=== PATIENT | male | born 1945 | race Caucasian/White ===

== ENCOUNTER 2020-12-03 09:38 | Outpatient (REF) | payer MEDICARE, MEDICAID, SELFPAY ==
--- NOTE | ~2020-12-03 | XR_ITS ---
EXAMINATION: RIGHT ANKLE AND RIGHT FOOT. CLINICAL INFORMATION: Pain right ankle and right foot. COMPARISON: None TECHNIQUE: Right foot 3 views. Right ankle 2 views. FINDINGS: Right ankle: There is no visible fracture, dislocation or subluxation. The ankle mortise and subtalar joints are normal. There is a small calcaneal heel and moderate retrocalcaneal enthesophyte. The soft tissues are normal. Right foot: There is no visible acute fracture, dislocation or subluxation. There is mild periarticular spurring involving the cuboid and proximal fourth metatarsal The soft tissues are normal. XR/XR foot RT min 3V IMPRESSION: No visible acute fracture, dislocation or subluxation right foot or right ankle. Mild degenerative arthritic changes fourth tarsometatarsal joint. Moderate retrocalcaneal small calcaneal heel enthesophyte.
--- NOTE | ~2020-12-03 | XR_ITS ---
EXAMINATION: RIGHT ANKLE AND RIGHT FOOT. CLINICAL INFORMATION: Pain right ankle and right foot. COMPARISON: None TECHNIQUE: Right foot 3 views. Right ankle 2 views. FINDINGS: Right ankle: There is no visible fracture, dislocation or subluxation. The ankle mortise and subtalar joints are normal. There is a small calcaneal heel and moderate retrocalcaneal enthesophyte. The soft tissues are normal. Right foot: There is no visible acute fracture, dislocation or subluxation. There is mild periarticular spurring involving the cuboid and proximal fourth metatarsal The soft tissues are normal. XR/XR ankle RT min 3V IMPRESSION: No visible acute fracture, dislocation or subluxation right foot or right ankle. Mild degenerative arthritic changes fourth tarsometatarsal joint. Moderate retrocalcaneal small calcaneal heel enthesophyte.
--- NOTE | ~2020-12-03 | XR_ITS ---
EXAMINATION: XR CHEST CLINICAL INFORMATION: Abnormal weight loss COMPARISON: Previous chest x-ray most recent March [address] June 2019 TECHNIQUE: 2 views of the chest were obtained. FINDINGS: The cardiac and mediastinal contours are stable. There is mild left apical pleural thickening. The lungs are clear. There is no pleural effusion or pneumothorax. Bony structures are unremarkable. XR/XR chest 2V IMPRESSION: No evidence for acute disease in the chest.
== END 2020-12-03 09:39 | disposition home or self-care (01) ==
LOC: HO.LAB 09:38
PROVIDERS: Visit Provider Emergency Medicine
DX: M25.571 Pain in right ankle and joints of right foot (principal); M79.671 Pain in right foot; R63.4 Abnormal weight loss
CPT/HCPCS: 71046; 73610; 73630

== ENCOUNTER → 2020-12-23 08:48 | Outpatient (BNVA) | payer MEDICARE, MEDICAID, SELFPAY | PROVIDERS: PCP Family Medicine; Visit Provider Physician Assistant | DX: M72.2 Plantar fascial fibromatosis (principal) | CPT/HCPCS: 99202 ==

== ENCOUNTER → 2021-01-15 10:00 | Outpatient (BNVA) | payer MEDICAID, MEDICARE, SELFPAY | PROVIDERS: PCP Internal Medicine; Visit Provider Internal Medicine Gastroenterology ==

== ENCOUNTER 2021-01-17 10:36 | Emergency (ER) | payer MEDICARE, MEDICAID, SELFPAY ==
[2021-01-17 10:43] VITALS: BP 158/73; PULSE 84; RESP 18; TEMP 36.9; O2SAT 99; BMI 19.9
[2021-01-17] MEDS: Lidocaine HCl 1 % MPF 5 ML VIAL SUBCUT (12:29)
--- NOTE | 2021-01-17 13:38 | ED_ITS ---
HPI - Wound/Laceration General Chief Complaint: Wound/Laceration Stated Complaint: back pain Time Seen by Provider: 01/17/21 12:04 Source: patient Mode of arrival: ambulatory History of Present Illness HPI narrative: 75-year-old male with a past medical history of hypertension, hyperlipidemia, diabetes, CVA, diverticulosis, chronic back pain, degenerative disc disease, latent TB and Parkinson's disease, presenting to the ED, complaining of abscess noted to left upper buttock area x 12 days. Denies drainage from area, fever, chills Onset (ago): day(s) Related Data Home Medications Medication Instructions Recorded Confirmed aspirin 81 mg tablet,delayed 81 mg PO DAILY 12/23/20 01/15/21 release carbidopa 25 mg-levodopa 100 mg 1 tab PO BID 12/23/20 01/15/21 tablet ezetimibe 10 mg tablet 10 mg PO DAILY 12/23/20 01/15/21 fluticasone propionate 50 1 spray INTRANASAL DAILY 12/23/20 01/15/21 mcg/actuation nasal spray,suspension hydrochlorothiazide 25 mg tablet 25 mg PO DAILY 12/23/20 lisinopril 2.5 mg tablet 2.5 mg PO DAILY 12/23/20 meclizine 12.5 mg tablet 12.5 mg PO BID 12/23/20 melatonin 3 mg capsule 3 mg PO BEDTIME PRN 12/23/20 nut.tx.glucose intolerance,soy ea PO 12/23/20 rosuvastatin 5 mg tablet 5 mg PO DAILY 12/23/20 silver sulfadiazine 1 % topical 1 appl TOPICAL DAILY 12/23/20 cream temazepam 7.5 mg capsule 7.5 mg PO BEDTIME 12/23/20 timolol 0.25 % eye drops 1 drp OPHTHALMIC (EYE) DAILY 12/23/20 travoprost 0.004 % eye drops 1 drp OPHTHALMIC (EYE) QPM 12/23/20 triamcinolone acetonide 55 mcg 1 spray INTRANASAL DAILY 12/23/20 nasal spray aerosol acetaminophen 325 mg tablet 650 mg PO Q6H PRN 01/15/21 01/15/21 amlodipine 10 mg tablet 10 mg PO DAILY 01/15/21 01/15/21 blood pressure test kit-large #1 ea 01/15/21 01/15/21 cholecalciferol (vitamin D3) 50 50 mcg PO DAILY 01/15/21 01/15/21 mcg (2,000 unit) tablet doxepin 10 mg capsule 10 mg PO BEDTIME 01/15/21 01/15/21 latanoprost 0.005 % eye drops 1 drp OPHTHALMIC-RIGHT BEDTIME 01/15/21 01/15/21 meloxicam 15 mg tablet 15 mg PO DAILY 01/15/21 01/15/21 pramipexole 0.5 mg tablet 0.5 mg PO BEDTIME 01/15/21 01/15/21 Previous Rx's Medication Instructions Recorded cephalexin 500 mg PO QID 7 Days #28 cap 01/17/21 doxycycline hyclate 100 mg PO BID 7 Days #14 tab 01/17/21 Allergies Allergy/AdvReac Type Severity Reaction Status Date / Time No Known Allergies Allergy Unknown NKA Verified 01/17/21 10:53 Review of Systems Review of Systems: Constitutional: No Fever, No Chills Musculoskeletal: No joint pain, No Myalgias, No Joint Swelling Skin: +abscess, No rash Neuro: No Weakness, No Numbness, No Paresthesias Yes all other systems are reviewed and are negative [facility] Past Medical History Attestation statement: The following information was validated with the patient. Surgical History (Updated 01/15/21 @ 10:04 by Shirley Ramírez) Hx of colonoscopy (Unknown) Social History Social History (Updated 01/15/21 @ 10:05 by Shirley Ramírez) Alcohol intake: former Smoking Status: Former smoker Advance Directives: No Advance Directives Information Provided: Yes Current occupational status: unemployed Current occupation: retired Physical Exam Vital Signs: Vital Signs: Last Vital Signs Temp 98.5 F 01/17/21 10:43 Pulse 84 01/17/21 10:43 Resp 18 01/17/21 10:43 BP 158/73 H 01/17/21 10:43 Pulse Ox 99 01/17/21 10:43 Body Mass Index 19.9 Const: General: cooperative and healthy appearing Buster entation/consciousness: patient oriented x3 Limitations: no limitations HENMT: Head: Yes normal to inspection Ears: hearing grossly normal bilaterally General nose exam: Normal external nose present Face and sinus: Yes normal facial exam Eyes: General: appearance normal, both eyes and all related structures EOM: EOMs intact bilaterally Neck: Neck: Yes normal visual inspection Resp: Effort & Inspection: normal respiratory effort Cardio: Rate: regular rate Skin: Other: + fluctuant cellulitic abscess noted to left upper buttock with mild peripheral induration. No streaking Rashes: no rashes Wounds: no wounds Neuro: General: patient oriented x3 Extrem: General: Yes normal to inspection Procedures Abscess I/D Site: lower extremity (Left buttock) Side (if applicable): left Local Anesthetic: lidocaine 1% Amount of anesthesia used (mL): 5 Technique: incised with blade Sent for culture/gram staining?: No Packing used?: iodoform MDM - Wound/Laceration MDM Narrative Medical decision making narrative: On exam VSS, NAD/well-appearing, physical exam as above, the I&D abscess Differential Diagnosis Differential diagnosis: Likely abscess Discharge Plan Discharge Clinical Impression: Abscess Patient Disposition: Home, Self-Care Instructions: Abscess (ED), Abscess Follow-up (ED) Additional Instructions: You have an abscess was drained today in the emergency department, packing was placed. You need to return to the emergency department in 2 days to have the packing removed. Doxycycline and Keflex for antibiotics, take as prescribed. Keep an eye on the area, if it is worsening, continues to have drainage, redness spreading, you fever return to the ED sooner. Tiene un absceso que fue drenado hoy en el departamento de emergencias, se coloc? un empaque. Debe regresar al departamento de emergencias en 2 d?as para que le quiten el empaque. Doxiciclina y Keflex para antibi?ticos, t?melos seg?n lo prescrito. Vigile el ?pieter, si est? empeorando, sigue teniendo supuraci?n, el enrojecimiento se extiende, la fiebre regresa antes al servicio de urgencias. Prescriptions: New cephalexin 500 mg capsule 500 mg PO QID 7 Days Qty: 28 RF: 0 doxycycline hyclate 100 mg tablet 100 mg PO BID 7 Days Qty: 14 RF: 0 No Action carbidopa-levodopa [Sinemet] 25-100 mg tablet 1 tab PO BID RF: 0 fluticasone propionate [Children's Flonase Allergy Rlf] 50 mcg/actuation spray,suspension 1 spray intranasal DAILY RF: 0 ezetimibe [Zetia] 10 mg tablet 10 mg PO DAILY RF: 0 aspirin [Adult Low Dose Aspirin] 81 mg tablet,delayed release (DR/EC) 81 mg PO DAILY RF: 0 pramipexole 0.5 mg tablet 0.5 mg PO BEDTIME RF: 0 acetaminophen 325 mg tablet 650 mg PO Q6H PRN (Reason: pain) RF: 0 doxepin 10 mg capsule 10 mg PO BEDTIME RF: 0 meloxicam 15 mg tablet 15 mg PO DAILY RF: 0 (DME) blood pressure test kit-large Kit See Rx Instructions ea .ROUTE DIRECTED Qty: 1 RF: 0 latanoprost 0.005 % drops 1 drp ophthalmic-Right BEDTIME RF: 0 cholecalciferol (vitamin D3) 50 mcg (2,000 unit) tablet 50 mcg PO DAILY RF: 0 amlodipine 10 mg tablet 10 mg PO DAILY RF: 0 Referrals: Roosevelt Root MD [Emergency Provider] - 2 days (For packing removal) Interventions: ED Discharge Assessment Last Done: 01/17/21 13:50 Discharge Date/Time: 01/17/21 13:30 Print Language: Slovenian
== END 2021-01-17 13:30 | disposition home or self-care (01) ==
PROVIDERS: Emergency Provider Emergency Medicine; PCP Internal Medicine
DX: L02.31 Cutaneous abscess of buttock (principal); Z87.891 Personal history of nicotine dependence; Z79.899 Other long term (current) drug therapy; Z79.82 Long term (current) use of aspirin
CPT/HCPCS: 10060; 99283

== ENCOUNTER 2021-01-19 08:29 | Emergency (ER) | payer MEDICARE, MEDICAID, SELFPAY ==
--- NOTE | 2021-01-19 08:39 | ED.SKABFB ---
HPI - Skin/Abscess/Foreign Bdy General Chief complaint: Skin/Abscess/Foreign Body Stated complaint: wound check Time Seen by Provider: 01/19/21 08:39 Source: patient Mode of arrival: ambulatory Limitations: language barrier History of Present Illness HPI narrative: Patient was seen 2 days prior with a left hip abscess, here for packing removal and wound check. Blood sugars at home have been running 116 complaint: abscess/boil Onset (ago): day(s) Location: LLE Severity: mild Pain Consistency: intermittent Exacerbating factors: none Associated symptoms: denies other symptoms Related Data Home Medications Medication Instructions Recorded Confirmed aspirin 81 mg tablet,delayed 81 mg PO DAILY 12/23/20 01/15/21 release carbidopa 25 mg-levodopa 100 mg 1 tab PO BID 12/23/20 01/15/21 tablet ezetimibe 10 mg tablet 10 mg PO DAILY 12/23/20 01/15/21 fluticasone propionate 50 1 spray INTRANASAL DAILY 12/23/20 01/15/21 mcg/actuation nasal spray,suspension hydrochlorothiazide 25 mg tablet 25 mg PO DAILY 12/23/20 lisinopril 2.5 mg tablet 2.5 mg PO DAILY 12/23/20 meclizine 12.5 mg tablet 12.5 mg PO BID 12/23/20 melatonin 3 mg capsule 3 mg PO BEDTIME PRN 12/23/20 cindy.antoni.glucose intolerance,soy ea PO 12/23/20 rosuvastatin 5 mg tablet 5 mg PO DAILY 12/23/20 silver sulfadiazine 1 % topical 1 appl TOPICAL DAILY 12/23/20 cream temazepam 7.5 mg capsule 7.5 mg PO BEDTIME 12/23/20 timolol 0.25 % eye drops 1 drp OPHTHALMIC (EYE) DAILY 12/23/20 travoprost 0.004 % eye drops 1 drp OPHTHALMIC (EYE) QPM 12/23/20 triamcinolone acetonide 55 mcg 1 spray INTRANASAL DAILY 12/23/20 nasal spray aerosol acetaminophen 325 mg tablet 650 mg PO Q6H PRN 01/15/21 01/15/21 amlodipine 10 mg tablet 10 mg PO DAILY 01/15/21 01/15/21 blood pressure test kit-large #1 ea 01/15/21 01/15/21 cholecalciferol (vitamin D3) 50 50 mcg PO DAILY 01/15/21 01/15/21 mcg (2,000 unit) tablet doxepin 10 mg capsule 10 mg PO BEDTIME 01/15/21 01/15/21 latanoprost 0.005 % eye drops 1 drp OPHTHALMIC-RIGHT BEDTIME 01/15/21 01/15/21 meloxicam 15 mg tablet 15 mg PO DAILY 01/15/21 01/15/21 pramipexole 0.5 mg tablet 0.5 mg PO BEDTIME 01/15/21 01/15/21 Previous Rx's Medication Instructions Recorded cephalexin 500 mg PO QID 7 Days #28 cap 01/17/21 doxycycline hyclate 100 mg PO BID 7 Days #14 tab 01/17/21 Allergies Allergy/AdvReac Type Severity Reaction Status Date / Time No Known Allergies Allergy Unknown NKA Verified 01/17/21 10:53 Review of Systems Constitutional: Constitutional: Reports no additional constitutional complaints Eyes: Eyes: Reports no additional eye complaints ENT: Denies dizziness Cardiovascular: Cardiovascular: Reports no additional cardiovascular complaints Respiratory: Respiratory: Reports as per HPI Gastrointestinal: Gastrointestinal: Reports no additional gastrointestinal complaints Musculoskeletal: Musculoskeletal: Reports no additional musculoskeletal complaints Integumentary/Breasts: Skin/Breast: Denies rash Neurologic: Reports system reviewed and no additional complaints, except as documented, Denies dizziness and Denies Sensory deficit (Neuro) Psychiatric: Psychiatric: Denies anxiety [facility] Past Medical History Surgical History (Updated 01/15/21 @ 10:04 by Shirley Ramírez) Hx of colonoscopy (Unknown) Social History Social History Alcohol intake: former Smoking Status: Former smoker Advance Directives: No Advance Directives Information Provided: Yes Current occupational status: unemployed Current occupation: retired Physical Exam Const: Other: Frail male with shuffling gate and obvious parkinsonism Nutritional Appearance: cachectic and thin Orientation/consciousness: oriented to person and patient oriented x3 Limitations: no limitations HENMT: Head: Yes normal to inspection Ears: external ears normal General nose exam: Normal external nose present Mouth: Normal oral and palatal mucosa present and oropharynx normal Throat: Yes posterior oropharynx normal Eyes: General: appearance normal, both eyes and all related structures Neck: Other: supple Neck: Yes normal visual inspection Chest: Chest palpation & inspection: normal inspection of the chest Resp: Auscultation: clear to auscultation bilaterally Cardio: Jugular venous distension: no JVD Rate: regular rate Rhythm: regular rhythm Heart sounds: S1 normal heart sound present and S2 normal heart sound present GI: Inspection: Yes normal to inspection Palpation (GI): Soft to palpation, nontender and No hepatosplenomegaly present Auscultation: normal bowel sounds : General: Yes no CVA tenderness Back/Spine/Pelvis: Back: no CVA tenderness Skin: Other: left hip with abscess, packing removed, no drainage or erythema Neuro: General: oriented to person and patient oriented x3 Cranial nerves: Yes CN's II-XII intact bilaterally Motor exam (neuro): 5/5 motor strength present throughout Sensory Exam: No Sensory deficit (Neuro) Extrem: General: Yes normal to inspection Psych: Appearance: grossly normal MDM - Skin/Abscess/Foreign Bdy MDM Narrative Medical decision making narrative: packing removal, wound looks good will dc home Discharge Plan Discharge Clinical Impression: Abscess of skin or subcutaneous tissue Qualifiers: Site of cutaneous abscess: buttock Qualified Code(s): L02.31 - Cutaneous abscess of buttock Patient Disposition: Home, Self-Care Instructions: Abscess (ED) Prescriptions: No Action cephalexin 500 mg capsule 500 mg PO QID 7 Days Qty: 28 RF: 0 doxycycline hyclate 100 mg tablet 100 mg PO BID 7 Days Qty: 14 RF: 0 carbidopa-levodopa [Sinemet] 25-100 mg tablet 1 tab PO BID RF: 0 fluticasone propionate [Children's Flonase Allergy Rlf] 50 mcg/actuation spray,suspension 1 spray intranasal DAILY RF: 0 ezetimibe [Zetia] 10 mg tablet 10 mg PO DAILY RF: 0 aspirin [Adult Low Dose Aspirin] 81 mg tablet,delayed release (DR/EC) 81 mg PO DAILY RF: 0 pramipexole 0.5 mg tablet 0.5 mg PO BEDTIME RF: 0 acetaminophen 325 mg tablet 650 mg PO Q6H PRN (Reason: pain) RF: 0 doxepin 10 mg capsule 10 mg PO BEDTIME RF: 0 meloxicam 15 mg tablet 15 mg PO DAILY RF: 0 (DME) blood pressure test kit-large Kit See Rx Instructions ea .ROUTE DIRECTED Qty: 1 RF: 0 latanoprost 0.005 % drops 1 drp ophthalmic-Right BEDTIME RF: 0 cholecalciferol (vitamin D3) 50 mcg (2,000 unit) tablet 50 mcg PO DAILY RF: 0 amlodipine 10 mg tablet 10 mg PO DAILY RF: 0 Referrals: Chelo Smith MD [Primary Care Provider] - 2 days
[2021-01-19 08:48] VITALS: BP 162/69; PULSE 86; RESP 18; TEMP 36.8; O2SAT 100; BMI 20.5
== END 2021-01-19 09:28 | disposition home or self-care (01) ==
PROVIDERS: Emergency Provider Emergency Medicine; PCP Internal Medicine
DX: Z48.01 Encounter for change or removal of surgical wound dressing (principal); L02.416 Cutaneous abscess of left lower limb
CPT/HCPCS: 99283

== ENCOUNTER 2021-03-30 09:55 | Outpatient (REF) | payer MEDICARE, MEDICAID, SELFPAY ==
[2021-03-30 10:27] LABS: MANUAL DIFF FLAG NO
[2021-03-30 10:38] LABS: Basophils Percent Auto 0.3 % (0-2); Eosinophils Absolute Auto 0.6 X10*3/uL (0.0-0.4); Eosinophils Percent Auto 6.7 % (0-4); Hematocrit 36.4 % (42-52); Hemoglobin 11.8 g/dl (14.0-18.0); Imm Gran Abs Auto 0.03 X10*3/uL (0.00-0.03); Imm Gran Pct Auto 0.3 % (0.0-0.4); Lymphocytes Absolute Auto 2.6 X10*3/uL (1.2-4.9); Lymphocytes Percent Auto 29.3 % (20-40); Mean Corpuscular HGB Conc 32.4 g/dl (31.0-36.0); Mean Corpuscular Hemoglobin 28.3 pg (27.0-33.0); Mean Corpuscular Volume 87.3 fL (80-98); Mean Platelet Volume 9.7 fL (9.4-12.4); Monocytes Absolute Auto 0.7 X10*3/uL (0.1-1.2); Monocytes Percent Auto 7.8 % (2-11); Neutrophils Absolute Auto 4.9 X10*3/uL (2.0-8.3); Neutrophils Percent Auto 55.6 % (45-73); Platelet Count 225 X10*3/uL (160-400); Red Blood Count 4.17 X10*6/uL (4.60-5.80); Red Cell Distribution Width 14.2 % (11.0-16.0); White Blood Count 8.9 X10*3/uL (4.8-10.8)
[2021-03-30 10:56] LABS: Alanine Aminotransferase 12 U/L (0-40); Albumin Level 4.1 g/dL (3.5-5.0); Alkaline Phosphatase 138 U/L (39-117); Anion Gap 10 (12-20); Aspartate Amino Transferase 19 U/L (5-37); Bilirubin Total 0.5 mg/dL (0.0-1.0); Blood Urea Nitrogen 20 mg/dL (9-16); Calcium 9.3 mg/dL (8.4-10.2); Carbon Dioxide 28 mmol/L (22-29); Chloride 105 mmol/L (96-108); Estimated Glomerular Filt Rate > 60; Glucose Random 105 mg/dL (60-115); Lactate Dehydrogenase 238 U/L (118-273); Potassium 4.4 mmol/L (3.3-5.1); Sodium 139 mmol/L (135-145); Total Protein 6.9 g/dL (6.5-8.0)
== END 2021-03-30 09:56 | disposition home or self-care (01) ==
LOC: HO.LAB 09:55
PROVIDERS: PCP Internal Medicine; Visit Provider Family Medicine
DX: R59.0 Localized enlarged lymph nodes (principal)
CPT/HCPCS: 36415; 80053; 83615; 85025

== ENCOUNTER → 2021-04-02 11:02 | Outpatient (BNVA) | payer OTHER, MEDICAID, SELFPAY | PROVIDERS: Referring Provider Internal Medicine; Visit Provider Internal Medicine Gastroenterology ==

== ENCOUNTER 2021-04-28 12:46 | Day surgery (SDC) | payer OTHER, MEDICAID, SELFPAY ==
--- NOTE | 2021-04-24 09:54 | HO.ANESPROP2 ---
Documented by User: Jenna Roperney 04/24/21 09:59 HPI - Anesthesia Eval Consult details Narrative: 75yo M for Upper Endoscopy PMFSH Active Problems Active Problems: All Active Problems (Updated 04/02/21 @ 19:00 by Albaro Russo MD) Colon cancer screening (Acute) Weight loss (Acute) Dysphagia, pharyngoesophageal phase (Acute) Plantar fasciitis of right foot (Acute) Past Medical History Medical History Allergic rhinitis Back pain Cerebral microvascular disease Degenerative disc disease Diabetes Diverticulosis HLD (hyperlipidemia) HTN (hypertension) Latent tuberculosis Parkinson disease Surgical History Surgical History Hx of colonoscopy (~06/2018) Social History Social History Alcohol intake: former Advance Directives: No Advance Directives Information Provided: Yes Current occupational status: unemployed Current occupation: retired Health: [employer] Allergies Allergy/AdvReac Type Severity Reaction Status Date / Time No Known Allergies Allergy Unknown NKA Verified 04/02/21 11:07 Home Medications Medication Instructions Recorded Confirmed Last Taken Type aspirin 81 mg tablet,delayed 81 mg PO DAILY 12/23/20 04/02/21 Unknown History release carbidopa 25 mg-levodopa 100 mg 1 tab PO BID 12/23/20 04/02/21 Unknown History tablet ezetimibe 10 mg tablet 10 mg PO DAILY 12/23/20 04/02/21 Unknown History fluticasone propionate 50 1 spray INTRANASAL DAILY 12/23/20 04/02/21 Unknown History mcg/actuation nasal spray,suspension hydrochlorothiazide 25 mg tablet 25 mg PO DAILY 12/23/20 04/02/21 Unknown History lisinopril 2.5 mg tablet 2.5 mg PO DAILY 12/23/20 04/02/21 Unknown History meclizine 12.5 mg tablet 12.5 mg PO BID 12/23/20 04/02/21 Unknown History melatonin 3 mg capsule 3 mg PO BEDTIME PRN 12/23/20 04/02/21 Unknown History nut.tx.glucose intolerance,soy ea PO 12/23/20 04/02/21 Unknown History rosuvastatin 5 mg tablet 5 mg PO DAILY 12/23/20 04/02/21 Unknown History silver sulfadiazine 1 % topical 1 appl TOPICAL DAILY 12/23/20 04/02/21 Unknown History cream temazepam 7.5 mg capsule 7.5 mg PO BEDTIME 12/23/20 04/02/21 Unknown History timolol 0.25 % eye drops 1 drp OPHTHALMIC (EYE) DAILY 12/23/20 04/02/21 Unknown History travoprost 0.004 % eye drops 1 drp OPHTHALMIC (EYE) QPM 12/23/20 04/02/21 Unknown History triamcinolone acetonide 55 mcg 1 spray INTRANASAL DAILY 12/23/20 04/02/21 Unknown History nasal spray aerosol acetaminophen 325 mg tablet 650 mg PO Q6H PRN 01/15/21 04/02/21 Unknown History amlodipine 10 mg tablet 10 mg PO DAILY 01/15/21 04/02/21 Unknown History blood pressure test kit-large #1 ea 01/15/21 04/02/21 Unknown History cholecalciferol (vitamin D3) 50 50 mcg PO DAILY 01/15/21 04/02/21 Unknown History mcg (2,000 unit) tablet doxepin 10 mg capsule 10 mg PO BEDTIME 01/15/21 04/02/21 Unknown History latanoprost 0.005 % eye drops 1 drp OPHTHALMIC-RIGHT BEDTIME 01/15/21 04/02/21 Unknown History meloxicam 15 mg tablet 15 mg PO DAILY 01/15/21 04/02/21 Unknown History pramipexole 0.5 mg tablet 0.5 mg PO BEDTIME 01/15/21 04/02/21 Unknown History Exam Exam Date and Time: April 24, 2021 0954 Narrative Narrative: XR chest 2V 11/2020 IMPRESSION: No evidence for acute disease in the chest. Assessment and Plan Assessment Anesthesia Assessment: Chart Reviewed Documented by User: Logan Henderson MD 04/28/21 13:22 HPI - Anesthesia Eval Consult details Narrative: Did not take Dopa this AM; counseled to take Parkinson meds in the future on DOS PMFSH Past Medical History Medical History Allergic rhinitis Back pain Cerebral microvascular disease Degenerative disc disease Diabetes Diverticulosis HLD (hyperlipidemia) HTN (hypertension) Latent tuberculosis Parkinson disease Surgical History Surgical History Hx of colonoscopy (~06/2018) Social History Social History Alcohol intake: former Advance Directives: No Advance Directives Information Provided: Yes Current occupational status: unemployed Current occupation: retired Meds Allergies Allergy/AdvReac Type Severity Reaction Status Date / Time No Known Allergies Allergy Unknown NKA Verified 04/02/21 11:07 Home Medications Medication Instructions Recorded Confirmed Last Taken Type aspirin 81 mg tablet,delayed 81 mg PO DAILY 12/23/20 04/02/21 Unknown History release carbidopa 25 mg-levodopa 100 mg 1 tab PO BID 12/23/20 04/02/21 Unknown History tablet ezetimibe 10 mg tablet 10 mg PO DAILY 12/23/20 04/02/21 Unknown History fluticasone propionate 50 1 spray INTRANASAL DAILY 12/23/20 04/02/21 Unknown History mcg/actuation nasal spray,suspension hydrochlorothiazide 25 mg tablet 25 mg PO DAILY 12/23/20 04/02/21 Unknown History lisinopril 2.5 mg tablet 2.5 mg PO DAILY 12/23/20 04/02/21 Unknown History meclizine 12.5 mg tablet 12.5 mg PO BID 12/23/20 04/02/21 Unknown History melatonin 3 mg capsule 3 mg PO BEDTIME PRN 12/23/20 04/02/21 Unknown History nut.tx.glucose intolerance,soy ea PO 12/23/20 04/02/21 Unknown History rosuvastatin 5 mg tablet 5 mg PO DAILY 12/23/20 04/02/21 Unknown History silver sulfadiazine 1 % topical 1 appl TOPICAL DAILY 12/23/20 04/02/21 Unknown History cream temazepam 7.5 mg capsule 7.5 mg PO BEDTIME 12/23/20 04/02/21 Unknown History timolol 0.25 % eye drops 1 drp OPHTHALMIC (EYE) DAILY 12/23/20 04/02/21 Unknown History travoprost 0.004 % eye drops 1 drp OPHTHALMIC (EYE) QPM 12/23/20 04/02/21 Unknown History triamcinolone acetonide 55 mcg 1 spray INTRANASAL DAILY 12/23/20 04/02/21 Unknown History nasal spray aerosol acetaminophen 325 mg tablet 650 mg PO Q6H PRN 01/15/21 04/02/21 Unknown History amlodipine 10 mg tablet 10 mg PO DAILY 01/15/21 04/02/21 Unknown History blood pressure test kit-large #1 ea 01/15/21 04/02/21 Unknown History cholecalciferol (vitamin D3) 50 50 mcg PO DAILY 01/15/21 04/02/21 Unknown History mcg (2,000 unit) tablet doxepin 10 mg capsule 10 mg PO BEDTIME 01/15/21 04/02/21 Unknown History latanoprost 0.005 % eye drops 1 drp OPHTHALMIC-RIGHT BEDTIME 01/15/21 04/02/21 Unknown History meloxicam 15 mg tablet 15 mg PO DAILY 01/15/21 04/02/21 Unknown History pramipexole 0.5 mg tablet 0.5 mg PO BEDTIME 01/15/21 04/02/21 Unknown History Exam Airway Mallampati Class: III TM Dist: <=3cm Neck ROM: Full Denture: Upper and Lower Heart: RRR Assessment and Plan Assessment Anesthesia Assessment: Anesthesia Plan Discussed and Chart Reviewed Final Anesthetic Review NPO: Yes ASA Class: III Final Preanesthetic Review: No Changes in Pt Med Stat, Meds/Allgs Chart Reviewed, Consent Obtained/Reviewed and Anes Risks/Benef Reviewed Patient Risk: Intermediate Procedure Risk: Low Anesthetic Plan Anesthetic Plan: MAC: Disposition: Standard PACU
[2021-04-28 13:13] VITALS: BP 163/77; PULSE 87; RESP 18; TEMP 37.1; O2SAT 98
[2021-04-28] MEDS: Lactated Ringers 1,000 ML 50 ML IVCONT (13:44)
[2021-04-28 13:50] VITALS: BMI 23.1
--- NOTE | 2021-04-28 13:55 | PM.OP ---
Brief Operative Note Date of Service: 04/28/21 Pre-op diagnosis: Dysphagia Post-op diagnosis: other (Dysphagia, gastritis) Procedure: FLEXIBLE TRANSORAL UPPER GASTROINTESTINAL ENDOSCOPY WITH BIOPSIES AND ESOPHAGEAL BALLOON DILATION Consent: Indications for the procedure and potential complications of bleeding, perforation, reaction to medications and missed diagnosis were discussed with the patient and informed consent was obtained. Instrument: Olympus GIF H 190 mid size upper endoscope Monitoring: Vital signs and clinical assessment, continuous EKG monitoring, Pulse oximetry, Carbon Dioxide monitoring and blood pressure monitoring were done throughout the procedure. Procedure: The patient was placed in the left lateral decubitis position and pre-procedure medications were administered and a bite block was placed. The endoscope was inserted into the mouth and advanced under direct vision to the third part of duodenum. A careful inspection was made as the upper endoscope was withdrawn including a retroflexed examination of the proximal stomach; Findings and interventions are described below. Findings: Larynx: Normal Esophagus: GE junction at 40 cms. No esophagitis, Espinosa's or stricture Esophageal balloon dilation was performed with 19 and 20 mm CRE balloon x 60 seconds at each level Stomach: Mild diffuse gastric erythema. Biopsies were obtained. Grade 2 flap valve on retroflexed examination of the cardia. Duodenum: Normal bulb and descending duodenum Intervention: Biopsies and balloon dilation as noted above Impression and Post Procedure Diagnosis: Endoscopy Findings: ESOPHAGUS: GE junction at 40 cms. No esophagitis or Espinosa. Esophageal balloon dilation was performed with 19 and 20 mm CRE balloon x 60 seconds at each level STOMACH: Gastritis Plan: Await pathology results Patient has an appointment on 05/28/21 in the GI Clinic with Albaro Russo M.D.-. Above findings were reviewed with the patient. Surgeon: Albaro Russo MD Anesthesia: MAC (Kay Reeder CRNA) Was an Ball Point Splitter used for this Procedure?: Yes Ball Point Splitter: Vannesa Ahmadi Estimated blood loss (mL): 0 Pathology: other (A- GASTRIC ANTRUM- R/O H.PYLORI) Condition: stable Disposition: PACU
--- NOTE | 2021-04-28 13:56 | MHC.SHP ---
Pre-Procedural Eval Section A Date of Service: 04/28/21 The patient is an INPATIENT: No Changes since office visit: Yes Patient answered all questions; No Cold of Flu in the past 2 weeks, No New Medical Problems and No Changes in Medication The History & Physical has been completed within 30 days and I have reviewed it.: Yes Section B Chief Complaint: Abnormal Weight Loss, Dysphagia Allergies: Allergies Allergy/AdvReac Type Severity Reaction Status Date / Time No Known Allergies Allergy Unknown NKA Verified 04/02/21 11:07 Exam Surgical H&P Exam: Normal: Heart, Normal: Lungs, Normal: Extremities and Normal: Abdomen Plan I have reviewed the history and physical and performed a pertinent physical examination on my patient. No changes have occurred unless specified.
[2021-04-28 14:40] VITALS: BP 123/65; PULSE 75; RESP 16; TEMP 36.8; O2SAT 100
[2021-04-28 14:54] VITALS: BP 151/70; PULSE 75; RESP 16; TEMP 36.8; O2SAT 99
--- NOTE | 2021-05-01 18:21 | W.PM.OPN ---
Operative Note Operative Note Date of Service: 04/28/21 Narrative: Pre-op diagnosis: Dysphagia Post-op diagnosis: other (Dysphagia, gastritis) Procedure: FLEXIBLE TRANSORAL UPPER GASTROINTESTINAL ENDOSCOPY WITH BIOPSIES AND ESOPHAGEAL BALLOON DILATION Consent: Indications for the procedure and potential complications of bleeding, perforation, reaction to medications and missed diagnosis were discussed with the patient and informed consent was obtained. Instrument: Olympus GIF H 190 mid size upper endoscope Monitoring: Vital signs and clinical assessment, continuous EKG monitoring, Pulse oximetry, Carbon Dioxide monitoring and blood pressure monitoring were done throughout the procedure. Procedure: The patient was placed in the left lateral decubitis position and pre-procedure medications were administered and a bite block was placed. The endoscope was inserted into the mouth and advanced under direct vision to the third part of duodenum. A careful inspection was made as the upper endoscope was withdrawn including a retroflexed examination of the proximal stomach; Findings and interventions are described below. Findings: Larynx: Normal Esophagus: GE junction at 40 cms. No esophagitis, Espinosa's or stricture Esophageal balloon dilation was performed with 19 and 20 mm CRE balloon x 60 seconds at each level Stomach: Mild diffuse gastric erythema. Biopsies were obtained. Grade 2 flap valve on retroflexed examination of the cardia. Duodenum: Normal bulb and descending duodenum Intervention: Biopsies and balloon dilation as noted above Impression and Post Procedure Diagnosis: Endoscopy Findings: ESOPHAGUS: GE junction at 40 cms. No esophagitis or Espinosa. Esophageal balloon dilation was performed with 19 and 20 mm CRE balloon x 60 seconds at each level STOMACH: Gastritis Plan: Await pathology results Patient has an appointment on 05/28/21 in the GI Clinic with Albaro Russo M.D.-. Above findings were reviewed with the patient. Surgeon: Albaro Russo MD Anesthesia: MAC (Kay Reeder CRNA) Was an Cytotechnologist Supervisor used for this Procedure?: Yes Cytotechnologist Supervisor: Vannesa Ahmadi Estimated blood loss (mL): 0 Pathology: other (A- GASTRIC ANTRUM- R/O H.PYLORI) Condition: stable Disposition: PACU
== END 2021-04-28 15:33 | disposition home or self-care (01) ==
PROVIDERS: PCP Internal Medicine; Visit Provider Internal Medicine Gastroenterology
PROC: 0DJ08ZZ Inspection of Upper Intestinal Tract, Via Natural or Artificial Opening Endoscopic (ICD-10-PCS; CPT 43235; principal; 2021-04-28 14:40)
DX: R13.14 Dysphagia, pharyngoesophageal phase (principal); K29.50 Unspecified chronic gastritis without bleeding; B96.81 Helicobacter pylori [H. pylori] as the cause of diseases classified elsewhere; R63.4 Abnormal weight loss; Z68.22 Body mass index [BMI] 22.0-22.9, adult; I67.9 Cerebrovascular disease, unspecified; I10 Essential (primary) hypertension; E78.5 Hyperlipidemia, unspecified; E11.9 Type 2 diabetes mellitus without complications; G20 Parkinson's disease; K57.30 Diverticulosis of large intestine without perforation or abscess without bleeding; J30.9 Allergic rhinitis, unspecified; Z79.899 Other long term (current) drug therapy; Z79.82 Long term (current) use of aspirin; Z22.7 Latent tuberculosis; Z87.891 Personal history of nicotine dependence
CPT/HCPCS: 43249; 43239; 88305; 88342; C1726

== ENCOUNTER 2021-06-08 07:47 | Outpatient (REF) | payer MEDICARE, MEDICAID, SELFPAY ==
--- NOTE | ~2021-06-08 | CT_ITS ---
EXAMINATION: CT SOFT TISSUE NECK WITH CONTRAST CLINICAL INFORMATION: Swelling mass or lump, neck. Enlarged lymph nodes. COMPARISON: None TECHNIQUE: Following the intravenous administration of 60 mL of Omnipaque 350 intravenous contrast, helical imaging was performed in the axial plane with generation of coronal and sagittal reformatted images. This CT examination was performed using dose optimization techniques as appropriate, variously including the following: Automated exposure control Adjustment of mA and/or kV according to patient size (this includes techniques or standardized protocols for targeted exams where dose is matched to indication/reason for exam; i.e. extremities or head) Use of iterative reconstruction technique DLP: 281 mGy-cm FINDINGS: No cervical adenopathy is identified. The parotid glands are homogeneous in attenuation. The submandibular glands are normal. No contour abnormality or pathologic enhancement is seen within the oral cavity or pharyngeal mucosal space. The laryngeal structures are normal. There is a calcification of the stylohyoid ligament with significant thickening and hypertrophy of the right ligament. This may be simulating a hard mass on clinical palpation. No mass is visualized in the pharyngeal region. The parapharyngeal fat is preserved. The carotid sheath vasculature opacify normally. There is medial deviation of the mid carotid arteries medially in the retropharyngeal space. No extra mucosal soft tissue mass or fluid collection is seen. No retropharyngeal fluid collection is seen. The thyroid gland is normal. The superior mediastinum is unremarkable. The lung apices are clear. The mastoid air cells and visualized portions of the paranasal sinuses are well-aerated. The temporomandibular joints are normal. No periapical disease is identified. Moderate degenerative arthritic changes bilaterally, of the first costal sternal joint. No other bony abnormalities are seen. The imaged portions of the brain parenchyma are unremarkable. There is bilateral apical pleural thickening and parenchymal scarring. CT/CT soft tissue neck w con IMPRESSION: No abnormal size mass, abnormal neck lymphadenopathy or soft tissue swelling. Heavily calcified bilateral stylohyoid ligaments are noted with moderate hypertrophic changes of the right ligament. There are degenerative disc changes C5-C6, C6-C7 and C7-T1 disc levels with mild ventral and posterior spondylosis. There is no lytic process.
[2021-06-08 09:11] LABS: Blood Urea Nitrogen 16 mg/dL (9-16); Estimated Glomerular Filt Rate > 60
[2021-06-08] MEDS: iohexoL 350 MG/ML 100 ML INFUS..BTL 60 ML IV (09:57)
== END 2021-06-08 07:48 | disposition home or self-care (01) ==
LOC: HO.CT 07:47
PROVIDERS: Absent Provider Internal Medicine; PCP Internal Medicine; Visit Provider Family Medicine
DX: R93.5 Abnormal findings on diagnostic imaging of other abdominal regions, including retroperitoneum (principal); R22.1 Localized swelling, mass and lump, neck; R59.0 Localized enlarged lymph nodes
CPT/HCPCS: 36415; 70491; 82565; 84520; Q9967

== ENCOUNTER → 2021-08-20 10:49 | Outpatient (BNVA) | payer MEDICARE, MEDICAID, SELFPAY | PROVIDERS: Referring Provider Internal Medicine; Visit Provider Internal Medicine Gastroenterology | DX: R13.14 Dysphagia, pharyngoesophageal phase (principal); R63.4 Abnormal weight loss | CPT/HCPCS: 99212 ==

== ENCOUNTER → 2021-10-22 12:08 | Outpatient (BNVA) | payer MEDICARE, MEDICAID, SELFPAY | PROVIDERS: PCP Internal Medicine; Referring Provider Internal Medicine; Visit Provider Internal Medicine Gastroenterology | DX: Z12.11 Encounter for screening for malignant neoplasm of colon (principal); K29.70 Gastritis, unspecified, without bleeding; R63.4 Abnormal weight loss; R13.14 Dysphagia, pharyngoesophageal phase; B96.81 Helicobacter pylori [H. pylori] as the cause of diseases classified elsewhere | CPT/HCPCS: 99212 ==

== ENCOUNTER 2022-01-21 07:23 | Outpatient (REF) | payer MEDICARE, MEDICAID, SELFPAY ==
[2022-01-23 15:25] LABS: H Pylori Breath Test Positive (Negative)
== END 2022-01-21 07:24 | disposition home or self-care (01) ==
LOC: HO.LNP 07:23
PROVIDERS: PCP Internal Medicine; Referring Provider Internal Medicine; Visit Provider Internal Medicine Gastroenterology
DX: K29.70 Gastritis, unspecified, without bleeding (principal); B96.81 Helicobacter pylori [H. pylori] as the cause of diseases classified elsewhere; R13.14 Dysphagia, pharyngoesophageal phase
CPT/HCPCS: 83013; 99212

== ENCOUNTER 2022-05-12 07:01 | Outpatient (REF) | payer MEDICARE, MEDICAID, SELFPAY ==
[2022-05-12 08:00] LABS: Anion Gap 11 (12-20); Blood Urea Nitrogen 18 mg/dL (9-16); Carbon Dioxide 29 mmol/L (22-29); Chloride 107 mmol/L (96-108); Cholesterol 110 mg/dL; Estimated Glomerular Filt Rate > 60; Glucose Random 100 mg/dL (60-115); HDL Cholesterol 48 mg/dL; LDL Cholesterol Calculated 47 mg/dl; Potassium 4.1 mmol/L (3.3-5.1); Sodium 143 mmol/L (135-145); Triglycerides 75 mg/dL
[2022-05-12 08:31] LABS: Estimated Average Glucose 111 mg/dL; Hemoglobin A1c % 5.5 %
[2022-05-12 09:46] LABS: Creatinine Urine 205.54 mg/dL; Microalbum/Creatinine Ratio Ur 91.9 ug/mg cr
== END 2022-05-12 07:02 | disposition home or self-care (01) ==
LOC: HO.LAB 07:01
PROVIDERS: PCP Internal Medicine; Visit Provider Internal Medicine
DX: G20 Parkinson's disease (principal); G47.00 Insomnia, unspecified; I10 Essential (primary) hypertension; R73.01 Impaired fasting glucose
CPT/HCPCS: 36415; 80048; 80061; 82043; 83036

== ENCOUNTER → 2022-05-27 11:40 | Outpatient (BNVA) | payer MEDICARE, MEDICAID, SELFPAY | PROVIDERS: PCP Internal Medicine; Referring Provider Internal Medicine; Visit Provider Internal Medicine Gastroenterology | DX: K29.70 Gastritis, unspecified, without bleeding (principal); B96.81 Helicobacter pylori [H. pylori] as the cause of diseases classified elsewhere; R63.4 Abnormal weight loss; R13.14 Dysphagia, pharyngoesophageal phase | CPT/HCPCS: 99212 ==

== ENCOUNTER → 2022-10-28 09:06 | Outpatient (BNVA) | payer MEDICARE, MEDICAID, SELFPAY | PROVIDERS: PCP Internal Medicine; Visit Provider Internal Medicine Gastroenterology | DX: K29.70 Gastritis, unspecified, without bleeding (principal); B96.81 Helicobacter pylori [H. pylori] as the cause of diseases classified elsewhere; R63.4 Abnormal weight loss; R13.14 Dysphagia, pharyngoesophageal phase | CPT/HCPCS: 99212 ==

== ENCOUNTER 2022-12-13 06:40 | Emergency (ER) | payer MEDICARE, MEDICAID, SELFPAY ==
[2022-12-13 06:42] VITALS: BP 138/70; PULSE 100; RESP 18; TEMP 37.2; O2SAT 100; BMI 24.3
--- NOTE | 2022-12-13 07:40 | ECG_ITS ---
Test Reason : WEAKNESS Blood Pressure : / mmHG Vent. Rate : 090 BPM Atrial Rate : 090 BPM P-R Int : 148 ms QRS Dur : 094 ms QT Int : 350 ms P-R-T Axes : 045 -07 032 degrees QTc Int : 428 ms Normal sinus rhythm Normal ECG When compared with ECG of 11-APR-2020 09:40, No significant change was found Referred By: Generic ED Physician Electronically Signed By:SOTERO BOSCH
[2022-12-13 08:14] LABS: MANUAL DIFF FLAG NO
[2022-12-13 08:15] LABS: Basophils Absolute Auto 0.1 X10*3/uL (0.0-0.2); Basophils Percent Auto 0.6 % (0-2); Eosinophils Absolute Auto 0.4 X10*3/uL (0.0-0.4); Eosinophils Percent Auto 4.3 % (0-4); Hematocrit 41.6 % (42.0-52.0); Hemoglobin 13.8 g/dl (14.0-18.0); Imm Gran Abs Auto 0.02 X10*3/uL (0.00-0.03); Imm Gran Pct Auto 0.2 % (0.0-0.4); Lymphocytes Percent Auto 22.6 % (20-40); Mean Corpuscular HGB Conc 33.2 g/dl (31.0-36.0); Mean Corpuscular Hemoglobin 28.8 pg (27.0-33.0); Mean Corpuscular Volume 86.8 fL (80.0-98.0); Mean Platelet Volume 9.8 fL (9.4-12.4); Monocytes Absolute Auto 0.7 X10*3/uL (0.1-1.2); Neutrophils Absolute Auto 5.6 x10*3/uL (2.0-8.3); Neutrophils Percent Auto 64.3 % (45-73); Platelet Count 198 X10*3/uL (160-400); Red Blood Count 4.79 X10*6/uL (4.60-5.80); Red Cell Distribution Width 13.9 % (11.0-16.0); White Blood Count 8.6 X10*3/uL (4.8-10.8)
--- NOTE | 2022-12-13 08:19 | ED.WEAKNESS ---
HPI - Weakness General Chief complaint: Weakness Stated complaint: Weakness/Not eating Time Seen by Provider: 12/13/22 08:15 Source: family Mode of arrival: ambulatory Limitations: language barrier History of Present Illness HPI Narrative: History obtained through japanese interpreter. Increased weakness over the last 3 days. He is not eating, legs are too weak to walk. Patient has a neurologist and is taking his parkinsons medication, followed by Dr. Pineda. Patient is shaking throughout the night. MD Complaint: generalized weakness Onset (ago): week(s) Duration: constant Severity: severe Related Data Home Medications Medication Instructions Recorded Confirmed aspirin 81 mg tablet,delayed 81 mg PO DAILY 12/23/20 10/28/22 release (Adult Low Dose Aspirin) carbidopa 25 mg-levodopa 100 mg 1 tab PO BID 12/23/20 10/28/22 tablet (Sinemet) ezetimibe 10 mg tablet (Zetia) 10 mg PO DAILY 12/23/20 10/28/22 fluticasone propionate 50 1 spray intranasal DAILY 12/23/20 10/28/22 mcg/actuation nasal spray,suspension (Children's Flonase Allergy Relief) hydrochlorothiazide 25 mg tablet 25 mg PO DAILY 12/23/20 10/28/22 meclizine 12.5 mg tablet 12.5 mg PO BID 12/23/20 10/28/22 melatonin 3 mg capsule 3 mg PO BEDTIME PRN 12/23/20 10/28/22 nut.tx.glucose intolerance,soy ea PO 12/23/20 10/28/22 (Glucerna oral bar) rosuvastatin 5 mg tablet (Crestor) 5 mg PO DAILY 12/23/20 10/28/22 silver sulfadiazine 1 % topical 1 appl topical DAILY 12/23/20 10/28/22 cream (Silvadene) temazepam 7.5 mg capsule 7.5 mg PO BEDTIME 12/23/20 10/28/22 timolol 0.25 % eye drops 1 drp ophthalmic (eye) DAILY 12/23/20 10/28/22 travoprost 0.004 % eye drops 1 drp ophthalmic (eye) QPM 12/23/20 10/28/22 (Travatan Z) triamcinolone acetonide 55 mcg 1 spray intranasal DAILY 12/23/20 10/28/22 nasal spray aerosol (Nasacort) acetaminophen 325 mg tablet 650 mg PO Q6H PRN pain 01/15/21 10/28/22 amlodipine 10 mg tablet 10 mg PO DAILY 01/15/21 10/28/22 blood pressure test kit-large #1 ea 01/15/21 10/28/22 cholecalciferol (vitamin D3) 50 50 mcg PO DAILY 01/15/21 10/28/22 mcg (2,000 unit) tablet doxepin 10 mg capsule 10 mg PO BEDTIME 01/15/21 10/28/22 latanoprost 0.005 % eye drops 1 drp ophthalmic-Right BEDTIME 01/15/21 10/28/22 meloxicam 15 mg tablet 15 mg PO DAILY 01/15/21 10/28/22 pramipexole 0.5 mg tablet 0.5 mg PO BEDTIME 01/15/21 10/28/22 cyanocobalamin (vitamin B-12) 1,000 mcg PO DAILY 05/27/22 10/28/22 1,000 mcg tablet lidocaine 4 % topical patch 1 patch topical DAILY 05/27/22 10/28/22 (Lidocaine Pain Relief) lisinopril 40 mg tablet 40 mg PO DAILY 05/27/22 10/28/22 mirtazapine 15 mg tablet 15 mg PO BEDTIME 05/27/22 10/28/22 ropinirole 0.25 mg tablet 0.25 mg PO BEDTIME 05/27/22 10/28/22 rosuvastatin 40 mg tablet 40 mg PO DAILY 05/27/22 10/28/22 Previous Rx's Medication Instructions Recorded cephalexin 500 mg capsule 500 mg PO QID 7 days #28 caps 01/17/21 doxycycline hyclate 100 mg tablet 100 mg PO BID 7 days #14 tabs 01/17/21 omeprazole 20 mg capsule,delayed 20 mg PO DAILY 60 days #60 caps 05/07/22 release Allergies Allergy/AdvReac Type Severity Reaction Status Date / Time No Known Allergies Allergy Unknown NKA Verified 10/28/22 09:16 Review of Systems Review of Systems: Yes all other systems are reviewed and are negative Gastrointestinal: Gastrointestinal: Reports other (not eating) Neurologic: Comments: weakness and shaking PMFSH Past Medical History Medical History Allergic rhinitis Back pain Cerebral microvascular disease Degenerative disc disease Diabetes Diverticulosis HLD (hyperlipidemia) HTN (hypertension) Latent tuberculosis Parkinson disease Surgical History Hx of colonoscopy (~06/2018) Social History Social History Alcohol intake: former Patient Tobacco Use Status: Former Tobacco user Smoked in Last 30 Days: No Use of substances other than those prescribed or required for medical reasons: No Advance Directives: Yes Advance Directives Information Provided: Yes Advance Directives on File: No Current occupational status: unemployed Current occupation: retired Physical Exam Vital Signs: Vital Signs: Last Vital Signs Temp 98.9 F 12/13/22 12:44 Pulse 98 12/13/22 12:44 Resp 13 12/13/22 12:44 BP 140/93 H 12/13/22 12:44 Pulse Ox 98 12/13/22 12:44 O2 Del Method 12/13/22 12:44 BMI result Body Mass Index 24.3 Const: Other: male looking chronically ill very thin Orientation/consciousness: oriented to person and patient oriented x3 Limitations: no limitations HEENT: Head: Yes normal to inspection Ears: external ears normal General nose exam: Normal external nose present Mouth: Normal oral and palatal mucosa present and oropharynx normal Throat: Yes posterior oropharynx normal Eyes: General: appearance normal, both eyes and all related structures Neck: Other: supple Neck: Yes normal visual inspection Chest: Chest palpation & inspection: normal inspection of the chest Resp: Auscultation: clear to auscultation bilaterally Cardio: Jugular venous distension: no JVD Rate: regular rate Rhythm: regular rhythm Heart sounds: S1 normal heart sound present and S2 normal heart sound present GI: Inspection: Yes normal to inspection Palpation (GI): Soft to palpation, nontender and No hepatosplenomegaly present Auscultation: normal bowel sounds : General: Yes no CVA tenderness Back/Spine/Pelvis: Back: no CVA tenderness Skin: General skin exam: no rashes or lesions noted Neuro: Other: patient able to move all extremities but is very weak when he goes to walk General: oriented to person and patient oriented x3 Cranial nerves: Yes CN's II-XII intact bilaterally Motor exam (neuro): 5/5 motor strength present throughout Extrem: General: Yes normal to inspection Psych: Appearance: grossly normal Course Reevaluation(s) Reevaluation #1: no UTI, fever, electrolyte abnormality, impression is worsening parkinsonism will discuss with Dr. Pineda Time: 11:25 Reevaluation #2: Discussed with Dr. Pineda, if patient improves with the Carbidopa than we know that this is parkinsons related Time: 12:42 Reevaluation #3: after taking medications patient got up and walked, Discussed with Dr. Pineda Time: 14:00 Medications Administered Discontinued Medications Generic Name Dose Route Start Last Admin Trade Name Freq PRN Reason Stop Dose Admin Carbidopa/Levodopa 2 tab 12/13/22 12:40 12/13/22 12:46 Carbidopa/Levodopa 25/100 Tablet PO 12/13/22 12:41 2 tab ONCE ONE Administration Medical Decision Making Differential Diagnosis Differential Diagnoses: The differential diagnosis associated with the presentation includes (parkinsonism, UTI, electrolyte abnormality) Admission/Observation Consideration of admission/observation: Escalation of care including admission/observation considered (In this 77yo patient with severe parkinsonism, admission was considered) Consult Healthcare Provider Management of the patient was discussed with: [place] (Dr. Pineda, Neurology) Lab Data MDM Lab Attestation statement: I reviewed the patient's lab results. 12/13/22 08:10 12/13/22 08:10 Labs: Lab Results 12/13/22 12/13/22 12/13/22 Range/Units 08:10 08:10 08:10 WBC 8.6 (4.8-10.8) X10*3/uL RBC 4.79 (4.60-5.80) X10*6/uL Hgb 13.8 L (14.0-18.0) g/dl Hct 41.6 L (42.0-52.0) % MCV 86.8 (80.0-98.0) fL MCH 28.8 (27.0-33.0) pg MCHC 33.2 (31.0-36.0) g/dl RDW 13.9 (11.0-16.0) % Plt Count 198 (160-400) X10*3/uL MPV 9.8 (9.4-12.4) fL Immature Gran % (Auto) 0.2 (0.0-0.4) % Neut % (Auto) 64.3 (45-73) % Lymph % (Auto) 22.6 (20-40) % [place] % (Auto) 8.0 (2-11) % Eos % (Auto) 4.3 H (0-4) % Baso % (Auto) 0.6 (0-2) % Lymph # (Auto) 2.0 (1.2-4.9) X10*3/uL [place] # (Auto) 0.7 (0.1-1.2) X10*3/uL Eos # (Auto) 0.4 (0.0-0.4) X10*3/uL Baso # (Auto) 0.1 (0.0-0.2) X10*3/uL Abs Immat Gran (auto) 0.02 (0.00-0.03) X10*3/uL Absolute Neuts (auto) 5.6 (2.0-8.3) x10*3/uL Absolute Nucleated RBC 0.000 (0.0-0.012) X10*3/uL Nucleated RBC % (auto) 0.0 (0.0-0.2) /100WBC PT 10.8 (10.0-13.1) SEC INR 0.9 (0.9-1.1) APTT 28.6 (26.0-36.4) SEC Sodium 140 (135-145) mmol/L Potassium 4.2 (3.3-5.1) mmol/L Chloride 104 (96-108) mmol/L Carbon Dioxide 26 (22-29) mmol/L Anion Gap 14 (12-20) BUN 22 H (9-16) mg/dL Creatinine 1.04 (0.5-1.4) mg/dL Estim Creat Clear Calc 61.4 Estimated GFR > 60 Random Glucose 86 (60-115) mg/dL Calcium 9.5 (8.4-10.2) mg/dL Total Creatine Kinase 99 (38-174) U/L Troponin I High Sens (<3.5-35.0) ng/L Urine Color Urine Appearance Urine pH (5.0-9.0) Ur Specific [place] (1.005-1.025) Urine Protein (Neg-Trace) mg/dL Urine Glucose (UA) (Negative) mg/dL Urine Ketones (Negative) mg/dL Urine Blood (Negative) Urine Nitrite (Negative) Ur Leukocyte Esterase (Negative) 12/13/22 12/13/22 Range/Units 08:10 09:14 WBC (4.8-10.8) X10*3/uL RBC (4.60-5.80) X10*6/uL Hgb (14.0-18.0) g/dl Hct (42.0-52.0) % MCV (80.0-98.0) fL MCH (27.0-33.0) pg MCHC (31.0-36.0) g/dl RDW (11.0-16.0) % Plt Count (160-400) X10*3/uL MPV (9.4-12.4) fL Immature Gran % (Auto) (0.0-0.4) % Neut % (Auto) (45-73) % Lymph % (Auto) (20-40) % [place] % (Auto) (2-11) % Eos % (Auto) (0-4) % Baso % (Auto) (0-2) % Lymph # (Auto) (1.2-4.9) X10*3/uL [place] # (Auto) (0.1-1.2) X10*3/uL Eos # (Auto) (0.0-0.4) X10*3/uL Baso # (Auto) (0.0-0.2) X10*3/uL Abs Immat Gran (auto) (0.00-0.03) X10*3/uL Absolute Neuts (auto) (2.0-8.3) x10*3/uL Absolute Nucleated RBC (0.0-0.012) X10*3/uL Nucleated RBC % (auto) (0.0-0.2) /100WBC PT (10.0-13.1) SEC INR (0.9-1.1) APTT (26.0-36.4) SEC Sodium (135-145) mmol/L Potassium (3.3-5.1) mmol/L Chloride (96-108) mmol/L Carbon Dioxide (22-29) mmol/L Anion Gap (12-20) BUN (9-16) mg/dL Creatinine (0.5-1.4) mg/dL Estim Creat Clear Calc Estimated GFR Random Glucose (60-115) mg/dL Calcium (8.4-10.2) mg/dL Total Creatine Kinase (38-174) U/L Troponin I High Sens 10.3 (<3.5-35.0) ng/L Urine Color Yellow Urine Appearance Clear Urine pH 6.5 (5.0-9.0) Ur Specific [place] 1.010 (1.005-1.025) Urine Protein Negative (Neg-Trace) mg/dL Urine Glucose (UA) Negative (Negative) mg/dL Urine Ketones Negative (Negative) mg/dL Urine Blood Negative (Negative) Urine Nitrite Negative (Negative) Ur Leukocyte Esterase Negative (Negative) Independent Interpretation I performed an independent interpretation of an: EKG (sinus 90, no st or twave changes) Independent Historian Clinical information obtained from an independent historian. History obtained from or confirmed by: Other (family) Tests considered The following testing was considered but not selected: CT/MRI of brain continued Chronic Conditions Patient?s care impacted by: Other (parkinsonism) Discharge Plan Discharge Clinical Impression: Parkinsonism Patient Disposition: Home, Self-Care Instructions: Parkinson Disease (ED) Additional Instructions: Must take his medications on time, may take 1 or 2 pills extra of the carbidopa 100/25 if necessary Prescriptions: No Action omeprazole 20 mg capsule,delayed release(DR/EC) 20 mg PO DAILY 60 Days Qty: 60 2RF cephalexin 500 mg capsule 500 mg PO QID 7 Days Qty: 28 0RF doxycycline hyclate 100 mg tablet 100 mg PO BID 7 Days Qty: 14 0RF carbidopa-levodopa [Sinemet] 25-100 mg tablet 1 tab PO BID Glucerna Bar PO travoprost [Travatan Z] 0.004 % drops 1 drp ophthalmic (eye) QPM melatonin 3 mg capsule 3 mg PO BEDTIME PRN timolol 0.25 % drops 1 drp ophthalmic (eye) DAILY fluticasone propionate [Children's Flonase Allergy Rlf] 50 mcg/actuation spray,suspension 1 spray intranasal DAILY Rx Instructions: administer into each nostril ezetimibe [Zetia] 10 mg tablet 10 mg PO DAILY meclizine 12.5 mg tablet 12.5 mg PO BID aspirin [Adult Low Dose Aspirin] 81 mg tablet,delayed release (DR/EC) 81 mg PO DAILY triamcinolone acetonide [Nasacort] 55 mcg aerosol,spray 1 spray intranasal DAILY Rx Instructions: administer into each nostril rosuvastatin [Crestor] 5 mg tablet 5 mg PO DAILY temazepam 7.5 mg capsule 7.5 mg PO BEDTIME hydrochlorothiazide 25 mg tablet 25 mg PO DAILY silver sulfadiazine [Silvadene] 1 % cream 1 appl topical DAILY Rx Instructions: apply a 1.5 mm thickness pramipexole 0.5 mg tablet 0.5 mg PO BEDTIME acetaminophen 325 mg tablet 650 mg PO Q6H PRN (Reason: pain) doxepin 10 mg capsule 10 mg PO BEDTIME meloxicam 15 mg tablet 15 mg PO DAILY (DME) blood pressure test kit-large Kit See Rx Instructions .ROUTE DIRECTED Qty: 1 Rx Instructions: As directed latanoprost 0.005 % drops 1 drp ophthalmic-Right BEDTIME cholecalciferol (vitamin D3) 50 mcg (2,000 unit) tablet 50 mcg PO DAILY amlodipine 10 mg tablet 10 mg PO DAILY mirtazapine 15 mg tablet 15 mg PO BEDTIME lisinopril 40 mg tablet 40 mg PO DAILY cyanocobalamin (vitamin B-12) 1,000 mcg tablet 1,000 mcg PO DAILY ropinirole 0.25 mg tablet 0.25 mg PO BEDTIME rosuvastatin 40 mg tablet 40 mg PO DAILY lidocaine [Lidocaine Pain Relief] 4 % adhesive patch,medicated 1 patch topical DAILY Referrals: Chelo Smith MD [Primary Care Provider] - 1 week Erma Pineda MD [Physician] - 1 week
[2022-12-13 08:21] LABS: INTERNATIONAL NORM RATIO 0.9 (0.9-1.1); Prothrombin Time 10.8 SEC (10.0-13.1)
[2022-12-13 08:24] LABS: Partial Thromboplastin Time 28.6 SEC (26.0-36.4)
[2022-12-13 08:29] LABS: Anion Gap 14 (12-20); Blood Urea Nitrogen 22 mg/dL (9-16); Calcium 9.5 mg/dL (8.4-10.2); Carbon Dioxide 26 mmol/L (22-29); Chloride 104 mmol/L (96-108); Creatinine Clr Calc Pharmacy 61.4; Estimated Glomerular Filt Rate > 60; Glucose Random 86 mg/dL (60-115); Potassium 4.2 mmol/L (3.3-5.1); Sodium 140 mmol/L (135-145)
[2022-12-13 08:36] LABS: Troponin-I High Sensitivity 10.3 ng/L (<3.5-35.0)
[2022-12-13 09:21] LABS: Appearance Urine Clear; Color Urine Yellow; Glucose Urine UA Negative (Negative); Leukocyte Esterase Urine Negative (Negative); Nitrite Urine Negative (Negative); PH 6.5 (5.0-9.0); Urine Blood Negative (Negative); Urine Ketones Negative (Negative); Urine Protein Negative (Neg-Trace)
[2022-12-13 09:33] VITALS: BP 150/79; PULSE 93; RESP 16; O2SAT 97
--- NOTE | 2022-12-13 09:34 | PC.NURSE ---
Family reporting pt has been weak and not eating much x 3 days. H/O Parkinsons with jolting episodes. Neuros are intact, VSS. Skin pwd. NSR on tele. awaits dispo
--- NOTE | 2022-12-13 12:03 | PC.NURSE ---
Awaiting Neuro to call back for dispo No changes with pt at this time
[2022-12-13 12:05] VITALS: BP 148/81; PULSE 101; RESP 18; O2SAT 98
[2022-12-13 12:44] VITALS: BP 140/93; PULSE 98; RESP 13; TEMP 37.2; O2SAT 98
[2022-12-13] MEDS: Carbidopa/Levodopa 25/100 TABLET 2 TAB PO (12:46)
--- NOTE | 2022-12-13 14:01 | PC.NURSE ---
After medical information specialist pt reports feeling better. Ambulatory trial with this RN, pt steady and at baseline per family. Dr Eason aware.
== END 2022-12-13 14:18 | disposition home or self-care (01) ==
PROVIDERS: Emergency Provider Emergency Medicine; PCP Internal Medicine
DX: G20 Parkinson's disease (principal); R53.1 Weakness; R06.02 Shortness of breath; Z79.899 Other long term (current) drug therapy; Z87.891 Personal history of nicotine dependence
CPT/HCPCS: 36415; 80048; 81003; 82550; 84484; 85025; 85610; 85730; 93005; 99283; 99284

== ENCOUNTER 2022-12-27 16:14 | Emergency (ER) | payer OTHER, SELFPAY ==
--- NOTE | 2022-12-27 16:25 | ED.GENADULT ---
HPI - General Adult General Chief complaint: Weakness Stated complaint: DIFF AMB X'S 3 DAYS PER EMS Time Seen by Provider: 12/27/22 16:21 Source: patient, family and EMS Mode of arrival: EMS Limitations: language barrier History of Present Illness HPI narrative: 77-year-old male with history of hypertension, restless leg syndrome, Parkinson's presents with difficulty ambulating. The symptoms started approximately 4 days ago. Associated with moderate pain to the lower extremities. Patient typically is noncompliant to his medications and takes them on an as-needed basis. Symptoms have been improving progressively worse. Associated with tremor. The tremor has been getting worse as well. There are no clear relieving features. EMS was contacted due to the severe difficulty ambulating. He was a 2 person significant assist. He is nonambulatory at this time. There have been no reports of fall, injury or trauma. Related Data Home Medications Medication Instructions Recorded Confirmed aspirin 81 mg tablet,delayed 81 mg PO DAILY 12/23/20 12/27/22 release (Adult Low Dose Aspirin) melatonin 3 mg capsule 3 mg PO BEDTIME PRN Sleep 12/23/20 12/27/22 blood pressure test kit-large #1 ea 01/15/21 10/28/22 cholecalciferol (vitamin D3) 50 50 mcg PO DAILY 01/15/21 12/27/22 mcg (2,000 unit) tablet latanoprost 0.005 % eye drops 1 drp ophthalmic-Right BEDTIME 01/15/21 12/27/22 cyanocobalamin (vitamin B-12) 1,000 mcg PO DAILY 05/27/22 12/27/22 1,000 mcg tablet lisinopril 40 mg tablet 40 mg PO DAILY 05/27/22 12/27/22 mirtazapine 15 mg tablet 15 mg PO BEDTIME 05/27/22 12/27/22 ropinirole 0.25 mg tablet 0.5 mg PO BEDTIME PRN Restless 05/27/22 12/27/22 Leg(S) rosuvastatin 40 mg tablet 40 mg PO DAILY 05/27/22 12/27/22 acetaminophen 650 mg 1 - 2 tab PO Q8H PRN Pain, Mild 12/27/22 12/27/22 tablet,extended release carbidopa 25 mg-levodopa 100 mg 1 tab PO BEDTIME PRN Restless 12/27/22 12/27/22 tablet Leg(S) carbidopa 25 mg-levodopa 100 mg 2 tab PO QID 12/27/22 12/27/22 tablet carbidopa ER 50 mg-levodopa 200 mg 1 tab PO BEDTIME 12/27/22 12/27/22 tablet,extended release Previous Rx's Medication Instructions Recorded omeprazole 20 mg capsule,delayed 20 mg PO DAILY 60 days #60 caps 05/07/22 release Allergies Allergy/AdvReac Type Severity Reaction Status Date / Time No Known Allergies Allergy Unknown NKA Verified 10/28/22 09:16 Review of Systems Review of Systems: CONSTITUTIONAL: Denies weight loss, fever and chills. HEENT: Denies changes in vision and hearing. RESPIRATORY: Denies SOB and cough. CV: Denies palpitations no CP. GI: Denies abdominal pain, nausea, vomiting and diarrhea. : Denies dysuria and urinary frequency. MSK: Positive myalgia and joint pain. SKIN: Denies rash and pruritus. NEUROLOGICAL: Denies headache and syncope. Positive tremor PSYCHIATRIC: Denies recent changes in mood. Denies anxiety and depression. All other ROS are negative unless in HPI PMFSH Past Medical History Medical History Allergic rhinitis Back pain Cerebral microvascular disease Degenerative disc disease Diabetes Diverticulosis HLD (hyperlipidemia) HTN (hypertension) Latent tuberculosis Parkinson disease Surgical History Hx of colonoscopy (~06/2018) Social History Social History Alcohol intake: former Patient Tobacco Use Status: Former Tobacco user Advance Directives: No Advance Directives Information Provided: Yes Current occupational status: unemployed Current occupation: retired Physical Exam ED Vital Signs: Vital Signs - 24 hr 12/27/22 16:59 12/27/22 20:03 Temperature 99.1 F 99.2 F Pulse Rate 102 H 95 Respiratory Rate 15 15 Blood Pressure 147/77 H 138/82 Pulse Oximetry 97 98 Oxygen Delivery Method Room Air Room Air GEN: Well developed, no acute distress, alert, oriented HEENT: Normocephalic, atraumatic, normal external ears, nose appears normal, no oropharyngeal edema or exudates Eyes: Normal to appearance Neck: Supple, no lymphadenopathy Respiratory: Talks in complete sentences, no respiratory distress, clear to auscultation bilaterally Cardiovascular: Regular rate and rhythm, no murmurs rubs or gallops Abdomen: Soft, nontender, nondistended, no guarding, no rebound Back: No CVA tenderness Extremities: No clubbing cyanosis or edema Neurologic: No focal neurologic deficits, cranial nerves 2-12 intact, strength is 5/5 bilaterally, resting tremor, cogwheel rigidity Skin: No rash Course Course Course Narrative: 77-year-old male presents with severe difficulty with ambulation, Parkinson's disease, pain secondary to myalgias and lower extremity discomfort. Examination revealed resting tremor consistent with Parkinson's, cogwheel rigidity. I suspect a component of a symptoms are due to noncompliance to medication treatment. Patient has significant lift assist will likely need case management evaluation for possible placement. Will order routine labs, COVID test, Tylenol, case management. Reevaluation(s) Reevaluation #1: Patient awaiting PT eval and case management recommendations. Dr. Gomez to assume care at this time. Time: 22:33 Medications Administered Generic Name Dose Route Start Last Admin Trade Name Freq PRN Reason Stop Dose Admin Carbidopa/Levodopa 2 tab 12/27/22 21:00 12/27/22 21:23 Carbidopa/Levodopa 25/100 Tablet PO 2 tab QID RUBÉN Administration Carbidopa/Levodopa 1 tab 12/27/22 21:00 12/27/22 21:27 Carbidopa/Levodopa Cr 50/200 Tablet.Er PO 1 tab BEDTIME RUBÉN Administration Latanoprost 1 drop 12/27/22 21:00 12/27/22 21:29 Latanoprost 0.005 % Ophth Brandi 2.5 Ml Drops EYE-RIGHT Not Given BEDTIME RUBÉN Mirtazapine 15 mg 12/27/22 21:00 12/27/22 21:23 Mirtazapine 15 Mg Tablet PO 15 mg BEDTIME RUBÉN Administration Discontinued Medications Generic Name Dose Route Start Last Admin Trade Name Freq PRN Reason Stop Dose Admin Acetaminophen 975 mg 12/27/22 16:23 12/27/22 17:05 Acetaminophen 325 Mg Tablet PO 12/27/22 16:24 975 mg ONCE ONE Administration Medical Decision Making Medical Decision Making [facility] Narrative: 77-year-old male presents with severe difficulty with ambulation, Parkinson's disease, pain secondary to myalgias and lower extremity discomfort. Examination revealed resting tremor consistent with Parkinson's, cogwheel rigidity. I suspect a component of a symptoms are due to noncompliance to medication treatment. Patient has significant lift assist will likely need case management evaluation for possible placement. Will order routine labs, COVID test, Tylenol, case management. Differential Diagnosis Differential Diagnoses: The differential diagnosis associated with the presentation includes (Parkinson's, myalgia, myositis, electrolyte deficiency, anemia) Difficulty ambulating, Parkinson's Admission/Observation Consideration of admission/observation: Escalation of care including admission/observation considered Consult Healthcare Provider Management of the patient was discussed with: Electronic Field Service Engineer (Case management) Lab Data MDM Lab Attestation statement: I reviewed the patient's lab results. 12/27/22 17:08 12/27/22 17:08 Labs: Lab Results 12/27/22 12/27/22 12/27/22 Range/Units 17:08 17:08 17:08 WBC 8.3 (4.8-10.8) X10*3/uL RBC 4.57 L (4.60-5.80) X10*6/uL Hgb 13.4 L (14.0-18.0) g/dl Hct 39.6 L (42.0-52.0) % MCV 86.7 (80.0-98.0) fL MCH 29.3 (27.0-33.0) pg MCHC 33.8 (31.0-36.0) g/dl RDW 14.0 (11.0-16.0) % Plt Count 228 (160-400) X10*3/uL MPV 9.8 (9.4-12.4) fL Immature Gran % (Auto) 0.2 (0.0-0.4) % Neut % (Auto) 69.6 (45-73) % Lymph % (Auto) 18.3 L (20-40) % [place] % (Auto) 9.8 (2-11) % Eos % (Auto) 1.7 (0-4) % Baso % (Auto) 0.4 (0-2) % Lymph # (Auto) 1.5 (1.2-4.9) X10*3/uL [place] # (Auto) 0.8 (0.1-1.2) X10*3/uL Eos # (Auto) 0.1 (0.0-0.4) X10*3/uL Baso # (Auto) 0.0 (0.0-0.2) X10*3/uL Abs Immat Gran (auto) 0.02 (0.00-0.03) X10*3/uL Absolute Neuts (auto) 5.7 (2.0-8.3) x10*3/uL Absolute Nucleated RBC 0.000 (0.0-0.012) X10*3/uL Nucleated RBC % (auto) 0.0 (0.0-0.2) /100WBC Sodium 142 (135-145) mmol/L Potassium 4.4 (3.3-5.1) mmol/L Chloride 105 (96-108) mmol/L Carbon Dioxide 26 (22-29) mmol/L Anion Gap 15 (12-20) BUN 22 H (9-16) mg/dL Creatinine 0.97 (0.5-1.4) mg/dL Estim Creat Clear Calc TNP Estimated GFR > 60 Random Glucose 101 (60-115) mg/dL Calcium 9.4 (8.4-10.2) mg/dL Total Creatine Kinase 130 (38-174) U/L COVID-19 (KONST[place]IN) Negative (Negative) COVID-19 Clin Com See Note Independent Historian Clinical information obtained from an independent historian. History obtained from or confirmed by: Friend and EMS Chronic Conditions Patient?s care impacted by: Other (Parkinson's) Discharge Plan Discharge Clinical Impression: Difficulty in walking, Parkinson's disease Patient Disposition: Still a Patient Instructions: Fall Prevention (ED), Parkinson Disease (ED) Prescriptions: No Action omeprazole 20 mg capsule,delayed release(DR/EC) 20 mg PO DAILY 60 Days Qty: 60 2RF carbidopa-levodopa 50-200 mg tablet extended release 1 tab PO BEDTIME acetaminophen 650 mg tablet extended release 1 - 2 tab PO Q8H PRN (Reason: Pain, Mild) carbidopa-levodopa 25-100 mg tablet 2 tab PO QID carbidopa-levodopa 25-100 mg tablet 1 tab PO BEDTIME PRN (Reason: Restless Leg(S)) melatonin 3 mg capsule 3 mg PO BEDTIME PRN (Reason: Sleep) aspirin [Adult Low Dose Aspirin] 81 mg tablet,delayed release (DR/EC) 81 mg PO DAILY (DME) blood pressure test kit-large Kit See Rx Instructions .ROUTE DIRECTED Qty: 1 Rx Instructions: As directed latanoprost 0.005 % drops 1 drp ophthalmic-Right BEDTIME cholecalciferol (vitamin D3) 50 mcg (2,000 unit) tablet 50 mcg PO DAILY mirtazapine 15 mg tablet 15 mg PO BEDTIME lisinopril 40 mg tablet 40 mg PO DAILY cyanocobalamin (vitamin B-12) 1,000 mcg tablet 1,000 mcg PO DAILY ropinirole 0.25 mg tablet 0.5 mg PO BEDTIME PRN (Reason: Restless Leg(S)) rosuvastatin 40 mg tablet 40 mg PO DAILY Referrals: Isabella Bose RN [Emergency Nurse] - 3 days Print Language: Bruneian
[2022-12-27 16:59] VITALS: BP 147/77; PULSE 102; RESP 15; TEMP 37.3; O2SAT 97
[2022-12-27] MEDS: Acetaminophen 325 MG TABLET 975 MG PO (17:05)
[2022-12-27 17:18] LABS: MANUAL DIFF FLAG NO
[2022-12-27 17:22] LABS: Basophils Percent Auto 0.4 % (0-2); Eosinophils Absolute Auto 0.1 X10*3/uL (0.0-0.4); Eosinophils Percent Auto 1.7 % (0-4); Hematocrit 39.6 % (42.0-52.0); Hemoglobin 13.4 g/dl (14.0-18.0); Imm Gran Abs Auto 0.02 X10*3/uL (0.00-0.03); Imm Gran Pct Auto 0.2 % (0.0-0.4); Lymphocytes Absolute Auto 1.5 X10*3/uL (1.2-4.9); Lymphocytes Percent Auto 18.3 % (20-40); Mean Corpuscular HGB Conc 33.8 g/dl (31.0-36.0); Mean Corpuscular Hemoglobin 29.3 pg (27.0-33.0); Mean Corpuscular Volume 86.7 fL (80.0-98.0); Mean Platelet Volume 9.8 fL (9.4-12.4); Monocytes Absolute Auto 0.8 X10*3/uL (0.1-1.2); Monocytes Percent Auto 9.8 % (2-11); Neutrophils Absolute Auto 5.7 x10*3/uL (2.0-8.3); Neutrophils Percent Auto 69.6 % (45-73); Platelet Count 228 X10*3/uL (160-400); Red Blood Count 4.57 X10*6/uL (4.60-5.80); White Blood Count 8.3 X10*3/uL (4.8-10.8)
[2022-12-27 17:37] LABS: IDNOW Serial# BCCEAD1C
[2022-12-27 17:38] LABS: COVID-19 Test Negative (Negative)
[2022-12-27 17:39] LABS: Anion Gap 15 (12-20); Blood Urea Nitrogen 22 mg/dL (9-16); Calcium 9.4 mg/dL (8.4-10.2); Carbon Dioxide 26 mmol/L (22-29); Chloride 105 mmol/L (96-108); Estimated Glomerular Filt Rate > 60; Glucose Random 101 mg/dL (60-115); Potassium 4.4 mmol/L (3.3-5.1); Sodium 142 mmol/L (135-145)
[2022-12-27 20:03] VITALS: BP 138/82; PULSE 95; RESP 15; TEMP 37.3; O2SAT 98
--- NOTE | 2022-12-27 20:22 | PHA.MEDREC ---
Pharmacy Consult ? Medication Reconciliation Pharmacy has completed the medication reconciliation. SPOKE WITH PT AND 3 DIFFERENT FAMILY MEMBERS THROUGH AN LIFT SLAB OPERATOR TO CLARIFY HOW PT TAKES HIS SINEMET. AFTER LENGTHY CONVERSATION, HE TAKES #2 TABLETS OF THE 25/100 QID AND 1 TAB OF THE 50/200 ER AT BEDTIME. HE IS ALLOWED TO TAKE AND EXTRA 25/100 AT BEDTIME IF NEEDED. PT SAYS THE 50/200 ER MAKES HIS LEGS VERY HEAVY AND AFFECTS HIS EATING.
--- NOTE | 2022-12-27 21:08 | MHC.CM.ED ---
Addendum entered by Lexy Cano 12/27/22 21:27: Family has arrived, son and . They have clarified some information. They do not have a HCP at home, but patient agreeable to complete one. Requests that his /HCP #1 Analisa Headley ([phone]) and HCP#2/son Rigoberto Best ([phone]). HCP completed and signed. Copies given. Uploaded into [facility] and [facility] MXP[facility]. Pt, son and are in agreement to have home PT only. They do not want patient to go to [facility]. Rigoberto tells CM that patient has both good and bad days, but he can care for him. Both son and agree with patient that he should have PT at home, not in a facility. No referrals placed. Rigoberto tells CM that he has 12 hours [employer]NA[employer] paid, but helps more. Rigoberto tells CM that the nurse that comes is from the insurance and comes monthly. Pt will need VNA referral. Both Rigoberto and Analisa tell CM that patient does take his medications regularly and have a neuro appointment at the end of this month. CM will follow for discharge planning. Original Note: CM met with patient at request of Dr. Delarosa. per diem interpreter used as pt. is Thai speaking. A&Ox3. Lives with /HCP Analisa Headley. No HCP on file. Copy requested. Pt thinks has it at home. Uses a cane. Has daily [employer] SERVICES MANAGER services, unsure of hours. [employer] SERVICES MANAGER takes him to appointments. PCP Dr. Chelo Eli. Pfizer/Moderna x4. States has VNA, but connot remember name of agency. States he has a card at home. Pt is agreeable to PT evaluation, but only wants home PT. Understands that he will receive more PT at a facility, but states he will not go to a facility. Aware that he was unable to ambulate today and needed 2 person assist, but continues to state he wants home PT. No referrals placed at this time.
[2022-12-27] MEDS: Mirtazapine 15 MG TABLET PO (21:23)
[2022-12-27] MEDS: Carbidopa/Levodopa 25/100 TABLET 2 TAB PO (21:23)
[2022-12-27] MEDS: Carbidopa/Levodopa CR 50/200 TABLET.ER 1 TAB PO (21:27)
[2022-12-27 23:28] VITALS: BP 134/71; PULSE 78; RESP 16; TEMP 36.6; O2SAT 97
--- NOTE | 2022-12-27 23:30 | PC.NURSE ---
This screen writer assumed care of this Pt at 2300. Pt A&Ox4, denies any pain. Pt assisted to stand at bedside, one assist with use of urinal.
[2022-12-28 02:35] VITALS: BP 121/62; PULSE 74; RESP 16; TEMP 36.6; O2SAT 98
[2022-12-28 03:38] VITALS: BMI 24.5
[2022-12-28 04:24] VITALS: BP 130/73; PULSE 74; RESP 16; TEMP 36.4; O2SAT 98
[2022-12-28] MEDS: Omeprazole 20 MG CAPSULE.DR PO (06:11)
[2022-12-28 06:13] VITALS: BP 147/74; PULSE 82; RESP 16; TEMP 36.4; O2SAT 98
--- NOTE | 2022-12-28 06:14 | PC.NURSE ---
Pt awake, reports leg shaking. Tolerated PO fluids. Med given as documented.
[2022-12-28 07:12] VITALS: BP 156/80; PULSE 91; RESP 16; TEMP 36.2; O2SAT 99
--- NOTE | 2022-12-28 07:45 | PC.NURSE ---
Continues to complain of bilateral leg shaking, denies other complaints. Call rob within reach.
[2022-12-28] MEDS: Carbidopa/Levodopa 25/100 TABLET 2 TAB PO ×2 (08:05→12:43)
[2022-12-28] MEDS: lisinopriL 40 MG TABLET PO (08:06)
[2022-12-28] MEDS: Cholecalciferol (Vitamin D3) 25 MCG TABLET 50 MCG PO (08:06)
[2022-12-28] MEDS: Atorvastatin Calcium 80 MG TABLET PO (08:06)
[2022-12-28] MEDS: Cyanocobalamin (Vitamin B-12) 1,000 MCG TABLET 1000 MCG PO (08:06)
[2022-12-28] MEDS: Aspirin Enteric Coated 81 MG TABLET.DR PO (08:06)
--- NOTE | 2022-12-28 08:38 | PC.NURSE ---
Ambulated to bathroom with slow steady gait with one assist.
--- NOTE | 2022-12-28 10:41 | PC.NURSE ---
Pt resting in bed, family at the bedside.
--- NOTE | 2022-12-28 12:26 | MHC.CM.ED ---
Patient remains in ER. Physical therapy eval completed. Home therapy is recommended. Patient has [employer]. Referral broadcasted in [facility] to see who can accept patient. Met with patient and , Analisa, with the help of the terrazzo laborer. Both aware patient will be discharged home and CM will call them when VNA agency has been found. Both verbalize understanding. Patient's son, Garfield, will transport patient home around 1pm. Rajani RODRIGUES and Rosetta CHANDLER aware. Continue to monitor for d/c needs.
[2022-12-28 12:41] VITALS: BP 135/75; PULSE 74; RESP 16; TEMP 36.9; O2SAT 98
--- NOTE | 2022-12-31 16:18 | MHC.CM.ED ---
Addendum entered by Sonya Mayorga 01/03/23 11:23: Received return telephone call from [facility]. They will not be able to arrange physical therapy until patient is seen. Patient's appointment is scheduled for the end of December. Original Note: VNA agency has not been able to be obtained. Dr Smith's office made aware and asked to find a VNA for patient that can offer physical therapy.
== END 2022-12-28 13:54 | disposition home or self-care (01) ==
PROVIDERS: Emergency Provider Emergency Medicine; PCP Internal Medicine
DX: R26.2 Difficulty in walking, not elsewhere classified (principal); G20 Parkinson's disease; Z20.822 Contact with and (suspected) exposure to COVID-19; I10 Essential (primary) hypertension; E11.9 Type 2 diabetes mellitus without complications; E78.5 Hyperlipidemia, unspecified; Z79.82 Long term (current) use of aspirin; Z79.02 Long term (current) use of antithrombotics/antiplatelets; Z79.899 Other long term (current) drug therapy
CPT/HCPCS: 36415; 80048; 82550; 85025; 87635; 97162; 99284; 99285

== ENCOUNTER → 2023-04-14 08:44 | Outpatient (BNVA) | payer MEDICARE, MEDICAID, SELFPAY | PROVIDERS: PCP Internal Medicine; Visit Provider Internal Medicine Gastroenterology | DX: K29.70 Gastritis, unspecified, without bleeding (principal); B96.81 Helicobacter pylori [H. pylori] as the cause of diseases classified elsewhere; R63.4 Abnormal weight loss; R13.14 Dysphagia, pharyngoesophageal phase | CPT/HCPCS: 99212 ==

== ENCOUNTER 2023-04-14 09:56 | Emergency (ER) | payer MEDICARE, MEDICAID, SELFPAY ==
--- NOTE | ~2023-04-14 | XR_ITS ---
EXAMINATION: XR PELVIS CLINICAL INFORMATION: Pain at left iliac crest COMPARISON: None available. TECHNIQUE: AP view of the pelvis. FINDINGS: Some minimal degenerative changes are present in the hips with some acetabular sclerosis and some minimal osteophytes. The SI joints are unremarkable. The pelvis is unremarkable. No bony destructive lesions are seen. Degenerative changes are present in the visualized lower lumbosacral spine. XR/XR pelvis 1-2V IMPRESSION: Minimal degenerative changes in the hips. No acute finding.
[2023-04-14 10:00] VITALS: BP 143/76; PULSE 90; RESP 18; TEMP 36.8; O2SAT 96; BMI 23.6
[2023-04-14 10:20] LABS: MANUAL DIFF FLAG NO
[2023-04-14 10:22] LABS: Basophils Percent Auto 0.4 % (0-2); Eosinophils Absolute Auto 0.3 X10*3/uL (0.0-0.4); Eosinophils Percent Auto 3.6 % (0-4); Hematocrit 40.6 % (42.0-52.0); Hemoglobin 13.4 g/dl (14.0-18.0); Imm Gran Abs Auto 0.01 X10*3/uL (0.00-0.03); Imm Gran Pct Auto 0.1 % (0.0-0.4); Lymphocytes Absolute Auto 1.8 X10*3/uL (1.2-4.9); Lymphocytes Percent Auto 20.2 % (20-40); Mean Corpuscular Hemoglobin 29.6 pg (27.0-33.0); Mean Corpuscular Volume 89.6 fL (80.0-98.0); Mean Platelet Volume 9.7 fL (9.4-12.4); Monocytes Absolute Auto 1.1 X10*3/uL (0.1-1.2); Monocytes Percent Auto 12.2 % (2-11); Neutrophils Absolute Auto 5.7 x10*3/uL (2.0-8.3); Neutrophils Percent Auto 63.5 % (45-73); Platelet Count 163 X10*3/uL (160-400); Red Blood Count 4.53 X10*6/uL (4.60-5.80); White Blood Count 8.9 X10*3/uL (4.8-10.8)
[2023-04-14 10:48] LABS: Alanine Aminotransferase < 5 U/L (0-40); Albumin Level 4.1 g/dL (3.5-5.0); Alkaline Phosphatase 79 U/L (39-117); Anion Gap 15 (12-20); Aspartate Amino Transferase 30 U/L (5-37); Bilirubin Total 0.6 mg/dL (0.0-1.0); Blood Urea Nitrogen 24 mg/dL (9-16); Calcium 10.3 mg/dL (8.4-10.2); Carbon Dioxide 26 mmol/L (22-29); Chloride 103 mmol/L (96-108); Creatinine Clr Calc Pharmacy 55.4; Estimated Glomerular Filt Rate > 60; Glucose Random 81 mg/dL (60-115); Potassium 4.1 mmol/L (3.3-5.1); Sodium 140 mmol/L (135-145); Total Protein 7.2 g/dL (6.5-8.0)
[2023-04-14 11:35] VITALS: BP 144/68; PULSE 85; RESP 16; TEMP 37.1; O2SAT 99
--- NOTE | 2023-04-14 12:33 | ED_ITS ---
HPI - General Adult General Chief complaint: Abdominal Pain Stated complaint: left lower abd pain Time Seen by Provider: 04/14/23 10:14 Source: patient, family and chemical engineering professor Mode of arrival: ambulatory History of Present Illness HPI narrative: 77-year-old male who presents with 3 days of left hip pain, he describes it over the iliac crest, denies any falls or recent injuries, denies any fevers, chills, nausea, vomiting, diarrhea, urinary symptoms and states his last bowel movement was yesterday and he has continued to pass gas. Related Data Home Medications Medication Instructions Recorded Confirmed aspirin 81 mg tablet,delayed 81 mg PO DAILY 12/23/20 12/27/22 release (Adult Low Dose Aspirin) melatonin 3 mg capsule 3 mg PO BEDTIME PRN Sleep 12/23/20 12/27/22 blood pressure test kit-large #1 ea 01/15/21 10/28/22 cholecalciferol (vitamin D3) 50 50 mcg PO DAILY 01/15/21 12/27/22 mcg (2,000 unit) tablet latanoprost 0.005 % eye drops 1 drp ophthalmic-Right BEDTIME 01/15/21 12/27/22 cyanocobalamin (vitamin B-12) 1,000 mcg PO DAILY 05/27/22 12/27/22 1,000 mcg tablet lisinopril 40 mg tablet 40 mg PO DAILY 05/27/22 12/27/22 mirtazapine 15 mg tablet 15 mg PO BEDTIME 05/27/22 12/27/22 ropinirole 0.25 mg tablet 0.5 mg PO BEDTIME PRN Restless 05/27/22 12/27/22 Leg(S) rosuvastatin 40 mg tablet 40 mg PO DAILY 05/27/22 12/27/22 acetaminophen 650 mg 1 - 2 tab PO Q8H PRN Pain, Mild 12/27/22 12/27/22 tablet,extended release carbidopa 25 mg-levodopa 100 mg 1 tab PO BEDTIME PRN Restless 12/27/22 12/27/22 tablet Leg(S) carbidopa 25 mg-levodopa 100 mg 2 tab PO QID 12/27/22 12/27/22 tablet carbidopa ER 50 mg-levodopa 200 mg 1 tab PO BEDTIME 12/27/22 12/27/22 tablet,extended release Previous Rx's Medication Instructions Recorded omeprazole 20 mg capsule,delayed 20 mg PO DAILY 60 days #60 caps 05/07/22 release Allergies Allergy/AdvReac Type Severity Reaction Status Date / Time No Known Allergies Allergy Unknown NKA Verified 04/14/23 09:13 Review of Systems Review of Systems: Pertinent positives and negatives as stated in [facility] Past Medical History Source: nursing notes reviewed Medical History Allergic rhinitis Back pain Cerebral microvascular disease Degenerative disc disease Diabetes Diverticulosis HLD (hyperlipidemia) HTN (hypertension) Latent tuberculosis Parkinson disease Surgical History Hx of colonoscopy (~06/2018) Social History Social History Alcohol intake: never Patient Tobacco Use Status: Former Tobacco user Advance Directives: No Advance Directives Information Provided: Yes Current occupational status: unemployed Current occupation: retired Physical Exam ED Vital Signs: Vital Signs - 24 hr 04/14/23 10:00 04/14/23 11:35 Temperature 98.3 F 98.7 F Pulse Rate 90 85 Respiratory Rate 18 16 Blood Pressure 143/76 H 144/68 H Pulse Oximetry 96 99 Oxygen Delivery Method Room Air Room Air BMI result Body Mass Index 23.6 VITAL SIGNS: Reviewed. GENERAL: Well developed, well nourished, in no acute distress. HEAD: Normocephalic/atraumatic EYES: PERRLA, EOMI EARS: Ext canals without abnormality NOSE: Nares patent bilateral OROPHARYNX: no oral lesions noted, posterior pharynx clear NECK: Supple, no adenopathy LUNGS: Normal breath sounds. No adventitious sounds or accessory muscle use. SpO2<99> CARDIOVASCULAR: Regular rate and rhythm without noted murmurs ABDOMEN: Soft, non-tender, non-distended with bowel sounds. PELVIS: Stable, nontender, mild tenderness to palpation over the left iliac crest. MUSCULOSKELETAL: No tenderness, deformities, or effusions noted on gross inspection. EXTREMITIES: No cyanosis, clubbing or edema. SKIN: Inspection of the skin reveals no rashes NEUROLOGIC: Alert and oriented x 4. Strength and sensation to light touch were grossly intact x 4. Medical Decision Making Medical Decision Making MDM Narrative: 77-year-old male with left iliac crest discomfort that is been managed very well with his home medications, there are no symptoms to suggest intra-abdominal infection or urinary infection. I reviewed the pelvis x-ray and agree with radiology's impression. There is no evidence of acute pathology. Patient is otherwise feeling well and will be discharged home to continue his home medications. Differential Diagnosis Please see the discussion above Lab Data Please see the discussion above 04/14/23 10:17 04/14/23 10:17 Labs: Lab Results 04/14/23 04/14/23 Range/Units 10:17 10:17 WBC 8.9 (4.8-10.8) X10*3/uL RBC 4.53 L (4.60-5.80) X10*6/uL Hgb 13.4 L (14.0-18.0) g/dl Hct 40.6 L (42.0-52.0) % MCV 89.6 (80.0-98.0) fL MCH 29.6 (27.0-33.0) pg MCHC 33.0 (31.0-36.0) g/dl RDW 14.0 (11.0-16.0) % Plt Count 163 D (160-400) X10*3/uL MPV 9.7 (9.4-12.4) fL Immature Gran % (Auto) 0.1 (0.0-0.4) % Neut % (Auto) 63.5 (45-73) % Lymph % (Auto) 20.2 (20-40) % [place] % (Auto) 12.2 H (2-11) % Eos % (Auto) 3.6 (0-4) % Baso % (Auto) 0.4 (0-2) % Lymph # (Auto) 1.8 (1.2-4.9) X10*3/uL [place] # (Auto) 1.1 (0.1-1.2) X10*3/uL Eos # (Auto) 0.3 (0.0-0.4) X10*3/uL Baso # (Auto) 0.0 (0.0-0.2) X10*3/uL Abs Immat Gran (auto) 0.01 (0.00-0.03) X10*3/uL Absolute Neuts (auto) 5.7 (2.0-8.3) x10*3/uL Absolute Nucleated RBC 0.000 (0.0-0.012) X10*3/uL Nucleated RBC % (auto) 0.0 (0.0-0.2) /100WBC Sodium 140 (135-145) mmol/L Potassium 4.1 (3.3-5.1) mmol/L Chloride 103 (96-108) mmol/L Carbon Dioxide 26 (22-29) mmol/L Anion Gap 15 (12-20) BUN 24 H (9-16) mg/dL Creatinine 1.08 (0.5-1.4) mg/dL Estim Creat Clear Calc 55.4 Estimated GFR > 60 Random Glucose 81 (60-115) mg/dL Calcium 10.3 H D (8.4-10.2) mg/dL Total Bilirubin 0.6 (0.0-1.0) mg/dL AST 30 (5-37) U/L ALT < 5 (0-40) U/L Alkaline Phosphatase 79 (39-117) U/L Total Protein 7.2 (6.5-8.0) g/dL Albumin 4.1 (3.5-5.0) g/dL Radiology Impression Radiologist Impression: My interpretation is in agreement with radiology's impression. Discharge Plan Discharge Clinical Impression: Acute hip pain Patient Disposition: Home, Self-Care Instructions: Hip Pain (ED) Additional Instructions: 1. Reanudar todos los medicamentos caseros seg?n lo prescrito. 2. Contin?e con los medicamentos que james estado usando para controlar el dolor, ya que parecen estar funcionando. 3. Rhonda un seguimiento con sterling proveedor de atenci?n primaria en los pr?ximos 1 a 2 d?as para analy reevaluaci?n. Regrese a la kristen de emergencias si los s?ntomas empeoran. 1. Resume all home medications as prescribed. 2. Continue with the medications that you have been using to manage your pain as these seem to be working. 3. Please follow-up with your primary care provider in the next 1-2 days for re- evaluation. Return to the ER for any worsening symptoms. Prescriptions: No Action omeprazole 20 mg capsule,delayed release(DR/EC) 20 mg PO DAILY 60 Days Qty: 60 2RF carbidopa-levodopa 50-200 mg tablet extended release 1 tab PO BEDTIME acetaminophen 650 mg tablet extended release 1 - 2 tab PO Q8H PRN (Reason: Pain, Mild) carbidopa-levodopa 25-100 mg tablet 2 tab PO QID carbidopa-levodopa 25-100 mg tablet 1 tab PO BEDTIME PRN (Reason: Restless Leg(S)) melatonin 3 mg capsule 3 mg PO BEDTIME PRN (Reason: Sleep) aspirin [Adult Low Dose Aspirin] 81 mg tablet,delayed release (DR/EC) 81 mg PO DAILY (DME) blood pressure test kit-large Kit See Rx Instructions .ROUTE DIRECTED Qty: 1 Rx Instructions: As directed latanoprost 0.005 % drops 1 drp ophthalmic-Right BEDTIME cholecalciferol (vitamin D3) 50 mcg (2,000 unit) tablet 50 mcg PO DAILY mirtazapine 15 mg tablet 15 mg PO BEDTIME lisinopril 40 mg tablet 40 mg PO DAILY cyanocobalamin (vitamin B-12) 1,000 mcg tablet 1,000 mcg PO DAILY ropinirole 0.25 mg tablet 0.5 mg PO BEDTIME PRN (Reason: Restless Leg(S)) rosuvastatin 40 mg tablet 40 mg PO DAILY Referrals: Chelo Smith MD [Primary Care Provider] - Print Language: [place] Citizen
[2023-04-14 12:47] VITALS: BP 163/84; PULSE 88; RESP 16; O2SAT 98
--- NOTE | 2023-04-14 12:47 | PC.NURSE ---
documentation on wrong patient for categories: Suicide, Primary RN, Abd. pain & fall risk assessments.
== END 2023-04-14 12:48 | disposition home or self-care (01) ==
PROVIDERS: Emergency Provider Student in an Organized Health Care Education/Training Program; PCP Internal Medicine
DX: M25.552 Pain in left hip (principal); I10 Essential (primary) hypertension; E78.5 Hyperlipidemia, unspecified; G20 Parkinson's disease; Z87.891 Personal history of nicotine dependence; Z79.82 Long term (current) use of aspirin; Z79.899 Other long term (current) drug therapy
CPT/HCPCS: 36415; 72170; 80053; 85025; 99283; 99284

== ENCOUNTER 2023-06-07 07:05 | Emergency (ER) | payer MEDICARE, MEDICAID, SELFPAY ==
--- NOTE | ~2023-06-07 | CT_ITS ---
EXAMINATION: CT CHEST WITHOUT CONTRAST CLINICAL INFORMATION: Abnormal chest x-ray COMPARISON: Same day chest radiograph, 07/12/[address] TECHNIQUE: Multidetector volumetric CT imaging of the chest was done. Axial MIP volume rendering provided. Sagittal and coronal reformatted images were obtained. This CT examination was performed using dose optimization techniques as appropriate, variously including the following: *Automated exposure control *Adjustment of mA and/or kV according to patient size (this includes techniques or standardized protocols for targeted exams where dose is matched to indication/reason for exam; i.e. extremities or head) *Use of iterative reconstruction technique DLP: 398 mGy-cm FINDINGS: CONTRACTING SPECIALIST: Aortic calcifications. Mildly elevated right hemidiaphragm. LUNGS: Trachea and bronchi are patent. Bilateral lower lobe atelectasis. Mild centrilobular emphysema. No significant change 7 mm ill-defined nodular RUL density, 4:25, 9:77. Interval appearance 3 mm subpleural RUL nodule, 4:25. New 6 mm right lower lobe nodule, 4:50, 9:96. As questioned on recent chest radiograph, no evidence of abnormal left mid lung opacity. MEDIASTINUM: Left thyroid lobe is smaller than the right. No pathologic mediastinal lymphadenopathy. HEART AND GREAT VESSELS: Heart size within normal limits. No pericardial effusion. Atherosclerotic calcifications nonaneurysmal aorta. Nonenlarged pulmonary arteries. CORONARY ARTERY CALCIFICATION: Moderate PLEURA: There is no pleural effusion. No pleural mass or thickening. AXILLA: No lymphadenopathy. UPPER ABDOMEN: Unremarkable. OSSEOUS STRUCTURES: Unremarkable. CT/CT chest wo IV con IMPRESSION: No CT evidence of left midlung opacity as questioned on recent chest radiograph, findings likely related to superimposition of structures. Pulmonary nodules, largest measuring 6 mm. Per Fleischner recommendations, if low risk, CT 18-24 months is optional. For unknown and high risk patients, CT at 6-12 months, then CT at 18-24 months.
--- NOTE | ~2023-06-07 | XR_ITS ---
EXAMINATION: XR CHEST CLINICAL INFORMATION: Generalized weakness COMPARISON: 12/03/2020 TECHNIQUE: Frontal view of the chest was obtained. FINDINGS: Heart and mediastinum within normal limits. Aortic calcifications seen. No vascular congestion. Possible small left midlung opacity. No consolidations or effusions. XR/XR chest 1V IMPRESSION: Possible left midlung opacity. PA and lateral left recommended visible.
[2023-06-07 07:15] VITALS: BP 149/73; PULSE 99; RESP 18; TEMP 37.1; O2SAT 97; BMI 24.6
[2023-06-07 07:29] VITALS: BP 148/70; PULSE 99; RESP 18; TEMP 37.1; O2SAT 97; BMI 21.3
[2023-06-07 07:38] LABS: MANUAL DIFF FLAG NO
[2023-06-07 07:43] LABS: Basophils Percent Auto 0.4 % (0-2); Eosinophils Absolute Auto 0.2 X10*3/uL (0.0-0.4); Eosinophils Percent Auto 2.9 % (0-4); Hematocrit 40.2 % (42.0-52.0); Hemoglobin 13.4 g/dl (14.0-18.0); Imm Gran Abs Auto 0.01 X10*3/uL (0.00-0.03); Imm Gran Pct Auto 0.1 % (0.0-0.4); Lymphocytes Absolute Auto 1.7 X10*3/uL (1.2-4.9); Lymphocytes Percent Auto 22.1 % (20-40); Mean Corpuscular HGB Conc 33.3 g/dl (31.0-36.0); Mean Corpuscular Hemoglobin 29.1 pg (27.0-33.0); Mean Corpuscular Volume 87.2 fL (80.0-98.0); Mean Platelet Volume 9.6 fL (9.4-12.4); Monocytes Absolute Auto 0.6 X10*3/uL (0.1-1.2); Monocytes Percent Auto 7.6 % (2-11); Neutrophils Absolute Auto 5.1 x10*3/uL (2.0-8.3); Neutrophils Percent Auto 66.9 % (45-73); Platelet Count 198 X10*3/uL (160-400); Red Blood Count 4.61 X10*6/uL (4.60-5.80); Red Cell Distribution Width 13.8 % (11.0-16.0); White Blood Count 7.6 X10*3/uL (4.8-10.8)
[2023-06-07 08:20] LABS: Anion Gap 12 (12-20); Blood Urea Nitrogen 17 mg/dL (9-16); Calcium 9.9 mg/dL (8.4-10.2); Carbon Dioxide 28 mmol/L (22-29); Chloride 105 mmol/L (96-108); Estimated Glomerular Filt Rate 54; Glucose Random 126 mg/dL (60-115); Potassium 4.1 mmol/L (3.3-5.1); Sodium 141 mmol/L (135-145)
--- NOTE | 2023-06-07 08:52 | ED_ITS ---
HPI - General Adult General Chief complaint: General Medical Stated complaint: Difficulty walking/AMS Time Seen by Provider: 06/07/23 08:29 Source: patient, family (Son/ANTITANK ASSAULT GUNNER) and professional organizer Mode of arrival: ambulatory Limitations: no limitations History of Present Illness HPI narrative: A 77-year-old male history of Parkinson's disease came in with his son for evaluation of generalized weakness and decrease sleeping and decreased PO intake. Patient otherwise decline headache, photophobia, blurry vision, neck stiffness, CP, SOB, abdominal pain, nausea, vomiting, fever, chills, or diarrhea. As per her son who also a ANTITANK ASSAULT GUNNER no medication was changed recently and he has been on the same medication for the last year nevertheless, son believes that his Parkinson's disease is causing the patient's symptoms. Related Data Home Medications Medication Instructions Recorded Confirmed aspirin 81 mg tablet,delayed 81 mg PO DAILY 12/23/20 12/27/22 release (Adult Low Dose Aspirin) melatonin 3 mg capsule 3 mg PO BEDTIME PRN Sleep 12/23/20 12/27/22 blood pressure test kit-large #1 ea 01/15/21 10/28/22 cholecalciferol (vitamin D3) 50 50 mcg PO DAILY 01/15/21 12/27/22 mcg (2,000 unit) tablet latanoprost 0.005 % eye drops 1 drp ophthalmic-Right BEDTIME 01/15/21 12/27/22 cyanocobalamin (vitamin B-12) 1,000 mcg PO DAILY 05/27/22 12/27/22 1,000 mcg tablet lisinopril 40 mg tablet 40 mg PO DAILY 05/27/22 12/27/22 mirtazapine 15 mg tablet 15 mg PO BEDTIME 05/27/22 12/27/22 ropinirole 0.25 mg tablet 0.5 mg PO BEDTIME PRN Restless 05/27/22 12/27/22 Leg(S) rosuvastatin 40 mg tablet 40 mg PO DAILY 05/27/22 12/27/22 acetaminophen 650 mg 1 - 2 tab PO Q8H PRN Pain, Mild 12/27/22 12/27/22 tablet,extended release carbidopa 25 mg-levodopa 100 mg 1 tab PO BEDTIME PRN Restless 12/27/22 12/27/22 tablet Leg(S) carbidopa 25 mg-levodopa 100 mg 2 tab PO QID 12/27/22 12/27/22 tablet carbidopa ER 50 mg-levodopa 200 mg 1 tab PO BEDTIME 12/27/22 12/27/22 tablet,extended release Previous Rx's Medication Instructions Recorded omeprazole 20 mg capsule,delayed 20 mg PO DAILY 60 days #60 caps 05/07/22 release Allergies Allergy/AdvReac Type Severity Reaction Status Date / Time No Known Allergies Allergy Unknown NKA Verified 04/14/23 09:13 Review of Systems Review of Systems: All other systems are reviewed and are negative Constitutional: Reports as per HPI and Reports no additional constitutional complaints Eyes: Reports as per HPI and Reports no additional eye complaints Reports system reviewed and no additional complaints, except as documented Cardiovascular: Reports as per HPI and Reports no additional cardiovascular complaints Respiratory: Reports as per HPI and Reports no additional respiratory complaints Gastrointestinal: Reports as per HPI and Reports no additional gastrointestinal complaints Genitourinary: Reports no additional female genitourinary complaints Musculoskeletal: Reports no additional musculoskeletal complaints Skin/Breast: Reports system reviewed and no additional complaints, except as docu Psychiatric: Reports no additional psychiatric complaints Endocrine: Reports no additional endocrine complaints Hematologic/Lymphatic: Reports no additional hematologic/lymphatic complaints Allergic/Immunologic: Reports no additional allergic/immunologic complaints Reports system reviewed and no additional complaints, except as documented and Reports Abnormal speech present [facility] Past Medical History Medical History Allergic rhinitis Back pain Cerebral microvascular disease Degenerative disc disease Diabetes Diverticulosis HLD (hyperlipidemia) HTN (hypertension) Latent tuberculosis Parkinson disease Surgical History Hx of colonoscopy (~06/2018) Social History Social History Alcohol intake: never Patient Tobacco Use Status: Former Tobacco user Smoked in Last 30 Days: No Use of substances other than those prescribed or required for medical reasons: No Advance Directives: Yes Advance Directives on File: Yes Advance Directives Date on File: 12/27/22 Current occupational status: unemployed Current occupation: retired Physical Exam ED Vital Signs: Vital Signs - 24 hr 06/07/23 07:15 06/07/23 07:29 06/07/23 10:34 Temperature 98.7 F 98.7 F 98.7 F Pulse Rate 99 99 97 Respiratory Rate 18 18 16 Blood Pressure 149/73 H 148/70 H 138/77 Pulse Oximetry 97 97 97 Oxygen Delivery Method Room Air Room Air Room Air BMI result Body Mass Index 21.3 Vital signs have been reviewed as appeared to be correct. Blood pressure normal. Heart rate normal. Respiration rate normal. Temperature normal. Oxygen saturation normal. Appearance: Alert. Oriented X3. No acute distress. Head: Normal external exam. Normocephalic. Atraumatic. No Schaefer signs noted. No raccoon eyes noted Eyes: PERRLA. EOMI. Conjunctiva and sclera normal. Eyelids normal. ENT: TM's Normal. Pharynx normal. Uvula midline. Moist mucous membranes. No trismus noted. No drooling noted. No muffled voice noted. Neck: Normal inspection. Neck supple. FROM. No adenopathy. Thyroid Normal. No meningeal signs. No neck mass noted. CVS: Normal heart rate and rhythm. Heart sound normal. No murmurs noted. Pulses normal throughout. Respiratory: No respiratory distress. Painless inspiration. Breath sounds normal. No wheezes/rales/rhonchi noted. Chest nontender. No accessory muscle usage noted or decreased air movement noted. Abdomen: Soft and nontender. Bowel sounds normal in all 4 quadrants. No distention noted. No organomegaly noted. No visible injury noted. Back: No CVA tenderness. Full range of motion noted. Skin: Skin warm and dry. Normal skin color. Normal skin turgor. No rashes/lesions/lacerations noted. Extremities: No lower extremity edema. Extremities exhibit normal range of motion. Extremities nontender. Neuro: Oriented X 3. Cranial nerve exam: II-XII are grossly intact No motor deficit. No sensory deficit. Reflexes normal. Course Course Course Narrative: 77-year-old male history of Parkinson disease brought in by family for evalu ation of generalized weakness, decreased p.o. intake, insomnia. Medical Decision Making Differential Diagnosis Differential Diagnoses: The differential diagnosis associated with the presentation includes (Parkinson's disease, electrolyte abnormality, UTI, severe anemia, intracranial pathology.) Admission/Observation Consideration of admission/observation: Escalation of care including admission/observation considered Lab Data MDM Lab Attestation statement: I reviewed the patient's lab results. 06/07/23 07:33 06/07/23 07:33 Labs: Lab Results 06/07/23 06/07/23 06/07/23 Range/Units 07:33 07:33 11:37 WBC 7.6 (4.8-10.8) X10*3/uL RBC 4.61 (4.60-5.80) X10*6/uL Hgb 13.4 L (14.0-18.0) g/dl Hct 40.2 L (42.0-52.0) % MCV 87.2 (80.0-98.0) fL MCH 29.1 (27.0-33.0) pg MCHC 33.3 (31.0-36.0) g/dl RDW 13.8 (11.0-16.0) % Plt Count 198 (160-400) X10*3/uL MPV 9.6 (9.4-12.4) fL Immature Gran % (Auto) 0.1 (0.0-0.4) % Neut % (Auto) 66.9 (45-73) % Lymph % (Auto) 22.1 (20-40) % [place] % (Auto) 7.6 (2-11) % Eos % (Auto) 2.9 (0-4) % Baso % (Auto) 0.4 (0-2) % Lymph # (Auto) 1.7 (1.2-4.9) X10*3/uL [place] # (Auto) 0.6 (0.1-1.2) X10*3/uL Eos # (Auto) 0.2 (0.0-0.4) X10*3/uL Baso # (Auto) 0.0 (0.0-0.2) X10*3/uL Abs Immat Gran (auto) 0.01 (0.00-0.03) X10*3/uL Absolute Neuts (auto) 5.1 (2.0-8.3) x10*3/uL Absolute Nucleated RBC 0.000 (0.0-0.012) X10*3/uL Nucleated RBC % (auto) 0.0 (0.0-0.2) /100WBC Sodium 141 (135-145) mmol/L Potassium 4.1 (3.3-5.1) mmol/L Chloride 105 (96-108) mmol/L Carbon Dioxide 28 (22-29) mmol/L Anion Gap 12 (12-20) BUN 17 H (9-16) mg/dL Creatinine 1.29 (0.5-1.4) mg/dL Estim Creat Clear Calc 43.0 Estimated GFR 54 Random Glucose 126 H (60-115) mg/dL Calcium 9.9 (8.4-10.2) mg/dL Urine Color Yellow Urine Appearance Clear Urine pH 6.5 (5.0-9.0) Ur Specific [place] 1.010 (1.005-1.025) Urine Protein Negative (Neg-Trace) mg/dL Urine Glucose (UA) Negative (Negative) mg/dL Urine Ketones Negative (Negative) mg/dL Urine Blood Negative (Negative) Urine Nitrite Negative (Negative) Ur Leukocyte Esterase Negative (Negative) Independent Interpretation I performed an independent interpretation of an: Plain X-Ray (No acute pathology.) and CT Scan (Chest:No CT evidence of left midlung opacity as questioned on recent chest radiograph, findings likely related to superimposition of structures. Pulmonary nodules, largest measuring 6 mm. Per Fleischner recommendations, if low risk, CT 18-24 months is optional. For unknown and high risk patients, CT) Radiology Impression Discussion of test interpretation with radiology: I have reviewed the radiologist's reading. Discharge Plan Discharge Clinical Impression: Parkinson's disease Patient Disposition: Home, Self-Care Instructions: Parkinson Disease (ED) Prescriptions: No Action omeprazole 20 mg capsule,delayed release(DR/EC) 20 mg PO DAILY 60 Days Qty: 60 2RF carbidopa-levodopa 50-200 mg tablet extended release 1 tab PO BEDTIME acetaminophen 650 mg tablet extended release 1 - 2 tab PO Q8H PRN (Reason: Pain, Mild) carbidopa-levodopa 25-100 mg tablet 2 tab PO QID carbidopa-levodopa 25-100 mg tablet 1 tab PO BEDTIME PRN (Reason: Restless Leg(S)) melatonin 3 mg capsule 3 mg PO BEDTIME PRN (Reason: Sleep) aspirin [Adult Low Dose Aspirin] 81 mg tablet,delayed release (DR/EC) 81 mg PO DAILY (DME) blood pressure test kit-large Kit See Rx Instructions .ROUTE DIRECTED Qty: 1 Rx Instructions: As directed latanoprost 0.005 % drops 1 drp ophthalmic-Right BEDTIME cholecalciferol (vitamin D3) 50 mcg (2,000 unit) tablet 50 mcg PO DAILY mirtazapine 15 mg tablet 15 mg PO BEDTIME lisinopril 40 mg tablet 40 mg PO DAILY cyanocobalamin (vitamin B-12) 1,000 mcg tablet 1,000 mcg PO DAILY ropinirole 0.25 mg tablet 0.5 mg PO BEDTIME PRN (Reason: Restless Leg(S)) rosuvastatin 40 mg tablet 40 mg PO DAILY
[2023-06-07 10:34] VITALS: BP 138/77; PULSE 97; RESP 16; TEMP 37.1; O2SAT 97
[2023-06-07 11:45] LABS: Appearance Urine Clear; Color Urine Yellow; Glucose Urine UA Negative (Negative); Leukocyte Esterase Urine Negative (Negative); Nitrite Urine Negative (Negative); PH 6.5 (5.0-9.0); Urine Blood Negative (Negative); Urine Ketones Negative (Negative); Urine Protein Negative (Neg-Trace)
== END 2023-06-07 13:41 | disposition home or self-care (01) ==
PROVIDERS: Emergency Provider Emergency Medicine; PCP Internal Medicine
DX: G20 Parkinson's disease (principal); R53.1 Weakness; I10 Essential (primary) hypertension; E78.5 Hyperlipidemia, unspecified; Z79.82 Long term (current) use of aspirin; Z79.899 Other long term (current) drug therapy; Z87.891 Personal history of nicotine dependence
CPT/HCPCS: 36415; 51701; 71045; 71250; 80048; 81003; 85025; 99284

== ENCOUNTER 2023-09-29 08:30 | Outpatient (AMB) | payer MEDICARE, SELFPAY ==
--- NOTE | 2023-09-29 08:43 | A.OFFVIS_ITS ---
Intake Vital Signs 09/29/23 08:46 Height 5 ft 8 in Weight 163 lb BMI 24.8 BP 154/74 H Blood Pressure Location Lt brachial Position Sitting Pulse 94 Intake Visit Reasons: 6 mnth follow up Intake Note: Patient follow up for dysphagia. Patient said his dysphagia is much better, he is eating with out any shocking, denies any other GI issues. Rectifying Operator Required: Yes Rectifying Operator Name: [facility] Interpeter Accompanied by: Son Allergies No Known Allergies Allergy (Unknown, Verified 09/29/23 08:50) NKA Medication List - Last Reconciled 09/29/23 by Albaro Russo MD acetaminophen ER 1 - 2 tabs PO Q8H PRN aspirin (Adult Low Dose Aspirin) 81 mg PO DAILY blood pressure test kit-large As directed carbidopa-levodopa 25-100 mg 2 tabs PO QID carbidopa-levodopa 25-100 mg 1 tab PO BEDTIME PRN carbidopa-levodopa 50-200 mg ER 1 tab PO BEDTIME cholecalciferol (vitamin D3) 50 mcg PO DAILY cyanocobalamin (vitamin B-12) 1,000 mcg PO DAILY latanoprost 0.005% 1 drp ophthalmic-Right BEDTIME lisinopril 40 mg PO DAILY melatonin 3 mg PO BEDTIME PRN mirtazapine 15 mg PO BEDTIME omeprazole 20 mg PO DAILY 90 days ropinirole 0.5 mg PO BEDTIME PRN rosuvastatin 40 mg PO DAILY HPI 6 mnth follow up HPI Details FU GI CLINIC VISIT for this 78-year-old Dominican-speaking male for FU evaluation of Dysphagia and Odynophagia with weight loss. ???CHRONIC ILLNESSES:?Hypertension, Hyperlipidemia, DMII, cerebral microvascular disease, allergic rhinitis, diverticulosis of large intestine without hemorrhage, chronic back pain, BMI 31.0-31.9 adult, degenerative disc disease, lumbar, latent TB ? LABS IN [facility]: 09/04/19 Normal CBC, chem panel and LFTs. ? IMAGING STUDIES: 11/14/19 MODIFIED BARIUM SWALLOW SHOWED: ? Retention in the vallecula with all media. ? Penetration in the larynx with liquids. No aspiration seen. ?2018 Gastric Emptying Study showed: ? No abnormal retention of solid food is present. Gastric emptying is ? more rapid than normal, but this is of uncertain clinical significance. ?09/[address] scan showed: ? GASTROINTESTINAL TRACT: There are scattered diverticuli are seen in ? descending, ascending and sigmoid colon without diverticulitis. There ? is no colonic distention. The small bowel loops are normal caliber. ? The appendix is not visualized well. There is haziness and the small ? lymph nodes in the right lower quadrant mesentery suggest a mesenteritis. ENDOSCOPIC STUDIES:? 04/28/21 EGD SHOWED: ESOPHAGUS: GE junction at 40 cms. No esophagitis or Espinosa.? ? Esophageal balloon dilation was performed with 19 and 20 mm CRE balloon x 60 seconds at each level STOMACH: Gastritis Biopsies showed: Gastric, antrum, biopsies: ? Antral and corpus mucosa with moderate chronic active gastritis and numerous Helicobacter pylori; negative for intestinal metaplasia, dysplasia, and carcinoma ?TODAY'S VISIT ? [facility] Quality Control Analyst, Sophy ? Patient is accompanied by his son Notes improvement in dysphagia and has gained weight LLQ pain has resolved. Denies diarrhea or constipation Complains of LLQ pain for the past 3 days - woke up with abdominal pain Pain is 8/10 in intensity and like a cramp. No change in abdominal pain with eating and denies diarrhea, constipation, fever, chills or sweating. Has been taking Ibuprofen daily for the pain Had a normal BM yesterday afternoon without any blood. Eats small portions 3 times a day and eating in between meals. Has been doing good and complains of problems with his teeth and has trouble chewing the food. Has gained wt and swallowing has improved. Not taking Glucerna since he has not bought it. PAST VISIT: Unable to sleep last night since his leg was very itchy Not taking Omeprazole since he ran out of his prescription His SO gives it to him intermittently (from her own prescription) if he complains of indigestion after eating. She is requesting a new prescription for omeprazole - sent to patient's preferred pharmacy Feels a littel dizzy. ? Doing good, and is swallowing OK. Eating 3 meals a day and has gained 10 lbs. ?? ? I havent thrown up ? ? ? Weight gain of 7 lbs over the past year and states he weighs 146 lbs now. ? ? ? I am taking 2-3 cans of Ensure a day ? ? ? Recieved both doses of COVID vaccine - last dose on 01/01/21 (WEIGHED 156 LBS IN NOV, 2019 and 146 lb s?today PFS Medical History Allergic rhinitis Back pain Cerebral microvascular disease Degenerative disc disease Diabetes Diverticulosis HLD (hyperlipidemia) HTN (hypertension) Latent tuberculosis Parkinson disease Surgical History Hx of colonoscopy (~06/2018) Social History Alcohol intake: never Patient Tobacco Use Status: Former Tobacco user Advance Directives Date on File: 12/27/22 Current occupational status: unemployed Current occupation: retired Review of Systems Const All systems reviewed & are unremarkable except as noted in HPI and below Physical Exam Vital Signs: Last Vital Signs Pulse 94 09/29/23 08:46 BP 154/74 H 09/29/23 08:46 BMI result Body Mass Index 24.8 Const General: no acute distress Nutritional Appearance: average body habitus Orientation/consciousness: patient oriented x3 Limitations: language barrier HEENT Head: Yes normal to inspection Ears: hearing grossly normal bilaterally Eyes Sclerae: sclerae normal Pupils: Equal, round and reactive pupils present Neck Neck: Yes normal visual inspection Chest Chest palpation & inspection: normal inspection of the chest Resp Effort & Inspection: normal respiratory effort Auscultation: clear to auscultation bilaterally Cardio Palpation: normal PMI Rate: regular rate Rhythm: regular rhythm Heart sounds: S1 normal heart sound present, S2 normal heart sound present and no murmurs GI Palpation (GI): Soft to palpation, nontender and No hepatosplenomegaly present Auscultation: normal bowel sounds Rectal Exam - Male: Yes deferred Skin General skin exam: no rashes or lesions noted Neuro General: patient oriented x3, gait normal and moves all extremities Cranial nerves: Yes Equal, round and reactive pupils present Psych Appearance: grossly normal Mental Status: mental status grossly normal Assessment & Plan Assessment & Plan (1) Helicobacter pylori gastritis: Code(s): K29.70 - Gastritis, unspecified, without bleeding; B96.81 - Helicobacter pylori [H. pylori] as the cause of diseases classified elsewhere (2) Colon cancer screening: Comment: 06/2018 Colonoscopy was performed by Dr Gayle and showed severe diverticulosis in the sigmoid colon, internal and external hemorrhoids and no polyps. Repeat Colon in 10 yrs (due 06/2028) if patient remains in stable health Code(s): Z12.11 - Encounter for screening for malignant neoplasm of colon (3) Weight loss: Code(s): R63.4 - Abnormal weight loss (4) Dysphagia, pharyngoesophageal phase: Code(s): R13.14 - Dysphagia, pharyngoesophageal phase (5) GERD (gastroesophageal reflux disease): Code(s): K21.9 - Gastro-esophageal reflux disease without esophagitis Plan 78 YM with Hypertension, Hyperlipidemia, DMII, cerebral microvascular disease, allergic rhinitis, diverticulosis of large intestine without hemorrhage, chronic back pain, BMI 31.0-31.9 adult, degenerative disc disease, lumbar, latent TB and Parkinson's disease. Patient was seen for evaluation of oropharyngeal dysphagia associated with intake of solids and liquids. He was diagnosed with Parkinson's disease 3 yrs ago. Dysphagia is likely due to neuromuscular involvement with Parkinson's disease. Modified barium swallow with speech pathologist was performed and findings as noted above. Patient states he has following recommendations of speech pathology and taking Glucerna 1-2 times daily. Pt was prescribed antibiotics for H Pylori infection (amoxicillin and Levofloxacin x 14 days? - due to drug interaction with clarithromycin). Pt notes improvement in dysphagia and has gained weight. Patient was advised that if he develops recurrent wt loss, he may need PEG placement in the future for nutritional support. Pt was retreated for H Pylori with Pylera in 05/2022 since breath test for H pylori was positive. Prescription given for Glucerna 1 can daily 04/14/23 PT complains of LLQ pain x 3 days. Physical exam revealed LLQ tenderness. Pt advised to go to [facility] ED for evaluation with labs, UA and a CT scan (Pt dscussed with Dr Gomez) ADDENDUM: Pt seen in the ER: 77-year-old male with left iliac crest discomfort that is been managed very well with his home medications, there are no symptoms to suggest intra-abdominal infection or urinary infection.? I reviewed the pelvis x-ray and agree with radiology's impression.? There is no evidence of acute pathology.? Patient is otherwise feeling well and will be discharged home to continue his home medications . FU in 6 months. Medications: Changed From omeprazole 20 mg PO DAILY 60 days 60 caps 2RF K21.9 - Gastro-esophageal reflux disease without esophagitis To omeprazole 20 mg PO DAILY 90 days 90 caps 1RF K21.9 - Gastro-esophageal reflux disease without esophagitis Coding Level of Care Code Est Pt Level 3 (62336) Diagnoses Helicobacter pylori gastritis K29.70; B96.81 Colon cancer screening Z12.11 Weight loss R63.4 Dysphagia, pharyngoesophageal phase R13.14 GERD (gastroesophageal reflux disease) K21.9 Time Spent (min) 20
[2023-09-29 08:46] VITALS: BP 154/74; PULSE 94; BMI 24.8
== END 2023-09-29 09:16 | disposition home or self-care (01) ==
PROVIDERS: PCP Internal Medicine; Visit Provider Internal Medicine Gastroenterology
DX: K29.70 Gastritis, unspecified, without bleeding (principal); B96.81 Helicobacter pylori [H. pylori] as the cause of diseases classified elsewhere; Z12.11 Encounter for screening for malignant neoplasm of colon; R63.4 Abnormal weight loss; R13.14 Dysphagia, pharyngoesophageal phase; K21.9 Gastro-esophageal reflux disease without esophagitis
CPT/HCPCS: 99213

== ENCOUNTER → 2023-09-29 08:30 | Outpatient (BNVA) | payer MEDICARE, MEDICAID, SELFPAY | PROVIDERS: PCP Internal Medicine; Visit Provider Internal Medicine Gastroenterology | DX: Z12.11 Encounter for screening for malignant neoplasm of colon (principal); R13.14 Dysphagia, pharyngoesophageal phase; R63.4 Abnormal weight loss; K21.9 Gastro-esophageal reflux disease without esophagitis; K29.70 Gastritis, unspecified, without bleeding; B96.81 Helicobacter pylori [H. pylori] as the cause of diseases classified elsewhere | CPT/HCPCS: 99212 ==

== ENCOUNTER 2024-07-11 07:56 | Outpatient (REF) | payer MEDICARE, SELFPAY ==
--- NOTE | ~2024-07-11 | XR_ITS ---
EXAMINATION: XR CHEST CLINICAL INFORMATION: Cough x 1y/lung nodule COMPARISON: 06/07/2023. 12/03/2020. CT chest 06/07/2023. TECHNIQUE: 2 views of the chest were obtained. FINDINGS: The cardiac, hilar, and mediastinal contours are normal. The aorta is calcified. The lungs are clear bilaterally. No consolidation or effusion. No pneumothorax. No nodules appreciated radiographically. Osseous structures demonstrate spinal and bilateral shoulder joint degenerative changes. No suspicious abnormalities There is no soft tissue abnormality. XR/XR chest 2V IMPRESSION: No active pulmonary disease. Electronically signed by: Chito Woo MD 09/19/2024 02:08 PM [facility]
[2024-07-11 10:25] LABS: Alanine Aminotransferase 17 U/L (0-40); Albumin Level 4.8 g/dL (3.5-5.0); Alkaline Phosphatase 87 U/L (39-117); Anion Gap 13 (12-20); Aspartate Amino Transferase 21 U/L (5-37); Bilirubin Total 0.7 mg/dL (0.0-1.0); Blood Urea Nitrogen 28 mg/dL (9-16); Calcium 10.1 mg/dL (8.4-10.2); Carbon Dioxide 26 mmol/L (22-29); Chloride 104 mmol/L (96-108); Cholesterol 143 mg/dL (<200); Estimated Glomerular Filt Rate 45; Glucose Random 104 mg/dL (60-115); HDL Cholesterol 78 mg/dL (>40); LDL Cholesterol Calculated 47 mg/dL (<100); Potassium 4.2 mmol/L (3.3-5.1); Sodium 139 mmol/L (135-145); Total Protein 8.6 g/dL (6.5-8.0); Triglycerides 94 mg/dL (<150)
[2024-07-11 10:37] LABS: HBS Num1 0.54 mIU/mL (0-7.99); HBc Num1 0.18 S/CO (0.00-0.79); HBsAGNum1 0.28 S/CO (0.00-0.99); Hepatitis A Antibody IgM 0.22 Index (0-0.79); Hepatitis B Core Antibody Nonreactive (Nonreactive); Hepatitis B Surface Antigen Negative (Negative); ~HepC Num1 0.14 S/CO (0.00-0.79); ~Hepatitis A Antibody IgM Nonreactive (Nonreactive); ~Hepatitis B Surface Antibody NONREACTIVE (Nonreactive); ~Hepatitis C Antibody Nonreactive (Nonreactive)
[2024-07-11 10:41] LABS: Ferritin 332 ng/mL (20-250); Vitamin D 25-OH Total 92.4 ng/mL (>30)
[2024-07-11 10:47] LABS: TSH reflex Free T4 1.35 uIU/mL (0.32-4.0)
[2024-07-11 10:57] LABS: Folate 17.6 ng/mL (> or = 4.0); Vitamin B12 > 2000 pg/mL (200-900)
[2024-07-11 12:52] LABS: Reflex LDLD? No
[2024-07-14 16:18] LABS: TS Negative Control Passed; TS Panel A 4; TS Panel B 1; TS Positive Control Passed; TSpotTB Negative (Negative)
== END 2024-07-11 07:57 | disposition home or self-care (01) ==
LOC: HO.XRAY 07:56
PROVIDERS: PCP Internal Medicine; Visit Provider Internal Medicine
DX: I10 Essential (primary) hypertension (principal); R06.09 Other forms of dyspnea; G25.81 Restless legs syndrome; R91.8 Other nonspecific abnormal finding of lung field; G20.B2 Parkinson's disease with dyskinesia, with fluctuations
CPT/HCPCS: 36415; 71046; 80053; 80061; 82306; 82607; 82728; 82746; 84443; 86481; 86704; 86706; 86709; 86803; 87340

== ENCOUNTER → 2024-07-11 08:26 | Outpatient (BNV) | payer MEDICARE, SELFPAY | PROVIDERS: PCP Internal Medicine; Visit Provider Radiology Diagnostic Radiology | DX: R06.09 Other forms of dyspnea (principal) | CPT/HCPCS: 71046 ==

== ENCOUNTER 2024-07-16 06:53 | Outpatient (REF) | payer OTHER, SELFPAY ==
[2024-07-16 07:11] LABS: MANUAL DIFF FLAG NO
[2024-07-16 07:50] LABS: Basophils Absolute Auto 0.1 X10*3/uL (0.0-0.2); Basophils Percent Auto 0.9 % (0-2); Eosinophils Absolute Auto 0.5 X10*3/uL (0.0-0.4); Eosinophils Percent Auto 6.1 % (0-4); Hemoglobin 13.9 g/dl (14.0-18.0); Imm Gran Abs Auto 0.07 X10*3/uL (0.00-0.03); Imm Gran Pct Auto 0.9 % (0.0-0.4); Lymphocytes Percent Auto 36.3 % (20-40); Mean Corpuscular HGB Conc 32.3 g/dl (31.0-36.0); Mean Corpuscular Volume 89.6 fL (80.0-98.0); Mean Platelet Volume 9.7 fL (9.4-12.4); Monocytes Absolute Auto 0.5 X10*3/uL (0.1-1.2); Neutrophils Absolute Auto 4.1 x10*3/uL (2.0-8.3); Neutrophils Percent Auto 49.8 % (45-73); Platelet Count 220 X10*3/uL (160-400); Red Cell Distribution Width 14.5 % (11.0-16.0); White Blood Count 8.2 X10*3/uL (4.8-10.8)
[2024-07-16 08:20] LABS: Blood Urea Nitrogen 28 mg/dL (9-16); Estimated Glomerular Filt Rate 37; Iron 97 mcg/dL (45-160); Percent Iron Saturation 34 % (15-50); Total Iron Binding Capacity 286 mcg/dL (228-428); Unsaturated Iron Binding 189 ug/dL
[2024-07-17 10:44] LABS: Transferrin 255 mg/dL (188-341)
[2024-07-17 13:48] LABS: Prot Elec - Albumin 4.8 g/dL (3.8-4.8); Prot Elec - Alpha1 0.4 g/dL (0.2-0.3); Prot Elec - Alpha2 1.1 g/dL (0.5-0.9); Prot Elec - Beta 1 0.5 g/dL (0.4-0.6); Prot Elec - Beta 2 0.5 g/dL (0.2-0.5); Prot Elec - Gamma 1.2 g/dL (0.8-1.7); Prot Elec - Total Protein 8.4 g/dL (6.1-8.1)
== END 2024-07-16 06:54 | disposition home or self-care (01) ==
LOC: HO.LAB 06:53
PROVIDERS: PCP Internal Medicine; Visit Provider Internal Medicine
DX: R79.89 Other specified abnormal findings of blood chemistry (principal); E88.09 Other disorders of plasma-protein metabolism, not elsewhere classified
CPT/HCPCS: 36415; 82565; 83540; 84165; 84466; 84520; 85025

== ENCOUNTER 2024-07-22 18:14 | Emergency (ER) | payer OTHER, SELFPAY ==
--- NOTE | ~2024-07-22 | CT_ITS ---
EXAMINATION CT HEAD WITHOUT CONTRAST CLINICAL INFORMATION: Fall, altered mental status COMPARISON: CT brain January 02, 2018 TECHNIQUE: CT of the head was performed without intravenous contrast. Reformatted axial, coronal, and sagittal images were reviewed. This CT examination was performed using dose optimization techniques as appropriate, variously including the following: *Automated exposure control *Adjustment of mA and/or kV according to patient size (this includes techniques or standardized protocols for targeted exams where dose is matched to indication/reason for exam; i.e. extremities or head) *Use of iterative reconstruction technique DLP: 716 mGy-cm FINDINGS: No intracranial hemorrhage, extra-axial fluid collection, or midline shift is identified. Patchy subcortical white matter hypoattenuation within the coronal radiata and centrum semiovale consistent with encephalomalacia. Soliz-white matter differentiation is preserved without evidence of an acute transcortical infarct. Periventricular white matter hypoattenuation consistent with chronic small vessel ischemic disease. Prominence of the cerebral sulci commensurate ventriculomegaly is consistent with age-related cerebral volume loss. Soliz-white matter differentiation is preserved. Basal cisterns are within normal limits. Paranasal sinuses are clear. Mastoid air cells and middle ear cavities are clear. No acute calvarial fractures. CT/CT head/brain wo IV con IMPRESSION: 1. No acute intracranial abnormality. 2. Chronic small vessel ischemic disease, cerebral volume loss, areas of subcortical encephalomalacia. Electronically signed by: Nirmal Ferrer DO 07/22/2024 09:45 PM EDT
--- NOTE | 2024-07-22 18:24 | ED_ITS ---
HPI - Weakness General Chief complaint: Weakness Stated complaint: FEELING UNWELL, LEG WEAKNESS,AMS Time Seen by Provider: 07/22/24 18:23 Source: patient and family Limitations: language barrier History of Present Illness ED Provider: Meghann Wang PA-C HPI Narrative: 78-year-old male with a history of gait instability, H pylori, GERD, dysphagia with weight loss presents with altered mental status. Per the patient's , the patient has become weak and lethargic at home over the past few days. She denies that he has been recently ill, no cough or cold symptoms, nausea vomiting diarrhea or fevers. Overnight, he was exhibiting visual hallucinations, saying that he was seeing people that were not present. Patient's denies that he has a drug or alcohol abuse issue. The patient has not had prior episodes of delerium. In regard to his weakness, he has been off balance from his baseline, and fell in the home yesterday. She denies that he struck his head. He is not on blood thinners. He uses a walker to ambulate. Related Data Home Medications ?Medication ?Instructions ?Recorded ?Confirmed aspirin 81 mg tablet,delayed 81 mg PO DAILY 12/23/20 09/29/23 release (Adult Low Dose Aspirin) melatonin 3 mg capsule 3 mg PO BEDTIME PRN Sleep 12/23/20 09/29/23 blood pressure test kit-large #1 ea 01/15/21 09/29/23 cholecalciferol (vitamin D3) 50 50 mcg PO DAILY 01/15/21 09/29/23 mcg (2,000 unit) tablet latanoprost 0.005 % eye drops 1 drp ophthalmic-Right BEDTIME 01/15/21 09/29/23 cyanocobalamin (vitamin B-12) 1,000 mcg PO DAILY 05/27/22 09/29/23 1,000 mcg tablet lisinopril 40 mg tablet 40 mg PO DAILY 05/27/22 09/29/23 mirtazapine 15 mg tablet 15 mg PO BEDTIME 05/27/22 09/29/23 ropinirole 0.25 mg tablet 0.5 mg PO BEDTIME PRN Restless 05/27/22 09/29/23 Leg(S) rosuvastatin 40 mg tablet 40 mg PO DAILY 05/27/22 09/29/23 acetaminophen 650 mg 1 - 2 tab PO Q8H PRN Pain, Mild 12/27/22 09/29/23 tablet,extended release carbidopa 25 mg-levodopa 100 mg 1 tab PO BEDTIME PRN Restless 12/27/22 09/29/23 tablet Leg(S) carbidopa 25 mg-levodopa 100 mg 2 tab PO QID 12/27/22 09/29/23 tablet carbidopa ER 50 mg-levodopa 200 mg 1 tab PO BEDTIME 12/27/22 09/29/23 tablet,extended release Previous Rx's ?Medication ?Instructions ?Recorded omeprazole 20 mg capsule,delayed 20 mg PO DAILY 90 days #90 caps 05/29/24 release Allergies Allergy/AdvReac Type Severity Reaction Status Date / Time No Known Allergies Allergy Unknown NKA Verified 07/22/24 18:40 Review of Systems 2 Review of Systems: Yes all other systems are reviewed and are negative Constitutional: Constitutional: Reports fatigue, Denies fever(s) and Reports weakness Cardiovascular: Cardiovascular: Denies chest pain and Denies dyspnea Respiratory: Respiratory: Denies dyspnea Gastrointestinal: Gastrointestinal: Denies abdominal pain, Denies diarrhea, Denies nausea and Denies vomiting Musculoskeletal: Musculoskeletal: Reports muscle weakness Neurologic: Reports behavioral changes and Reports weakness Psychiatric: Psychiatric: Reports behavioral changes and Reports visual hallucinations Endocrine: Endocrine: Reports fatigue PMFSH Past Medical History Attestation statement: The following information was validated with the patient. Medical History Allergic rhinitis Back pain Cerebral microvascular disease Degenerative disc disease Diabetes Diverticulosis HLD (hyperlipidemia) HTN (hypertension) Latent tuberculosis Parkinson disease Surgical History Hx of colonoscopy (~06/2018) Social History Social History Alcohol intake: former Patient Tobacco Use Status: Former Tobacco user Smoked in Last 30 Days: No Use of substances other than those prescribed or required for medical reasons: No Advance Directives: Yes Advance Directives on File: Yes Advance Directives Date on File: 12/27/22 Do you have a plan to hurt others: No Plan Current occupational status: unemployed Current occupation: retired Physical Exam 2 Vital Signs: Vital Signs: Last Vital Signs Temp 99.3 F 07/22/24 23:58 Pulse 88 07/22/24 23:58 Resp 20 07/22/24 23:58 BP 138/66 07/22/24 23:58 Pulse Ox 98 07/22/24 23:58 O2 Del Method Room Air 07/22/24 23:58 BMI result Body Mass Index 25.9 Const: Other: Alert, overall well in appearance Orientation/consciousness: patient oriented x3 Resp: Effort & Inspection: normal respiratory effort Cardio: Other: Normal peripheral perfusion Skin: Other: Warm dry no rash Neuro: Other: Patient is able to assist pulling himself out of bed, moving his legs to the floor and stand. However he is very unsteady on his feet and is globally weak General: patient oriented x3, no focal motor deficits and CN's II-XI intact bilaterally Psych: Other: Cooperative in the ED Course Reevaluation(s) Reevaluation #1: The patient's and a close family friend are at bedside. I discussed that his medical assessment is essentially negative, there was no underlying medical cause for his new onset weakness or delirium. I am suggesting that he stay for case management, physical therapy and a [facility] psychiatric evaluation. They are both in agreement with the plan. Medical Decision Making Medical Decision Making MDM Narrative: 78-year-old male with a history of gait instability, H pylori, GERD, dysphagia with weight loss presents with altered mental status. Per the patient's , the patient has become weak and lethargic at home over the past few days. She denies that he has been recently ill, no cough or cold symptoms, nausea vomiting diarrhea or fevers. Overnight, he was exhibiting visual hallucinations, saying that he was seeing people that were not present. Patient's denies that he has a drug or alcohol abuse issue. The patient has not had prior episodes of delerium. In regard to his weakness, he has been off balance from his baseline, and fell in the home yesterday. She denies that he struck his head. He is not on blood thinners. He uses a walker to ambulate. Problem: Age, gait instability History: Per patient's I have considered the following differential diagnoses: Viral syndrome, UTI, brain tumor, new onset dementia, metabolic encephalopathy, failure to thrive, drug/alcohol abuse, CVA Plan: We will be screening basic labs, a viral panel, serum ethanol and drug screen. We will be obtaining a CT scan of the brain. Given new weakness, I did consider CVA, however he is globally weak, there was no focal areas of motor weakness in he is neurologically intact. I have independently reviewed the following tests: Labs: No leukocytosis, not anemic, no electrolyte abnormality urine not infected, viral panel negative, he will screen for RSV, influenza and COVID CT brain:[address] [address] [address] Scan Report Signed Patient: Yonatan Jacobo MR#: [id number] : 1945 Acct:[id number] Age/Sex: 78 / M ADM Date: 07/22/24 Loc: HO.ED Attending Dr: Ordering Physician: Meghann Wang Date of Service: 07/22/24 Procedure(s): CT head/brain wo IV con Accession Number(s): [id number] cc: Meghann Wang; Physician,Unknown ~ EXAMINATION CT HEAD WITHOUT CONTRAST CLINICAL INFORMATION: Fall, altered mental status COMPARISON: CT brain January 02, 2018 TECHNIQUE: CT of the head was performed without intravenous contrast. Reformatted axial, coronal, and sagittal images were reviewed. This CT examination was performed using dose optimization techniques as appropriate, variously including the following: *Automated exposure control *Adjustment of mA and/or kV according to patient size (this includes techniques or standardized protocols for targeted exams where dose is matched to indication/reason for exam; i.e. extremities or head) *Use of iterative reconstruction technique DLP: 716 mGy-cm FINDINGS: No intracranial hemorrhage, extra-axial fluid collection, or midline shift is identified. Patchy subcortical white matter hypoattenuation within the coronal radiata and centrum semiovale consistent with encephalomalacia. Soliz-white matter differentiation is preserved without evidence of an acute transcortical infarct. Periventricular white matter hypoattenuation consistent with chronic small vessel ischemic disease. Prominence of the cerebral sulci commensurate ventriculomegaly is consistent with age-related cerebral volume loss. Soliz-white matter differentiation is preserved. Basal cisterns are within normal limits. Paranasal sinuses are clear. Mastoid air cells and middle ear cavities are clear. No acute calvarial fractures. CT/CT head/brain wo IV con IMPRESSION: 1. No acute intracranial abnormality. 2. Chronic small vessel ischemic disease, cerebral volume loss, areas of subcortical encephalomalacia. Electronically signed by: Nirmal Ferrer DO 07/22/2024 09:45 PM EDT Dictated By: Nirmal Ferrer Lab Data 07/22/24 18:56 07/22/24 18:56 Labs: Lab Results 07/22/24 07/22/24 07/22/24 Range/Units 18:31 18:56 19:51 WBC 7.8 (4.8-10.8) X10*3/uL RBC 4.17 L (4.60-5.80) X10*6/uL Hgb 12.0 L (14.0-18.0) g/dl Hct 36.4 L (42.0-52.0) % MCV 87.3 (80.0-98.0) fL MCH 28.8 (27.0-33.0) pg MCHC 33.0 (31.0-36.0) g/dl RDW 14.4 (11.0-16.0) % Plt Count 172 (160-400) X10*3/uL MPV 9.7 (9.4-12.4) fL Immature Gran % (Auto) 0.3 (0.0-0.4) % Neut % (Auto) 68.3 (45-73) % Lymph % (Auto) 20.4 (20-40) % [place] % (Auto) 8.6 (2-11) % Eos % (Auto) 1.9 (0-4) % Baso % (Auto) 0.5 (0-2) % Lymph # (Auto) 1.6 (1.2-4.9) X10*3/uL [place] # (Auto) 0.7 (0.1-1.2) X10*3/uL Eos # (Auto) 0.2 (0.0-0.4) X10*3/uL Baso # (Auto) 0.0 (0.0-0.2) X10*3/uL Abs Immat Gran (auto) 0.02 (0.00-0.03) X10*3/uL Absolute Neuts (auto) 5.3 (2.0-8.3) x10*3/uL Absolute Nucleated RBC 0.000 (0.0-0.012) X10*3/uL Nucleated RBC % (auto) 0.0 (0.0-0.2) /100WBC Sodium 144 (135-145) mmol/L Potassium 4.1 (3.3-5.1) mmol/L Chloride 110 H (96-108) mmol/L Carbon Dioxide 24 (22-29) mmol/L Anion Gap 14 (12-20) BUN 26 H (9-16) mg/dL Creatinine 1.37 (0.5-1.4) mg/dL Estim Creat Clear Calc 38.6 Estimated GFR 50 POC Glucose 83 (60-115) mg/dL Random Glucose 92 (60-115) mg/dL Calcium 10.0 (8.4-10.2) mg/dL Magnesium 2.1 (1.6-2.6) mg/dL Total Bilirubin 0.6 (0.0-1.0) mg/dL AST 22 (5-37) U/L ALT 19 (0-40) U/L Alkaline Phosphatase 79 (39-117) U/L Total Protein 7.4 (6.5-8.0) g/dL Albumin 4.4 (3.5-5.0) g/dL Urine Color Yellow Urine Appearance Clear Urine pH 6.5 (5.0-9.0) Ur Specific [place] 1.020 (1.005-1.025) Urine Protein 30 (1+) H (Neg-Trace) mg/dL Urine Glucose (UA) Negative (Negative) mg/dL Urine Ketones Negative (Negative) mg/dL Urine Blood Trace H (Negative) Urine Nitrite Negative (Negative) Ur Leukocyte Esterase Negative (Negative) Urine RBC 3-5 H (0-2) /HPF Urine WBC 0-5 (0-5) /HPF Ur Squamous Epith Cells 0-2 (0-2) /HPF Urine Bacteria None Seen (None Seen) Hyaline Casts 0-2 (0-2) /LPF Urine Opiates Screen (Not Detect) Ur Buprenorphine Scrn (Not Detect) ng/mL Ur Oxycodone Screen (Not Detect) ng/mL Urine Methadone Screen (Not Detect) ng/mL Urine Fentanyl Screen (Not Detect) Ur Barbiturates Screen (Not Detect) Ur Phencyclidine Scrn (Not Detect) Ur Amphetamines Screen (Not Detect) U Benzodiazepines Scrn (Not Detect) Urine Cocaine Screen (Not Detect) U Marijuana (THC) Screen (Not Detect) Ethyl Alcohol < 10 mg/dL Influenza Type A (PCR) NEGATIVE (Negative) Influenza Type B (PCR) NEGATIVE (Negative) RSV RNA Qual (PCR) NEGATIVE (Negative) SARS-CoV-2 RNA (RT-PCR) NEGATIVE (Negative) 07/22/24 Range/Units 19:52 WBC (4.8-10.8) X10*3/uL RBC (4.60-5.80) X10*6/uL Hgb (14.0-18.0) g/dl Hct (42.0-52.0) % MCV (80.0-98.0) fL MCH (27.0-33.0) pg MCHC (31.0-36.0) g/dl RDW (11.0-16.0) % Plt Count (160-400) X10*3/uL MPV (9.4-12.4) fL Immature Gran % (Auto) (0.0-0.4) % Neut % (Auto) (45-73) % Lymph % (Auto) (20-40) % [place] % (Auto) (2-11) % Eos % (Auto) (0-4) % Baso % (Auto) (0-2) % Lymph # (Auto) (1.2-4.9) X10*3/uL [place] # (Auto) (0.1-1.2) X10*3/uL Eos # (Auto) (0.0-0.4) X10*3/uL Baso # (Auto) (0.0-0.2) X10*3/uL Abs Immat Gran (auto) (0.00-0.03) X10*3/uL Absolute Neuts (auto) (2.0-8.3) x10*3/uL Absolute Nucleated RBC (0.0-0.012) X10*3/uL Nucleated RBC % (auto) (0.0-0.2) /100WBC Sodium (135-145) mmol/L Potassium (3.3-5.1) mmol/L Chloride (96-108) mmol/L Carbon Dioxide (22-29) mmol/L Anion Gap (12-20) BUN (9-16) mg/dL Creatinine (0.5-1.4) mg/dL Estim Creat Clear Calc Estimated GFR POC Glucose (60-115) mg/dL Random Glucose (60-115) mg/dL Calcium (8.4-10.2) mg/dL Magnesium (1.6-2.6) mg/dL Total Bilirubin (0.0-1.0) mg/dL AST (5-37) U/L ALT (0-40) U/L Alkaline Phosphatase (39-117) U/L Total Protein (6.5-8.0) g/dL Albumin (3.5-5.0) g/dL Urine Color Urine Appearance Urine pH (5.0-9.0) Ur Specific [place] (1.005-1.025) Urine Protein (Neg-Trace) mg/dL Urine Glucose (UA) (Negative) mg/dL Urine Ketones (Negative) mg/dL Urine Blood (Negative) Urine Nitrite (Negative) Ur Leukocyte Esterase (Negative) Urine RBC (0-2) /HPF Urine WBC (0-5) /HPF Ur Squamous Epith Cells (0-2) /HPF Urine Bacteria (None Seen) Hyaline Casts (0-2) /LPF Urine Opiates Screen Not Detected (Not Detect) Ur Buprenorphine Scrn Not Detected (Not Detect) ng/mL Ur Oxycodone Screen Not Detected (Not Detect) ng/mL Urine Methadone Screen Not Detected (Not Detect) ng/mL Urine Fentanyl Screen Not Detected (Not Detect) Ur Barbiturates Screen Not Detected (Not Detect) Ur Phencyclidine Scrn Not Detected (Not Detect) Ur Amphetamines Screen Not Detected (Not Detect) U Benzodiazepines Scrn Not Detected (Not Detect) Urine Cocaine Screen Not Detected (Not Detect) U Marijuana (THC) Screen Not Detected (Not Detect) Ethyl Alcohol mg/dL Influenza Type A (PCR) (Negative) Influenza Type B (PCR) (Negative) RSV RNA Qual (PCR) (Negative) SARS-CoV-2 RNA (RT-PCR) (Negative) Discharge Plan Discharge Clinical Impression: Weakness, Delirium, Hallucinations, visual Patient Disposition: Still a Patient Prescriptions: No Action omeprazole 20 mg capsule,delayed release(DR/EC) 20 mg PO DAILY 90 Days Qty: 90 1RF carbidopa-levodopa 50-200 mg tablet extended release 1 tab PO BEDTIME acetaminophen 650 mg tablet extended release 1 - 2 tab PO Q8H PRN (Reason: Pain, Mild) carbidopa-levodopa 25-100 mg tablet 2 tab PO QID carbidopa-levodopa 25-100 mg tablet 1 tab PO BEDTIME PRN (Reason: Restless Leg(S)) melatonin 3 mg capsule 3 mg PO BEDTIME PRN (Reason: Sleep) aspirin [Adult Low Dose Aspirin] 81 mg tablet,delayed release (DR/EC) 81 mg PO DAILY (DME) blood pressure test kit-large Kit See Rx Instructions .ROUTE DIRECTED Qty: 1 Rx Instructions: As directed latanoprost 0.005 % drops 1 drp ophthalmic-Right BEDTIME cholecalciferol (vitamin D3) 50 mcg (2,000 unit) tablet 50 mcg PO DAILY mirtazapine 15 mg tablet 15 mg PO BEDTIME lisinopril 40 mg tablet 40 mg PO DAILY cyanocobalamin (vitamin B-12) 1,000 mcg tablet 1,000 mcg PO DAILY ropinirole 0.25 mg tablet 0.5 mg PO BEDTIME PRN (Reason: Restless Leg(S)) rosuvastatin 40 mg tablet 40 mg PO DAILY Print Language: [place]
[2024-07-22 18:29] VITALS: BP 171/79; BP 182/94; PULSE 86; PULSE 87; RESP 18; TEMP 37.4; O2SAT 100; O2SAT 98; BMI 25.9
[2024-07-22 18:37] LABS: Glucose, Whole Blood 83 mg/dL (60-115)
[2024-07-22 19:03] LABS: MANUAL DIFF FLAG NO
[2024-07-22 19:05] LABS: Basophils Percent Auto 0.5 % (0-2); Eosinophils Absolute Auto 0.2 X10*3/uL (0.0-0.4); Eosinophils Percent Auto 1.9 % (0-4); Hematocrit 36.4 % (42.0-52.0); Imm Gran Abs Auto 0.02 X10*3/uL (0.00-0.03); Imm Gran Pct Auto 0.3 % (0.0-0.4); Lymphocytes Absolute Auto 1.6 X10*3/uL (1.2-4.9); Lymphocytes Percent Auto 20.4 % (20-40); Mean Corpuscular Hemoglobin 28.8 pg (27.0-33.0); Mean Corpuscular Volume 87.3 fL (80.0-98.0); Mean Platelet Volume 9.7 fL (9.4-12.4); Monocytes Absolute Auto 0.7 X10*3/uL (0.1-1.2); Monocytes Percent Auto 8.6 % (2-11); Neutrophils Absolute Auto 5.3 x10*3/uL (2.0-8.3); Neutrophils Percent Auto 68.3 % (45-73); Platelet Count 172 X10*3/uL (160-400); Red Blood Count 4.17 X10*6/uL (4.60-5.80); Red Cell Distribution Width 14.4 % (11.0-16.0); White Blood Count 7.8 X10*3/uL (4.8-10.8)
[2024-07-22 19:16] LABS: Ethanol < 10 mg/dL
[2024-07-22 19:18] LABS: Alanine Aminotransferase 19 U/L (0-40); Albumin Level 4.4 g/dL (3.5-5.0); Alkaline Phosphatase 79 U/L (39-117); Anion Gap 14 (12-20); Aspartate Amino Transferase 22 U/L (5-37); Bilirubin Total 0.6 mg/dL (0.0-1.0); Blood Urea Nitrogen 26 mg/dL (9-16); Carbon Dioxide 24 mmol/L (22-29); Chloride 110 mmol/L (96-108); Creatinine Clr Calc Pharmacy 38.6; Estimated Glomerular Filt Rate 50; Glucose Random 92 mg/dL (60-115); Magnesium 2.1 mg/dL (1.6-2.6); Potassium 4.1 mmol/L (3.3-5.1); Sodium 144 mmol/L (135-145); Total Protein 7.4 g/dL (6.5-8.0)
[2024-07-22 19:40] LABS: Influenza A PCR NEGATIVE (Negative); Influenza B PCR NEGATIVE (Negative); Resp Syncy Virus RNA Qual PCR NEGATIVE (Negative); SARS COV2 PCR INHOUSE NEGATIVE (Negative)
[2024-07-22 20:00] VITALS: BP 158/73; PULSE 85; RESP 19; TEMP 37.3; O2SAT 99
[2024-07-22 20:04] LABS: Appearance Urine Clear; Color Urine Yellow; Glucose Urine UA Negative (Negative); Leukocyte Esterase Urine Negative (Negative); Nitrite Urine Negative (Negative); PH 6.5 (5.0-9.0); UMIC TRIGGER UACC YES; Urine Blood Trace (Negative); Urine Ketones Negative (Negative); Urine Protein 30 (1+) mg/dL (Neg-Trace)
[2024-07-22 20:06] LABS: Bacteria Urine None Seen (None Seen); Hyaline Casts Urine 0-2 /LPF (0-2); Squamous Epithelial Cell Urine 0-2 /HPF (0-2); WBC Urine 0-5 /HPF (0-5)
[2024-07-22 20:17] LABS: Amphetamine Screen Urine Not Detected (Not Detect); Barbiturates, Urine Not Detected (Not Detect); Benzodiazepines Screen Urine Not Detected (Not Detect); Buprenorphine Scr Not Detected (Not Detect); Cannabinoid Screen Urine Not Detected (Not Detect); Cocaine Screen Urine Not Detected (Not Detect); Fentanyl, urine Not Detected (Not Detect); Methadone Screen, Urine Not Detected (Not Detect); Opiate Screen Urine Not Detected (Not Detect); Oxycodone Screen Urine Not Detected (Not Detect); Phencyclidine Screen Urine Not Detected (Not Detect)
--- NOTE | 2024-07-22 20:37 | MHC.EDTECH ---
This tech took over care of patient at 1900,hourly rounds and vitals taken,patient is resting,family at bedside,call rob in reach
[2024-07-22 21:38] VITALS: BP 142/69; PULSE 84; RESP 18; TEMP 36.9; O2SAT 99
--- NOTE | 2024-07-22 23:09 | MHC.EDTECH ---
Patient was a 2 assist to commode,patient is very shaky,and unsteady. Patient urinated a large amount and had a large formed brown BM,patient was cleaned and repositioned in bed,patient is eating a jello at this time,call rob in reach
[2024-07-22 23:58] VITALS: BP 138/66; PULSE 88; RESP 20; TEMP 37.4; O2SAT 98
--- NOTE | 2024-07-22 23:59 | MHC.EDTECH ---
Patient placed in hospital bed at this time for comfort,rounds,vitals,and belongings list completed,bed alarm on for safety,call rob in reach
[2024-07-23 01:41] VITALS: BP 132/75; PULSE 86; RESP 18; TEMP 37.1; O2SAT 98
--- NOTE | 2024-07-23 02:02 | MHC.EDTECH ---
Hourly rounds and vitals completed,patient is resting quietly,call rob in reach bed alarm on for safety
[2024-07-23 06:00] VITALS: BP 151/73; PULSE 80; RESP 18; TEMP 37; O2SAT 97
--- NOTE | 2024-07-23 11:30 | P.CNPS_ITS ---
History of Present Illness Date of Service: 07/23/2024 Chief Complaint: FEELING UNWELL, LEG WEAKNESS,AMS Requesting physician: Charles Hill Discussed with referring provider: Yes Sources of Information: patient interviewed, chart reviewed and crisis/core team assessment reviewed HPI Narrative: Mr. Jacobo is a 78 year-old male who was brought by due to new onset of visual hallucinations. Apparently, pt reported seeing people that were not there. He had some insight that they were not there. He has a hx of Parkinson's for several years. UA did not show UTI. No electrolytes abnormalities. BUN slightly elevated 26, Cr 1.37, creatinine clearance of 38. Head CT without acute pathology but shows atrophy, microvascular changes. Pt seen in ED with his . He presents as calm and cooperative. He tells this racebook writer that he is here because he was seeing people he realized were not there. He does have some awareness that they were not there. He states it started at night but then next day he would see them on and off during the day. This was distressful for him. He denies hearing things that others can't hear. No associated delusional process noted. No SI/HI. No aggression. He is oriented to place, month, date, year and situation. Attention is intact. His thought process is organized and able to answer questions appropriately. Past Psychiatric History: Inpt: none OP: none ON LICENSE OF [facility] Medical History Allergic rhinitis Back pain Cerebral microvascular disease Degenerative disc disease Diabetes Diverticulosis HLD (hyperlipidemia) HTN (hypertension) Latent tuberculosis Parkinson disease Surgical History Hx of colonoscopy (~06/2018) Diagnostics Vital Signs (24Hr): Vital Signs - 24 hr 07/22/24 18:29 07/22/24 20:00 07/22/24 21:38 Temperature 99.4 F 99.2 F 98.5 F Pulse Rate 87 85 84 Respiratory Rate 18 19 18 Blood Pressure 171/79 H 158/73 H 142/69 H Pulse Oximetry 100 99 99 Oxygen Delivery Method Room Air Room Air Room Air 07/22/24 23:58 07/23/24 01:41 07/23/24 06:00 Temperature 99.3 F 98.7 F 98.6 F Pulse Rate 88 86 80 Respiratory Rate 20 18 18 Blood Pressure 138/66 132/75 151/73 H Pulse Oximetry 98 98 97 Oxygen Delivery Method Room Air Room Air Room Air BMI result Body Mass Index 25.9 Labs 07/22/24 18:56 07/22/24 18:56 Labs: Laboratory Results - last 48 hr 07/22/24 07/22/24 07/22/24 18:31 18:56 19:51 WBC 7.8 RBC 4.17 L Hgb 12.0 L Hct 36.4 L MCV 87.3 MCH 28.8 MCHC 33.0 RDW 14.4 Plt Count 172 MPV 9.7 Immature Gran % (Auto) 0.3 Neut % (Auto) 68.3 Lymph % (Auto) 20.4 [place] % (Auto) 8.6 Eos % (Auto) 1.9 Baso % (Auto) 0.5 Lymph # (Auto) 1.6 [place] # (Auto) 0.7 Eos # (Auto) 0.2 Baso # (Auto) 0.0 Abs Immat Gran (auto) 0.02 Absolute Neuts (auto) 5.3 Absolute Nucleated RBC 0.000 Nucleated RBC % (auto) 0.0 Sodium 144 Potassium 4.1 Chloride 110 H Carbon Dioxide 24 Anion Gap 14 BUN 26 H Creatinine 1.37 Estim Creat Clear Calc 38.6 Estimated GFR 50 POC Glucose 83 Random Glucose 92 Calcium 10.0 Magnesium 2.1 Total Bilirubin 0.6 AST 22 ALT 19 Alkaline Phosphatase 79 Total Protein 7.4 Albumin 4.4 Urine Color Yellow Urine Appearance Clear Urine pH 6.5 Ur Specific [place] 1.020 Urine Protein 30 (1+) H Urine Glucose (UA) Negative Urine Ketones Negative Urine Blood Trace H Urine Nitrite Negative Ur Leukocyte Esterase Negative Urine RBC 3-5 H Urine WBC 0-5 Ur Squamous Epith Cells 0-2 Urine Bacteria None Seen Hyaline Casts 0-2 Urine Opiates Screen Ur Buprenorphine Scrn Ur Oxycodone Screen Urine Methadone Screen Urine Fentanyl Screen Ur Barbiturates Screen Ur Phencyclidine Scrn Ur Amphetamines Screen U Benzodiazepines Scrn Urine Cocaine Screen U Marijuana (THC) Screen Ethyl Alcohol < 10 Influenza Type A (PCR) NEGATIVE Influenza Type B (PCR) NEGATIVE RSV RNA Qual (PCR) NEGATIVE SARS-CoV-2 RNA (RT-PCR) NEGATIVE 07/22/24 19:52 WBC RBC Hgb Hct MCV MCH MCHC RDW Plt Count MPV Immature Gran % (Auto) Neut % (Auto) Lymph % (Auto) [place] % (Auto) Eos % (Auto) Baso % (Auto) Lymph # (Auto) [place] # (Auto) Eos # (Auto) Baso # (Auto) Abs Immat Gran (auto) Absolute Neuts (auto) Absolute Nucleated RBC Nucleated RBC % (auto) Sodium Potassium Chloride Carbon Dioxide Anion Gap BUN Creatinine Estim Creat Clear Calc Estimated GFR POC Glucose Random Glucose Calcium Magnesium Total Bilirubin AST ALT Alkaline Phosphatase Total Protein Albumin Urine Color Urine Appearance Urine pH Ur Specific [place] Urine Protein Urine Glucose (UA) Urine Ketones Urine Blood Urine Nitrite Ur Leukocyte Esterase Urine RBC Urine WBC Ur Squamous Epith Cells Urine Bacteria Hyaline Casts Urine Opiates Screen Not Detected Ur Buprenorphine Scrn Not Detected Ur Oxycodone Screen Not Detected Urine Methadone Screen Not Detected Urine Fentanyl Screen Not Detected Ur Barbiturates Screen Not Detected Ur Phencyclidine Scrn Not Detected Ur Amphetamines Screen Not Detected U Benzodiazepines Scrn Not Detected Urine Cocaine Screen Not Detected U Marijuana (THC) Screen Not Detected Ethyl Alcohol Influenza Type A (PCR) Influenza Type B (PCR) RSV RNA Qual (PCR) SARS-CoV-2 RNA (RT-PCR) Imaging Radiology Impressions: ITS Impressions Head CT 07/22/24 20:16 IMPRESSION: 1. No acute intracranial abnormality. 2. Chronic small vessel ischemic disease, cerebral volume loss, areas of subcortical encephalomalacia. Electronically signed by: Nirmal Ferrer DO 07/22/2024 09:45 PM EDT RP Mental Status Exam Mental Status Exam Narrative: Appearance: wearing hospital gown, fair hygiene, in NAD Behavior: cooperative, friendly Psychomotor: resting tremor noted, more pronounced on right hand. Speech: clear, normal rate, rhythm, spontaneous TP: mostly linear TC: feeling weak, worried about things he was seeing which he does know were not there Mood: better now Affect: mask-like expression- s/s to Parkinson SI: none HI: none VH/AH: on and off intermittent visual hallucinations. Delusions: none Insight/judgment: fair x 2. Memory/cog: alert, oriented x 4. 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 Jacobo is a 78 year-old male with hx of Parkinson's who was brought to ED by due to new onset of visual hallucinations. Initially it started at night, then during the day on and off, pt reported seeing people who were not there. He does have some insight that they were not there, as at second look, he did not see them anymore. No associated auditory hallucinations, nor delusional content noted or reported. I suspect visual hallucinations may be related to progression of Parkinson's as well as its treatment. Also note, decrease vision as pt has cataracts and surgery is coming up soon. This is not a sign of psychiatric illness. He is also NOT delirious to suspect different medical etiology. Although pt having visual hallucinations, he is not having any combative nor agitated behaviors. Pt sees neurology here, Dr. Pineda. Per , no recent changes to medication that she can point to. PLAN 1. No need for inpt psych admission 2. can start low dose of seroquel 25mg po BID 3. Follow up with neurology outpatient. 4. Total time managing care of this patient today ____ minutes.
--- NOTE | 2024-07-23 11:50 | MHC.CM.ED ---
Received case management consult over night. Patient came to the ER due to weakness and AMS. Patient has a history of Parkinson's. Physical therapy eval completed. Short term rehab is recommended. No family at bedside. Referral broadcasted within 15 miles of patient's home to all facilities that are contracted with patient's insurance. Due to hallucinations, multiple facilities are requesting a psych consult. Psych consult ordered and pending with Imelda crematory operator. Continue to monitor for d/c needs.
--- NOTE | 2024-07-23 12:28 | MHC.CM.ED ---
Met with patient and Analisa in regards to d/c planning. Patient and Analisa are declining STR at this time. Requesting referral to [facility] for penitentiary and physical therapy. Referral made via [facility]. Luke Segura NP is consulting neuro. Cristian, Analisa, Mehnaz RN and Kim CHANDLER aware. Continue to monitor for d/c needs.
--- NOTE | 2024-07-23 13:17 | PHA.MEDREC ---
Pharmacy Consult ? Medication Reconciliation Pharmacy has completed the medication reconciliation. Spoke with patient and at bedside. provided a list of medications. Utilized list, pharmacy claims and patient to confirm medications. Pt takes ropinirole prn, and does not remember the last time he took it.
[2024-07-23] MEDS: QUEtiapine Fumarate 25 MG TABLET PO (13:20)
[2024-07-23 13:54] VITALS: BP 160/76; PULSE 81; RESP 19; TEMP 37.1; O2SAT 98
--- NOTE | 2024-07-23 13:57 | PC.NURSE ---
Assumed care of this patient from main ED at this time. Patient resting quietly on hospital bed, per previous RN med rec completed provider to order daily meds. Per CM, plan for patient to be dc'd later today, provider to speak to neuro RE: parkinson's med dosage.
--- NOTE | 2024-07-23 15:24 | PC.NURSE ---
Pt to be discharged home, requesting pm dose of Sinemet since he did not take am dose, pharmacy to deliver dose, to call for ride home, will DC once med available.
[2024-07-23] MEDS: Carbidopa/Levodopa CR 50/200 TABLET.ER 1 TAB PO (15:30)
[2024-07-23] MEDS: Carbidopa/Levodopa 25/100 TABLET 2 TAB PO (15:30)
[2024-07-23 15:34] VITALS: BP 160/76; PULSE 81; RESP 19; TEMP 37.1; O2SAT 98
== END 2024-07-23 15:35 | disposition home or self-care (01) ==
PROVIDERS: Physician Assistant Medical; Emergency Provider Emergency Medicine; PCP Internal Medicine
DX: G20.A1 Parkinson's disease without dyskinesia, without mention of fluctuations (principal); F02.A2 Dementia in other diseases classified elsewhere, mild, with psychotic disturbance; R53.1 Weakness; R11.2 Nausea with vomiting, unspecified; R44.1 Visual hallucinations; R26.81 Unsteadiness on feet; Z79.899 Other long term (current) drug therapy; Z87.891 Personal history of nicotine dependence; Z51.81 Encounter for therapeutic drug level monitoring; Z03.818 Encounter for observation for suspected exposure to other biological agents ruled out
CPT/HCPCS: 0241U; 36415; 70450; 80053; 80307; 81001; 81003; 82947; 83735; 85025; 97162; 99284

== ENCOUNTER → 2024-07-22 19:14 | Outpatient (BNV) | payer OTHER, SELFPAY | PROVIDERS: Emergency Provider Emergency Medicine; Visit Provider Social Worker | DX: G20.A1 Parkinson's disease without dyskinesia, without mention of fluctuations (principal); F02.A2 Dementia in other diseases classified elsewhere, mild, with psychotic disturbance | CPT/HCPCS: 99284 ==

== ENCOUNTER 2024-08-27 06:09 | Day surgery (SDC) | payer OTHER, SELFPAY ==
[2024-08-21 11:33] VITALS: BMI 24.0
[2024-08-27 06:50] VITALS: BP 179/83; PULSE 80; RESP 19; TEMP 36.9; O2SAT 98; BMI 24.0
[2024-08-27] MEDS: Tetracaine HCl/PF 0.5% Oph Sol 4 ML DROPS 1 DROP EYE-RIGHT (06:55)
[2024-08-27] MEDS: Tropicamide 1 % Ophth Sol 3 ML BTL 1 DROP EYE-RIGHT ×3 (06:55→06:56)
[2024-08-27] MEDS: Cyclopentolate 1 % Ophth Sol 2 ML DRPBTL 1 DROP EYE-RIGHT ×3 (06:55→06:57)
[2024-08-27] MEDS: Ketorolac Tromethamine 0.5% Op 10 ML DROPS 1 DROP EYE-RIGHT ×3 (06:55→06:57)
[2024-08-27] MEDS: Phenylephrine HCL 2.5% Oph SoL 2 ML BOTTLE 1 DROP EYE-RIGHT ×3 (06:56→06:57)
--- NOTE | 2024-08-27 07:16 | P.PCNO_ITS ---
Ophthalmology Procedure Procedure Date of Service: 08/27/24 Ophthalmology Viscoelastic: Healon Duet Dual Pack Pro Ophthalmology Lenses: IOL Acrysof MP - [id number] (21.5) Procedure Notes: PREOPERATIVE DIAGNOSIS: Decreased visual acuity right eye secondary to cataract POSTOPERATIVE DIAGNOSIS: Same PROCEDURE: Right cataract extraction with intraocular lens insertion SURGEON: Marlon Sykes M.D. ANESTHESIA: Topical/MAC ESTIMATED BLOOD LOSS: None COMPLICATIONS: None After obtaining informed consent, the patient was brought to the operating room suite and placed in the supine position. After adequate sedation per anesthesia, topical drops of Tetracaine were given to the right eye. The eye was then prepped and draped in the usual sterile fashion. The operating room microscope was then positioned over the operative eye and a lid speculum placed. A paracentesis was created. Poor dilation required intracameral Lidocaine MPF 0.5 mlViscoelastic was then instilled into the anterior chamber. followed by placement of Malyugin ring A three plane incision was then created temporally, utilizing a 2.85 mm keratome. Capsulotomy forceps were then utilized to create a circular tear capsulotomy. Hydrodissection and hydrodelineation were carried out until adequate mobilization of the nucleus occurred. Phacoemulsification was then utilized to remove the dense central nucleus followed by removal of the cortical material utilizing the automated aspiration irrigation unit. Viscoelastic was instilled into the posterior capsular bag followed by placement of a posterior chamber intraocular lens without difficulty. The Malyugin ring wqas removed. residual Viscoelastic was then removed utilizing the automated IA machine. The wound was checked and found to be watertight. The patient tolerated the procedure well and the lid speculum was removed. Intracameral injection of V igamox 0.1 mL followed by a subtenon injection of Kenalog-40 0.2 mL were administered. The patient will be seen in the a.m.
--- NOTE | 2024-08-27 07:16 | MHC.SHP ---
Pre-Procedural Eval Section A - 24 Hr Update-Section A only Date of Service: 08/27/24 The patient is an INPATIENT: No Changes since office visit: No Cold of Flu in the past 2 weeks, No New Medical Problems, No Changes in Medication and No Patient answered all questions The patient has been examined within 24 hours of the surgical procedure. The History & Physical has been completed within 30 days and I have reviewed it.: Yes Section B - Complete if H&P > 30 days Chief Complaint: Age-related nuclear cataract, right eye Allergies: Allergies Allergy/AdvReac Type Severity Reaction Status Date / Time No Known Allergies Allergy Unknown NKA Verified 07/22/24 18:40 Plan Diagnosis/Plan: Unchanged I have reviewed the history and physical and performed a pertinent physical examination on my patient. No changes have occurred unless specified. Time Spent With Patient Time: Total time managing care of this patient today ____ minutes.
--- NOTE | 2024-08-27 07:25 | HO.ANESPROP2 ---
HPI - Anesthesia Eval Consult details Narrative: 78 yo M presenting for right cataract extraction IOL insertion. 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, with psychotic disturbance (Acute) GERD (gastroesophageal reflux disease) (Acute) Helicobacter pylori gastritis (Acute) Colon cancer screening (Acute) Weight loss (Acute) Dysphagia, pharyngoesophageal phase (Acute) Plantar fasciitis of right foot (Acute) Past Medical History Medical History (Updated 08/21/24 @ 11:20 by Jayda Lao RN) Hyperproteinemia EJROME (dyspnea on exertion) Dysphagia Multiple lung nodules Venous stasis dermatitis of both lower extremities Glaucoma Diverticular disease of colon Leg edema, right Insomnia Sprain of left rotator cuff capsule Restless leg syndrome Plantar fasciitis Eosinophil count raised Cerebrovascular disease Bilateral tinnitus Parkinson disease Latent tuberculosis Degenerative disc disease Back pain Diverticulosis Allergic rhinitis Cerebral microvascular disease Diabetes HLD (hyperlipidemia) HTN (hypertension) Family History Family history of problems with anesthesia: No Surgical History Surgical History Hx of colonoscopy (~06/2018) History of Problems with Anesthesia: No Social History Social History Alcohol intake: former Patient Tobacco Use Status: Former Tobacco user Advance Directives: Yes Advance Directives Information Provided: No Advance Directives on File: Yes Advance Directives Date on File: 12/27/22 Current occupational status: unemployed Current occupation: retired Meds Allergies Allergy/AdvReac Type Severity Reaction Status Date / Time No Known Allergies Allergy Unknown NKA Verified 07/22/24 18:40 Active Medications: Current Medications Povidone Iodine (Povidone Iodine 5 % Ophth Soln 30 Ml Bottle) 1 appl EYE-RIGHT PREOP PRN PRN Reason: Pre-Op Surgical Implant Prophy Home Medications ?Medication ?Instructions ?Recorded ?Confirmed ?Last Taken ?Type aspirin 81 mg tablet,delayed 81 mg PO DAILY 12/23/20 08/21/24 07/21/24 History release (Adult Low Dose Aspirin) blood pressure test kit-large #1 ea 01/15/21 08/21/24 07/21/24 History cholecalciferol (vitamin D3) 50 50 mcg PO DAILY 01/15/21 08/21/24 07/21/24 History mcg (2,000 unit) tablet latanoprost 0.005 % eye drops 1 drp ophthalmic-Right BEDTIME 01/15/21 08/21/24 07/21/24 History cyanocobalamin (vitamin B-12) 1,000 mcg PO DAILY 05/27/22 08/21/24 07/21/24 History 1,000 mcg tablet lisinopril 40 mg tablet 40 mg PO DAILY 05/27/22 08/21/24 07/21/24 History mirtazapine 15 mg tablet 15 mg PO BEDTIME 05/27/22 08/21/24 07/21/24 History ropinirole 0.25 mg tablet 0.75 mg PO BEDTIME PRN Restless 05/27/22 08/21/24 Unknown History Leg(S) rosuvastatin 40 mg tablet 40 mg PO BEDTIME 05/27/22 08/21/24 07/21/24 History acetaminophen 650 mg 1 - 2 tab PO Q8H PRN Pain, Mild 12/27/22 08/21/24 07/21/24 History tablet,extended release carbidopa 25 mg-levodopa 100 mg 2 tab PO QID 12/27/22 08/21/24 07/21/24 History tablet amantadine HCl 100 mg capsule 100 mg PO BID 07/23/24 08/21/24 07/21/24 History carbidopa ER 50 mg-levodopa 200 mg 1 tab PO QID 07/23/24 08/21/24 07/21/24 History tablet,extended release omeprazole 20 mg capsule,delayed 20 mg PO DAILY@0630 07/23/24 08/21/24 07/21/24 History release gabapentin 300 mg capsule 300 mg PO BEDTIME 08/21/24 08/21/24 Unknown History Exam Exam Date and Time: 08/27/24 0725 Height,Weight and Vital Signs: Height 5 ft 8 in Weight 71.65 kg Last Vital Signs Temp 98.5 F 08/27/24 06:50 Pulse 80 08/27/24 06:50 Resp 19 08/27/24 06:50 BP 179/83 H 08/27/24 06:50 Pulse Ox 98 08/27/24 06:50 O2 Del Method Room Air 08/27/24 06:50 Airway Mallampati Class: IV (poor mouth opening) TM Dist: >3cm Neck ROM: Limited Denture: Upper Partial: Lower Heart: S1S2 Lungs: CTAB Assessment and Plan Assessment Anesthesia Assessment: Anesthesia Plan Discussed and Chart Reviewed Final Anesthetic Review Family History of Problems with Anesthesia: No History of Problems with Anesthesia: No NPO: Yes ASA Class: III Final Preanesthetic Review: No Changes in Pt Med Stat, Meds/Allgs Chart Reviewed, Consent Obtained/Reviewed (photogrammetrist at bedside for translation) and Anes Risks/Benef Reviewed Patient Risk: Intermediate Procedure Risk: Low Anesthetic Plan Anesthetic Plan: MAC: and Agree w/ Assess. and Plan Disposition: Standard PACU
--- NOTE | 2024-08-27 07:41 | PC.NURSE ---
verbalized understanding of d/c
[2024-08-27 08:05] VITALS: BP 144/73; PULSE 74; RESP 16; TEMP 36.1; O2SAT 99
== END 2024-08-27 08:09 | disposition home or self-care (01) ==
PROVIDERS: PCP Internal Medicine; Visit Provider Ophthalmology
PROC: (CPT 66985; principal; 2024-08-27 07:30)
DX: H25.11 Age-related nuclear cataract, right eye (principal); H52.4 Presbyopia; H40.1111 Primary open-angle glaucoma, right eye, mild stage; H40.012 Open angle with borderline findings, low risk, left eye; H18.413 Arcus senilis, bilateral; I10 Essential (primary) hypertension; E78.00 Pure hypercholesterolemia, unspecified; G20.A1 Parkinson's disease without dyskinesia, without mention of fluctuations; G51.0 Bell's palsy; Z87.891 Personal history of nicotine dependence; Z79.1 Long term (current) use of non-steroidal anti-inflammatories (NSAID); Z79.82 Long term (current) use of aspirin; Z79.899 Other long term (current) drug therapy
CPT/HCPCS: 66984; J2003; J2250; J3301; V2630

== ENCOUNTER 2024-09-10 06:06 | Day surgery (SDC) | payer OTHER, SELFPAY ==
[2024-08-21 11:41] VITALS: BMI 24.0
--- NOTE | 2024-09-06 12:58 | HO.ANESPROP2 ---
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, with psychotic disturbance (Acute) GERD (gastroesophageal reflux disease) (Acute) Helicobacter pylori gastritis (Acute) Colon cancer screening (Acute) Weight loss (Acute) Dysphagia, pharyngoesophageal phase (Acute) Plantar fasciitis of right foot (Acute) Past Medical History Medical History Hx of cataract Hyperproteinemia JEROME (dyspnea on exertion) Dysphagia Multiple lung nodules Venous stasis dermatitis of both lower extremities Glaucoma Diverticular disease of colon Leg edema, right Insomnia Sprain of left rotator cuff capsule Restless leg syndrome Plantar fasciitis Eosinophil count raised Cerebrovascular disease Bilateral tinnitus Parkinson disease Latent tuberculosis Degenerative disc disease Back pain Diverticulosis Allergic rhinitis Cerebral microvascular disease Diabetes HLD (hyperlipidemia) HTN (hypertension) Family History Family history of problems with anesthesia: No Surgical History Surgical History Hx of colonoscopy (~06/2018) History of Problems with Anesthesia: No Social History Social History Alcohol intake: former Patient Tobacco Use Status: Former Tobacco user Advance Directives: Yes Advance Directives Information Provided: No Advance Directives on File: Yes Advance Directives Date on File: 12/27/22 Current occupational status: unemployed Current occupation: retired Meds Allergies Allergy/AdvReac Type Severity Reaction Status Date / Time No Known Allergies Allergy Unknown NKA Verified 07/22/24 18:40 Home Medications ?Medication ?Instructions ?Recorded ?Confirmed ?Last Taken ?Type aspirin 81 mg tablet,delayed 81 mg PO DAILY 12/23/20 08/21/24 07/21/24 History release (Adult Low Dose Aspirin) blood pressure test kit-[facility] #1 ea 01/15/21 08/21/24 07/21/24 History cholecalciferol (vitamin D3) 50 50 mcg PO DAILY 01/15/21 08/21/24 07/21/24 History mcg (2,000 unit) tablet latanoprost 0.005 % eye drops 1 drp ophthalmic-Right BEDTIME 01/15/21 08/21/24 07/21/24 History cyanocobalamin (vitamin B-12) 1,000 mcg PO DAILY 05/27/22 08/21/24 07/21/24 History 1,000 mcg tablet lisinopril 40 mg tablet 40 mg PO DAILY 05/27/22 08/21/24 07/21/24 History mirtazapine 15 mg tablet 15 mg PO BEDTIME 05/27/22 08/21/24 07/21/24 History ropinirole 0.25 mg tablet 0.75 mg PO BEDTIME PRN Restless 05/27/22 08/21/24 Unknown History Leg(S) rosuvastatin 40 mg tablet 40 mg PO BEDTIME 05/27/22 08/21/24 07/21/24 History acetaminophen 650 mg 1 - 2 tab PO Q8H PRN Pain, Mild 12/27/22 08/21/24 07/21/24 History tablet,extended release carbidopa 25 mg-levodopa 100 mg 2 tab PO QID 12/27/22 08/21/24 07/21/24 History tablet amantadine HCl 100 mg capsule 100 mg PO BID 07/23/24 08/21/24 07/21/24 History carbidopa ER 50 mg-levodopa 200 mg 1 tab PO QID 07/23/24 08/21/24 07/21/24 History tablet,extended release omeprazole 20 mg capsule,delayed 20 mg PO DAILY@0630 07/23/24 08/21/24 07/21/24 History release gabapentin 300 mg capsule 300 mg PO BEDTIME 08/21/24 08/21/24 Unknown History Exam Height,Weight and Vital Signs: Height 5 ft 8 in Weight 71.668 kg Assessment and Plan Assessment Anesthesia Assessment: Chart Reviewed Final Anesthetic Review Family History of Problems with Anesthesia: No History of Problems with Anesthesia: No Documented by User: Rolanda Lew MD 09/10/24 07:37 PMFSH Past Medical History Medical History Hx of cataract Hyperproteinemia JEROME (dyspnea on exertion) Dysphagia Multiple lung nodules Venous stasis dermatitis of both lower extremities Glaucoma Diverticular disease of colon Leg edema, right Insomnia Sprain of left rotator cuff capsule Restless leg syndrome Plantar fasciitis Eosinophil count raised Cerebrovascular disease Bilateral tinnitus Parkinson disease Latent tuberculosis Degenerative disc disease Back pain Diverticulosis Allergic rhinitis Cerebral microvascular disease Diabetes HLD (hyperlipidemia) HTN (hypertension) Surgical History Surgical History Hx of colonoscopy (~06/2018) Social History Social History Alcohol intake: former Patient Tobacco Use Status: Former Tobacco user Advance Directives: Yes Advance Directives Information Provided: No Advance Directives on File: Yes Advance Directives Date on File: 12/27/22 Current occupational status: unemployed Current occupation: retired Meds Allergies Allergy/AdvReac Type Severity Reaction Status Date / Time No Known Allergies Allergy Unknown NKA Verified 07/22/24 18:40 Home Medications ?Medication ?Instructions ?Recorded ?Confirmed ?Last Taken ?Type aspirin 81 mg tablet,delayed 81 mg PO DAILY 12/23/20 08/21/24 07/21/24 History release (Adult Low Dose Aspirin) blood pressure test kit-large #1 ea 01/15/21 08/21/24 07/21/24 History cholecalciferol (vitamin D3) 50 50 mcg PO DAILY 01/15/21 08/21/24 07/21/24 History mcg (2,000 unit) tablet latanoprost 0.005 % eye drops 1 drp ophthalmic-Right BEDTIME 01/15/21 08/21/24 07/21/24 History cyanocobalamin (vitamin B-12) 1,000 mcg PO DAILY 05/27/22 08/21/24 07/21/24 History 1,000 mcg tablet lisinopril 40 mg tablet 40 mg PO DAILY 05/27/22 08/21/24 07/21/24 History mirtazapine 15 mg tablet 15 mg PO BEDTIME 05/27/22 08/21/24 07/21/24 History ropinirole 0.25 mg tablet 0.75 mg PO BEDTIME PRN Restless 05/27/22 08/21/24 Unknown History Leg(S) rosuvastatin 40 mg tablet 40 mg PO BEDTIME 05/27/22 08/21/24 07/21/24 History acetaminophen 650 mg 1 - 2 tab PO Q8H PRN Pain, Mild 12/27/22 08/21/24 07/21/24 History tablet,extended release carbidopa 25 mg-levodopa 100 mg 2 tab PO QID 12/27/22 08/21/24 07/21/24 History tablet amantadine HCl 100 mg capsule 100 mg PO BID 07/23/24 08/21/24 07/21/24 History carbidopa ER 50 mg-levodopa 200 mg 1 tab PO QID 07/23/24 08/21/24 07/21/24 History tablet,extended release omeprazole 20 mg capsule,delayed 20 mg PO DAILY@0630 07/23/24 08/21/24 07/21/24 History release gabapentin 300 mg capsule 300 mg PO BEDTIME 08/21/24 08/21/24 Unknown History Exam Airway Mallampati Class: II (edentulous) TM Dist: >3cm Neck ROM: Full Denture: Upper and Lower Loose/Missing/Broken Teeth: Yes, Upper and Lower Heart: RRR Lungs: CTA Assessment and Plan Assessment Anesthesia Assessment: Anesthesia Plan Discussed Final Anesthetic Review NPO: Yes ASA Class: III Final Preanesthetic Review: Meds/Allgs Chart Reviewed, Consent Obtained/Reviewed and Anes Risks/Benef Reviewed Patient Risk: Intermediate Procedure Risk: Low Anesthetic Plan Anesthetic Plan: MAC: Disposition: Standard PACU
[2024-09-10] MEDS: Tetracaine HCl/PF 0.5% Oph Sol 4 ML DROPS 1 DROP EYE-LEFT (06:37)
[2024-09-10] MEDS: Phenylephrine HCL 2.5% Oph SoL 2 ML BOTTLE 1 DROP EYE-LEFT ×3 (06:37→06:44)
[2024-09-10] MEDS: Lactated Ringers 500 ML 50 ML IV (06:37)
[2024-09-10] MEDS: Tropicamide 1 % Ophth Sol 3 ML BTL 1 DROP EYE-LEFT ×3 (06:38→06:45)
[2024-09-10] MEDS: Ketorolac Tromethamine 0.5% Op 10 ML DROPS 1 DROP EYE-LEFT ×3 (06:38→06:45)
[2024-09-10] MEDS: Cyclopentolate 1 % Ophth Sol 2 ML DRPBTL 1 DROP EYE-LEFT ×3 (06:38→06:45)
[2024-09-10 07:04] VITALS: BP 162/71; PULSE 77; RESP 18; TEMP 36.7; O2SAT 99
--- NOTE | 2024-09-10 07:40 | MHC.SHP ---
Pre-Procedural Eval Section A - 24 Hr Update-Section A only Date of Service: 09/10/24 The patient is an INPATIENT: No Changes since office visit: No Cold of Flu in the past 2 weeks, No New Medical Problems, No Changes in Medication and No Patient answered all questions The patient has been examined within 24 hours of the surgical procedure. The History & Physical has been completed within 30 days and I have reviewed it.: Yes Section B - Complete if H&P > 30 days Chief Complaint: Age-related nuclear cataract, left eye Allergies: Allergies Allergy/AdvReac Type Severity Reaction Status Date / Time No Known Allergies Allergy Unknown NKA Verified 07/22/24 18:40 Plan Diagnosis/Plan: Unchanged I have reviewed the history and physical and performed a pertinent physical examination on my patient. No changes have occurred unless specified. Time Spent With Patient Time: Total time managing care of this patient today ____ minutes.
--- NOTE | 2024-09-10 07:41 | HO.PNOPHT ---
Ophthalmology Procedure Procedure Date of Service: 09/10/24 Ophthalmology Viscoelastic: Healon Duet Dual Pack Pro Ophthalmology Lenses: IOL Acrysof MP - [id number] (22) Procedure Notes: PREOPERATIVE DIAGNOSIS: Decreased visual acuity left eye secondary to cataract POSTOPERATIVE DIAGNOSIS: Same PROCEDURE: Left cataract extraction with intraocular lens insertion SURGEON: Marlon Sykes M.D. ANESTHESIA: Topical/MAC ESTIMATED BLOOD LOSS: None COMPLICATIONS: Poor dilation Require Malyugin Ring After obtaining informed consent, the patient was brought to the operation room suite and placed in the supine position. After adequate sedation per anesthesia, topical drops of Tetracaine were given to the left eye. The eye was then prepped and draped in the usual sterile fashion. The operating room microscope was then positioned over the operative eye and a lid speculum placed. A paracentesis was created. Viscoelastic was then instilled into the anterior chamber. A three plane incision was then created temporally, utilizing a 2.85 mm keratome. Poor Dilatio required placement of a Malyugin Ring. Capsulotomy forceps were then utilized to create a circular tear capsulotomy. Hydrodissection and hydrodelineation were carried out until adequate mobilization of the nucleus occurred. Phacoemulsification was then utilized to remove the dense central nucleus followed by removal of the cortical material utilizing the automated aspiration irrigation unit. Viscoat elastic was instilled into the posterior capsular bag followed by placement of a posterior chamber intraocular lens without difficulty. The residual Viscoat elastic was then removed utilizing the automated IA machine. The Malyugin Ring was removed.The wound was check and found to be watertight. The patient tolerated the procedure well and the lid speculum was removed. Intracameral injection of Vigamox 0.1 mL followed by a subtenon injection of Kenalog-40 0.2 mL were administered. The patient will be seen in the a.m.
[2024-09-10 08:14] VITALS: BP 133/60; PULSE 72; RESP 17; TEMP 36.8; O2SAT 99
== END 2024-09-10 08:16 | disposition home or self-care (01) ==
PROVIDERS: PCP Internal Medicine; Visit Provider Ophthalmology
PROC: (CPT 66985; principal; 2024-09-10 07:30)
DX: H59.88 Other intraoperative complications of eye and adnexa, not elsewhere classified (principal); H25.12 Age-related nuclear cataract, left eye; H57.09 Other anomalies of pupillary function; H54.7 Unspecified visual loss; I10 Essential (primary) hypertension; E11.9 Type 2 diabetes mellitus without complications; Y84.8 Other medical procedures as the cause of abnormal reaction of the patient, or of later complication, without mention of misadventure at the time of the procedure; Y92.239 Unspecified place in hospital as the place of occurrence of the external cause
CPT/HCPCS: 66982; J2003; J2250; J3010; J3301; V2630

== ENCOUNTER 2024-10-18 07:39 | Outpatient (AMB) | payer MEDICARE, MEDICAID, SELFPAY ==
--- NOTE | 2024-10-18 07:49 | A.OFFVIS_ITS ---
Vital Signs 10/18/24 07:50 Height 5 ft 8 in Weight 161 lb BMI 24.5 BP 163/70 H Blood Pressure Location Lt brachial Position Sitting Pulse 90 Intake Visit Reasons: 6 month follow up Intake Note: Patient follow up for GERD. Patient cc: difficulty swallowing on and off with solid and liquid. Art Librarian Required: Yes Art Librarian Name: [facility]eter Accompanied by: Family/Other Allergies No Known Allergies Allergy (Unknown, Verified 08/22/25 09:58) NKA Medication List - Last Reconciled 10/18/24 by Albaro Russo MD acetaminophen ER 1 - 2 tabs PO Q8H PRN amantadine HCl 100 mg PO BID aspirin (Adult Low Dose Aspirin) 81 mg PO DAILY blood pressure test kit-large As directed carbidopa-levodopa 25-100 mg 2 tabs PO QID carbidopa-levodopa 50-200 mg ER 1 tab PO QID cholecalciferol (vitamin D3) 50 mcg PO DAILY cyanocobalamin (vitamin B-12) 1,000 mcg PO DAILY gabapentin 300 mg PO BEDTIME latanoprost 0.005% 1 drp ophthalmic-Right BEDTIME lisinopril 40 mg PO DAILY mirtazapine 15 mg PO BEDTIME omeprazole 20 mg PO DAILY@0630 ropinirole 0.75 mg PO BEDTIME PRN rosuvastatin 40 mg PO BEDTIME HPI HPI 6 month follow up: Details: FU GI CLINIC VISIT for this 79-year-old Mongolian-speaking male for FU evaluation of Dysphagia and Odynophagia with weight loss. ???CHRONIC ILLNESSES:?Hypertension, Hyperlipidemia, DMII, cerebral microvascular disease, allergic rhinitis, diverticulosis of large intestine without hemorrhage, chronic back pain, BMI 31.0-31.9 adult, degenerative disc disease, lumbar, latent TB ?TODAY'S VISIT [facility] Table Cover Folder, Mandy Patient reports difficulty swallowing on and off with solid and liquid. Pt reports he is able to swallow food and denies coughing spells with food intake When he lays down at night, he has difficulty swallowing his saliva - sleeps on three pillows Drinks water and saliva passes down. Patient is accompanied by his son Notes improvement in dysphagia and has gained weight LLQ pain has resolved. Denies diarrhea or constipation Complains of LLQ pain for the past 3 days - woke up with abdominal pain Pain is 8/10 in intensity and like a cramp. No change in abdominal pain with eating and denies diarrhea, constipation, fe isreal, chills or sweating. Has been taking Ibuprofen daily for the pain Had a normal BM yesterday afternoon without any blood. Eats small portions 3 times a day and eating in between meals. Has been doing good and complains of problems with his teeth and has trouble chewing the food. Has gained wt and swallowing has improved. Not taking Glucerna since he has not bought it. PAST VISIT: Unable to sleep last night since his leg was very itchy Not taking Omeprazole since he ran out of his prescription His SO gives it to him intermittently (from her own prescription) if he complains of indigestion after eating. She is requesting a new prescription for omeprazole - sent to patient's preferred pharmacy Feels a littel dizzy. ? Doing good, and is swallowing OK. Eating 3 meals a day and has gained 10 lbs. ?? ? I havent thrown up ? ? ? Weight gain of 7 lbs over the past year and states he weighs 146 lbs now. ? ? ? I am taking 2-3 cans of Ensure a day ? ? ? Recieved both doses of COVID vaccine - last dose on 01/01/21 (WEIGHED 156 LBS IN NOV, 2019 and 146 lbs?today LABS IN [facility]: 09/04/19 Normal CBC, chem panel and LFTs. ? IMAGING STUDIES: 11/14/19 MODIFIED BARIUM SWALLOW SHOWED: ? Retention in the vallecula with all media. ? Penetration in the larynx with liquids. No aspiration seen. ?2017 Gastric Emptying Study showed: ? No abnormal retention of solid food is present. Gastric emptying is ? more rapid than normal, but this is of uncertain clinical significance. ?09/[address] scan showed: ? GASTROINTESTINAL TRACT: There are scattered diverticuli are seen in ? descending, ascending and sigmoid colon without diverticulitis. There ? is no colonic distention. The small bowel loops are normal caliber. ? The appendix is not visualized well. There is haziness and the small ? lymph nodes in the right lower quadrant mesentery suggest a mesenteritis. ENDOSCOPIC STUDIES:? 04/28/21 EGD SHOWED: ESOPHAGUS: GE junction at 40 cms. No esophagitis or Espinosa.? ? Esophageal balloon dilation was performed with 19 and 20 mm CRE balloon x 60 seconds at each level STOMACH: Gastritis Biopsies showed: Gastric, antrum, biopsies: ? Antral and corpus mucosa with moderate chronic a ctive gastritis and numerous Helicobacter pylori; negative for intestinal metaplasia, dysplasia, and carcinoma PFSH Medical History Dysphagia, pharyngoesophageal phase GERD (gastroesophageal reflux disease) Hx of cataract Hyperproteinemia JEROME (dyspnea on exertion) Dysphagia Multiple lung nodules Venous stasis dermatitis of both lower extremities Glaucoma Diverticular disease of colon Leg edema, right Insomnia Sprain of left rotator cuff capsule Restless leg syndrome Plantar fasciitis Eosinophil count raised Cerebrovascular disease Bilateral tinnitus Parkinson disease Latent tuberculosis Degenerative disc disease Back pain Diverticulosis Allergic rhinitis Cerebral microvascular disease Diabetes HLD (hyperlipidemia) HTN (hypertension) Surgical History Hx of colonoscopy (~06/2018) Social History Household Members: Spouse Housing: Apartment Do you presently have visiting nurse or other home services: No Alcohol intake: former Patient Tobacco Use Status: Former Tobacco user e-Cigarette/Vaping Use: Never Used Second Hand Smoke Exposure: No Advance Directives Date on File: 12/27/22 service: No Current occupational status: unemployed Current occupation: retired Review of Systems Const Denies fever(s), Denies headache(s) and Denies weight loss Eyes Denies eye discharge and Denies irritation ENT Reports Normal hearing present, Denies dysphagia, Denies dizziness and Denies headache(s) Card Denies chest pain, Denies leg edema and Denies dyspnea on exertion Resp Denies cough, Denies dyspnea on exertion and Denies wheezing GI Denies abdominal pain, Denies change in bowel habits, Denies dysphagia and Denies heartburn Denies dysuria Musc Denies back pain, Denies arthralgias and Reports other (arthrtis) Skin/Breast Denies pruritus, Denies rash and Denies jaundice Neuro Reports Normal hearing present, Denies Abnormal speech present, Denies dizziness, Denies headache(s) and Denies seizure-like activity Psych Denies anxiety, Denies depression and Denies panic attacks Endo Denies cold intolerance, Denies flushing and Denies heat intolerance [place]/Lymph Denies easy bleeding and Denies easy bruising Aller/Immun Denies wheezing Physical Exam Vital Signs: Last Vital Signs Pulse 90 10/18/24 07:50 BP 163/70 H 10/18/24 07:50 BMI result Body Mass Index 24.5 Const General: no acute distress and other (slow and shuffling gait) Nutritional Appearance: average body habitus Orientation/consciousness: patient oriented x3 Limitations: ambulation with walker HEENT Head: Yes normal to inspection Ears: hearing grossly normal bilaterally Mouth: Normal oral and palatal mucosa present Eyes Sclerae: sclerae normal Pupils: Equal, round and reactive pupils present Neck Neck: Yes normal visual inspection Chest Chest palpation & inspection: normal inspection of the chest Resp Effort & Inspection: normal respiratory effort Auscultation: clear to auscultation bilaterally Cardio Palpation: normal PMI Rate: regular rate Rhythm: regular rhythm Heart sounds: S1 normal heart sound present, S2 normal heart sound present and no murmurs GI Palpation (GI): Soft to palpation, nontender and No hepatosplenomegaly present Auscultation: normal bowel sounds Rectal Exam - Male: Yes deferred Skin General skin exam: no rashes or lesions noted Neuro General: patient oriented x3, gait normal and moves all extremities Cranial nerves: Yes Equal, round and reactive pupils present and Yes Normal hearing present Speech: No Abnormal speech present Psych Appearance: grossly normal Mental Status: mental status grossly normal Assessment & Plan Assessment & Plan (1) Dysphagia, pharyngoesophageal phase: Code(s): R13.14 - Dysphagia, pharyngoesophageal phase Category: Medical (2) Weight loss: Code(s): R63.4 - Abnormal weight loss Category: Medical (3) Colon cancer screening: Comment: 06/2018 Colonoscopy was performed by Dr Gayle and showed severe diverticulosis in the sigmoid colon, internal and external hemorrhoids and no polyps. Repeat Colon in 10 yrs (due 06/2028) if patient remains in stable health Code(s): Z12.11 - Encounter for screening for malignant neoplasm of colon Category: Medical (4) Helicobacter pylori gastritis: Code(s): K29.70 - Gastritis, unspecified, without bleeding; B96.81 - Helicobacter pylori [H. pylori] as the cause of diseases classified elsewhere Category: Medical (5) GERD (gastroesophageal reflux disease): Code(s): K21.9 - Gastro-esophageal reflux disease without esophagitis Category: Medical Plan 79 YM with Hypertension, Hyperlipidemia, DMII, cerebral microvascular disease, allergic rhinitis, diverticulosis of large intestine without hemorrhage, chronic back pain, BMI 31.0-31.9 adult, degenerative disc disease, lumbar, latent TB and Parkinson's disease. Patient was seen for evaluation of oropharyngeal dysphagia associated with intake of solids and liquids. He was diagnosed with Parkinson's disease 3 yrs ago. Dysphagia is likely due to neuromuscular involvement with Parkinson's disease. Modified barium swallow with speech pathologist was performed and findings as noted above. Patient states he has following recommendations of speech pathology and taking Glucerna 1-2 times daily. Pt was prescribed antibiotics for H Pylori infection (amoxicillin and Levofloxacin x 14 days? - due to drug interaction with clarithromycin). Pt notes improvement in dysphagia and has gained weight. Patient was advised that if he develops recurrent wt loss, he may need PEG placement in the future for nutritional support. Pt was retreated for H Pylori with Pylera in 05/2022 since breath test for H pylori was positive. Prescription given for Glucerna 1 can daily 04/14/23 PT complains of LLQ pain x 3 days. Physical exam revealed LLQ tenderness. Pt advised to go to [facility] for evaluation with labs, UA and a CT scan (Pt dscussed with Dr Gomez) ADDENDUM: Pt seen in the ER: 77-year-old male with left iliac crest discomfort that is been managed very well with his home medications, there are no symptoms to suggest intra-abdominal infection or urinary infection.? I reviewed the pelvis x-ray and agree with radiology's impression.? There is no evidence of acute pathology.? Patient is otherwise feeling well and will be discharged home to continue his home medications . 10/18/24 Pt reports he is able to swallow food and denies coughing spells with food intake When he lays down at night, he has difficulty swallowing his saliva - sleeps on three pillows Drinks water and saliva passes down. Pt was advised to schedule a barium swallow FU in 3 months Orders: Orders [place] barium swallow 10/18/24 R13.14 - Dysphagia, pharyngoesophageal phase Coding Level of Care Code Est Pt Level 4 (91823) Diagnoses Dysphagia, pharyngoesophageal phase R13.14 Weight loss R63.4 Colon cancer screening Z12.11 Helicobacter pylori gastritis K29.70; B96.81 GERD (gastroesophageal reflux disease) K21.9 Time Spent (min) 18
[2024-10-18 07:50] VITALS: BP 163/70; PULSE 90; BMI 24.5
== END 2024-10-18 10:11 | disposition home or self-care (01) ==
PROVIDERS: PCP Internal Medicine; Visit Provider Internal Medicine Gastroenterology
DX: R13.14 Dysphagia, pharyngoesophageal phase (principal); R63.4 Abnormal weight loss; Z12.11 Encounter for screening for malignant neoplasm of colon; K29.70 Gastritis, unspecified, without bleeding; B96.81 Helicobacter pylori [H. pylori] as the cause of diseases classified elsewhere; K21.9 Gastro-esophageal reflux disease without esophagitis
CPT/HCPCS: 99499

== ENCOUNTER 2024-12-05 11:56 | Outpatient (REF) | payer OTHER, SELFPAY ==
--- OUTSIDE RECORDS SUMMARY | 2024-12-05 13:44 | XMS_ITS | Encounter Summary ---
Author Organization [employer] Address [address] [place] [address] Care Team Providers Care Logistics Engineering Manager Name Role Phone Chelo Smith MD Primary Care Provider + Bishop Jacobo PharmD Unavailable [phone] Reason for Visit * Reason Comments Med Refill Encounter Details Date Type Department Care Team (Late st Contact Info) Description 11/13/2024 Refill [facility] [address] [place], [place] [phone] Chelo Smith MD [address] [place], [place] [phone] Social History Tobacco Use Types Packs/Day Years Used Date Smoking Tobacco: Former Cigarettes Smokeless Tobacco: Never Alcohol Use Standard Drinks/Week Comments Not Currently 0 (1 standard drink = 0.6 oz pur e alcohol) Alcohol Answer Date Recorded Frequency of Alcohol Consumption Not on file 08/23/2024 Average Number of Drinks Not on file 024 Frequency of Binge Drinking Not on file 07/26 Score 0 08/23/2024 Depression Answer Date Recorded Patient Health Questionnaire-9 Score 0 08/23/2024 Patient Health Questionnaire-9 Score 0 08/23/2024 Last PHQ-9: Questionnaire Data Not on file 1 Housing Stability Answer Date Recorded What is your housing situation today? I have radha randhawa 06/20/[address] you li ve. Do you have problems with any of the following? None of the above 06/20/2024 Food Insecurity Answer Date Recorded Within the past 12 months, y ou worried that your food would run out before you got money to buy more: Never True 06/20/2024 Within the past 12 months,th e food you bought just didn't last and you didn't have enough money to get more: Never True Transportation Answer Date Recorded In the past 12 months, has l ack of transportation kept you from medical appts, meetings, work or from getting things needed for daily living? No 06/20/2024 Utilities Answer Date Recorded In the past 12 months, has t he electric, gas, oil or water company threatened to shut off services in your home? No 06/20/2024 Depression Answer Date Recorded Patient Health Questionnaire-2 Score 0 08/23/2024 Internet Access Answer Date Recorded Internet Access Q1 No 06/22/2024 Internet Access Q2 I do not want or need it 05/26 Sex and Gender Information Value Date Recorded Sex Assigned at Male 08/23/2022 10:15 AM EDT Legal Sex Male 10:15 AM EDT Gender Identity Male 08/23/2022 10:15 AM EDT Sexual Orientation Choose not to disclose 2021 10:15 AM EDT documented as of this encounter Plan of Treatment Upcoming Encounters Date Type Department Care Team (Late st Contact Info) Description 12/27/2024 10:00 AM EST Telemedicine [facility] [address] [place] [address] documented as of this encounter Goals Goal Patient Goal Type Associated Problems Recent Progress Patient-Stated? Author Blood Pressure < 150/90 Blood Pressure 120/80(2024 11:32 AM EST) No Bishop Jacobo, PharmD Note: Per JNC-8 (Age>60 w/o hx of DM or CKD) documented as of this encounter Visit Diagnoses Not on filedocumented in this encounter Additional Health Concerns Assessment Noted Time PHQ-9 Depression Total Score: 0 08/23/20 24 9:23 AM EDT documented as of this encounter Care Teams Logistics Engineering Manager Relationship Specialty Start Date End Date Cehlo Smith MD [address] [place] [address] PCP - General Family Medicine 12/30/20 Bishop Jacobo, PharmD [address] [place] [phone] Pharmacist Internal Medicine 05/09/23 documented as of this encounter
--- OUTSIDE RECORDS SUMMARY | 2024-12-05 13:44 | XMS_ITS | Encounter Summary ---
Author Organization [email or web address] Address [address] [place] [address] Care Team Providers Care Patternmaker Metal Bench Name Role Phone Chelo Smith MD Primary Care Provider + Bishop Jacobo PharmD Unavailable [phone] Reason for Visit * Reason Comments Pre-visit Planning SDOH screening negat aries and tobacco screening negative Encounter Details Date Type Department Care Team ([facility] st Contact Info) Description 11/22/2024 Patient Outreach [facility] [address] [place], [place] [phone] Chelo Smith MD [address] [place], [place] [phone] Pre-visit Planning (SDOH screening negative and tobacco screening negative) Social History Tobacco Use Types Packs/Day Years [...] AM EDT documented as of this encounter Progress Notes * Hilary Velasquez - 11/22/2024 11:48 AM EST SANGITA Richard placed successful outbound call to patient for pre-visit planning. Patient name and confirmed. Patient confirms appt date and time, and has transportation. Biggest concern for appointment at this time is none Patient advised to bring to appointment a photo id and insurance card. Appropriate screenings completed in anticipation of appointment. documented in this encounter Plan of Treatment Upcoming Encounters Date Type Department Care Team (Late st Contact Info) Description 12/27/2024 10:00 AM EST Telemedicine [facility] [address] [place] [phone] documented as of this encounter Goals Goal Patient Goal Type Associated Problems Recent Progress Patient-Stated? Author Blood Pressure < 150/90 Blood Pressure 120/80(2024 11:32 AM EST) Bishop Byrd, PharmD Note: Per JNC-8 (Age>60 w/o hx of DM or CKD) documented as of this encounter Visit Diagnoses Not on filedocumented in this encounter Additional Health Concerns Assessment Noted Time PHQ-9 Depression Total Score: 0 08/23/20 24 9:23 AM EDT documented as of this encounter Care Teams Patternmaker Metal Bench Relationship Specialty Start Date End Date Chelo Smith MD [address] [place] [phone] PCP - General Family Medicine 12/30/20 Bishop Jacobo, Eladio [address] [place] [phone] Pharmacist Internal Medicine 05/09/23 documented as of this encounter
--- OUTSIDE RECORDS SUMMARY | 2024-12-05 13:44 | XMS_ITS | Encounter Summary ---
Author Organization [employer] [facility] Address [address] [place] [address] Care Team Providers Care Tiler'S Assistant Name Role Phone Chelo Smith MD Primary Care Provider + Bishop Jacobo PharmD Unavailable Reason for Visit * Reason Comments Med Refill Encounter Details Date Type Department Care Team (Late Contact Info) Description 05/20/2023 Refill [facility] [address] [place], [place] [phone] Benrice Chu FNP [address] [place] [address] Social History Tobacco Use Types Packs/Day Years Used Date Smoking Tobacco: Former Cigarettes Smokeless Tobacco: Never Alcohol Use Standard Drinks/Week Comments Not Currently 0 (1 standard drink = 0.6 oz pur e alcohol) PHQ-2 Answer Date Recorded Patient Health Questionnaire-2 Score 0 01/13/2023 Depression Answer Date Recorded Patient Health Questionnaire-2 Score 0 01/13/2023 Sex and Gender Information Value Date Recorded Sex Assigned at Male 08/23/2022 10:15 AM EDT Legal Sex Male 10:15 AM EDT Gender Identity Male 08/23/2022 10:15 AM EDT Sexual Orientation Choose not to disclose 2021 10:15 AM EDT documented as of this encounter Plan of Treatment Upcoming Encounters Date Type Department Care Team (Late Contact Info) Description 12/27/2024 10:00 AM EST Telemedicine [facility] MED[facility]INE [address] [place], [place] [phone] documented as of this encounter Goals Goal Patient Goal Type Associated Problems Recent Progress Patient-Stated? Author Blood Pressure < 150/90 Blood Pressure 120/80(2024 11:32 AM EST) No Bishop Jacobo, Eladio Note: Per JNC-8 (Age>60 w/o hx of DM or CKD) documented as of this encounter Visit Diagnoses Not on filedocumented in this encounter Care Teams Tiler'S Assistant Relationship Specialty Start Date End Date Chelo Smith MD [address] [place] [address] PCP - General Family Medicine 12/30/20 Bishop Jacobo, Eladio [address] [place] [phone] Pharmacist Internal Medicine 05/09/23 documented as of this encounter
--- OUTSIDE RECORDS SUMMARY | 2024-12-05 13:44 | XMS_ITS | Encounter Summary ---
Author Organization [employer] Address [address] [place] [address] Care Team Providers Care General Matcher Name Role Phone Chelo Smith MD Primary Care Provider + Bishop Jacobo PharmD Unavailable [phone] Reason for Visit * Reason Comments Med Refill Encounter Details Date Type Department Care Team (Late st Contact Info) Description 11/04/2024 Refill [facility]INE [address] [place], [place] [phone] Chelo Smith MD [address] [place], [place] [phone] Primary insomnia Social History Tobacco Use Types Packs/Day Years [...] Info) Description 12/27/2024 10:00 AM EST Telemedicine [facility] MED[facility]INE [address] [place] [address] documented as of this encounter Goals Goal Patient Goal Type Associated Problems Recent Progress Patient-Stated? Author Blood Pressure < 150/90 Blood Pressure 120/80(2024 11:32 AM EST) Bishop Byrd, PharmD Note: Per JNC-8 (Age>60 w/o hx of DM or CKD) documented as of this encounter Visit Diagnoses Diagnosis Primary insomnia Persistent disorder of initiating or maintaining sleep documented in this encounter Additional Health Concerns Assessment Noted Time PHQ-9 Depression Total Score: 0 08/23/20 24 9:23 AM EDT documented as of this encounter Care Teams General Matcher Relationship Specialty Start Date End Date Chelo Smith MD [address] [place] [address] PCP - General Family Medicine 12/30/20 Bishop Jacobo, PharmD [address] [place] [phone] Pharmacist Internal Medicine 05/09/23 documented as of this encounter
--- OUTSIDE RECORDS SUMMARY | 2024-12-05 13:44 | XMS_ITS | Clinical Summary ---
Author Organization [employer] Address [address] [facility] [facility] [address] [place] [address] Care Team Providers Care Fermenting Cellars Supervisor Name Role Phone Chelo Smith MD Primary Care Provider + Bishop Jacobo PharmD Unavailable [phone] Allergies No known active allergies Medications acetaminophen (Tylenol 8 Hour) 650 MG ER tablet take 1-2 tablet by oral route every 8 hours as needed swallowing whole with water. Do not break, crush, dissolve and/or chew. 07/09/20 22 Active carbidopa-levodop a CR (Sinemet CR) 50-200 MG ER tablet take 1 tablet by oral route 4 times every day Active carbidopa-levodop a (Sinemet) 25-100 MG tablet take 2 tablet by oral route 4 times every day Active latanoprost (Xalatan) 0.005 % ophthalmic solution instill 1 drop by ophthalmic route every day into right eye in the evening Active Misc. Devices (Rollator Ultra-Light) misc With seat and brakes Active gabapentin (Neurontin) 300 MG capsule TAKE 1 CAPSULE BY MOUTH AT BEDTIME 03/31/20 23 Active omeprazole (PriLOSEC) [address] capsuleIndication s:Gastroesophagea l reflux disease, unspecified whether esophagitis present TAKE 1 CAPSULE BY MOUTH EVERY DAY 30-60 MINUTES BEFORE A MEAL 90 capsule 1 05/20/20 23 Active amantadine (Symmetrel) 100 MG capsule Take 100 mg by mouth Once per day. 06/16/20 23 Active Blood Pressure kitIndications:HT N (hypertension), benign Use to measure blood pressure daily as directed. 1 kit 06/18/20 24 Active rosuvastatin (Crestor) 40 MG tabletIndications :Cerebrovascular disease,Mixed hyperlipidemia TAKE 1 TABLET BY MOUTH EVERY DAY AT BEDTIME 90 tablet 1 07/23/20 24 Active aspirin (Aspirin Low Dose) 81 MG EC tablet Take 1 tablet (81 mg) by mouth Once per day. 90 tablet 3 08/27/20 24 Active omega-3 (Fish Oil) 1000 MG capsule Take 1 capsule (1,000 mg) by mouth Once per day. OTC 30 capsule 3 08/27/20 24 Active QUEtiapine (SEROquel) 25 MG tablet Take 1 tablet (25 mg) by mouth 2 times daily. 60 tablet 3 08/27/20 24 Active mirtazapine (Remeron) 15 MG tabletIndications :Primary insomnia TAKE 1 TABLET BY MOUTH AT BEDTIME 30 tablet 3 11/05/19 25 Active rOPINIRole (Requip) 0.25 MG tablet TAKE 3 TABLETS BY MOUTH AT BEDTIME 90 tablet 11/13/19 25 Active lisinopril 40 MG tablet TAKE 1 TABLET BY MOUTH EVERY MORNING 90 tablet 1 12/03/19 25 Active fluticasone (Flonase) 50 MCG/ACT nasal spray Administer 1 spray into each nostril Once per day. 16 g 12/05/19 25 2024 Active lisinopril 40 MG tablet TAKE 1 TABLET BY MOUTH ONCE DAILY 90 tablet 1 05/30/20 24 2024 Discontinued rOPINIRole (Requip) 0.25 MG tablet TAKE 3 TABLETS BY MOUTH AT BEDTIME 90 tablet 10/12/20 24 2024 Discontinued Active Problems Problem Noted Date Diagnosed Date Non-recurrent acute serous otitis media of right ear 12/05/2024 Assessment & Plan (12/05/2024 1:07 PM EST): Most likely residual from URI. Advised to use Flonase intranasal on affected side. Reconsult PRN, fever or worsened symptoms. Encounter for preventive health examination 07/26 Assessment & Plan (08/23/2024 9:47 AM EDT): Discussed with patient re increase fresh fruit and vegetable intake. Counseled re moderate exercise as tolerated, up to 20min/d Patient feels safe at home. Eye exam: UTD next visit on 08/2024 CRC screen: UTD Lipids/FBS: UTD, next one due 06/2025 Vaccinations: Advised to get Covid booster after Cataracts surgery otherwise UTD on all immunizations. Dental visit: UTD, Next one due 08/2024. High plasma protein level 08/23/2024 Assessment & Plan (08/23/2024 9:48 AM EDT): Seems to be Pt had URI at time of exam, given the high protein levels, I will repeat exam in 2 months to make sure they came down. Preoperative examination 08/13/2024 Assessment & Plan (08/13/2024 2:29 PM EDT): 78 yo patient with multiple medical conditions here for preop evaluation. Most of his medical conditions are stable enough so that he can safely undergo planned procedure. He is a medium risk patient due to Hx CVA > 10y ago. He's undergoing a LOW risk procedure. The risk of CV complication according to RCRI is 6% due to CV risk (hx CVA). At this time HE IS ON OPTIMAL CONDITION for planned procedure. -Hold ASA since 08/20 until 1w after 2nd procedure -Take lisinopril + Carbidopa only , on the day of the surgery. -Meds adjusted for the day of surgery as above. -Call back TRICIA should he develops fever, cough, SOB, CP, UTI sxs or any other acute issue Hyperproteinemia 07/11/2024 JEROME (dyspnea on exertion) 07/10/2024 Assessment & Plan (07/10/2024 9:41 AM EDT): - unclear if related to PD/chest ridigity vs COPD (quit smoking 20+ years ago) - order PFTs, chest x-ray - f/u in 1-2 months Chronic cough 07/10/2024 Assessment & Plan (07/10/2024 10:05 AM EDT): - rapid viral tests are negative - r/o COPD vs restrictive lung disease - influenza IZ today, I advised regarding Covid booster at the closest pharmacy Dysphagia, pharyngoesophageal phase 11/14/2023 11/14/[address] nodules on CT 06/22/2023 Overview (06/22/2023): CT scan lungs 07/12/19: ...A previously visualized pulmonary nodules/nodular densities are stable. Assessment & Plan (07/10/2024 10:04 AM EDT): - needs to schedule CT scan of the lungs Assessment & Plan (06/22/2023 12:59 PM EDT): 6mm nodules, unclear if they're the same as on 2019 CT scan lungs. He's an ex smoker Will fu CT scan lungs in 1y Colon cancer screening 11/16/2022 Assessment & Plan (11/16/2022 3:44 PM EST): Patient is encouraged to exercise moderately 4-5x/week. Counseled to increase consumption of fresh fruit, veggies and water. To have frequent and small meals. I have discussed having protected sex at all times for STI purposes. Pat does not smoke, uses alcohol or any illicit drugs, seems to feel safe at home Her adult IZs are up-to-date. Pt will have influenza immunization today. Colonoscopy done on xxxx Opthalmology test will be scheduled. Lipids were completed yesterday. Bilateral tinnitus 09/27/2022 Eosinophil count raised 09/27/2022 Plantar fasciitis of right foot 09/27/2022 Sprain of left rotator cuff capsule 09/27/2022 Restless leg syndrome 09/27/2022 Assessment & Plan (08/13/2024 2:17 PM EDT): Restart Ropinirole 0.25mg and titrate up to 0.75mg prn leg cramps/movs. Fu with Neurology. Assessment & Plan (01/13/2023 12:29 PM EDT): Doing well on Requip 0.75 qhs Feratin levels wnl Assessment & Plan (11/16/2022 3:40 PM EST): Ropinirole recently increased to 7.5, worsening of symptoms that wakes him up at night. Check ferratin levels and FU with me in 1-2 months. Assessment & Plan (09/27/2022 4:42 PM EST): Improved with Ropinirole 0.5mg at bedtime No change in meds. Continue PD rx by neurology Will check Iron levels at next visit/w next set of labs Parkinson's disease 09/27/2022 Assessment & Plan (12/05/2024 1:04 PM EST): FU in 6 months. Assessment & Plan (08/23/2024 9:50 AM EDT): Doing fairly well on Sinemet and Amantadine, mobility is fairly preserved and uses cane/walker for ambulation. Lift chair delivery is pending, it will decrease risk of falls and improve pt mobility at home. Follow up with Neurology. Assessment & Plan (08/13/2024 2:32 PM EDT): - Seems to be doing well, has some progressive rigidity which is expected due to nature of disease. He is enrolled in a home care program to help him with his ADLs, needs assistance in all ADLs to decrease morbidity and mortality related to falls and accidents. -Advised to use DMEs to decrease risk of falls, I rx a recliner or a lift chair that will facilitate that he changes position more independently, therefore decrease morbidity and mortality and risk of falls. - continue Sinemet and Amantadine same doses and f/u with neurology Assessment & Plan (07/10/2024 12:44 PM EDT): - seems to be stable, unclear if JEROME is related to chest wall rigidity because of PD - continue Sinemet 2 tabs QID and f/u with neurology - continue Amantadine 100 mg BID - will obtain neurology notes - pt needs 24/7 assistance at home to prevent falls and accidents, he eats wells and is independent - he does not have urinary incontinence so far - will check PFT's to check chest wall rigidity Assessment & Plan (06/22/2023 1:01 PM EDT): Amantadine added, apparently with improvement of sxs. Continue senemet same dose and fu with Neurology in 2w. Continue home care program as he needs significant assistance with ADLs, mobility, risk of falls. No incontinence so far, eats well with assistance. Assessment & Plan (01/13/2023 12:33 PM EDT): Pt sees neurologist, seems to be slowly progressing. Needs assistance with transfers adn some ADLS to prevent accidents at home. His son is his primary medicare interviewer. Continue Sinamet 25/100 x 2 tablets 4 times per day + Sinamet CR 50/200 4 times per day. Assessment & Plan (11/16/2022 3:39 PM EST): Pt seems to be stable, is ambulatory. Needs some assistance for tranfers. Continue Sinemet ER 50/200 qid and FU with neurologist. Counseled to avoid constipation, increase water intake, use colace PRN. Leg edema, right 09/27/2022 Venous stasis dermatitis of both lower extremiti es 09/27/2022 Assessment & Plan (09/27/2022 4:45 PM EST): No ulceration, no other sxs Use moisturizing cream daily + betamethasone cream bid x 1-2w prn pruritus, erythema. Reconsult prn if sxs do not resolve Weight loss 07/10/2018 Assessment & Plan (01/13/2023 12:27 PM EDT): Most likely due to decreased PO intake. I recommended to pt to get his dentures fixed by dentist. Continue glucerna TID an optimize solid food diet FU with me in 3 months. Primary insomnia 07/10/2018 Assessment & Plan (01/13/2023 12:29 PM EDT): Continue Remeron and Gabapentin 300 mg qhs Assessment & Plan (09/27/2022 4:43 PM EST): Doing well with Mirtazapine and rx RLS + PD. Continue above meds Encouraged tight BP control FU prn Inactive tuberculosis 04/03/2018 Allergic rhinitis 07/30/2015 Cerebrovascular disease 07/30/2015 Chronic back pain 07/30/2015 Degeneration of lumbar intervertebral disc 07/30 Diverticular disease of colon 07/30/2015 HTN (hypertension), benign 07/30/2015 Assessment & Plan (12/05/2024 1:05 PM EST): Controlled. Compliant w/meds Continue lisinopril same dose Counseled re low salt diet/increase moderate physical activity. Check home BP BIW and prn CP/CALHOUN/JEROME Non smoking patient. Assessment & Plan (07/10/2024 9:42 AM EDT): Controlled. Compliant w/meds Continue lisinopril same dose Counseled re low salt diet/increase moderate physical activity. Check home BP BIW and prn CP/CALHOUN/JEROME Non smoking patient. Assessment & Plan (01/13/2023 12:30 PM EDT): Controlled. Continue lisinopril Counseled re low salt diet/increase moderate physical activity. Check home BP BIW and prn CP/CALHOUN/JEROME Non smoking patient. Assessment & Plan (11/16/2022 3:43 PM EST): BP is at goal. Continue LIsinopril 40 mg. Encouraged to increase physical activity and limit sodium intake. Assessment & Plan (09/27/2022 4:44 PM EST): Mostly controlled. Compliant w/meds Continue lisinopril same dose Counseled re low salt diet/increase moderate physical activity. Check home BP BIW and prn CP/CALHOUN/JEROME Non smoking patient. Fu in 4m Glaucoma 07/30/2015 Hyperlipidemia 07/30/2015 Assessment & Plan (07/10/2024 12:42 PM EDT): - on Rosuvastatin, check lipid profile - f/u in 2 months Encounters Date Type Department Care Team Description 12/05/2024 11:15 AM EST Office Visit [facility] [address] [place] [phone] hCelo Smith MD HTN (hypertension), benign (Primary Dx); Parkinson's disease with dyskinesia and fluctuating manifestations (CMS/HCC); Non-recurrent acute serous otitis media of right ear 12/05/2024 Travel 12/02/2024 Refill [facility] [address] [facility] [place] [address] Chelo Smith MD 11/22/2024 Patient Outreach [facility] [address] [facility] [place] [address] Chelo Smith MD Pre-visit Planning (SDOH screening negative and tobacco screening negative) 11/13/2024 Refill [facility] [address] [facility] [place] [address] Chelo Smith MD 11/04/2024 Refill [facility] [address] [facility] [place] [address] Chelo Smith MD Primary insomnia 10/30/2024 Telephone [facility] [address] [facility] [place] [address] Chelo Smith MD No Show 10/26/2024 Telephone [facility] [address] [place] [address] Maura Wilson MA Chart prep 10/23/2024 Patient Outreach [facility] [address] [facility] [place] [address] Chelo Smith MD Pre-visit Planning (SDOH screening completed on 06/20/2024) 10/12/2024 Refill [facility] [address] [facility] [place] [address] Chelo Smith MD 09/27/2024 10:00 AM EST Telemedicine [facility] [address] [place] [address] Angelina Otero PharmD Parkinson's disease with dyskinesia and fluctuating manifestations (CMS/HCC) (Primary Dx); Restless leg syndrome; Essential hypertension 09/11/2024 Telephone [facility] [address] [facility] [place] [address] Chelo Smith MD Durable Medical Equipment 09/05/2024 Refill [facility] [address] [place] [address] Chelo Smith MD from Last 3 Months Immunizations Name Administration Dates Next Due DTaP 09/21/1999 Hep B, adult 04/29/2015,11/27/2014,10/23/2014 Influenza High-dose Quadriva lent Preservative Free 07/27/2023,07/09/2022 Influenza Quadrivalent Adjuvanted 07/13/2021 Influenza injectable quadriv alent IIV4 with preservative 07/30/2015 Influenza injectable quadriv alent preservative free 08/09/2017,09/08/2016 Influenza, High Dose Seasona l, Preservative Free 07/10/2024,08/30/2019,08/03/2018,09/08 Influenza, IIV3, injectable 07/22/2014,0 07/18/2009,08/09/2008,07/20 Influenza, Split (incl. jumana fied surface antigen) 07/18/2013,10/25/2012 Moderna Covid-19 Vaccine 12+ 01/01/2021,12/05/19 21 Pfizer Covid-19 Vaccine 12+ 10/27/2023,,09/03/2021 Pfizer Covid-19 Vaccine 12+ Bivalent 10/28/2022 Pfizer Covid-19 Vaccine 12+ yifan-sucrose (Soliz Cap) 02/16/2022 Pneumococcal Conjugate PCV 13 07/30/2015 Pneumococcal Conjugate PCV 20 10/27/2023 Pneumococcal Polysaccharide PPSV23 07/22/2014, RSV Bivalent 11/14/2023 Tdap 11/14/2023,03/29/2013 Zoster, Recombinant 08/09/2022,06/08/2022 Zoster, live 07/23/2014 Social History Tobacco Use Types Packs/Day Years Used Date Smoking Tobacco: Former Cigarettes Smokeless Tobacco: Never Tobacco Cessation:Counseling Given: Not Answered Alcohol Use Standard Drinks/Week Comments Not Currently [...] not to disclose 2021 10:15 AM EDT Last Filed Vital Signs Vital Sign Reading Time Taken Comments Blood Pressure 120/80 12/05/2024 11:32 AM EST Pulse 92 12/05/2024 11:00 AM EST Temperature 36 ??C (96.8 ??F) 12/05/2024 11:00 AM EST Respiratory Rate 20 08/23/2024 9:22 AM EDT Oxygen Saturation 100% 12/05/2024 11:00 AM EST Inhaled Oxygen Concentration - - Weight 70.9 kg (156 lb 4 oz) 12/05/2024 11:00 AM EST Height 172.7 cm (5' 8 ) 12/05/2024 11:00 AM EST Body Mass Index 23.76 12/05/2024 11:00 AM EST Plan of Treatment Upcoming Encounters Date Type Department Care Team (Late st Contact Info) Description 12/27/2024 10:00 AM EST Telemedicine [facility] [address] [place] [address] Health Maintenance Due Date Last Done Comments Dental Prophylaxis 1945 Dental X-Ray: Bitewings 1945 Dental Oral Exam 12/18/2022 06/16/2022, 05/04/2018 COVID-19 Vaccine ( season) 2024 10/27/2023, 10/28/2022, 02/16/2022, Additional history exists Dental X-Ray: Full Mouth 07/21/2025 07/20/2022, 04/23 Alcohol/Substance Use Screening 08/23/2025 08/23/2024 Depression Screening 08/23/2025 08/23/2024, 08/23/20 24 SDOH Screening 11/22/2025 11/22/2024 Tobacco Screening 12/05/2025 12/05/2024 Lipid Panel 07/11/2029 07/11/2024, 12/05/2020 DTaP/Tdap/Td Vaccines (4 - Td or Tdap) 11/14/2033 11/14/2023, 03/29/2013, 09/21/1999 Hepatitis B Vaccines Completed 04/29/2015, 11/27/2014, 10/23/2014 Zoster Vaccines Completed 08/09/2022, 05/24, 07/23/2014 Pneumococcal Vaccine: 50+ Years Completed 10/27/2023, 07/30/2015, 07/22/2014, Additional history exists RSV Patients and Patients Aged 60 years or older Completed 11/14/2023 Influenza Vaccine Completed 07/10/2024, , 07/09/2022, Additional history exists Hepatitis C Screening Completed 07/11/2024 HIB Vaccines Aged Out No longer eligi ble based on patient's age to complete this topic HPV Vaccines Aged Out No longer eligi ble based on patient's age to complete this topic Hepatitis A Vaccines Aged Out No long er eligible based on patient's age to complete this topic IPV Vaccines Aged Out No longer eligi ble based on patient's age to complete this topic Meningococcal Vaccine Aged Out No claudia nahum eligible based on patient's age to complete this topic RSV under 20 months Aged Out No longe r eligible based on patient's age to complete this topic Rotavirus Vaccines Aged Out No longer eligible based on patient's age to complete this topic Goals Goal Patient Goal Type Associated Problems Recent Progress Patient-Stated? Author Blood Pressure < 150/90 Blood Pressure 120/80(2024 11:32 AM EST) No Bishop Jacobo, PharmD Note: Per JNC-8 (Age>60 w/o hx of DM or CKD) Procedures Procedure Name Priority Date/Time Associated Diagnosis Comments HEPATITIS PANEL, GENERAL Routine 07/11/2024 8:24 AM EDT HTN (hypertension), benign JEROME (dyspnea on exertion) LIPID PANEL, STANDARD Routine 07/11/2024 8:24 AM EDT HTN (hypertension), benign PANORAMIC RADIOGRAPHIC IMAGE Routine 07/20/2022 12:00 AM EDT PERIODIC ORAL EVALUATION - ESTABLISHED PATIENT Routine 06/16/2022 12:00 AM EDT from Last 3 Months or Most Recently Relevant to Health Maintenance Results * Hepatitis Panel, General (07/11/2024 8:24 AM EDT) Hepatitis A IgM Nonreactive Nonreactive [facility] Comment:IgM antibodies to CALHOUN V not detected; does not exclude earlyacute or recovered HAV infection. ~Hepatitis B Surface Antibody NONREACTIVE Nonreactive [facility] Comment:Nonreactive: < 8.00 mIU/mL Hepatitis B Core Antibody Nonreactive Nonreactive [facility] Hepatitis C Antibody Nonreactive Nonreactive [facility] Comment:Antibodies to HCV no t detected; does not exclude early acuteHCV infection. Hepatitis B Surface Ag Negative Negative [facility] Blood 07/11/2024 8:24 AM EDT 07/11/2024 8:24 AM EDT us Chelo Smith MD LAB BLOOD ORDERABLES Fin al Result Performing Organization Address City/[facility]/ZIP Co de Phone Number [facility] [address] [place] [phone] [phone] * Lipid Panel, Standard (07/11/2024 8:24 AM EDT) Triglycerides 94 <150 mg/dL [facility] Comment:Desirable Triglyceri de: less than 150 mg/dLBorderline High Triglyceride 150-199 mg/dLHigh Triglyceride: 200-499 mg/dLVery High Triglyceride: greater than or equal to 5OO mg/dL Cholesterol 143 <200 mg/dL [facility] Comment:Desirable Cholestero l: less than 200 mg/dLBorderline High Cholesterol: 200-239 mg/dLHigh Cholesterol: greater than 239 mg/dL LDL Cholesterol Calculated 47 <100 mg/dL [facility] Comment:Desirable LDL: less than 100 mg/dLNear Optimal/Above Optimal LDL: 110- 129 mg/dLBorderline High LDL: 130-159 mg/dLHigh LDL: 160-189 mg/dLVery High LDL: greater than or equal to 190 mg/dL HDL Cholesterol 78 >40 mg/dL [facility] Comment:Desirable HDL: great er than 40 mg/dL Note: This HDL assay may give artificially low results in patients with liver disease. 07/11/2024 8:24 AM EDT 07/11/2024 8:24 AM EDT us Chelo Smith MD LAB BLOOD ORDERABLES Fin al Result Performing Organization Address City/[facility]/ZIP Co de Phone Number [facility] [address] [place] [phone] from Last 3 Months or Most Recently Relevant to Health Maintenance Insurance [facility] [employer] Care Teams [employer] Supervisor Relationship Specialty Start Date End Date Chelo Smith MD [address] [place] [address] PCP - General Family Medicine 12/30/20 Bishop Jacobo, PharmD [address] [place] [address] Pharmacist Internal Medicine 05/09/23
--- OUTSIDE RECORDS SUMMARY | 2024-12-05 13:44 | XMS_ITS | Encounter Summary ---
Author Organization [employer] [facility] Address [address] [place] [address] Care Team Providers Care Automatic Clipper [employer] Stripper Name Role Phone Chelo Smith MD Primary Care Provider + Bishop Jacobo PharmD Unavailable [phone] Encounter Details Date Type Department Care Team (Late st Contact Info) Description 10/26/2022 Telephone [facility] [address] [place] [address] [phone] Chelo Smith MD [address] [place], [place] [phone] Social History Tobacco Use Types Packs/Day Years Used Date Smoking Tobacco: Former Cigarettes Smokeless Tobacco: Never Alcohol Use Standard Drinks/Week Comments Not Currently 0 (1 standard drink = 0.6 oz pur e alcohol) Sex and Gender Information Value Date Recorded Sex Assigned at Male 08/23/2022 10:15 AM EDT Legal Sex Male 10:15 AM EDT Gender Identity Male 08/23/2022 10:15 AM EDT Sexual Orientation Choose not to disclose 2021 10:15 AM EDT COVID-19 Exposure Response Date Recorded In the last 10 days, have yo u been in contact with someone who was confirmed or suspected to have Coronavirus/COVID-19? No / Unsure 10/28/2022 11:27 AM EST documented as of this encounter Plan of Treatment Upcoming Encounters Date Type Department Care Team (Late st Contact Info) Description 12/27/2024 10:00 AM EST Telemedicine [facility] [address] [place] [address] [phone] documented as of this encounter Visit Diagnoses Not on filedocumented in this encounter Care Teams Automatic Clipper And Stripper Relationship Specialty Start Date End Date Chelo Smith MD [address] [place], [place] [phone] PCP - General Family Medicine 12/30/20 Bishop Jacobo PharmD [address] [place] [address] Pharmacist Internal Medicine 05/09/23 documented as of this encounter
--- OUTSIDE RECORDS SUMMARY | 2024-12-05 13:44 | XMS_ITS | Encounter Summary ---
Author Organization [employer] Address [address] [place] [address] Care Team Providers Care Survival Specialist Name Role Phone Chelo Smith MD Primary Care Provider + Bishop Jacobo PharmD Unavailable [phone] Encounter Details Date Type Department Care Team (Latest Contact Info) Description 12/05/2024 Travel Social History Tobacco Use Types Packs/Day Years [...] Info) Description 12/27/2024 10:00 AM EST Telemedicine [facility] [address] [place] [address] documented as of this encounter Goals Goal [...] documented as of this encounter Care Teams Survival Specialist Relationship Specialty Start Date End Date Chelo Smith MD [address] [place] [phone] PCP - General Family Medicine 12/30/20 Bishop Jacobo, EulogioD [address] [place] [phone] Pharmacist Internal Medicine 05/09/23 documented as of this encounter
--- OUTSIDE RECORDS SUMMARY | 2024-12-05 13:44 | XMS_ITS | Encounter Summary ---
Author Organization [employer] Address [address] [facility] [address] [address] [place] [address] Care Team Providers Care Automotive Vehicle Inspector Name Role Phone Chelo Smith MD Primary Care Provider + Bishop Jacobo PharmD Unavailable Reason for Visit * Reason Comments Med Refill Encounter Details Date Type Department Care Team (Late st Contact Info) Description 03/26/2024 Refill [facility] [address] [place], [place] [phone] Chelo Smith MD [address] [place], [place] [phone] Social History Tobacco Use Types Packs/Day Years Used Date Smoking Tobacco: Former Cigarettes Smokeless Tobacco: Never Alcohol Use Standard Drinks/Week Comments Not Currently 0 (1 standard drink = 0.6 oz pur e alcohol) PHQ-2 Answer Date Recorded Patient Health Questionnaire-2 Score 0 01/13/2023 Housing Stability Answer Date Recorded What is your housing situation today? I have radha randhawa 08/18/[address] you li ve. Do you have problems with any of the following? None of the above 08/18/2023 Food Insecurity Answer Date Recorded Within the past 12 months, y ou worried that your food would run out before you got money to buy more: Never True 08/18/2023 Within the past 12 months,th e food you bought just didn't last and you didn't have enough money to get more: Never True Transportation Answer Date Recorded In the past 12 months, has l ack of transportation kept you from medical appts, meetings, work or from getting things needed for daily living? Yes, it has kept me from medical appointments or getting medications. 08/01/2023 Utilities Answer Date Recorded In the past 12 months, has t he electric, gas, oil or water company threatened to shut off services in your home? No 08/18/2023 Depression Answer Date Recorded Patient Health Questionnaire-2 [...] Info) Description 12/27/2024 10:00 AM EST Telemedicine [facility] [address] [place] [address] documented as of this encounter Goals Goal Patient Goal Type Associated Problems Recent Progress Patient-Stated? Author Blood Pressure < 150/90 Blood Pressure 120/80(2024 11:32 AM EST) No Bishop Jacobo, Eladio Note: Per JNC-8 (Age>60 w/o hx of DM or CKD) documented as of this encounter Visit Diagnoses Not on filedocumented in this encounter Care Teams Automotive Vehicle Inspector Relationship Specialty Start Date End Date Chelo Smith MD [address] [place] [id number] PCP - General Family Medicine 12/30/20 Bishop Jacobo, PharmD [address] [place] [phone] Pharmacist Internal Medicine 05/09/23 documented as of this encounter
--- OUTSIDE RECORDS SUMMARY | 2024-12-05 13:44 | XMS_ITS | Encounter Summary ---
Author Organization [employer] Address [address] [place] [address] Care Team Providers Care Fur Dry Cleaner Hand Name Role Phone Chelo Smith MD Primary Care Provider + Bishop Jacobo PharmD Unavailable [phone] Reason for Visit * Reason Comments Follow-up Encounter Details Date Type Department Care Team (Latest Contact Info) Description 12/05/2024 11:15 AM EST Office Visit [facility] [address] [place], [place] [phone] Chelo Smith MD [address] [place], [place] [phone] HTN (hypertension), benign (Primary Dx); Parkinson's disease with dyskinesia and fluctuating manifestations (CMS/HCC); Non-recurrent acute serous otitis media of right ear Social History Tobacco Use Types Packs/Day Years [...] AM EDT documented as of this encounter Last Filed Vital Signs Vital Sign Reading Time Taken Comments Blood Pressure 120/80 12/05/2024 11:32 AM EST Pulse 92 12/05/2024 11:00 AM EST Temperature 36 ??C (96.8 ??F) 12/05/2024 11:00 AM EST Respiratory Rate - - Oxygen Saturation 100% 12/05/2024 11:00 AM EST Inhaled Oxygen Concentration - - Weight 70.9 kg (156 lb 4 oz) 12/05/2024 11:00 AM EST Height 172.7 cm (5' 8 ) 12/05/2024 11:00 AM EST Body Mass Index 23.76 12/05/2024 11:00 AM EST documented in this encounter Miscellaneous Notes * Assessment & Plan Note - Asya Page MA - 12/05/2024 1:07 PM EST Associated Problem(s): Non-recurrent acute serous otitis media of right ear Most likely residual from URI. Advised to use Flonase intranasal on affected side. Reconsult PRN, fever or worsened symptoms. * Assessment & Plan Note - Asya Page [place] - 12/05/2024 1:05 PM EST Associated Problem(s): HTN (hypertension), benign Controlled. Compliant w/meds Continue lisinopril same dose Counseled re low salt diet/increase moderate physical activity. Check home BP BIW and prn CP/CALHOUN/JEROME Non smoking patient. * Assessment & Plan Note - Asya Page MA - 12/05/2024 1:04 PM EST Associated Problem(s): Parkinson's disease (CMS/HCC) FU in 6 months. documented in this encounter Plan of Treatment Upcoming Encounters Date Type Department Care Team (Late st Contact Info) Description 12/27/2024 10:00 AM EST Telemedicine [facility] [address] [place] [phone] documented as of this encounter Goals Goal Patient Goal Type Associated Problems Recent Progress Patient-Stated? Author Blood Pressure < 150/90 Blood Pressure 120/80(2024 11:32 AM EST) Bishop Byrd, PharmD Note: Per JNC-8 (Age>60 w/o hx of DM or CKD) documented as of this encounter Visit Diagnoses Diagnosis HTN (hypertension), benign- Primary Essential hypertension, benign Parkinson's disease with dyskinesia and fluctuating manifestations (CMS/HCC) Non-recurrent acute serous otitis media of right ear documented in this encounter Additional Health Concerns Assessment Noted Time PHQ-9 Depression Total Score: 0 08/23/20 24 9:23 AM EDT documented as of this encounter Care Teams Fur Dry Cleaner Hand Relationship Specialty Start Date End Date Chelo Smith MD [address] [place] [address] PCP - General Family Medicine 12/30/20 Bishop Jacobo, EulogioD [address] [place] [phone] Pharmacist Internal Medicine 05/09/23 documented as of this encounter
--- OUTSIDE RECORDS SUMMARY | 2024-12-05 13:44 | XMS_ITS | Encounter Summary ---
Author Organization [employer] Address [address] [place] [address] Care Team Providers Care Network Operations Specialist Name Role Phone Chelo Smith MD Primary Care Provider + Bishop Jacobo PharmD Unavailable [phone] Reason for Visit * Reason Comments Med Refill Encounter Details Date Type Department Care Team (Late st Contact Info) Description 12/02/2024 Refill [facility] MED[facility]INE [address] [place], [place] [phone] Chelo Smith MD [address] [place], [place] [phone] Social History Tobacco Use Types Packs/Day Years [...] 12/27/2024 10:00 AM EST Telemedicine [facility] MED[facility]INE [address] [place] [address] documented as of this encounter Goals Goal [...] documented as of this encounter Care Teams Network Operations Specialist Relationship Specialty Start Date End Date Chelo Smith MD [address] [place] [address] PCP - General Family Medicine 12/30/20 Bishop Jacobo, PharmD [address] [place] [phone] Pharmacist Internal Medicine 05/09/23 documented as of this encounter
--- OUTSIDE RECORDS SUMMARY | 2024-12-05 13:45 | XMS_ITS | Encounter Summary ---
Author Organization [employer] Address [address] 7[address] [place] [address] Care Team Providers Care Provider Relations Consultant Name Role Phone Chelo Smith MD Primary Care Provider + Bishop Jacobo PharmD Unavailable [phone] Reason for Visit * Reason Comments Med Refill Encounter Details Date Type Department Care Team (Late st Contact Info) Description 09/02/2024 Refill [facility] MED[facility]INE [address] [place], [place] [phone] Chelo Smith MD [address] [place], [place] [phone] Restless legs Social History Tobacco Use Types Packs/Day Years [...] Info) Description 12/27/2024 10:00 AM EST Telemedicine [facility] MED[facility]INE [address] [place] [address] documented as of this encounter Goals Goal Patient Goal Type Associated Problems Recent Progress Patient-Stated? Author Blood Pressure < 150/90 Blood Pressure 120/80(2024 11:32 AM EST) Bishop Byrd, PharmD Note: Per JNC-8 (Age>60 w/o hx of DM or CKD) documented as of this encounter Visit Diagnoses Diagnosis Restless legs Restless legs syndrome (RLS) documented in this encounter Additional Health Concerns Assessment Noted Time PHQ-9 Depression Total Score: 0 08/23/20 24 9:23 AM EDT documented as of this encounter Care Teams Provider Relations Consultant Relationship Specialty Start Date End Date Chelo Smith MD [address] [place] [address] PCP - General Family Medicine 12/30/20 Bishop Jacobo, PharmD [address] [place] [address] Pharmacist Internal Medicine 05/09/23 documented as of this encounter
--- OUTSIDE RECORDS SUMMARY | 2024-12-05 13:45 | XMS_ITS | Encounter Summary ---
Author Organization [facility] Address [address] [facility] [address] [place] [address] Care Team Providers Care Data Entry Manager Name Role Phone Chelo Smith MD Primary Care Provider + Bishop Jacobo PharmD Unavailable [phone] Reason for Visit * Reason Onset Date Comments call back 11/19/2022 Encounter Details Date Type Department Care Team ([facility] st Contact Info) Description 11/19/2022 Telephone [facility]INE [address] [place], [place] [phone] Chelo Smith MD [address] [place], [place] [phone] call back Social History Tobacco Use Types Packs/Day Years [...] suspected to have Coronavirus/COVID-19? No / Unsure 11/16/2022 1:09 PM EST documented as of this encounter Miscellaneous Notes * Telephone Encounter - Omaira Colon - 11/22/2022 10:12 AM EST Return call to Anant Mallory (pt insurance), he stated recliner is a covered item but it will require a medical necessity letter and faxed over to [employer]. Are you ok with this? * Telephone Encounter - eCcy Ariza RN - 11/22/2022 9:51 AM EST TC returned to [facility], they report they received a call regarding recliner. * Telephone Encounter - Natanael Jo - 11/19/2022 4:22 PM EST Tc from [place] with [facility] returning call. [facility] is requesting a call back Please contact anant at [phone] documented in this encounter Plan of Treatment Upcoming Encounters Date Type Department Care Team (Late st Contact Info) Description 12/27/2024 10:00 AM EST Telemedicine [facility] MED[facility]INE [address] [place] [address] documented as of this encounter Visit Diagnoses Not on filedocumented in this encounter Care Teams Data Entry Manager Relationship Specialty Start Date End Date Chelo Smith MD [address] [place] [address] PCP - General Family Medicine 12/30/20 Bishop Jacobo, EulogioD [address] [place] [phone] Pharmacist Internal Medicine 05/09/23 documented as of this encounter
[2024-12-05 13:51] LABS: MANUAL DIFF FLAG NO
[2024-12-05 14:02] LABS: Basophils Absolute Auto 0.1 X10*3/uL (0.0-0.2); Basophils Percent Auto 0.5 % (0-2); Eosinophils Absolute Auto 0.6 X10*3/uL (0.0-0.4); Hematocrit 38.1 % (42.0-52.0); Hemoglobin 12.5 g/dl (14.0-18.0); Imm Gran Abs Auto 0.02 X10*3/uL (0.00-0.03); Imm Gran Pct Auto 0.2 % (0.0-0.4); Lymphocytes Percent Auto 21.6 % (20-40); Mean Corpuscular HGB Conc 32.8 g/dl (31.0-36.0); Mean Corpuscular Hemoglobin 29.5 pg (27.0-33.0); Mean Corpuscular Volume 89.9 fL (80.0-98.0); Mean Platelet Volume 10.1 fL (9.4-12.4); Monocytes Absolute Auto 0.6 X10*3/uL (0.1-1.2); Monocytes Percent Auto 6.7 % (2-11); Platelet Count 202 X10*3/uL (160-400); Red Blood Count 4.24 X10*6/uL (4.60-5.80); Red Cell Distribution Width 14.4 % (11.0-16.0); White Blood Count 9.2 X10*3/uL (4.8-10.8)
[2024-12-05 14:42] LABS: Alanine Aminotransferase 6 U/L (0-40); Albumin Level 4.3 g/dL (3.5-5.0); Alkaline Phosphatase 104 U/L (39-117); Aspartate Amino Transferase 23 U/L (5-37); Bilirubin Direct 0.1 mg/dL (0.0-0.5); Bilirubin Total 0.4 mg/dL (0.0-1.0); Total Protein 7.6 g/dL (6.5-8.0)
[2024-12-05 14:47] LABS: Ferritin 144 ng/mL (20-250)
[2024-12-05 14:48] LABS: Erythrocyte Sedimentation Rate 4 MM/HR (0-15)
== END 2024-12-05 11:57 | disposition home or self-care (01) ==
LOC: HO.HHCL 11:56
PROVIDERS: Visit Provider Internal Medicine
DX: R77.9 Abnormality of plasma protein, unspecified (principal); G20.B2 Parkinson's disease with dyskinesia, with fluctuations
CPT/HCPCS: 36415; 80076; 82728; 85025; 85652

== ENCOUNTER 2025-04-29 07:41 | Outpatient (REF) | payer OTHER, SELFPAY ==
--- NOTE | ~2025-04-29 | FL_ITS ---
EXAMINATION: XR BARIUM SWALLOW CLINICAL INFORMATION: Dysphagia, pharyngoesophageal phase. COMPARISON: None available. TECHNIQUE: Routine upright barium swallow was performed with thick barium. FINDINGS: On oral administration of thick barium and AP view there is cosme laryngeal penetration and aspiration better visualized on oblique view. Otherwise there is normal antegrade propagation bolus through the pharynx, esophagus into stomach with no obstructive or constrictive narrowing. No extrinsic compression seen. FLUOROSCOPY TIME: 1:06 minutes DOSE AREA PRODUCT: 410 uGy-m2 (microgray-meter squared) FL/FL barium swallow IMPRESSION: Cosme laryngeal aspiration on the very first oral swallow of thick barium. Results were immediately conveyed to referring physician Dr. Russo by tiger text. Electronically signed by: Ezra Aaron MD 04/29/2025 09:14 AM EDT
--- OUTSIDE RECORDS SUMMARY | 2025-04-29 07:43 | XMS_ITS | Patient Health Record ---
Author Organization [facility] Address [address] [place] [address] Care Team Providers Care Sign Language Teacher Name Role Phone Valeria Mcarthur M.D. Primary Care Provider Baldo Dial Unavailable [phone] Reason For Referral No Information Medications Medication SIG (Take, Route, Frequency, Duration) Notes Start Date End Date Status hydroCHLOROthiazide 25 MG 1 tablet in th e morning Orally Once a day Active Lisinopril 40 MG 1 tablet Orally Once a day Active Cyanocobalamin 1000 MCG 1 tablet Orally Once a day Active Timolol Hemihydrate 0.25 % 1 drop into a ffected eye Ophthalmic Once a day Active Flonase 50 MCG/ACT 1 spray in each nostril Nasally Once a day Active ZyrTEC Allergy 10 MG 1 tablet Orally Onc e a day Active Aspir-81 81 MG 1 tablet Orally Once a day Active HYDROcodone-Acetaminophen 5- 325 MG 1 tablet as needed Orally every 6 hrs Active Zetia 10 MG 1 tablet Orally Once a day Active Tessalon Perles 100 MG 1 capsule as need ed Orally Three times a day Active Norvasc 5 MG 1 tablet Orally Once a day Active Vitamin D3 2000 UNIT 1 capsule Orally On ce a day Active Metoprolol Succinate ER 50 MG 1 tablet O rally Once a day Active Crestor 40 MG 1 tablet Orally Once a day Active Baclofen 10 MG 1 tablet with food o r milk Orally Three times a day Active Melatonin 5 MG 1 tablet at bedtime as needed with food Orally Once a day Active Social History Tobacco Use: Social History Observation Description Date Details (start date - stop date) Former Smoker NA - NA Tobacco Use/Smoking Question Answer Notes Patient is a former smoker How long has it been since you last smoked? > 10 years Alcohol Screen Question Answer Notes Did you have a drink contain ing alcohol in the past year? Yes How often did you have a dri nk containing alcohol in the past year? Monthly or less (1 point) How many drinks did you have on a typical day when you were drinking in the past year? 1 or 2 drinks (0 point) How often did you have 6 or more drinks on one occasion in the past year? Never (0 point) Points 1 Interpretation Negative Section Notes: Nonsmoker; no sig alcohol Problems Problem Type SNOMED Code ICD Code Onset Dates Problem Status W/U Status Risk Notes Problem 640820704 Early satiety (R68.81) Active confirmed Problem 899532881 Abnormal CT scan, colon (R93.3) Active confirmed Problem 289271602 Abnormal CT scan, stomach (R93.3) Active confirmed Plan Of Treatment No Information Insurance Providers Payer Name Payer Address Payer Phone Subscriber Number Group Number Insured Name Patient Relationship to Insured Coverage Start Date Coverage End Date [facility] [address] [address] [place] [phone] [id number] PETAR JUNIOR Self - patient is the insured Medical (General) History Medical History History ICD Code Hyperlipidemia Cerebrovascular disease--right-sided fac ial weakness--resolved Allergic rhinitis Glaucoma OD Hypertension Back pain Negative colonoscopy with Dr. Soliz in 2008 Denies VA,DM,Lung disease,renal disease
== END 2025-04-29 07:42 | disposition home or self-care (01) ==
LOC: HO.XRAY 07:41
PROVIDERS: PCP Internal Medicine; Visit Provider Internal Medicine Gastroenterology
DX: R13.14 Dysphagia, pharyngoesophageal phase (principal)
CPT/HCPCS: 74220

== ENCOUNTER → 2025-04-29 07:43 | Outpatient (BNV) | payer OTHER, SELFPAY | PROVIDERS: PCP Internal Medicine; Visit Provider Radiology Diagnostic Radiology | DX: R13.14 Dysphagia, pharyngoesophageal phase (principal) | CPT/HCPCS: 74220 ==

== ENCOUNTER 2025-05-04 12:08 | Inpatient (IN) | payer OTHER, SELFPAY ==
[2025-05-04] VITALS (7 sets, daily range): BP systolic 116–149; BP diastolic 52–72; PULSE 73–83; RESP 14–22; TEMP 36.1–37.1; O2SAT 89–99; BMI 25.1; BMI 26.3
--- NOTE | 2025-05-04 | ECG_ITS ---
Test Reason : CHEST PAIN Blood Pressure : */* mmHG Vent. Rate : 82 BPM Atrial Rate : 82 BPM P-R Int : 170 ms QRS Dur : 104 ms QT Int : 354 ms P-R-T Axes : 30 -12 38 degrees QTcB Int : 413 ms Normal sinus rhythm Normal ECG When compared with ECG of 13-Dec-2022 07:45, No significant change was found Referred By: Generic ED Physician Electronically Signed By: Stevan Montalvo
--- NOTE | ~2025-05-04 | CT_ITS ---
CLINICAL HISTORY: epigastric abdominal pain and vomiting with VOLODYMYR CT abdomen and pelvis without contrast Comparison: None provided Findings: Trace bilateral pleural effusions bilateral basilar atelectasis. The liver, spleen, adrenal glands, pancreas are unremarkable. Kidneys are normal without hydronephrosis. There is dense contrast material within the colon. Multiple colonic diverticula are present. No evidence of diverticulitis. There are multiple air and fluid distended loops of small bowel within the abdomen. Distal small bowel is decompressed. No discrete transition point seen. Caliber change appears somewhat gradual in the right lower quadrant. No free air. No ascites. Normal appendix. No acute fracture. Degenerative changes of the lumbar spine are present. IMPRESSION: Distended proximal and mid small bowel with decompressed distal small bowel. Differential includes diffuse ileus, versus early or partial small bowel obstruction. This document has been electronically signed by: Brent Armstrong MD on 05/04/2025 16:26:47
--- NOTE | 2025-05-04 12:39 | PC.NURSE ---
Pt ALFREDO from home. Hungarian speaking, staffing coordinator at bedside. Pt alert and oriented, stating he has been experiencing chest pain, diarrhea, weakness and feeling like food is getting stuck while eating since Tuesday. Pt given 324 ASA by EMS. Breathing normally, unlabored, skin p/w/d, +CSM x4. 5/10 chest pain, NSR on tele, EKG obtained.
[2025-05-04 12:50] LABS: MANUAL DIFF FLAG NO
[2025-05-04 12:52] LABS: Hematocrit 30.1 % (42.0-52.0); Hemoglobin 9.8 g/dl (14.0-18.0); Imm Gran Abs Auto 0.02 X10*3/uL (0.00-0.03); Imm Gran Pct Auto 0.4 % (0.0-0.4); Lymphocytes Absolute Auto 1.3 X10*3/uL (1.2-4.9); Mean Corpuscular HGB Conc 32.6 g/dl (31.0-36.0); Mean Corpuscular Hemoglobin 29.0 pg (27.0-33.0); Mean Corpuscular Volume 89.1 fL (80.0-98.0); NRBC Abs Auto 0.000 X10*3/uL (0.0-0.012); NRBC Pct Auto 0.0 /100WBC (0.0-0.2); Platelet Count 155 X10*3/uL (160-400); Red Blood Count 3.38 X10*6/uL (4.60-5.80); White Blood Count 5.5 X10*3/uL (4.8-10.8)
[2025-05-04 13:07] LABS: Anion Gap 11 (12-20); Blood Urea Nitrogen 82 mg/dL (9-16); Calcium 8.5 mg/dL (8.4-10.2); Carbon Dioxide 24 mmol/L (22-29); Chloride 110 mmol/L (96-108); Creatinine Clr Calc Pharmacy 18.7; Estimated Glomerular Filt Rate 20; Potassium 4.2 mmol/L (3.3-5.1); Sodium 141 mmol/L (135-145)
[2025-05-04 13:15] LABS: Troponin-I High Sensitivity 12.1 ng/L (<3.5-35.0)
[2025-05-04 13:39] LABS: Appearance Urine Clear; Glucose Urine UA Negative (Negative); PH 5.5 (5.0-9.0); Specific Gravity - Urine 1.015 (1.005-1.025); UMIC TRIGGER UACC YES
--- OUTSIDE RECORDS SUMMARY | 2025-05-04 13:39 | XMS_ITS | Encounter Summary ---
Author Organization [employer] Address [address] [facility] [address] [place] [address] Care Team Providers Care Tool Technician Name Role Phone Chelo Smith MD Primary Care Provider + Bishop Jacobo PharmD Unavailable [phone] Reason for Visit * Reason Comments Med Refill Encounter Details Date Type Department Care Team (Late st Contact Info) Description 03/26/2024 Refill [facility] MEDICINE [address] [place], [place] [phone] Chelo Smith MD [address] [place], [place] [phone] Social History Tobacco Use Types Packs/Day Years [...] Care Team (Late st Contact Info) Description 06/10/2025 2:00 PM EDT Office Visit [facility]INE [address] [place] [address] Chelo Smith MD [address] [place] [address] documented as of this encounter Goals Goal Patient Goal Type Associated Problems Recent Progress Patient-Stated? Author Blood Pressure < 150/90 Blood Pressure 120/80(2024 11:32 AM EST) No Bishop Jacobo, Eladio Note: Per JNC-8 (Age>60 w/o hx of DM or CKD) documented as of this encounter Visit Diagnoses Not on filedocumented in this encounter Care Teams Tool Technician Relationship Specialty Start Date End Date Chelo Smith MD [address] [place] [address] [phone] PCP - General Family Medicine 12/30/20 Bishop Jacobo PharmD [address] [place] [address] [phone] Pharmacist Internal Medicine 05/09/23 documented as of this encounter
--- NOTE | 2025-05-04 15:06 | ED.CHESTPAIN ---
HPI - Chest Pain General Chief Complaint: Chest Pain Stated Complaint: CP,ABD PAIN X4D PER EMS Time Seen by Provider: 05/04/25 13:06 Source: patient, RN notes reviewed, old records reviewed and medical services manager Mode of arrival: ambulatory Limitations: language barrier History of Present Illness ED Provider: Pritesh HPI narrative: 79-year-old male past medical history significant for dementia, GERD presents for evaluation of vomiting. He has had persistent nausea and vomiting with upper abdominal pain since Tuesday, 4 days ago. He has had some mild diarrhea. Denies any fevers or chills. He was able to tolerate a small amount of crackers yesterday but otherwise has not been any or drinking anything since Tuesday. Currently his pain is mild, 2/10 He has no other complaints or concerns at time pain He denies any chest pain Related Data Home Medications ?Medication ?Instructions ?Recorded ?Confirmed aspirin 81 mg tablet,delayed 81 mg PO DAILY 12/23/20 10/18/24 release (Adult Low Dose Aspirin) blood pressure test kit-large #1 ea 01/15/21 10/18/24 cholecalciferol (vitamin D3) 50 50 mcg PO DAILY 01/15/21 10/18/24 mcg (2,000 unit) tablet latanoprost 0.005 % eye drops 1 drp ophthalmic-Right BEDTIME 01/15/21 10/18/24 cyanocobalamin (vitamin B-12) 1,000 mcg PO DAILY 05/27/22 10/18/24 1,000 mcg tablet lisinopril 40 mg tablet 40 mg PO DAILY 05/27/22 10/18/24 mirtazapine 15 mg tablet 15 mg PO BEDTIME 05/27/22 10/18/24 ropinirole 0.25 mg tablet 0.75 mg PO BEDTIME PRN Restless 05/27/22 10/18/24 Leg(S) rosuvastatin 40 mg tablet 40 mg PO BEDTIME 05/27/22 10/18/24 acetaminophen 650 mg 1 - 2 tab PO Q8H PRN Pain, Mild 12/27/22 10/18/24 tablet,extended release carbidopa 25 mg-levodopa 100 mg 2 tab PO QID 12/27/22 10/18/24 tablet amantadine HCl 100 mg capsule 100 mg PO BID 07/23/24 10/18/24 carbidopa ER 50 mg-levodopa 200 mg 1 tab PO QID 07/23/24 10/18/24 tablet,extended release gabapentin 300 mg capsule 300 mg PO BEDTIME 08/21/24 10/18/24 Previous Rx's ?Medication ?Instructions ?Recorded omeprazole 20 mg capsule,delayed 20 mg PO DAILY@0630 #30 caps 01/24/25 release Allergies Allergy/AdvReac Type Severity Reaction Status Date / Time No Known Allergies Allergy Unknown NKA Verified 05/04/25 12:22 Review of Systems Constitutional: Constitutional: Denies body ache(s), Denies chills, Denies fever(s) and Denies headache(s) Eyes: Eyes: Denies blurry vision ENT: Denies dizziness, Denies dry mouth and Denies headache(s) Cardiovascular: Cardiovascular: Denies chest pain and Denies dyspnea on exertion Respiratory: Respiratory: Denies cough and Denies dyspnea on exertion Gastrointestinal: Gastrointestinal: Reports abdominal pain, Denies melena, Denies hematochezia, Reports loose stools, Reports nausea and Reports vomiting Musculoskeletal: Musculoskeletal: Denies back pain Integumentary/Breasts: Skin/Breast: Denies rash Neurologic: Denies dizziness and Denies headache(s) Psychiatric: Psychiatric: Denies anxiety PMFSH Past Medical History Medical History Hx of cataract Hyperproteinemia JEROME (dyspnea on exertion) Dysphagia Multiple lung nodules Venous stasis dermatitis of both lower extremities Glaucoma Diverticular disease of colon Leg edema, right Insomnia Sprain of left rotator cuff capsule Restless leg syndrome Plantar fasciitis Eosinophil count raised Cerebrovascular disease Bilateral tinnitus Parkinson disease Latent tuberculosis Degenerative disc disease Back pain Diverticulosis Allergic rhinitis Cerebral microvascular disease Diabetes HLD (hyperlipidemia) HTN (hypertension) Surgical History Hx of colonoscopy (~06/2018) Social History Social History Alcohol intake: former Patient Tobacco Use Status: Former Tobacco user Smoked in Last 30 Days: No Use of substances other than those prescribed or required for medical reasons: No Advance Directives: Yes Advance Directives on File: Yes Advance Directives Date on File: 12/27/22 Current occupational status: unemployed Current occupation: retired Physical Exam Vital Signs: Vital Signs: Last Vital Signs Temp 97.8 F 05/04/25 16:00 Pulse 73 05/04/25 16:00 Resp 22 H 05/04/25 16:00 BP 127/58 L 05/04/25 16:00 Pulse Ox 99 05/04/25 16:00 O2 Del Method Room Air 05/04/25 16:00 BMI result Body Mass Index 25.1 Const: General: healthy appearing, comfortable, no acute distress, alert and awake Nutritional Appearance: well nourished Orientation/consciousness: patient oriented x3 HEENT: Head: Yes normocephalic and Yes atraumatic Eyes: Eyelids: Yes eyelids normal Conjunctivae: conjunctivae normal Sclerae: sclerae normal Corneas: corneas normal Pupils: Equal, round and reactive pupils present EOM: EOMs intact bilaterally Neck: Neck: Yes full ROM Resp: Effort & Inspection: normal respiratory effort, able to speak in complete sentences and not labored GI: Inspection: No distended Palpation (GI): Soft to palpation, not firm, Tenderness to palpation present (GI) (Tenderness to the entire abdomen without guarding or distention.), no guarding and not rigid Skin: General skin exam: elasticity normal Neuro: General: patient oriented x3 Cranial nerves: Yes Equal, round and reactive pupils present and Yes Bilaterally intact EOM present Cognition (Neuro): normal cognition Medications Administered Discontinued Medications Generic Name Dose Route Start Last Admin Trade Name Freq PRN Reason Stop Dose Admin Sodium Chloride 1,000 mls @ 999 mls/hr 05/04/25 14:30 05/04/25 15:06 Ns IV 05/04/25 15:30 999 mls/hr .Q1H1M RUBÉN Administration Medical Decision Making Medical Decision Making [facility] Narrative: 79-year-old male past medical history as above presents for evaluation of abdominal pain, nausea and vomiting. He has no significant leukocytosis, he does have a mild normocytic anemia of unclear etiology, he denies black or bloody stool but does have a history of GERD, it is possible he has some degree of peptic ulcer disease or bleeding ulcer. His chemistries are significant for a chloride is elevated to 110 and likely due to dehydration. His anion gap is just below normal at 11. BUN is elevated to 82 with a creatinine of 3.09, consistent with VOLODYMYR which is likely prerenal due to the patient has decreased oral intake as well as vomiting and diarrhea. No significant LFT abnormalities. I ordered a saline bolus, a CT scan of the abdomen pelvis without contrast which shows a partial small-bowel obstruction versus ileus. No transition point. The patient was seen by General surgery, Dr. Gayle who happened to be in the department and evaluated the patient who agrees this is not a true complete bowel obstruction. We will discuss with the hospitalist for admission for further evaluation and management of VOLODYMYR in the setting of vomiting and diarrhea. Differential Diagnosis Differential Diagnoses: The differential diagnosis associated with the presentation includes VOLODYMYR Dehydration Bowel obstruction Gastroenteritis Ileus Admission/Observation Consideration of admission/observation: Escalation of care including admission/observation considered Consult Healthcare Provider Management of the patient was discussed with: Hospitalist (Patient will be admitted to the medical service) and Application Packaging Specialist (General surgery) Lab Data MDM Lab Attestation statement: I reviewed the patient's lab results. (As above) 05/04/25 12:46 05/04/25 12:46 Labs: Lab Results 05/04/25 05/04/25 Range/Units 12:46 13:32 WBC 5.5 (4.8-10.8) X10*3/uL RBC 3.38 L D (4.60-5.80) X10*6/uL Hgb 9.8 L D (14.0-18.0) g/dl Hct 30.1 L D (42.0-52.0) % MCV 89.1 (80.0-98.0) fL MCH 29.0 (27.0-33.0) pg MCHC 32.6 (31.0-36.0) g/dl RDW 14.1 (11.0-16.0) % Plt Count 155 L (160-400) X10*3/uL MPV 9.9 (9.4-12.4) fL Immature Gran % (Auto) 0.4 (0.0-0.4) % Neut % (Auto) 58.7 (45-73) % Lymph % (Auto) 23.2 (20-40) % [place] % (Auto) 13.9 H (2-11) % Eos % (Auto) 3.3 (0-4) % Baso % (Auto) 0.5 (0-2) % Lymph # (Auto) 1.3 (1.2-4.9) X10*3/uL [place] # (Auto) 0.8 (0.1-1.2) X10*3/uL Eos # (Auto) 0.2 (0.0-0.4) X10*3/uL Baso # (Auto) 0.0 (0.0-0.2) X10*3/uL Abs Immat Gran (auto) 0.02 (0.00-0.03) X10*3/uL Absolute Neuts (auto) 3.2 (2.0-8.3) x10*3/uL Absolute Nucleated RBC 0.000 (0.0-0.012) X10*3/uL Nucleated RBC % (auto) 0.0 (0.0-0.2) /100WBC Sodium 141 (135-145) mmol/L Potassium 4.2 (3.3-5.1) mmol/L Chloride 110 H (96-108) mmol/L Carbon Dioxide 24 (22-29) mmol/L Anion Gap 11 L (12-20) BUN 82 H (9-16) mg/dL Creatinine 3.09 H (0.5-1.4) mg/dL Estim Creat Clear Calc 18.7 Estimated GFR 20 Random Glucose 106 (60-115) mg/dL Calcium 8.5 D (8.4-10.2) mg/dL Total Bilirubin 0.3 (0.0-1.0) mg/dL Direct Bilirubin 0.2 (0.0-0.5) mg/dL AST 26 (5-37) U/L ALT < 6 (0-40) U/L Alkaline Phosphatase 61 (39-117) U/L Troponin I High Sens 12.1 (<3.5-35.0) ng/L Total Protein 6.1 L (6.5-8.0) g/dL Albumin 3.6 (3.5-5.0) g/dL Lipase 29 (8-78) U/L Urine Color Yellow Urine Appearance Clear Urine pH 5.5 (5.0-9.0) Ur Specific [place] 1.015 (1.005-1.025) Urine Protein 30 (1+) H (Neg-Trace) mg/dL Urine Glucose (UA) Negative (Negative) mg/dL Urine Ketones Negative (Negative) mg/dL Urine Blood Negative (Negative) Urine Nitrite Negative (Negative) Ur Leukocyte Esterase Negative (Negative) Urine RBC 0-2 (0-2) /HPF Urine WBC 0-5 (0-5) /HPF Ur Squamous Epith Cells 0-2 (0-2) /HPF Urine Bacteria None Seen (None Seen) Hyaline Casts 0-2 (0-2) /LPF Independent Interpretation I performed an independent interpretation of an: CT Scan Interpretation: Agree with Radiology interpretation Radiology Impression Discussion of test interpretation with radiology: I have reviewed the radiologist's reading. Radiologist Impression: Findings: Trace bilateral pleural effusions bilateral basilar atelectasis. The liver, spleen, adrenal glands, pancreas are unremarkable. Kidneys are normal without hydronephrosis. There is dense contrast material within the colon. Multiple colonic diverticula are present. No evidence of diverticulitis. There are multiple air and fluid distended loops of small bowel within the abdomen. Distal small bowel is decompressed. No discrete transition point seen. Caliber change appears somewhat gradual in the right lower quadrant. No free air. No ascites. Normal appendix. No acute fracture. Degenerative changes of the lumbar spine are present. IMPRESSION: Distended proximal and mid small bowel with decompressed distal small bowel. Differential includes diffuse ileus, versus early or partial small bowel obstruction. This document has been electronically signed by: Brent Armstrong MD on 05/04/2025 16:26:47 Discharge Plan Discharge Clinical Impression: VOLODYMYR (acute kidney injury) Patient Disposition: Admitted As Inpatient Print Language: Turkish
[2025-05-04 15:27] LABS: Alanine Aminotransferase < 6 U/L (0-40); Albumin Level 3.6 g/dL (3.5-5.0); Alkaline Phosphatase 61 U/L (39-117); Aspartate Amino Transferase 26 U/L (5-37); Lipase 29 U/L (8-78); Total Protein 6.1 g/dL (6.5-8.0)
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
[2025-05-04] MEDS: Lactated Ringers 1,000 ML 150 ML IVCONT (16:49)
--- NOTE | 2025-05-04 18:36 | PHA.MEDREC ---
Addendum entered by Yoanna Koenig RPh 05/04/25 18:44: reviewed by [facility] Original Note: Pharmacy Consult ? Medication Reconciliation Pharmacy has completed the medication reconciliation. Spoke with patient and his at bedside to confirm medications. They confirmed carbidopa levodopa 3 tabs total four times daily, 2 tabs of immediate release 25-100 mg and 1 tab of extended release 50-200 mg. He is no longer taking latanoprost eye drops. He takes amantadine once in the morning and once at noon times. reports he sometimes takes nyquil as needed. He took his medications last night and this morning.
--- NOTE | 2025-05-04 19:37 | P.HPHOSP_ITS ---
History of Present Illness Date of Service: 05/04/25 Attending physician on admission: Milagro Villeda Chief Complaint: Nausea, vomiting and diarrhea Yonatan Jacobo is a 79 years old man with past medical history significant for Parkinson's disease, CVA, type 2 diabetes mellitus, GERD, hyperlipidemia, dysphagia and hypertension on lisinopril was brought to the emergency department after he developed multiple events of watery nonbloody diarrhea and nonbloody vomiting over the 4 days. He also reported weakness to the lower extremities and swallowing difficulty. He also has been experiencing cough for the last 3 months. Recent fever or chills reported. Patient denied chest pain, abdominal pain, palpitations, dizziness, shortness and breath or any acute urinary issue. Patient's was at bedside and contributed H&P. She mentioned that the patient has been taking Imodium for diarrhea. In the ED, he was found to have stable vital signs. Hemoglobin is 9.8 (it was 12.5 in November of this year). Hematocrit 30.1. Platelets 155. Sodium 141, potassium 4.1, chloride 110, CO2 24 and an in the 11. BUN and creatinine, 82 and 3.9, respectively (26 and 1.37, respectively, about year ago). LFTs lipase are normal. Urinalysis only remarkable for proteinuria 1+. Abdominal pelvis without contrast showed distended proximal mild small bowel with decompressed distal small bowel (diffuse into the versus early or partial small bowel obstruction). ECG showed normal sinus rhythm, heart rate 82 beats per minute and no ischemic changes. ED tx: NS 1 L bolus. Review of Systems 2 Review of Systems: All 12 systems were reviewed and normal except as noted in HPI. [facility] Medical History Hx of cataract Hyperproteinemia JEROME (dyspnea on exertion) Dysphagia Multiple lung nodules Venous stasis dermatitis of both lower extremities Glaucoma Diverticular disease of colon Leg edema, right Insomnia Sprain of left rotator cuff capsule Restless leg syndrome Plantar fasciitis Eosinophil count raised Cerebrovascular disease Bilateral tinnitus Parkinson disease Latent tuberculosis Degenerative disc disease Back pain Diverticulosis Allergic rhinitis Cerebral microvascular disease Diabetes HLD (hyperlipidemia) HTN (hypertension) Surgical History Hx of colonoscopy (~06/2018) Social History Alcohol intake: former Patient Tobacco Use Status: Former Tobacco user Smoked in Last 30 Days: No Use of substances other than those prescribed or required for medical reasons: No Advance Directives: Yes Advance Directives on File: Yes Advance Directives Date on File: 12/27/22 Current occupational status: unemployed Current occupation: retired Meds Allergies Allergy/AdvReac Type Severity Reaction Status Date / Time No Known Allergies Allergy Unknown NKA Verified 05/04/25 12:22 Active Medications: Current Medications Acetaminophen (Acetaminophen 325 Mg Tablet) 975 mg PO Q6H PRN PRN Reason: Pain, Mild 1-3,fever,headache Amantadine HCl (Amantadine Hcl 100 Mg Capsule) 100 mg PO BID@0700,1200 [facility] Aspirin (Aspirin Enteric Coated 81 Mg Tablet.) 81 mg PO DAILY [facility] Atorvastatin Calcium (Atorvastatin Calcium 80 Mg Tablet) 80 mg PO BEDTIME [facility] Carbidopa/Levodopa (Carbidopa/Levodopa 25/100 Tablet) 2 tab PO QID [facility] Carbidopa/Levodopa (Carbidopa/Levodopa Cr 50/200 Tablet.Er) 1 tab PO QID [facility] Cyanocobalamin (Cyanocobalamin (Vitamin B-12) 1,000 Mcg Tablet) 1,000 mcg PO DAILY [facility] Enoxaparin Sodium (Enoxaparin Sodium 30 Mg/0.3 Ml Syringe) 30 mg SUBCUT Q24H [facility] Gabapentin (Gabapentin 300 Mg Capsule) 300 mg PO BEDTIME [facility] Lactated Ringer's (Lr) 1,000 mls @ 150 mls/hr IVCONT .Q6H40M [facility] Last Admin: 05/04/25 16:49 Dose: 150 mls/hr Mirtazapine (Mirtazapine 15 Mg Tablet) 15 mg PO BEDTIME [facility] Omeprazole (Omeprazole 20 Mg Capsule.) 20 mg PO DAILY@0630 [facility] Pramipexole Dihydrochloride (Pramipexole Di-Hcl 1 Mg Tablet) 1 mg PO BID [facility] Quetiapine Fumarate (Quetiapine Fumarate 25 Mg Tablet) 25 mg PO BID [facility] Sodium Chloride (0.9 % Sodium Chloride Flush 3 Ml Syringe) 3 ml IVFLUSH QSHIFT [facility] Vitamin D (Cholecalciferol (Vitamin D3) 25 Mcg Tablet) 50 mcg PO DAILY [facility] Home Medications ?Medication ?Instructions ?Recorded ?Confirmed ?Last Taken ?Type aspirin 81 mg tablet,delayed 81 mg PO DAILY 12/23/20 0 05/04/25 07/21/24 History release (Adult Low Dose Aspirin) blood pressure test kit-large #1 ea 01/15/21 10/18/24 07/21/24 History cholecalciferol (vitamin D3) 50 50 mcg PO DAILY 05/04/25 07/21/24 History mcg (2,000 unit) tablet cyanocobalamin (vitamin B-12) 1,000 mcg PO DAILY 05/2705/04/25 07/21/24 History 1,000 mcg tablet lisinopril 40 mg tablet 40 mg PO DAILY 05/27/2204/2307/21/24 History mirtazapine 15 mg tablet 15 mg PO BEDTIME 05/27/2207/21/24 History rosuvastatin 40 mg tablet 40 mg PO BEDTIME 05/27/2207/21/24 History acetaminophen 650 mg 1 - 2 tab PO Q8H PRN Pain, M ild 12/27/22 05/04/25 07/21/24 History tablet,extended release carbidopa 25 mg-levodopa 100 mg 2 tab PO QID 12/27/22 05/04/25 07/21/24 History tablet amantadine HCl 100 mg capsule 100 mg PO BID@0700,1200 07/23/24 05/04/25 07/21/24 History carbidopa ER 50 mg-levodopa 200 mg 1 tab PO QID 05/04/25 07/21/24 History tablet,extended release gabapentin 300 mg capsule 300 mg PO BEDTIME 08/21/24 0 05/04/25 Unknown History omega-3 300 mg-dha 120 mg-epa 180 1 cap PO QAM 5 05/04/25 Unknown History mg-fish oil 1,000 mg capsule pramipexole 1 mg tablet 1 mg PO BID 05/04/25 5 Unknown History quetiapine 25 mg tablet 25 mg PO BID 05/04/25 Unknown History Physical Exam 2 Vital Signs and Narrative: Vital Signs: Last Vital Signs Temp 98.3 F 05/04/25 18:00 Pulse 76 05/04/25 18:00 Resp 14 05/04/25 18:00 BP 141/60 H 05/04/25 18:00 Pulse Ox 96 05/04/25 18:00 O2 Del Method Room Air 05/04/25 18:00 BMI result Body Mass Index 25.1 Constitutional - Awake and Alert, No apparent distress. Cooperative. HEENT - PER, EOMI. Normal sclerae. Dry oral mucosa. Heart - RRR, No murmurs Lungs - Normal lung expansion, Normal respiratory effort, No respiratory distress, CTA bilaterally Abdomen - NT / ND; +BS; No rebound or guarding Extremities - no calf tenderness bilaterally, no swelling Musculoskeletal - Normal inspection, normal ROM Skin - Warm/Dry Neurological - Alert & oriented x3. Moving all extremities spontaneously. Normal speech. Psychological - Appropriate affect Results Labs 05/04/25 12:46 05/04/25 12:46 Labs: Laboratory Results - last 24 hr 05/04/25 05/04/25 12:46 13:32 MCV 89.1 MCH 29.0 MCHC 32.6 RDW 14.1 Plt Count 155 L MPV 9.9 Immature Gran % (Auto) 0.4 Neut % (Auto) 58.7 Lymph % (Auto) 23.2 [place] % (Auto) 13.9 H Eos % (Auto) 3.3 Baso % (Auto) 0.5 Lymph # (Auto) 1.3 [place] # (Auto) 0.8 Eos # (Auto) 0.2 Baso # (Auto) 0.0 Abs Immat Gran (auto) 0.02 Absolute Neuts (auto) 3.2 Absolute Nucleated RBC 0.000 Nucleated RBC % (auto) 0.0 Anion Gap 11 L Estim Creat Clear Calc 18.7 Estimated GFR 20 Random Glucose 106 Calcium 8.5 D Total Bilirubin 0.3 Direct Bilirubin 0.2 AST 26 ALT < 6 Alkaline Phosphatase 61 Total Protein 6.1 L Albumin 3.6 Lipase 29 Urine Color Yellow Urine Appearance Clear Urine pH 5.5 Ur Specific [place] 1.015 Urine Protein 30 (1+) H Urine Glucose (UA) Negative Urine Ketones Negative Urine Blood Negative Urine Nitrite Negative Ur Leukocyte Esterase Negative Urine RBC 0-2 Urine WBC 0-5 Ur Squamous Epith Cells 0-2 Urine Bacteria None Seen Hyaline Casts 0-2 Assessment and Plan (1) VOLODYMYR (acute kidney injury): Status: Acute (2) Dysphagia, pharyngoesophageal phase: Status: Acute (3) GERD (gastroesophageal reflux disease): Qualifiers: Esophagitis presence: esophagitis presence not specified Qualified Code(s): K21.9 - Gastro-esophageal reflux disease without esophagitis Status: Acute (4) Acute gastroenteritis: Status: Acute Plan Yonatan Jacobo is a 79 y/o man admitted with: Nausea, vomiting and diarrhea (last BM was yesterday; he took Imodium) Likely secondary to acute gastroenteritis. No SBO per surgery evaluation. Admit to hospitalist service. NPO except for meds. IV fluids. Check GI panel. Antiemetic therapy as needed. Acute kidney injury secondary to above. Continue IV fluids. Hold lisinopril. Continue to monitor renal function. Avoid nephrotoxic agents. Acute on chronic anemia. Hbg 12.5--> 9.8. No bloody or black stools reported. No abdominal pain. Anemia workup: Stool for occult blood, ferritin, retic count, TIBC, iron level, vitamin B12 and folate. Protonix 40 mg IV twice daily. Continue to monitor for now. To consider GI consult if anemia workup consistent with iron deficiency anemia/blood loss. Oropharyngeal dysphagia. Recent barium swallow about (04/29/2025) showed for laryngeal aspiration on the very 1st oral swallow of thick barium. Aspiration precautions. Type 2 diabetes mellitus. BG checks every 6 hours while NPO. Insulin sliding scale for now. Hyperlipidemia. Continue statin. Parkinson's disease. Continue amantadine and carbidopa. History of CVA. Continue aspirin statin. Mood disorder. Continue Seroquel and mirtazapine. Restless leg syndrome. Continue Mirapex. GERD. Continue PPI. History of esophageal dilatation. By Dr. Russo. DVT prophylaxis: Lovenox Code status: Full Patient will need hospitalization for at least 2 midnight for VOLODYMYR secondary to nausea and vomiting treatment and evaluation with IV fluids and GI panel. Quality Stroke Does the patient have a stroke diagnosis?: No VTE Prior VTE?: No VTE Risk Level:: Medical - moderate - high VTE Device Contraindication: Treatment Not Indicated VTE Drug Contraindication: N/A - Med Ordered
[2025-05-04 19:53] LABS: Reticulocytes Absolute 0.037 X10*6/uL (0.026-0.095)
[2025-05-04 20:05] LABS: Iron 25 mcg/dL (45-160); Percent Iron Saturation 13 % (15-50); Total Iron Binding Capacity 190 mcg/dL (228-428); Unsaturated Iron Binding 165 ug/dL
[2025-05-04] MEDS: Lactated Ringers 1,000 ML 100 ML IVCONT (20:13)
--- NOTE | 2025-05-04 20:16 | PC.NURSE ---
assumed care of pt. Pt medicated per DEC, LR rate switched to 100 mL/hr and a new bag was scanned in and hung. Pt to be taken to bed assignment shortly.
[2025-05-04 21:30] LABS: Glucose, Whole Blood 65 mg/dL (60-115)
[2025-05-04] MEDS: Carbidopa/Levodopa CR 50/200 TABLET.ER 1 TAB PO (22:23)
[2025-05-04] MEDS: 0.9 % Sodium Chloride Flush 3 ML SYRINGE IVFLUSH (22:30)
[2025-05-05 03:55] LABS: Glucose, Whole Blood 67 mg/dL (60-115)
[2025-05-05 04:00] VITALS: BP 124/58; PULSE 74; RESP 18; TEMP 36.1; O2SAT 96
[2025-05-05] MEDS: Lactated Ringers 1,000 ML 100 ML IVCONT ×2 (05:42→16:47)
[2025-05-05 06:09] LABS: MANUAL DIFF FLAG NO
[2025-05-05 06:36] LABS: Anion Gap 11 (12-20); Blood Urea Nitrogen 56 mg/dL (9-16); Calcium 8.5 mg/dL (8.4-10.2); Carbon Dioxide 25 mmol/L (22-29); Chloride 114 mmol/L (96-108); Creatinine Clr Calc Pharmacy 30.1; Estimated Glomerular Filt Rate 34; Magnesium 2.0 mg/dL (1.6-2.6); Potassium 4.3 mmol/L (3.3-5.1); Sodium 146 mmol/L (135-145)
[2025-05-05 06:52] LABS: Ferritin 190 ng/mL (20-250)
[2025-05-05 06:56] LABS: Hematocrit 31.2 % (42.0-52.0); Hemoglobin 10.1 g/dl (14.0-18.0); Imm Gran Abs Auto 0.01 X10*3/uL (0.00-0.03); Imm Gran Pct Auto 0.2 % (0.0-0.4); Lymphocytes Absolute Auto 1.1 X10*3/uL (1.2-4.9); Mean Corpuscular HGB Conc 32.4 g/dl (31.0-36.0); Mean Corpuscular Hemoglobin 29.2 pg (27.0-33.0); Mean Corpuscular Volume 90.2 fL (80.0-98.0); NRBC Abs Auto 0.000 X10*3/uL (0.0-0.012); NRBC Pct Auto 0.0 /100WBC (0.0-0.2); Platelet Count 167 X10*3/uL (160-400); Red Blood Count 3.46 X10*6/uL (4.60-5.80); White Blood Count 6.2 X10*3/uL (4.8-10.8)
[2025-05-05 07:00] LABS: Folate 14.4 ng/mL (> or = 4.0); Vitamin B12 559 pg/mL (200-900)
[2025-05-05 07:08] LABS: Glucose, Whole Blood 58 mg/dL (60-115)
--- NOTE | 2025-05-05 07:23 | P.PNIM_ITS ---
Subjective Subjective Date of Service: 05/05/25 Interval History: f/u on VOLODYMYR, likely from dehydration from nausea and vomitting, he's doing better Cr improving, no abd pain, no further n/v Physical Exam 2 Vital Signs: Vital Signs: Last Vital Signs Temp 96.9 F 05/05/25 04:00 Pulse 74 05/05/25 04:00 Resp 18 05/05/25 04:00 BP 124/58 L 05/05/25 04:00 Pulse Ox 96 05/05/25 04:00 O2 Del Method Room Air 05/05/25 04:00 BMI result Body Mass Index 26.3 Const: Other: General: AO X 3, no acute distress Resp: CTA bilateral CVS: S1,S2,RRR GI: +BS, NT, no distention Skin: No rash Neuro: motor grossly intact Psych: appropriate affect Objective Data Active Medications Acetaminophen (Acetaminophen 325 Mg Tablet) 975 mg PO Q6H PRN PRN Reason: Pain, Mild 1-3,fever,headache Amantadine HCl (Amantadine Hcl 100 Mg Capsule) 100 mg PO BID@0700,1200 [facility] Last Admin: 05/05/25 06:48 Dose: 100 mg Documented By: JAGDISH Aspirin (Aspirin Enteric Coated 81 Mg Tablet.Dr) 81 mg PO DAILY [facility] Atorvastatin Calcium (Atorvastatin Calcium 80 Mg Tablet) 80 mg PO BEDTIME [facility] Last Admin: 05/04/25 22:23 Dose: 80 mg Documented By: JAGDISH Carbidopa/Levodopa (Carbidopa/Levodopa 25/100 Tablet) 2 tab PO QID [facility] Last Admin: 05/04/25 22:19 Dose: 2 tab Documented By: JAGDISH Comments: new admit okay give in applesauce per Carbidopa/Levodopa (Carbidopa/Levodopa Cr 50/200 Tablet.Er) 1 tab PO QID [facility] Last Admin: 05/04/25 22:23 Dose: 1 tab Documented By: JAGDISH Cyanocobalamin (Cyanocobalamin (Vitamin B-12) 1,000 Mcg Tablet) 1,000 mcg PO DAILY [facility] Dextrose (Dextrose 50 % 25 Gm/50 Ml Syringe) 25 gm IVPUSH Q15M PRN; Protocol PRN Reason: per Hypoglycemia Standing Ord. Last Admin: 05/05/25 07:14 Dose: 25 gm Documented By: SAMUEL Enoxaparin Sodium (Enoxaparin Sodium 30 Mg/0.3 Ml Syringe) 30 mg SUBCUT Q24H [facility] Gabapentin (Gabapentin 300 Mg Capsule) 300 mg PO BEDTIME [facility] Last Admin: 05/04/25 22:23 Dose: 300 mg Documented By: JAGDISH Glucose (Glucose Gel 15 Gm Gel..Gram.) 15 gm PO Q15M PRN; Protocol PRN Reason: per Hypoglycemia Standing Ord. Lactated Ringer's (Lr) 1,000 mls @ 100 mls/hr IVCONT .Q10H [facility] Last Admin: 05/05/25 05:42 Dose: 100 mls/hr Documented By: JAGDISH Insulin Human Lispro (Insulin Lispro 100 Unit/Ml 3 Ml Vial) 0 unit SUBCUT QIDACHS [facility]; Protocol Last Admin: 05/04/25 21:59 Dose: Not Given Documented By: JAGDISH Non-Admin Reason: No Insulin Coverage Comments: POC 65 Mirtazapine (Mirtazapine 15 Mg Tablet) 15 mg PO BEDTIME [facility] Last Admin: 05/04/25 22:23 Dose: 15 mg Documented By: JAGDISH Pantoprazole Sodium (Pantoprazole Sodium 40 Mg/10 Ml Vial) 40 mg IVPUSH BID@0630,1630 [facility] Last Admin: 05/05/25 05:42 Dose: 40 mg Documented By: JAGDISH Pramipexole Dihydrochloride (Pramipexole Di-Hcl 1 Mg Tablet) 1 mg PO BID [facility] Last Admin: 05/04/25 22:24 Dose: 1 mg Documented By: JAGDISH Quetiapine Fumarate (Quetiapine Fumarate 25 Mg Tablet) 25 mg PO BID [facility] Last Admin: 05/04/25 22:23 Dose: 25 mg Documented By: JAGDISH Sodium Chloride (0.9 % Sodium Chloride Flush 3 Ml Syringe) 3 ml IVFLUSH QSHIFT [facility] Last Admin: 05/04/25 22:30 Dose: 3 ml Documented By: JAGDISH Vitamin D (Cholecalciferol (Vitamin D3) 25 Mcg Tablet) 50 mcg PO DAILY [facility] Labs 05/05/25 05:49 05/05/25 05:49 Labs: Laboratory Results - last 24 hr 05/04/25 05/04/25 05/04/25 12:46 13:32 21:24 MCV 89.1 MCH 29.0 MCHC 32.6 RDW 14.1 Plt Count 155 L MPV 9.9 Immature Gran % (Auto) 0.4 Neut % (Auto) 58.7 Lymph % (Auto) 23.2 [place] % (Auto) 13.9 H Eos % (Auto) 3.3 Baso % (Auto) 0.5 Lymph # (Auto) 1.3 [place] # (Auto) 0.8 Eos # (Auto) 0.2 Baso # (Auto) 0.0 Abs Immat Gran (auto) 0.02 Absolute Neuts (auto) 3.2 Absolute Nucleated RBC 0.000 Nucleated RBC % (auto) 0.0 Absolute Retic 0.037 Percent Retic 1.1 Immature Retic Fraction 19.8 H Retic Hgb Equivalent 28.6 L Anion Gap 11 L Estim Creat Clear Calc 18.7 Estimated GFR 20 POC Glucose 65 Random Glucose 106 Calcium 8.5 D Magnesium Iron 25 L TIBC 190 L % Saturation 13 L Unsat Iron Binding 165 Ferritin Total Bilirubin 0.3 Direct Bilirubin 0.2 AST 26 ALT < 6 Alkaline Phosphatase 61 Total Protein 6.1 L Albumin 3.6 Lipase 29 Vitamin B12 Folate Urine Color Yellow Urine Appearance Clear Urine pH 5.5 Ur Specific [place] 1.015 Urine Protein 30 (1+) H Urine Glucose (UA) Negative Urine Ketones Negative Urine Blood Negative Urine Nitrite Negative Ur Leukocyte Esterase Negative Urine RBC 0-2 Urine WBC 0-5 Ur Squamous Epith Cells 0-2 Urine Bacteria None Seen Hyaline Casts 0-2 05/05/25 05/05/25 05/05/25 03:47 05:49 07:05 MCV 90.2 MCH 29.2 MCHC 32.4 RDW 13.7 Plt Count 167 MPV 10.4 Immature Gran % (Auto) 0.2 Neut % (Auto) 66.2 Lymph % (Auto) 18.1 L [place] % (Auto) 10.0 Eos % (Auto) 5.2 H Baso % (Auto) 0.3 Lymph # (Auto) 1.1 L [place] # (Auto) 0.6 Eos # (Auto) 0.3 Baso # (Auto) 0.0 Abs Immat Gran (auto) 0.01 Absolute Neuts (auto) 4.1 Absolute Nucleated RBC 0.000 Nucleated RBC % (auto) 0.0 Absolute Retic Percent Retic Immature Retic Fraction Retic Hgb Equivalent Anion Gap 11 L Estim Creat Clear Calc 30.1 Estimated GFR 34 POC Glucose 67 58 L* Random Glucose 122 H Calcium 8.5 Magnesium 2.0 Iron TIBC % Saturation Unsat Iron Binding Ferritin 190 Total Bilirubin Direct Bilirubin AST ALT Alkaline Phosphatase Total Protein Albumin Lipase Vitamin B12 559 Folate 14.4 Urine Color Urine Appearance Urine pH Ur Specific [place] Urine Protein Urine Glucose (UA) Urine Ketones Urine Blood Urine Nitrite Ur Leukocyte Esterase Urine RBC Urine WBC Ur Squamous Epith Cells Urine Bacteria Hyaline Casts Assessment and Plan (1) VOLODYMYR (acute kidney injury): Status: Acute Plan Yonatan Jacobo is a 79 y/o male with CKD, DM, HLD, Parkinson's, history of CVA, mood disorder, restless leg symptoms, GERD Nausea, vomiting and diarrhea--diarrhea improved, Likely secondary to acute gastroenteritis. No SBO per surgery evaluation. Advance diet Acute kidney injury secondary to above., hold lisiniorpril, improving Cr 3--> 1.9 avoid nephrotoxin, IVF and follow Cr, nephro consult if not improving. Acute on chronic anemia. Hbg 12.5--> 9.8--> 10.1 toay, likely hemodiluation effect, no melana, Irone study, B12, folate normal. Monitor, no further testing at this time. Oropharyngeal dysphagia. Recent barium swallow about (04/29/2025) showed for laryngeal aspiration on the very 1st oral swallow of thick barium. Aspiration precautions. Type 2 diabetes mellitus, hypoglycemia this morning hypoglycemia protocol, IVF with dextrose if needed, restart diet and advance as jesus Hyperlipidemia. Continue statin. Parkinson's disease. Continue amantadine and carbidopa. History of CVA. Continue aspirin statin. Mood disorder. Continue Seroquel and mirtazapine. Restless leg syndrome. Continue Mirapex. GERD. Continue PPI. History of esophageal dilatation. By Dr. Russo. Mood disorder. Continue Seroquel and mirtazapine. Restless leg syndrome. Continue Mirapex. GERD. Continue PPI. History of esophageal dilatation. By Dr. Russo. DVT prophylaxis: Lovenox Code status: Full Quality Stroke Does the patient have a stroke diagnosis?: No VTE Prior VTE?: No VTE Risk Level:: Medical - moderate - high VTE Device Contraindication: Treatment Not Indicated VTE Drug Contraindication: N/A - Med Ordered
[2025-05-05 07:27] VITALS: BP 124/60; PULSE 69; RESP 18; TEMP 36.1; O2SAT 96
[2025-05-05 07:38] LABS: Glucose, Whole Blood 76 mg/dL (60-115)
[2025-05-05 08:33] LABS: Glucose, Whole Blood 112 mg/dL (60-115)
[2025-05-05] MEDS: Carbidopa/Levodopa CR 50/200 TABLET.ER 1 TAB PO ×4 (09:27→20:17)
[2025-05-05] MEDS: Aspirin Enteric Coated 81 MG TABLET.DR PO (09:28)
--- NOTE | 2025-05-05 10:03 | PM.PNGS ---
Subjective Subjective Date of Service: 05/05/25 Interval history: Feels much better this morning No further vomiting No diarrhea Denies abdominal pain Physical Exam Vital Signs: Vital Signs: Last Vital Signs Temp 97.0 F 05/05/25 07:27 Pulse 69 05/05/25 07:27 Resp 18 05/05/25 07:27 BP 124/60 05/05/25 07:27 Pulse Ox 96 05/05/25 07:27 O2 Del Method Room Air 05/05/25 07:27 BMI result Body Mass Index 26.3 Const: General: comfortable and no acute distress Resp: Effort & Inspection: normal respiratory effort Cardio: Rate: regular rate GI: Palpation (GI): Soft to palpation, not firm and nontender Objective Data Active Medications Acetaminophen (Acetaminophen 325 Mg Tablet) 975 mg PO Q6H PRN PRN Reason: Pain, Mild 1-3,fever,headache Amantadine HCl (Amantadine Hcl 100 Mg Capsule) 100 mg PO BID@0700,1200 [facility] Last Admin: 05/05/25 06:48 Dose: 100 mg Documented By: JAGDISH Aspirin (Aspirin Enteric Coated 81 Mg Tablet.Dr) 81 mg PO DAILY [facility] Last Admin: 05/05/25 09:28 Dose: 81 mg Documented By: SAMUEL Atorvastatin Calcium (Atorvastatin Calcium 80 Mg Tablet) 80 mg PO BEDTIME [facility] Last Admin: 05/04/25 22:23 Dose: 80 mg Documented By: JAGDISH Carbidopa/Levodopa (Carbidopa/Levodopa 25/100 Tablet) 2 tab PO QID [facility] Last Admin: 05/05/25 09:27 Dose: 2 tab Documented By: SAMUEL Carbidopa/Levodopa (Carbidopa/Levodopa Cr 50/200 Tablet.Er) 1 tab PO QID [facility] Last Admin: 05/05/25 09:27 Dose: 1 tab Documented By: SAMUEL Cyanocobalamin (Cyanocobalamin (Vitamin B-12) 1,000 Mcg Tablet) 1,000 mcg PO DAILY [facility] Last Admin: 05/05/25 09:27 Dose: 1,000 mcg Documented By: SAMUEL Dextrose (Dextrose 50 % 25 Gm/50 Ml Syringe) 25 gm IVPUSH Q15M PRN; Protocol PRN Reason: per Hypoglycemia Standing Ord. Last Admin: 05/05/25 07:14 Dose: 25 gm Documented By: SAMUEL Enoxaparin Sodium (Enoxaparin Sodium 30 Mg/0.3 Ml Syringe) 30 mg SUBCUT Q24H [facility] Last Admin: 05/05/25 09:26 Dose: 30 mg Documented By: SAMUEL Gabapentin (Gabapentin 300 Mg Capsule) 300 mg PO BEDTIME [facility] Last Admin: 05/04/25 22:23 Dose: 300 mg Documented By: JAGDISH Glucose (Glucose Gel 15 Gm Gel..Gram.) 15 gm PO Q15M PRN; Protocol PRN Reason: per Hypoglycemia Standing Ord. Lactated Ringer's (Lr) 1,000 mls @ 100 mls/hr IVCONT .Q10H [facility] Last Admin: 05/05/25 05:42 Dose: 100 mls/hr Documented By: JAGDISH Insulin Human Lispro (Insulin Lispro 100 Unit/Ml 3 Ml Vial) 0 unit SUBCUT QIDACHS [facility]; Protocol Last Admin: 05/05/25 07:27 Dose: Not Given Documented By: SAMUEL Non-Admin Reason: No Insulin Coverage Mirtazapine (Mirtazapine 15 Mg Tablet) 15 mg PO BEDTIME [facility] Last Admin: 05/04/25 22:23 Dose: 15 mg Documented By: JAGDISH Pantoprazole Sodium (Pantoprazole Sodium 40 Mg/10 Ml Vial) 40 mg IVPUSH BID@0630,1630 [facility] Last Admin: 05/05/25 05:42 Dose: 40 mg Documented By: JAGDISH Pramipexole Dihydrochloride (Pramipexole Di-Hcl 1 Mg Tablet) 1 mg PO BID [facility] Last Admin: 05/05/25 09:28 Dose: 1 mg Documented By: SAMUEL Quetiapine Fumarate (Quetiapine Fumarate 25 Mg Tablet) 25 mg PO BID [facility] Last Admin: 05/05/25 09:28 Dose: 25 mg Documented By: SAMUEL Sodium Chloride (0.9 % Sodium Chloride Flush 3 Ml Syringe) 3 ml IVFLUSH QSHIFT [facility] Last Admin: 05/05/25 08:21 Dose: Not Given Documented By: SAMUEL Non-Admin Reason: IV Running Vitamin D (Cholecalciferol (Vitamin D3) 25 Mcg Tablet) 50 mcg PO DAILY [facility] Last Admin: 05/05/25 09:28 Dose: 50 mcg Documented By: SAMUEL Labs 05/05/25 05:49 05/05/25 05:49 Labs: Laboratory Results - last 24 hr 05/04/25 05/04/25 05/04/25 12:46 13:32 21:24 MCV 89.1 MCH 29.0 MCHC 32.6 RDW 14.1 Plt Count 155 L MPV 9.9 Immature Gran % (Auto) 0.4 Neut % (Auto) 58.7 Lymph % (Auto) 23.2 Spencer % (Auto) 13.9 H Eos % (Auto) 3.3 Baso % (Auto) 0.5 Lymph # (Auto) 1.3 Spencer # (Auto) 0.8 Eos # (Auto) 0.2 Baso # (Auto) 0.0 Abs Immat Gran (auto) 0.02 Absolute Neuts (auto) 3.2 Absolute Nucleated RBC 0.000 Nucleated RBC % (auto) 0.0 Absolute Retic 0.037 Percent Retic 1.1 Immature Retic Fraction 19.8 H Retic Hgb Equivalent 28.6 L Anion Gap 11 L Estim Creat Clear Calc 18.7 Estimated GFR 20 POC Glucose 65 Random Glucose 106 Calcium 8.5 D Magnesium Iron 25 L TIBC 190 L % Saturation 13 L Unsat Iron Binding 165 Ferritin Total Bilirubin 0.3 Direct Bilirubin 0.2 AST 26 ALT < 6 Alkaline Phosphatase 61 Total Protein 6.1 L Albumin 3.6 Lipase 29 Vitamin B12 Folate Urine Color Yellow Urine Appearance Clear Urine pH 5.5 Ur Specific Jackson 1.015 Urine Protein 30 (1+) H Urine Glucose (UA) Negative Urine Ketones Negative Urine Blood Negative Urine Nitrite Negative Ur Leukocyte Esterase Negative Urine RBC 0-2 Urine WBC 0-5 Ur Squamous Epith Cells 0-2 Urine Bacteria None Seen Hyaline Casts 0-2 05/05/25 05/05/25 05/05/25 03:47 05:49 07:05 MCV 90.2 MCH 29.2 MCHC 32.4 RDW 13.7 Plt Count 167 MPV 10.4 Immature Gran % (Auto) 0.2 Neut % (Auto) 66.2 Lymph % (Auto) 18.1 L Spencer % (Auto) 10.0 Eos % (Auto) 5.2 H Baso % (Auto) 0.3 Lymph # (Auto) 1.1 L Spencer # (Auto) 0.6 Eos # (Auto) 0.3 Baso # (Auto) 0.0 Abs Immat Gran (auto) 0.01 Absolute Neuts (auto) 4.1 Absolute Nucleated RBC 0.000 Nucleated RBC % (auto) 0.0 Absolute Retic Percent Retic Immature Retic Fraction Retic Hgb Equivalent Anion Gap 11 L Estim Creat Clear Calc 30.1 Estimated GFR 34 POC Glucose 67 58 L* Random Glucose 122 H Calcium 8.5 Magnesium 2.0 Iron TIBC % Saturation Unsat Iron Binding Ferritin 190 Total Bilirubin Direct Bilirubin AST ALT Alkaline Phosphatase Total Protein Albumin Lipase Vitamin B12 559 Folate 14.4 Urine Color Urine Appearance Urine pH Ur Specific Jackson Urine Protein Urine Glucose (UA) Urine Ketones Urine Blood Urine Nitrite Ur Leukocyte Esterase Urine RBC Urine WBC Ur Squamous Epith Cells Urine Bacteria Hyaline Casts 05/05/25 05/05/25 07:34 08:29 MCV MCH MCHC RDW Plt Count MPV Immature Gran % (Auto) Neut % (Auto) Lymph % (Auto) Spencer % (Auto) Eos % (Auto) Baso % (Auto) Lymph # (Auto) Spencer # (Auto) Eos # (Auto) Baso # (Auto) Abs Immat Gran (auto) Absolute Neuts (auto) Absolute Nucleated RBC Nucleated RBC % (auto) Absolute Retic Percent Retic Immature Retic Fraction Retic Hgb Equivalent Anion Gap Estim Creat Clear Calc Estimated GFR POC Glucose 76 112 Random Glucose Calcium Magnesium Iron TIBC % Saturation Unsat Iron Binding Ferritin Total Bilirubin Direct Bilirubin AST ALT Alkaline Phosphatase Total Protein Albumin Lipase Vitamin B12 Folate Urine Color Urine Appearance Urine pH Ur Specific Jackson Urine Protein Urine Glucose (UA) Urine Ketones Urine Blood Urine Nitrite Ur Leukocyte Esterase Urine RBC Urine WBC Ur Squamous Epith Cells Urine Bacteria Hyaline Casts Procedures Date of Service Date of Service: 05/05/25 Progress Note: A&P Assessment and plan (1) VOLODYMYR (acute kidney injury): Status: Acute Assessment and Plan: Vomiting has resolved Abdomen is soft and benign Does not appear to have obstruction Likely gastroenteritis Diet as tolerated Time Spent With Patient Time: Total time managing care of this patient today ____ minutes. Quality Stroke Does the patient have a stroke diagnosis?: No VTE Prior VTE?: No VTE Risk Level:: Medical - moderate - high VTE Device Contraindication: Treatment Not Indicated VTE Drug Contraindication: N/A - Med Ordered
[2025-05-05 11:27] LABS: Glucose, Whole Blood 116 mg/dL (60-115)
[2025-05-05 15:16] VITALS: BP 128/60; PULSE 68; RESP 17; TEMP 36.2; O2SAT 97
--- NOTE | 2025-05-05 16:18 | MHC.CM.PN ---
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 [facility] TO TRANSPORT
[2025-05-05 16:23] LABS: Glucose, Whole Blood 87 mg/dL (60-115)
[2025-05-05 19:25] VITALS: BP 121/56; PULSE 67; RESP 17; TEMP 36.2; O2SAT 99
[2025-05-05 20:59] LABS: Glucose, Whole Blood 116 mg/dL (60-115)
[2025-05-06] MEDS: Lactated Ringers 1,000 ML 100 ML IVCONT (02:38)
[2025-05-06 03:37] VITALS: BP 161/72; PULSE 72; RESP 17; TEMP 36.1; O2SAT 96
[2025-05-06 06:51] LABS: Anion Gap 13 (12-20); Blood Urea Nitrogen 27 mg/dL (9-16); Calcium 7.9 mg/dL (8.4-10.2); Carbon Dioxide 21 mmol/L (22-29); Chloride 112 mmol/L (96-108); Creatinine Clr Calc Pharmacy 53.6; Estimated Glomerular Filt Rate > 60; Potassium 4.2 mmol/L (3.3-5.1); Sodium 142 mmol/L (135-145)
[2025-05-06 07:17] VITALS: BP 140/81; PULSE 80; RESP 17; TEMP 36.4; O2SAT 96
[2025-05-06 07:19] LABS: Glucose, Whole Blood 77 mg/dL (60-115)
[2025-05-06] MEDS: Aspirin Enteric Coated 81 MG TABLET.DR PO (08:51)
[2025-05-06] MEDS: Carbidopa/Levodopa CR 50/200 TABLET.ER 1 TAB PO ×2 (08:52→12:38)
--- NOTE | 2025-05-06 09:24 | PM.DS ---
DS: Providers Provider Date of Service: 05/06/25 Date of admission: 05/04/25 16:46 Date of discharge: 05/06/25 Primary care physician: Chelo Smith MD DS: Diagnosis Discharge Diagnosis (1) VOLODYMYR (acute kidney injury): Status: Resolved DS: Summary Hospital Course Hospital Course: Admission HPI Chief Complaint: Nausea, vomiting and diarrhea Yonatan Jacobo is a 79 years old man with past medical history significant for Parkinson's disease, CVA, type 2 diabetes mellitus, GERD, hyperlipidemia, dysphagia and hypertension on lisinopril was brought to the emergency department after he developed multiple events of watery nonbloody diarrhea and nonbloody vomiting over the 4 days. He also reported weakness to the lower extremities and swallowing difficulty. He also has been experiencing cough for the last 3 months. Recent fever or chills reported. Patient denied chest pain, abdominal pain, palpitations, dizziness, shortness and breath or any acute urinary issue. Patient's was at bedside and contributed H&P. She mentioned that the patient has been taking Imodium for diarrhea. In the ED, he was found to have stable vital signs. Hemoglobin is 9.8 (it was 12.5 in November of this year). Hematocrit 30.1. Platelets 155. Sodium 141, potassium 4.1, chloride 110, CO2 24 and an in the 11. BUN and creatinine, 82 and 3.9, respectively (26 and 1.37, respectively, about year ago). LFTs lipase are normal. Urinalysis only remarkable for proteinuria 1+. Abdominal pelvis without contrast showed distended proximal mild small bowel with decompressed distal small bowel (diffuse into the versus early or partial small bowel obstruction). ECG showed normal sinus rhythm, heart rate 82 beats per minute and no ischemic changes. ED tx: NS 1 L bolus. hospital course: Patient was admitted for management of nausea, vomiting and diarrhea, CT showed Distended proximal and mid small bowel with decompressed distal small jaswinder with concern about bowel obstruction raised however clinically had no bowel obstruction, he was seen by surgery and his diet was advanced and is tolerating regular diet. His clinical presentation is more consistent with acute gastroenteritis. Abdominal exam is presently bening Time Attestation Discharge Coordination Time (in mins): 40 Quality: Safe Use of Opioids Does Pt have an Active Cancer Diagnosis on the Problem List?: No Quality: Stroke Does the patient have a stroke diagnosis?: No Physical Exam Vital Signs: Vital Signs: Last Vital Signs Temp 97.5 F 05/06/25 07:17 Pulse 80 05/06/25 07:17 Resp 17 05/06/25 07:17 BP 140/81 H 05/06/25 07:17 Pulse Ox 96 05/06/25 07:17 O2 Del Method Room Air 05/06/25 07:17 BMI result Body Mass Index 26.3 Const: Other: General: AO X 3, no acute distress Resp: CTA bilateral CVS: S1,S2,RRR GI: +BS, NT, no distention Skin: No rash Neuro: motor grossly intact Psych: appropriate affect DS: Data Data Completed and Pending Labs on day of discharge: Laboratory Results - last 24 hr 05/05/25 05/05/25 05/05/25 11:23 16:20 20:52 Sodium Potassium Chloride Carbon Dioxide Anion Gap BUN Creatinine Estim Creat Clear Calc Estimated GFR POC Glucose 116 H 87 116 H Random Glucose Calcium 05/06/25 05/06/25 06:22 07:16 Sodium 142 Potassium 4.2 Chloride 112 H Carbon Dioxide 21 L Anion Gap 13 BUN 27 H Creatinine 1.08 Estim Creat Clear Calc 53.6 Estimated GFR > 60 POC Glucose 77 Random Glucose 78 Calcium 7.9 L D Discharge Plan Discharge Anticipated Discharge Date/Time: 05/06/25 13:31 Patient Disposition: Home, Self-Care Discharge Diagnosis: Gastroenteritis Referrals: Chelo Smith MD [Primary Care Provider, Internal Medicine] - 1 Week Discharge Medications: Continued omeprazole 20 mg capsule,delayed release(DR/EC) 20 mg PO DAILY@0630 Qty: 30 2RF acetaminophen 650 mg tablet extended release 1 - 2 tab PO Q8H PRN (Reason: Pain, Mild) carbidopa-levodopa 25-100 mg tablet 2 tab PO QID gabapentin 300 mg capsule 300 mg PO BEDTIME quetiapine 25 mg tablet 25 mg PO BID pramipexole 1 mg tablet 1 mg PO BID omega 4-noi-rog-fish oil 300 mg (120 mg- 180mg)-1,000 mg capsule 1 cap PO QAM carbidopa-levodopa 50-200 mg tablet extended release 1 tab PO QID amantadine HCl 100 mg capsule 100 mg PO BID@0700,1200 aspirin [Adult Low Dose Aspirin] 81 mg tablet,delayed release (DR/EC) 81 mg PO DAILY (DME) blood pressure test kit-large Kit See Rx Instructions .ROUTE DIRECTED Qty: 1 Rx Instructions: As directed cholecalciferol (vitamin D3) 50 mcg (2,000 unit) tablet 50 mcg PO DAILY mirtazapine 15 mg tablet 15 mg PO BEDTIME lisinopril 40 mg tablet 40 mg PO DAILY cyanocobalamin (vitamin B-12) 1,000 mcg tablet 1,000 mcg PO DAILY rosuvastatin 40 mg tablet 40 mg PO BEDTIME Discharge Orders: Discharge Order (Routine); Ordered 05/06/25 Ordered By: Dony Ortega Diet: Advance to usual diet Activity on Discharge: As tolerated Stand Alone Forms: Patient Portal Discharge page Print Language: Sammarinese Care Plan Goals: recovery from gastroenteritis, nausean and vomitting Health Concerns: same as above Plan of Treatment: Drink plenty of fluid and stay well hydrated, follow up with your doctor in a week, call for appointment Assessment: see above Discharge Date/Time: 05/06/25 15:58
[2025-05-06 11:20] LABS: Glucose, Whole Blood 79 mg/dL (60-115)
--- NOTE | 2025-05-06 14:05 | MHC.CM.PN ---
pt dcd home self care
[2025-05-06 15:54] VITALS: BP 115/56; PULSE 89; RESP 16; TEMP 35.8; O2SAT 97
--- NOTE | 2025-05-13 07:50 | P.CDIM_ITS ---
PROVIDER RESPONSE TEXT: To clarify, the appropriate diagnosis supported by the clinical indicators: Viral gastroenteritis QUERY TEXT: PHYSICIAN'S DOCUMENTATION REQUEST Date of Query: 05/06/2025 10:43 AM EDT Patient Name: Yonatan Jacobo Admit Date: 05/04/2025 Dear Dony Ortega MD, A review of the medical record indicates additional documentation may be needed. Please review below and update the documentation accordingly. Clinical Indicators: Surgery consultation note 05/05/25 - Vomiting has resolved. Likely gastroenteritis. Progress note 05/05/25 - Nausea, vomiting, diarrhea - Likely secondary to acute gastroenteritis. No SBO per surgery. Antiemetic therapy as needed, IV fluids. Advance diet. Based on the above, could you clarify further specifics to the documented Acute Gastroenteritis? Viral gastroenteritis Infectious gastroenteritis Toxic gastroenteritis Food hypersensitivity gastroenteritis Other specified Other (explain) Clinically unable to determine (explain) Thank you, Elena Mcgovern, CCS, CDIS Use of terms such as suspected, likely, concern for, or probable (associated with a specific diagnosis that is being evaluated, monitored, or treated as if it exists) are acceptable and can be coded in the inpatient setting, when documented at the time of discharge. Please use your independent medical judgment in providing your response. THIS QUERY IS PART OF THE PERMANENT MEDICAL RECORD
== END 2025-05-06 15:58 | disposition home or self-care (01) | DRG 392 ==
LOC: HO.ED 16:41 → HO.EDOVER 17:09 → HO.S3 19:34
PROVIDERS: Physician Assistant; Admitting Provider Internal Medicine; Emergency Provider Emergency Medicine; PCP Internal Medicine; Visit Provider Internal Medicine
DX: A08.4 Viral intestinal infection, unspecified (principal); N17.9 Acute kidney failure, unspecified; G20.A1 Parkinson's disease without dyskinesia, without mention of fluctuations; F02.80 Dementia in other diseases classified elsewhere, unspecified severity, without behavioral disturbance, psychotic disturbance, mood disturbance, and anxiety; E86.0 Dehydration; R13.12 Dysphagia, oropharyngeal phase; E78.5 Hyperlipidemia, unspecified; E11.649 Type 2 diabetes mellitus with hypoglycemia without coma; F39 Unspecified mood [affective] disorder; G25.81 Restless legs syndrome; K21.9 Gastro-esophageal reflux disease without esophagitis; Z87.891 Personal history of nicotine dependence; Z79.82 Long term (current) use of aspirin; Z79.899 Other long term (current) drug therapy
CPT/HCPCS: 36415; 74176; 80048; 80076; 81001; 82607; 82728; 82746; 82947; 83540; 83690; 83735; 84484; 85025; 85045; 93005; 99285; J1650; J2470; J7120

== ENCOUNTER → 2025-05-04 12:25 | Outpatient (BNV) | payer OTHER, SELFPAY | PROVIDERS: Admitting Provider Internal Medicine; Emergency Provider Emergency Medicine; PCP Internal Medicine; Visit Provider Internal Medicine Cardiovascular Disease | DX: R07.9 Chest pain, unspecified (principal) | CPT/HCPCS: 93010 ==

== ENCOUNTER → 2025-05-04 14:24 | Outpatient (BNV) | payer OTHER, SELFPAY | PROVIDERS: Emergency Provider Emergency Medicine; PCP Internal Medicine; Visit Provider Radiology Diagnostic Radiology | DX: K56.699 Other intestinal obstruction unspecified as to partial versus complete obstruction (principal) | CPT/HCPCS: 74176 ==

== ENCOUNTER → 2025-05-04 16:46 | Outpatient (BNV) | payer OTHER, SELFPAY | PROVIDERS: Admitting Provider Internal Medicine; Emergency Provider Emergency Medicine; PCP Internal Medicine; Visit Provider Internal Medicine | DX: N17.9 Acute kidney failure, unspecified (principal); R13.14 Dysphagia, pharyngoesophageal phase; K21.9 Gastro-esophageal reflux disease without esophagitis; K52.9 Noninfective gastroenteritis and colitis, unspecified | CPT/HCPCS: 99223; 99232 ==

== ENCOUNTER → 2025-05-04 16:46 | Outpatient (BNV) | payer OTHER, SELFPAY | PROVIDERS: Admitting Provider Internal Medicine; Emergency Provider Emergency Medicine; PCP Internal Medicine; Visit Provider Surgery | DX: N17.9 Acute kidney failure, unspecified (principal) | CPT/HCPCS: 99222; 99232 ==

== ENCOUNTER 2025-05-23 09:13 | Outpatient (AMB) | payer OTHER, SELFPAY ==
--- OUTSIDE RECORDS SUMMARY | 2025-05-23 09:30 | XMS_ITS | Patient Health Record ---
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 Primary Care Provider Baldo Dial Unavailable [phone] Reason For Referral No Information Medications Medication [...] Problem Status W/U Status Risk Notes Problem [id number] Early satiety (R68.81) Active confirmed Problem [id number] Abnormal CT scan, colon (R93.3) Active confirmed Problem [id number] Abnormal CT scan, stomach (R93.3) Active confirmed Plan Of Treatment No Information Insurance Providers Payer Name Payer Address Payer Phone Subscriber Number Group Number Insured Name Patient Relationship to Insured Coverage Start Date Coverage End Date [facility] [address] [address] [place] [phone] [id number] PETAR JUNIOR Self - patient is the insured Medical (General) History Medical History History ICD Code Hyperlipidemia Cerebrovascular disease--right-sided fac ial weakness--resolved Allergic rhinitis Glaucoma OD Hypertension Back pain Negative colonoscopy with Dr. Soliz in 2008 Denies DC,DM,Lung disease,renal disease
--- OUTSIDE RECORDS SUMMARY | 2025-05-23 09:30 | XMS_ITS | Encounter Summary ---
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 Role Phone Chelo Smith MD Primary Care Provider + Bishop Jacobo PharmD Unavailable [phone] Reason for Visit * Reason Comments Med Refill Encounter Details Date Type Department Care Team (Late st Contact Info) Description 03/26/2024 Refill [facility] [address], [place] [phone] Chelo Smith MD [address] [place], [place] [phone] Social History Tobacco Use Types Packs/Day Years [...] Care Team (Late st Contact Info) Description 05/30/2025 10:00 AM EDT Office Visit [facility] [address] [place] [phone] Shirley Cuevas MD [address] [place] [phone] 06/10/2025 2:00 PM EDT Office Visit [address] [address] Chelo Smith MD [address] [place] [phone] documented as of this encounter Goals Goal Patient Goal Type Associated Problems Recent Progress Patient-Stated? 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
--- NOTE | 2025-05-23 09:32 | A.OFFVIS_ITS ---
Vital Signs 05/23/25 09:34 Height 5 ft 8 in Weight 164 lb BMI 24.9 BP 105/51 L Blood Pressure Location Lt brachial Position Sitting Pulse 102 H Pulse Oximetry (%) 97 Oxygen Delivery Method Room Air Intake Visit Reasons: Dysphagia, pharyngoesophageal f/u r/s 01/08/25 Intake Note: Patient follow up for Dysphagia, pharyngoesophageal and Barrium swallow/Abd- pelvis CT scan results. Patient cc: no appetite and weight loose, denies any other GI issues. Patient is not sleeping at nighttime. Solid State Tester Required: Yes Solid State Tester [place] [facility] [place] Accompanied by: Self / Same As Patient Allergies No Known Allergies Allergy (Unknown, Verified 05/04/25 12:22) NKA Medication List - Last Reconciled 05/23/25 by Albaro Russo MD acetaminophen ER 1 - 2 tabs PO Q8H PRN amantadine HCl 100 mg PO BID@0700,1200 aspirin (Adult Low Dose Aspirin) 81 mg PO DAILY blood pressure test kit-large As directed carbidopa-levodopa 25-100 mg 2 tabs PO QID carbidopa-levodopa 50-200 mg ER 1 tab PO QID cholecalciferol (vitamin D3) 50 mcg PO DAILY cyanocobalamin (vitamin B-12) 1,000 mcg PO DAILY gabapentin 300 mg PO BEDTIME lisinopril 40 mg PO DAILY mirtazapine 15 mg PO BEDTIME omega 7-tkl-lhd-fish oil 300 mg (120 mg- 180mg)-1,000 mg 1 cap PO QAM omeprazole 20 mg PO DAILY@0630 pramipexole 1 mg PO BID quetiapine 25 mg PO BID rosuvastatin 40 mg PO BEDTIME HPI HPI Dysphagia, pharyngoesophageal f/u r/s 01/08/25: Details: GI CLINIC VISIT for this 79-year-old Kinyarwanda-speaking male for FU evaluation of Dysphagia and Odynophagia with weight loss. ???CHRONIC ILLNESSES:?Hypertension, Hyperlipidemia, DMII, cerebral microvascular disease, allergic rhinitis, diverticulosis of large intestine without hemorrhage, chronic back pain, BMI 31.0-31.9 adult, degenerative disc disease, lumbar, latent TB ?TODAY'S VISIT ? 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 Patient cc: no appetite and weight loose, denies any other GI issues. Patient is not sleeping at nighttime. difficulty swallowing on and off with solid and liquid. [place] [facility] [place] with acute gastroenteritis. Unable to sleep during the night and does not feel hungry. Denies significant issues with dysphagia Had diarrhea x 1 day last week Now having regular BMs daily. Pt reports he is able to swallow food and denies coughing spells with food intake When he lays down at night, he has difficulty swallowing his saliva - sleeps on three pillows Drinks water and saliva passes down. ? Patient is accompanied by his son Notes improvement in dysphagia and has gained weight LLQ pain has resolved. Denies diarrhea or constipation Complains of LLQ pain for the past 3 days - woke up with abdominal pain Pain is 8/10 in intensity and like a cramp. No change in abdominal pain with eating and denies diarrhea, constipation, fever, chills or sweating. Has been taking Ibuprofen daily for the pain Had a normal BM yesterday afternoon without any blood. Eats small portions 3 times a day and eating in between meals. Has been doing good and complains of problems with his teeth and has trouble chewing the food. Has gained wt and swallowing has improved. Not taking Glucerna since he has not bought it. PAST VISIT: Unable to sleep last night since his leg was very itchy Not taking Omeprazole since he ran out of his prescription His SO gives it to him intermittently (from her own prescription) if he complains of indigestion after eating. She is requesting a new prescription for omeprazole - sent to patient's preferred pharmacy Feels a littel dizzy. ? Doing good, and is swallowing OK. Eating 3 meals a day and has gained 10 lbs. ?? ? I havent thrown up ? ? ? Weight gain of 7 lbs over the past year and states he weighs 146 lbs now. ? ? ? I am taking 2-3 cans of Ensure a day ? ? ? Recieved both doses of COVID vaccine - last dose on 01/01/21 (WEIGHED 156 LBS IN NOV, 2019 and 146 lbs?today LABS IN [facility]: 09/04/19 Normal CBC, chem panel and LFTs. ? IMAGING STUDIES: 11/14/19 MODIFIED BARIUM SWALLOW SHOWED: ? Retention in the vallecula with all media. ? Penetration in the larynx with liquids. No aspiration seen. ?2017 Gastric Emptying Study showed: ? No abnormal retention of solid food is present. Gastric emptying is ? more rapid than normal, but this is of uncertain clinical significance. ?09/[address] scan showed: ? GASTROINTESTINAL TRACT: There are scattered diverticuli are seen in ? descending, ascending and sigmoid colon without diverticulitis. There ? is no colonic distention. The small bowel loops are normal caliber. ? The appendix is not visualized well. There is haziness and the small ? lymph nodes in the right lower quadrant mesentery suggest a mesenteritis. ENDOSCOPIC STUDIES:? 04/28/21 EGD SHOWED: ESOPHAGUS: GE junction at 40 cms. No esophagitis or Espinosa.? ? Esophageal balloon dilation was performed with 19 and 20 mm CRE balloon x 60 seconds at each level STOMACH: Gastritis Biopsies showed: Gastric, antrum, biopsies: ? Antral and corpus mucosa with moderate chronic active gastritis and numerous Helicobacter pylori; negative for intestinal metaplasia, dysplasia, and carcinoma PFSH Medical History (Updated 05/23/25 @ 10:22 by Albaro Russo MD) Dysphagia, pharyngoesophageal phase GERD (gastroesophageal reflux disease) Hx of cataract Hyperproteinemia JEROME (dyspnea on exertion) Dysphagia Multiple lung nodules Venous stasis dermatitis of both lower extremities Glaucoma Diverticular disease of colon Leg edema, right Insomnia Sprain of left rotator cuff capsule Restless leg syndrome Plantar fasciitis Eosinophil count raised Cerebrovascular disease Bilateral tinnitus Parkinson disease Latent tuberculosis Degenerative disc disease Back pain Diverticulosis Allergic rhinitis Cerebral microvascular disease Diabetes HLD (hyperlipidemia) HTN (hypertension) Surgical History Hx of colonoscopy (~06/2018) Social History Household Members: Spouse Housing: Apartment Do you presently have visiting nurse or other home services: No Alcohol intake: former Patient Tobacco Use Status: Former Tobacco user e-Cigarette/Vaping Use: Never Used Second Hand Smoke Exposure: No Advance Directives Date on File: 12/27/22 service: No Current occupational status: unemployed Current occupation: retired Review of Systems Const All systems reviewed & are unremarkable except as noted in HPI and below Physical Exam Vital Signs: Last Vital Signs Pulse 102 H 05/23/25 09:34 BP 105/51 L 05/23/25 09:34 Pulse Ox 97 05/23/25 09:34 Oxygen Delivery Method Room Air 05/23/25 09:34 BMI result Body Mass Index 24.9 Const General: no acute distress Nutritional Appearance: average body habitus Orientation/consciousness: patient oriented x3 Limitations: language barrier and ambulation with cane HEENT Head: Yes normal to inspection Ears: hearing grossly normal bilaterally Eyes Sclerae: sclerae normal Pupils: Equal, round and reactive pupils present Neck Neck: Yes normal visual inspection Chest Chest palpation & inspection: normal inspection of the chest Resp Effort & Inspection: normal respiratory effort Auscultation: clear to auscultation bilaterally Cardio Palpation: normal PMI Rate: regular rate Rhythm: regular rhythm Heart sounds: S1 normal heart sound present, S2 normal heart sound present and no murmurs GI Palpation (GI): Soft to palpation, nontender and No hepatosplenomegaly present Auscultation: normal bowel sounds Rectal Exam - Male: Yes deferred Skin General skin exam: no rashes or lesions noted Neuro General: patient oriented x3, gait normal and moves all extremities Cranial nerves: Yes Equal, round and reactive pupils present Psych Appearance: grossly normal Mental Status: mental status grossly normal Assessment & Plan Assessment & Plan (1) Dysphagia, pharyngoesophageal phase: Code(s): R13.14 - Dysphagia, pharyngoesophageal phase Category: Medical (2) Colon cancer screening: Comment: 06/2018 Colonoscopy was performed by Dr Gayle and showed severe diverticulosis in the sigmoid colon, internal and external hemorrhoids and no polyps. Repeat Colon in 10 yrs (due 06/2028) if patient remains in stable health Code(s): Z12.11 - Encounter for screening for malignant neoplasm of colon Category: Medical (3) Helicobacter pylori gastritis: Code(s): K29.70 - Gastritis, unspecified, without bleeding; B96.81 - Helicobacter pylori [H. pylori] as the cause of diseases classified elsewhere Category: Medical (4) Sleep disturbance: Code(s): G47.9 - Sleep disorder, unspecified Category: Medical Plan 79 YM with Hypertension, Hyperlipidemia, DMII, cerebral microvascular disease, allergic rhinitis, diverticulosis of large intestine without hemorrhage, chronic back pain, BMI 31.0-31.9 adult, degenerative disc disease, lumbar, latent TB and Parkinson's disease. Patient was seen for evaluation of oropharyngeal dysphagia associated with intake of solids and liquids. He was diagnosed with Parkinson's disease 3 yrs ago. Dysphagia is likely due to neuromuscular involvement with Parkinson's disease. Modified barium swallow with speech pathologist was performed and findings as noted above. Patient states he has been following recommendations of speech pathology and taking Glucerna 1-2 times daily. Pt was prescribed antibiotics for H Pylori infection (amoxicillin and Levofloxacin x 14 days? - due to drug interaction with clarithromycin). Pt notes improvement in dysphagia and has gained weight. Patient was advised that if he develops recurrent wt loss, he may need PEG placement in the future for nutritional support. Pt was retreated for H Pylori with Pylera in 05/2022 since breath test for H pylori was positive. Prescription given for Glucerna 1 can daily 04/14/23 PT complains of LLQ pain x 3 days. Physical exam revealed LLQ tenderness. Pt advised to go [place] [facility] [place] for evaluation with labs, UA and a CT scan (Pt discussed with Dr Gomez) ADDENDUM: Pt seen in the ER: 77-year-old male with left iliac crest discomfort that is been managed very well with his home medications, there are no symptoms to suggest intra-abdominal infection or urinary infection.? I reviewed the pelvis x-ray and agree with radiology's impression.? There is no evidence of acute pathology.? Patient is otherwise feeling well and will be discharged home to continue his home medications . 04/29/25 BARIUM SWALLOW SHOWED: Josue laryngeal aspiration on the very first oral swallow of thick barium. 05/04/[address] SCAN SHOWED: Distended proximal and mid small bowel with decompressed distal small bowel. Differential includes diffuse ileus, versus early or partial small bowel obstruction. 05/23/25 Pt was hospitalized [place] [facility] [place] with acute gastroenteritis. Unable to sleep during the night and does not feel hungry. Denies significant issues with dysphagia Advised to resume Mirtazepine at bedtime to help with sleep and appetite SChedule MBS with Speech Pathology FU in 3 month Orders: Orders [place] Modified Barium Swallow Today R13.14 - Dysphagia, pharyngoesophageal phase Referrals Speech and Hearing Referral R13.14 - Dysphagia, pharyngoesophageal phase Medications: Changed From mirtazapine 15 mg PO BEDTIME G47.9 - Sleep disorder, unspecified To mirtazapine 15 mg PO BEDTIME PRN 30 tabs 2RF sleep disturbance 30 days G47.9 - Sleep disorder, unspecified Coding Level of Care Code Est Pt Level 4 (23363) Diagnoses Dysphagia, pharyngoesophageal phase R13.14 Colon cancer screening Z12.11 Helicobacter pylori gastritis K29.70; B96.81 Sleep disturbance G47.9 Time Spent (min) 23
[2025-05-23 09:34] VITALS: BP 105/51; PULSE 102; O2SAT 97; BMI 24.9
== END 2025-05-23 10:29 | disposition home or self-care (01) ==
LOC: HO.HGI 09:13
PROVIDERS: PCP Internal Medicine; Visit Provider Internal Medicine Gastroenterology
DX: R13.14 Dysphagia, pharyngoesophageal phase (principal); K29.70 Gastritis, unspecified, without bleeding; B96.81 Helicobacter pylori [H. pylori] as the cause of diseases classified elsewhere; G47.9 Sleep disorder, unspecified
CPT/HCPCS: 99214

== ENCOUNTER → 2025-05-23 09:13 | Outpatient (BNVA) | payer OTHER, SELFPAY | PROVIDERS: PCP Internal Medicine; Visit Provider Internal Medicine Gastroenterology | DX: R13.14 Dysphagia, pharyngoesophageal phase (principal); K29.70 Gastritis, unspecified, without bleeding; B96.81 Helicobacter pylori [H. pylori] as the cause of diseases classified elsewhere; G47.9 Sleep disorder, unspecified; Z12.11 Encounter for screening for malignant neoplasm of colon | CPT/HCPCS: 99212 ==

== ENCOUNTER 2025-05-29 12:30 | Outpatient (AMB) | payer OTHER, SELFPAY ==
--- NOTE | 2025-05-29 12:42 | MHC.OFFVIS ---
Intake Visit Reasons: f/u Allergies No Known Allergies Allergy (Unknown, Verified 05/04/25 12:22) NKA HPI Comments Details: 79 years old man with peripheral neuropathy and parkinsonism. He was doing ok. No issue with sleep or mood. He was using a cane for walking. [facility] Medical History (Updated 05/29/25 @ 12:49 by Erma Pineda MD) Dysphagia, pharyngoesophageal phase GERD (gastroesophageal reflux disease) Hx of cataract Hyperproteinemia JEROME (dyspnea on exertion) Dysphagia Multiple lung nodules Venous stasis dermatitis of both lower extremities Glaucoma Diverticular disease of colon Leg edema, right Insomnia Sprain of left rotator cuff capsule Restless leg syndrome Plantar fasciitis Eosinophil count raised Cerebrovascular disease Bilateral tinnitus Parkinson disease Latent tuberculosis Degenerative disc disease Back pain Diverticulosis Allergic rhinitis Cerebral microvascular disease Diabetes HLD (hyperlipidemia) HTN (hypertension) Surgical History Hx of colonoscopy (~06/2018) Social History Household Members: Spouse Housing: Apartment Do you presently have visiting nurse or other home services: No Alcohol intake: former Patient Tobacco Use Status: Former Tobacco user e-Cigarette/Vaping Use: Never Used Second Hand Smoke Exposure: No Advance Directives Date on File: 12/27/22 service: No Current occupational status: unemployed Current occupation: retired Review of Systems Const Details: No change in cognition, no bowel bladder problem. No behavioral issues Physical Exam Neuro Other: Mental Status: Alert and oriented to person, place, and time. Normal attention. Normal spontaneous speech, fluency, and comprehension. Cranial Nerves: CN II: Visual jones full to confrontation, visual acuity intact. CN III, IV, : Pupils equal, round, reactive to light and accommodation. Extraocular movements are normal. CN V: Facial sensation is normal. CN VII: Facial movements symmetrical. CN VIII: Hearing intact to bedside conversation is normal. CN IX, X: Palate elevates symmetrically. CN XI: Shoulder shrug and head turn symmetrical. CN XII: Tongue midline without atrophy or fasciculations. Extrapyramidal: Decreased facial expression blinking. Mild tongue dyskinetic movements. Mild hand tremor. Mild cogwheeling rigidity. Speech: Normal; no dysarthria or tremor. 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 01/12/23. NCV/EMG RTUE/LE Moderately severe chronic axonal sensory and motor peripheral neuropathy. Mild to moderate right median neuropathy across the Carpal tunnel. .CT brain WO at [facility] in 2018: Mild atrophy and mild MVD (reported) MRI brain WO at [facility] in 2018: mod to severe MVD. (3) Restless leg syndrome: Code(s): G25.81 - Restless legs syndrome Category: Medical Plan Impression: a: Parkinson disease with mild dyskinesia b: Mild dementia c: Restless leg syndrome Rec: a: Pramipaxole 1mg bid b: Carbidopa/levodopa 25/100 2, tid c: Carbidopa/levodopa ER 50/200 4 times a day d: Amantadine 100mg bid e: Gabapentin 300mg one at bedtime Medications: New amantadine HCl 100 mg PO BID@0700,1200 180 caps 1RF carbidopa-levodopa 50-200 mg ER 1 tab PO QID 360 tabs 1RF gabapentin 300 mg PO BEDTIME 90 caps 1RF Changed From carbidopa-levodopa 25-100 mg 2 tabs PO QID To carbidopa-levodopa 25-100 mg 1 tab PO TID 270 tabs 1RF Coding Level of Care Code Est Pt Level 4 (33524) Diagnoses Mild dementia without behavioral disturbance, psychotic disturbance, mood disturbance, or anxiety, unspecified dementia type F03.A0 Dementia type: unspecified type Dementia behavioral or psychological symptom: without behavioral, psychotic, or mood disturbance or anxiety 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
--- OUTSIDE RECORDS SUMMARY | 2025-05-29 13:06 | XMS_ITS | Encounter Summary ---
Author Organization [employer] Address [address] [facility] [address] [facility] [address] [place] [address] Care Team Providers Care Cylinder Valve Repairer Name Role Phone Chelo Smith MD Primary Care Provider + Bishop Jacobo PharmD Unavailable [phone] Reason for Visit * Reason Comments Med Refill Encounter Details Date Type Department Care Team (Late st Contact Info) Description 03/26/2024 Refill [facility] [address] [place], [place] [phone] Chelo Smith MD [address] [place], [place] [phone] Social History Tobacco Use Types Packs/Day Years [...] Description 05/30/2025 10:00 AM EDT Office Visit [facility] [address] [place] [phone] Shirley Cuevas MD [address] [place] [address] 06/10/2025 2:00 PM EDT Office Visit [address] [address] Chelo Smith MD [address] [place] [phone] documented as of this encounter Goals Goal Patient Goal Type Associated Problems Recent Progress Patient-Stated? Author Blood Pressure < 150/90 Blood Pressure 120/80(2024 11:32 AM EST) No Bishop Jacobo, PharmD Note: Per JNC-8 (Age>60 w/o hx of DM or CKD) documented as of this encounter Visit Diagnoses Not on filedocumented in this encounter Care Teams Cylinder Valve Repairer Relationship Specialty Start Date End Date Chelo Smith MD [address] [place] [phone] PCP - General Family Medicine 12/30/20 Bishop Jacobo, EulogioD [address] [place] [address] Pharmacist Internal Medicine 05/09/23 documented as of this encounter
--- OUTSIDE RECORDS SUMMARY | 2025-05-29 13:06 | XMS_ITS | Patient Health Record ---
Author Organization [facility] Address [address] [place] [address] Care Team Providers Care Restorer Lace And Textiles Name Role Phone Valeria Mcarthur M.D. Primary Care Provider Baldo Dial Unavailable [phone] Reason For Referral No Information Medications Medication [...] Problem Status W/U Status Risk Notes Problem [id number] Early satiety (R68.81) Active confirmed Problem [id number] Abnormal CT scan, colon (R93.3) Active confirmed Problem [id number] Abnormal CT scan, stomach (R93.3) Active confirmed Plan Of Treatment No Information Insurance Providers Payer Name Payer Address Payer Phone Subscriber Number Group Number Insured Name Patient Relationship to Insured Coverage Start Date Coverage End Date [facility] [address] [address] [place] [address] [id number] PETAR JUNIOR Self - patient is the insured Medical (General) History Medical History History ICD Code Hyperlipidemia Cerebrovascular disease--right-sided fac ial weakness--resolved Allergic rhinitis Glaucoma OD Hypertension Back pain Negative colonoscopy with Dr. Soliz in 2008 Denies [place],DM,Lung disease,renal disease
== END 2025-05-29 12:53 | disposition home or self-care (01) ==
LOC: HO.HSM 12:31
PROVIDERS: PCP Internal Medicine; Referring Provider Internal Medicine; Visit Provider Psychiatry & Neurology Neurology
DX: F03.A0 Unspecified dementia, mild, without behavioral disturbance, psychotic disturbance, mood disturbance, and anxiety (principal); G20.A1 Parkinson's disease without dyskinesia, without mention of fluctuations; F02.A2 Dementia in other diseases classified elsewhere, mild, with psychotic disturbance; G25.81 Restless legs syndrome
CPT/HCPCS: 99214

== ENCOUNTER → 2025-05-29 12:30 | Outpatient (BNVA) | payer OTHER, SELFPAY | PROVIDERS: PCP Internal Medicine; Referring Provider Internal Medicine; Visit Provider Psychiatry & Neurology Neurology | DX: G62.9 Polyneuropathy, unspecified (principal); G20.A1 Parkinson's disease without dyskinesia, without mention of fluctuations; F03.A0 Unspecified dementia, mild, without behavioral disturbance, psychotic disturbance, mood disturbance, and anxiety; F02.A2 Dementia in other diseases classified elsewhere, mild, with psychotic disturbance; G25.81 Restless legs syndrome | CPT/HCPCS: 99212 ==

== ENCOUNTER 2025-05-30 12:12 | Outpatient (REF) | payer OTHER, SELFPAY ==
--- OUTSIDE RECORDS SUMMARY | 2025-05-30 12:32 | XMS_ITS | Encounter Summary ---
Author Organization [employer] Address [address] [facility] [address] [place] [address] Care Team Providers Care Finance Manager Name Role Phone Chelo Smith MD Primary Care Provider + Bishop Jacobo PharmD Unavailable [phone] Reason for Visit * Reason Comments Med Refill Encounter Details Date Type Department Care Team (Late st Contact Info) Description 03/26/2024 Refill [facility] [address] [place], [place] [phone] Chelo Smith MD [address] [place], [place] [phone] Social History Tobacco Use Types Packs/Day Years [...] Description 06/10/2025 2:00 PM EDT Office Visit [facility] [address] [place] [address] Chelo Smith MD [address] [place] [address] documented as of this encounter Goals Goal Patient Goal Type Associated Problems Recent Progress Patient-Stated? Author Blood Pressure < 150/90 Blood Pressure 126/60(2024 10:31 AM EDT) No Bishop Jacobo PharmD Note: Per JNC-8 (Age>60 w/o hx of DM or CKD) documented as of this encounter Visit Diagnoses Not on filedocumented in this encounter Care Teams Finance Manager Relationship Specialty Start Date End Date Chelo Smith MD [address] [place] [phone] PCP - General Family Medicine 12/30/20 Bishop Jacobo PharmD [address] [place] [address] [phone] Pharmacist Internal Medicine 05/09/23 documented as of this encounter
--- OUTSIDE RECORDS SUMMARY | 2025-05-30 12:32 | XMS_ITS | Patient Health Record ---
Author Organization [facility] Address [address] [place] [address] Care Team Providers Care Guest Services Officer Name Role Phone Valeria Mcarthur M.D. Primary Care Provider Baldo Dial Unavailable [phone] Reason For Referral No Information Medications Medication [...] Problem Status W/U Status Risk Notes Problem [id number] Early satiety (R68.81) Active confirmed Problem [id number] Abnormal CT scan, colon (R93.3) Active confirmed Problem [id number] Abnormal CT scan, stomach (R93.3) Active confirmed Plan Of Treatment No Information Insurance Providers Payer Name Payer Address Payer Phone Subscriber Number Group Number Insured Name Patient Relationship to Insured Coverage Start Date Coverage End Date [facility] [address] [address] [place] [address] [id number] PETAR JUNIOR Self - patient is the insured Medical (General) History Medical History History ICD Code Hyperlipidemia Cerebrovascular disease--right-sided fac ial weakness--resolved Allergic rhinitis Glaucoma OD Hypertension Back pain Negative colonoscopy with Dr. Soliz in 2008 Denies [place],DM,Lung disease,renal disease
[2025-05-30 12:55] LABS: MANUAL DIFF FLAG NO
[2025-05-30 12:59] LABS: Hematocrit 36.2 % (42.0-52.0); Hemoglobin 11.8 g/dl (14.0-18.0); Imm Gran Abs Auto 0.04 X10*3/uL (0.00-0.03); Imm Gran Pct Auto 0.4 % (0.0-0.4); Lymphocytes Absolute Auto 2.0 X10*3/uL (1.2-4.9); Mean Corpuscular HGB Conc 32.6 g/dl (31.0-36.0); Mean Corpuscular Hemoglobin 28.6 pg (27.0-33.0); Mean Corpuscular Volume 87.7 fL (80.0-98.0); NRBC Abs Auto 0.000 X10*3/uL (0.0-0.012); NRBC Pct Auto 0.0 /100WBC (0.0-0.2); Platelet Count 265 X10*3/uL (160-400); Red Blood Count 4.13 X10*6/uL (4.60-5.80); White Blood Count 9.4 X10*3/uL (4.8-10.8)
[2025-05-30 16:45] LABS: Alanine Aminotransferase 14 U/L (0-40); Albumin Level 4.2 g/dL (3.5-5.0); Alkaline Phosphatase 99 U/L (39-117); Anion Gap 14 (12-20); Aspartate Amino Transferase 42 U/L (5-37); Blood Urea Nitrogen 28 mg/dL (9-16); Calcium 9.3 mg/dL (8.4-10.2); Carbon Dioxide 28 mmol/L (22-29); Chloride 106 mmol/L (96-108); Estimated Glomerular Filt Rate 47; Iron 75 mcg/dL (45-160); Percent Iron Saturation 27 % (15-50); Potassium 4.5 mmol/L (3.3-5.1); Sodium 143 mmol/L (135-145); Total Iron Binding Capacity 277 mcg/dL (228-428); Total Protein 7.5 g/dL (6.5-8.0); Unsaturated Iron Binding 202 ug/dL
[2025-05-30 17:02] LABS: Ferritin 202 ng/mL (20-250)
== END 2025-05-30 12:13 | disposition home or self-care (01) ==
LOC: HO.HHCL 12:12
PROVIDERS: PCP Student in an Organized Health Care Education/Training Program; Visit Provider Student in an Organized Health Care Education/Training Program
DX: N17.9 Acute kidney failure, unspecified (principal); Z12.39 Encounter for other screening for malignant neoplasm of breast; Z13.0 Encounter for screening for diseases of the blood and blood-forming organs and certain disorders involving the immune mechanism
CPT/HCPCS: 36415; 80053; 82728; 83540; 84443; 85025

== ENCOUNTER 2025-06-03 09:45 | Outpatient (REF) | payer OTHER, SELFPAY ==
--- OUTSIDE RECORDS SUMMARY | 2025-06-03 12:21 | XMS_ITS | Encounter Summary ---
Author Organization [employer] Address [address] [place] [address] Care Team Providers Care Tractor Engine Mechanic Name Role Phone Chelo Smith MD Primary Care Provider + Bishop Jacobo PharmD Unavailable [phone] Reason for Visit * Reason Comments Med Refill Encounter Details Date Type Department Care Team (Late st Contact Info) Description 03/26/2024 Refill [facility] [address] [place], [place] [phone] Chelo Smith MD [address] [place], [place] [phone] Social History Tobacco Use Types Packs/Day Years [...] Description 06/10/2025 2:00 PM EDT Office Visit [facility] [address] [place] [address] Chelo Smith MD [address] [place] [phone] documented as of this encounter Goals Goal Patient Goal Type Associated Problems Recent Progress Patient-Stated? Author Blood Pressure < 150/90 Blood Pressure 126/60(2024 10:31 AM EDT) No Bishop Jacobo, Eladio Note: Per JNC-8 (Age>60 w/o hx of DM or CKD) documented as of this encounter Visit Diagnoses Not on filedocumented in this encounter Care Teams Tractor Engine Mechanic Relationship Specialty Start Date End Date Chelo Smith MD [address] [place] [address] [phone] PCP - General Family Medicine 12/30/20 Bishop Jacobo PharmD [address] [place] [phone] Pharmacist Internal Medicine 05/09/23 documented as of this encounter
--- OUTSIDE RECORDS SUMMARY | 2025-06-03 12:21 | XMS_ITS | Patient Health Record ---
Author Organization [facility] Address [address] [place] [address] Care Team Providers Care Stock Letterer Name Role Phone Valeria Mcarthur M.D. Primary Care Provider Baldo Dial Unavailable [phone] Reason For Referral No Information Medications Medication [...] Problem Status W/U Status Risk Notes Problem [id number] Early satiety (R68.81) Active confirmed Problem [id number] Abnormal CT scan, colon (R93.3) Active confirmed Problem [id number] Abnormal CT scan, stomach (R93.3) Active confirmed Plan Of Treatment No Information Insurance Providers Payer Name Payer Address Payer Phone Subscriber Number Group Number Insured Name Patient Relationship to Insured Coverage Start Date Coverage End Date [facility] [address] [address] [place] [phone] [id number] PETAR JUNIOR Self - patient is the insured Medical (General) History Medical History History ICD Code Hyperlipidemia Cerebrovascular disease--right-sided fac ial weakness--resolved Allergic rhinitis Glaucoma OD Hypertension Back pain Negative colonoscopy with Dr. Soliz in 2008 Denies [place],DM,Lung disease,renal disease
== END 2025-06-03 09:46 | disposition home or self-care (01) ==
LOC: HO.LNP 09:45
PROVIDERS: Visit Provider Student in an Organized Health Care Education/Training Program
DX: Z13.89 Encounter for screening for other disorder (principal)

== ENCOUNTER 2025-06-10 15:01 | Outpatient (REF) | payer OTHER, SELFPAY ==
--- OUTSIDE RECORDS SUMMARY | 2025-06-10 15:41 | XMS_ITS | Patient Health Record ---
Author Organization [facility] Address [address] [place] [address] Care Team Providers Care Back End Engineer Name Role Phone Valeria Mcarthur M.D. Primary Care Provider Baldo Dial Unavailable [phone] Reason For Referral No Information Medications Medication [...] Problem Status W/U Status Risk Notes Problem [id number] Early satiety (R68.81) Active confirmed Problem [id number] Abnormal CT scan, colon (R93.3) Active confirmed Problem [id number] Abnormal CT scan, stomach (R93.3) Active confirmed Plan Of Treatment No Information Insurance Providers Payer Name Payer Address Payer Phone Subscriber Number Group Number Insured Name Patient Relationship to Insured Coverage Start Date Coverage End Date [facility] [address] [address] [place] [phone] [id number] PETAR JUNIOR Self - patient is the insured Medical (General) History Medical History History ICD Code Hyperlipidemia Cerebrovascular disease--right-sided fac ial weakness--resolved Allergic rhinitis Glaucoma OD Hypertension Back pain Negative colonoscopy with Dr. Soliz in 2008 Denies [place],DM,Lung disease,renal disease
--- OUTSIDE RECORDS SUMMARY | 2025-06-10 15:41 | XMS_ITS | Encounter Summary ---
Author Organization [employer] Address [address] [place] [address] Care Team Providers Care Materials Engineer Name Role Phone Chelo Smith MD Primary Care Provider + Bishop Jacobo PharmD Unavailable [phone] Reason for Visit * Reason Comments Med Refill Encounter Details Date Type Department Care Team (Late st Contact Info) Description 03/26/2024 Refill [facility] [address] [place], [place] [phone] Chelo Smith MD [address] [place], [place] [phone] Social History Tobacco Use Types Packs/Day Years [...] as of this encounter Plan of Treatment Not on file documented as of this encounter Goals Goal Patient Goal Type Associated Problems Recent Progress Patient-Stated? Author Blood Pressure < 150/90 Blood Pressure 138/84(2024 2:38 PM EDT) No Bishop Jacobo, PharmD Note: Per JNC-8 (Age>60 w/o hx of DM or CKD) documented as of this encounter Visit Diagnoses Not on filedocumented in this encounter Care Teams Materials Engineer Relationship Specialty Start Date End Date Chelo Smith MD [address] [place] [address] PCP - General Family Medicine 12/30/20 Bishop Jacobo, PharmD [address] [place] [address] Pharmacist Internal Medicine 05/09/23 documented as of this encounter
[2025-06-10 16:40] LABS: MANUAL DIFF FLAG NO
[2025-06-10 16:57] LABS: Hematocrit 40.0 % (42.0-52.0); Hemoglobin 12.8 g/dl (14.0-18.0); Imm Gran Abs Auto 0.01 X10*3/uL (0.00-0.03); Imm Gran Pct Auto 0.1 % (0.0-0.4); Lymphocytes Absolute Auto 2.2 X10*3/uL (1.2-4.9); Mean Corpuscular HGB Conc 32.0 g/dl (31.0-36.0); Mean Corpuscular Hemoglobin 28.3 pg (27.0-33.0); Mean Corpuscular Volume 88.5 fL (80.0-98.0); NRBC Abs Auto 0.000 X10*3/uL (0.0-0.012); NRBC Pct Auto 0.0 /100WBC (0.0-0.2); Platelet Count 179 X10*3/uL (160-400); Red Blood Count 4.52 X10*6/uL (4.60-5.80); White Blood Count 9.1 X10*3/uL (4.8-10.8)
[2025-06-10 17:27] LABS: Ferritin 208 ng/mL (20-250)
== END 2025-06-10 15:02 | disposition home or self-care (01) ==
LOC: HO.HHCL 15:01
PROVIDERS: PCP Internal Medicine; Visit Provider Internal Medicine
DX: D64.9 Anemia, unspecified (principal); R89.8 Other abnormal findings in specimens from other organs, systems and tissues; Z01.84 Encounter for antibody response examination
CPT/HCPCS: 36415; 82728; 85025; 86682

== ENCOUNTER 2025-06-25 13:44 | Outpatient (REF) | payer OTHER, SELFPAY ==
--- NOTE | ~2025-06-25 | FL_ITS ---
EXAMINATION: Modified Barium Swallow CLINICAL INFORMATION: Dysphagia COMPARISON: None TECHNIQUE: Modified barium swallow was performed under lateral fluoroscopy with patient in standing position. Barium mixed with solids and liquids of different consistencies was administered by the speech pathologist. Examination was recorded in the fluoroscopy suite. FINDINGS: Patient was given multiple consistencies. There was persistent laryngeal penetration without subglottic aspiration. There was persistent vallecular pooling of residues. FLUOROSCOPY TIME: 2 minutes and 2 seconds Number of Spot Images: N/A DOSE AREA PRODUCT: 1019 uGy-m2 (microgray-meter squared) FL/FL Modified Barium Swallow IMPRESSION: Persistent laryngeal penetration without subglottic aspiration. Please refer to the full speech therapy report to follow for further detail. Electronically signed by: Chito Woo MD 06/25/2025 03:20 PM EDT
--- OUTSIDE RECORDS SUMMARY | 2025-06-25 14:59 | XMS_ITS | Encounter Summary ---
Author Organization [employer] Address [address] 7t [place] [address] Care Team Providers Care Insulation Blower Name Role Phone Chelo Smith MD Primary Care Provider + Bishop Jacobo PharmD Unavailable [phone] Reason for Visit * Reason Onset Date Comments Add on Labs 05/30/2025 Encounter Details Date Type Department Care Team (Late st Contact Info) Description 05/30/2025 Results Follow-Up [facility] [address] [place] [address] Shirley Cuevas MD [address] [place] [address] CBC auto differential, Iron And Total Iron Binding Capacity, Ferritin, Additional followed-up results: 2 Social History Tobacco Use Types Packs/Day Years [...] AM EDT documented as of this encounter Functional Status * Over the last 2 weeks, how often have you been bothered by any of the following problems? Question Answer Date of Assessment Author Feeling nervous, anxious, or on edge 3 05/30/2025 10:28 AM EDT Dana Villarreal MA Not being able to stop or co ntrol worrying 0 05/30/2025 10:28 AM EDT Dana Villarreal MA Worrying too much about diff erent things 3 05/30/2025 10:28 AM GIANNAT Dana Villarreal MA Trouble relaxing 3 05/30/2025 10:28 AM GIANNAT Dana Villarreal MA Being so restless that it is hard to sit still 3 05/30/2025 10:28 AM GIANNAT Dana Villarreal MA Becoming easily annoyed or irritable 2 05/30/2025 10:28 AM EDT Dana Villarreal MA Feeling afraid as if somethi ng awful might happen 3 05/30/2025 10:28 AM EDT Dana Villarreal MA LOUIE-7 Total Score 17 05/30/2025 10:28 AM EDT Dana Villarreal MA documented as of this encounter Miscellaneous Notes * Result Encounter Note - Shirley Matias MD - 05/30/2025 9:14 PM EDT Please reinforce pt to come to already scheduled apt w PCP to follow chronic conditions and follow anemia and elevated eosinophils Thanks * Telephone Encounter - Radha Soliz RN - 05/30/2025 2:59 PM EDT TC placed to the [facility] to inquire if the B12, Folic Acid and IgG and IgE can be added on to today's labs. According to [facility] all four cannot be added due to them requiring a different color tube type. ----- Message from Shirley Matias MD sent at 05/30/2025 2:47 PM EDT ----- P rest of labs but so far noted hb 11.8 from 12 .5 and mild eosinophilia AEC 600 present since lastyear I called pt and spoke w him and and advised to get FOBT ordered today --------- Please can you try to add on vit B12 and folic acid level to recent labs as well strongyloides IgG and IgE level if possible Thanks ----- Message ----- From: Interface, Lab Results In Sent: 05/30/2025 1:21 PM EDT To: Shirley Matias MD * Result Encounter Note - Shirley Matias MD - 05/30/2025 2:47 PM EDT P rest of labs but so far noted hb 11.8 from 12 .5 and mild eosinophilia AEC 600 present since lastyear I called pt and spoke w him and and advised to get FOBT ordered today --------- Please can you try to add on vit B12 and folic acid level to recent labs as well strongyloides IgG and IgE level if possible Thanks documented in this encounter Plan of Treatment Not on file documented as of this encounter Goals Goal Patient Goal Type Associated Problems Recent Progress Patient-Stated? Author Blood Pressure < 150/90 Blood Pressure 138/84(2024 2:38 PM EDT) No Bishop Jacobo, Eladio Note: Per JNC-8 (Age>60 w/o hx of DM or CKD) documented as of this encounter Visit Diagnoses Not on filedocumented in this encounter Additional Health Concerns Assessment Noted Time PHQ-9 Depression Total Score: 0 08/23/20 24 9:23 AM EDT documented as of this encounter Care Teams Insulation Blower Relationship Specialty Start Date End Date Chelo Smith MD [address] [place] [address] PCP - General Family Medicine 12/30/20 Bishop Jacobo, Eladio [address] [place] [address] Pharmacist Internal Medicine 05/09/23 documented as of this encounter
--- OUTSIDE RECORDS SUMMARY | 2025-06-25 14:59 | XMS_ITS | Encounter Summary ---
Author Organization [employer] Address [address] [place] [address] Care Team Providers Care Director Of Safety Name Role Phone Chelo Smith MD Primary Care Provider + Bishop Jacobo PharmD Unavailable [phone] Reason for Visit * Reason Comments Med Refill Encounter Details Date Type Department Care Team (Late st Contact Info) Description 05/20/2023 Refill [facility] [address] [place] [address] Bernice Chu, HOB MILL OPERATOR [address] [place] [address] Social History Tobacco Use Types Packs/Day Years [...] on filedocumented in this encounter Care Teams Director Of Safety Relationship Specialty Start Date End Date Chelo Smith MD [address] [place] [address] PCP - General Family Medicine 12/30/20 Bishop Jacobo, PharmD [address] [place] [address] Pharmacist Internal Medicine 05/09/23 documented as of this encounter
--- OUTSIDE RECORDS SUMMARY | 2025-06-25 14:59 | XMS_ITS | Encounter Summary ---
Author Organization [employer] Address [address] [place] [address] Care Team Providers Care Door Cutter Name Role Phone Chelo Smith MD Primary Care Provider + Bishop Jacobo PharmD Unavailable Reason for Visit * Reason Onset Date Comments call back 11/19/2022 Encounter Details Date Type Department Care Team ([facility] st Contact Info) Description 11/19/2022 Telephone [facility] [address] [place], [place] [phone] Chelo Smith MD [address] [place], [place] [phone] call back Social History Tobacco Use Types [...] Miscellaneous Notes * Telephone Encounter - Omaira Adan - 11/22/2022 10:12 AM EST Return call to [place] [facility] (pt insurance), he stated recliner is a covered item but it will require a medical necessity letter and faxed over to [employer]. Are you ok with this? * Telephone Encounter - Cecy Ariza RN - 11/22/2022 9:51 AM EST TC returned to [place] at [facility], they report they received a call regarding recliner. * Telephone Encounter - Natanael Jo - 11/19/2022 4:22 PM EST Tc from [place] with [facility] returning call. [place] is requesting a call back Please contact [place] at [phone] documented in this encounter Plan of Treatment Not on file documented as of this encounter Visit Diagnoses Not on filedocumented in this encounter Care Teams Door Cutter Relationship Specialty Start Date End Date Chelo Smith MD [address] [place] [address] PCP - General Family Medicine 12/30/20 Bishop Jacobo PharmD [address] [place] [address] Pharmacist Internal Medicine 05/09/23 documented as of this encounter
--- OUTSIDE RECORDS SUMMARY | 2025-06-25 14:59 | XMS_ITS | Encounter Summary ---
Author Organization [employer] Address [address] [place] [address] Care Team Providers Care Professional Nurse Name Role Phone Chelo Smith MD Primary Care Provider + Bishop Jacobo PharmD Unavailable [phone] Reason for Visit * Reason Comments Med Refill Encounter Details Date Type Department Care Team (Late st Contact Info) Description 01/29/2025 Refill [facility] [address] [place], [place] [phone] Chelo Smith MD [address] [place], [place] [phone] Social History Tobacco Use Types Packs/Day Years [...] documented as of this encounter Care Teams Professional Nurse Relationship Specialty Start Date End Date Chelo Smith MD [address] [place] [address] PCP - General Family Medicine 12/30/20 Bishop Jacobo, Eladio [address] [place] [address] Pharmacist Internal Medicine 05/09/23 documented as of this encounter
--- OUTSIDE RECORDS SUMMARY | 2025-06-25 14:59 | XMS_ITS | Encounter Summary ---
Author Organization [employer] Address [address] [place] [address] Care Team Providers Care Ocularist Name Role Phone Chelo Smith MD Primary Care Provider + Bishop Jacobo PharmD Unavailable [phone] Reason for Visit * Reason Comments Med Refill Encounter Details Date Type Department Care Team (Late st Contact Info) Description 03/26/2024 Refill [facility] [address] [place], [place] [phone] Chelo Smith MD [address] [place], [place] [phone] Social History Tobacco Use Types Packs/Day Years [...] on filedocumented in this encounter Care Teams Ocularist Relationship Specialty Start Date End Date Chelo Smith MD [address] [place] [address] PCP - General Family Medicine 12/30/20 Bishop Jacobo, PharmD [address] [place] [address] Pharmacist Internal Medicine 05/09/23 documented as of this encounter
--- OUTSIDE RECORDS SUMMARY | 2025-06-25 14:59 | XMS_ITS | Encounter Summary ---
Author Organization [employer] Address [address] [place] [address] Care Team Providers Care Binder And Box Builder Name Role Phone Chelo Smith MD Primary Care Provider + Bishop Jacobo PharmD Unavailable [phone] Encounter Details Date Type Department Care Team ([facility] st Contact Info) Description 10/26/2022 Telephone [facility] [address] [place], [place] [phone] Chelo Smith MD [address] [place], [place] [phone] Social History Tobacco Use Types Packs/Day Years [...] on filedocumented in this encounter Care Teams Binder And Box Builder Relationship Specialty Start Date End Date Chelo Smith MD [address] [place] [address] PCP - General Family Medicine 12/30/20 Bishop Jacobo, EulogioD [address] [place] [address] Pharmacist Internal Medicine 05/09/23 documented as of this encounter
--- OUTSIDE RECORDS SUMMARY | 2025-06-25 14:59 | XMS_ITS | Clinical Summary ---
Author Organization [employer] Address [address] [facility] [address] [place] [address] Care Team Providers Care Tax Attorney Name Role Phone Chelo Smith MD Primary Care Provider + Bishop Jacobo PharmD Unavailable [phone] Allergies No known active allergies Medications acetaminophen [...] as directed. 1 kit 06/18/20 24 Active aspirin (Aspirin Low Dose) 81 MG EC tablet Take 1 tablet (81 mg) by mouth Once per day. 90 tablet 3 08/27/20 24 Active fluticasone (Flonase) 50 MCG/ACT nasal spray Administer 1 spray into each nostril Once per day. 16 g 12/05/19 25 Active rosuvastatin (Crestor) 40 MG tabletIndications :Cerebrovascular disease,Mixed hyperlipidemia TAKE 1 TABLET BY MOUTH AT BEDTIME 90 tablet 1 01/04/20 25 Active mirtazapine (Remeron) 15 MG tabletIndications :Primary insomnia TAKE 1 TABLET BY MOUTH AT BEDTIME 30 tablet 3 03/11/20 25 Active QUEtiapine (SEROquel) 25 MG tablet TAKE 1 TABLET BY MOUTH TWICE DAILY IN THE MORNING AND AT BEDTIME 60 tablet 3 04/08/20 25 Active omega-3 (Fish Oil) 1000 MG capsule TAKE 1 CAPSULE BY MOUTH EVERY MORNING 30 capsule 3 04/08/20 25 Active pramipexole (Mirapex) 1 MG tablet Take 1 tablet by mouth 2 times daily. 05/04/20 25 Active lisinopril 40 MG tablet TAKE 1 TABLET BY MOUTH EVERY MORNING 90 tablet 1 06/06/20 25 Active lisinopril 40 MG tablet TAKE 1 TABLET BY MOUTH EVERY MORNING 90 tablet 1 12/03/19 25 2024 Discontinued Active Problems Problem Noted Date Diagnosed Date Anxiety 05/30/2025 Assessment & Plan (05/30/2025 10:16 PM EDT): LOUIE 18 states after his brother he started feeling very anxious ,states feeling better now -Offered today harpreet pt refuse for now Anemia 05/30/2025 Overview (06/13/2025): Colonoscopy was performed by Dr Gayle on 2018 and showed severe diverticulosis in the sigmoid colon, internal and external hemorrhoids and no polyps. Assessment & Plan (06/13/2025 4:37 PM EDT): Hemoglobin ranges between 10 and 12, order ferritin levels and will decide on restart iron supplementation. Colonoscopy was performed by Dr Gayle in 2018 and showed severe diverticulosis in the sigmoid colon, internal and external hemorrhoids and no polyps. 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 Her daughter in law and son are primary caregivers. Continue Sinemet and follow-up closely with neurology Patient has severe constipation, otherwise is able to swallow and speak fairly well. Weakness 05/17/2025 Lung nodule 05/17/2025 Parkinsonism 05/17/2025 Non-recurrent acute serous otitis media of right [...] Bilateral tinnitus 09/27/2022 Eosinophil count raised 09/27/2022 Assessment & Plan (06/13/2025 4:35 PM EDT): Related to allergies? Rule out parasites, will order Strongyloides antibodies and stool test Plantar fasciitis of right foot 09/27/2022 Sprain [...] labs Parkinson's disease 09/27/2022 Assessment & Plan (05/30/2025 10:17 PM EDT): From apt w Dr Pineda yesterday noted says carbidopa-levodopa CR (Sinemet CR) 50-200 MG ER tablet 1 tab 4 times a day ,carbidopa-levodopa (Sinemet) 25-100 MG tablet 1 tab 3 times day . I called neurologist office to confirm doses,left voice mail for a call back. Also called pharmacy -[facility] staff -they were also not sure about recommendation , I read note from yesterday ,they will do changes as rec by neurologist ,Staff reports they also are trying to contact neurologist not able yet -advised pt and to bring [facility] and bottles of Sinemet so changes can be made - requesting a new RW w wheels -states prior w issues w brakes --- Request [place] DME for new RW Assessment & Plan (12/05/2024 3:17 PM EST): Doing fairly well on Sinemet and Amantadine, mobility is fairly preserved and uses cane/walker for ambulation. Has DME at home to decrease risk of falls and improve pt mobility. Follow up with Neurology. Assessment & Plan (08/23/2024 9:50 AM EDT): [...] will obtain neurology notes - pt needs 24/ assistance at home to prevent falls and [...] at home. His son is his primary certified social workers in health care. Continue Sinamet 25/100 x 2 tablets 4 [...] Reconsult prn if sxs do not resolve Primary insomnia 07/10/2018 Assessment & Plan (01/13/2023 [...] HTN (hypertension), benign 07/30/2015 Assessment & Plan (06/13/2025 4:35 PM EDT): Controlled. Compliant w/meds Continue lisinopril same dose Counseled re low salt diet/increase moderate physical activity. Check home BP BIW and prn CP/CALHOUN/JEROME Non smoking patient. Follow-up with me in 6 months Assessment & Plan (12/05/2024 1:05 PM EST): [...] lipid profile - f/u in 2 months Resolved Problems Problem Noted Date Diagnosed Date Resolved Date Acute gastroenteritis 05/17/20252024 Weight loss 07/10/2018 06/10/2025 Assessment & Plan (01/13/2023 12:27 PM EDT): Most likely due to decreased PO intake. I recommended to pt to get his dentures fixed by dentist. Continue glucerna TID an optimize solid food diet FU with me in 3 months. 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, with psychotic disturbance (CMS/HCC); Anemia, unspecified type; Eosinophil count raised; Overweight; Dietary counseling; Exercise counseling 06/10/2025 Travel 06/07/2025 Telephone [facility] [address] [place] [address] Chelo Smith MD Chart Prep 06/06/2025 Refill [facility] [address] [place] [address] Chelo Smith MD 05/31/2025 Patient Outreach [address] [address] Chelo Smith MD Pre-visit Planning (SDOH screening completed on 11/22/2024) 05/30/2025 10:00 AM EDT Office Visit [address] [address] Shirley Cuevas MD VOLODYMYR (acute kidney injury) (CMS/HCC) (Primary Dx); Anxiety; Parkinson's disease with dyskinesia and fluctuating manifestations (CMS/HCC); Anemia, unspecified type 05/30/2025 Results Follow-Up [address] [address] Shirley Cuevas MD CBC auto differential, Iron And Total Iron Binding Capacity, Ferritin, Additional followed-up results: 2 05/30/2025 Orders Only [address] [address] Shirley Cuevas MD Anemia, unspecified type (Primary Dx) 05/30/[address] [address] Shirley Cuevas MD Durable Medical Equipment 05/30/2025 Travel 05/20/[address] [address] Chelo Smith MD No Show (Pt no show for HDF ) 05/17/[address] [address] Melania Singh [place] Chart Prep 05/07/[address] [address] Chelo Smith MD HDF 05/07/2025 Patient Outreach [address] [address] Chelo Smith MD Pre-visit Planning (Hdf unscheduled) 05/01/[address] [address] Chelo Smith MD Nurse Triage 04/29/2025 Orders Only [facility] External Provider, [facility] 04/07/2025 Refill [facility] [address] [place] [address] Chelo Smith MD 04/02/2025 Telephone [facility] [address] [place] [address] Chelo Smith MD Appointment Request from Last 3 Months Immunizations Immunization Administration Dates Next Due DTaP 09/21/1999 Hep [...] Sign Reading Time Taken Comments Blood Pressure 138/84 06/10/2025 2:38 PM EDT Pulse 99 06/10/2025 2:38 PM EDT Temperature 36.4 C (97.6 F) 06/10/2025 2:38 PM EDT Respiratory Rate 18 06/10/2025 2:38 PM EDT Oxygen Saturation 97% 06/10/2025 2:38 PM EDT Inhaled Oxygen Concentration - - Weight 75.5 kg (166 lb 6.4 oz) 06/10/2025 2:38 P M EDT Height 172.7 cm (5' 8 ) 06/10/2025 2:38 PM EDT Body Mass Index 25.3 06/10/2025 2:38 PM EDT Plan of Treatment Health Maintenance Due Date Last Done Comments Dental Prophylaxis 1945 Dental X-Ray: Bitewings 1945 Dental Oral Exam 12/18/2022 06/16/2022, 05/04/2018 COVID-19 Vaccine ( season) 2024 10/27/2023, 10/28/2022, 02/16/2022, Additional history exists Influenza Vaccine (#1) 2025 , 07/27/2023, 07/09/2022, Additional history exists Dental X-Ray: Full Mouth 07/21/2025 07/20/2022, 04/23 Alcohol/Substance Use Screening 08/23/2025 08/23/2024 Depression Screening 08/23/2025 08/23/2024, 08/23/20 24 SDOH Screening 11/22/2025 11/22/2024 Tobacco Screening 06/10/2026 06/10/2025 Lipid Panel 07/11/2029 07/11/2024, 12/05/2020 DTaP/Tdap/Td Vaccines (4 - Td or Tdap) 11/14/2033 11/14/2023, 03/29/2013, 09/21/1999 Hepatitis B Vaccines Completed 04/29/2015, 11/27/2014, 10/23/2014 Zoster Vaccines Completed 08/09/2022, 05/24, 07/23/2014 Pneumococcal Vaccine: 50+ Years Completed 10/27/2023, 07/30/2015, 07/22/2014, Additional history exists RSV Patients and Patients Aged 60 years or older Completed 11/14/2023 Hepatitis C Screening Completed 07/11/2024 HIB Vaccines [...] patient's age to complete this topic Meningococcal B Vaccine Aged Out No l onger eligible based on patient's age to complete [...] Procedure Name Priority Date/Time Associated Diagnosis Comments STRONGYLOIDES AB IGG Routine 06/10/2025 3:06 PM EDT Anemia, unspecified type Eosinophil count raised FERRITIN Routine 06/10/2025 3:06 PM EDT Anemia, unspecified type CBC WITH AUTO DIFFERENTIAL Routine 06/10/2025 3:06 PM EDT Anemia, unspecified type COMPREHENSIVE METABOLIC PANEL Routine 05/30/2025 12:16 PM EDT VOLODYMYR (acute kidney injury) (CMS/HCC) TSH W/REFLEX TO FT4 Routine 05/30/2025 1 2:16 PM EDT VOLODYMYR (acute kidney injury) (CMS/HCC) FERRITIN Routine 05/30/2025 12:16 PM EDT VOLODYMYR (acute kidney injury) (CMS/HCC) IRON AND TOTAL IRON BINDING CAPACITY Routine 05/30/2025 12:16 PM EDT VOLODYMYR (acute kidney injury) (CMS/HCC) CBC WITH AUTO DIFFERENTIAL Routine 05/30/2025 12:16 PM EDT VOLODYMYR (acute kidney injury) (CMS/HCC) CT ABDOMEN PELVIS WO CONTRAST Routine 05/04/2025 4:26 PM EDT FL ESOPHAGUS BARIUM SWALLOW Routine 04/29/2025 8:15 AM EDT HEPATITIS PANEL, GENERAL Routine 07/11/2024 8:24 AM EDT HTN (hypertension), benign JEROME (dyspnea on exertion) LIPID PANEL, STANDARD Routine 07/11/2024 8:24 AM EDT HTN (hypertension), benign PANORAMIC RADIOGRAPHIC IMAGE Routine 07/20/2022 12:00 AM EDT PERIODIC ORAL EVALUATION - ESTABLISHED PATIENT Routine 06/16/2022 12:00 AM EDT from Last 3 Months or Most Recently Relevant to Health Maintenance Results * Strongyloides Antibody (IgG) (06/10/2025 3:06 PM EDT) [facility] Signature Strongyloides Antibody IgG NEGATIVE [facility] Comment:REFERENCE RANGE: NEG ATIVEStrongyloides stercoralis is a parasiticNematode found in tropical and subtropicalregions. Because of low larval densities infeces, stool examination is a relativelyinsensitive diagnostic test; antibody detectionoffers increased sensitivity. Patients withlatent infections who are immunosuppressed orreceiving immunosuppressive therapy are at riskof life- threatening hyperinfection. Significantcrossreactivity may be observed in otherhelminth infections.THIS TEST WAS PERFORMED AT:[employer] [id number] [facility] [place] [id number] THORPE MD,PHD,MARTIN Blood Venous blood specimen / Unknown 06/10/2025 3:06 PM EDT 06/10/2025 4:35 PM EDT us Chelo Smith MD LAB BLOOD ORDERABLES Fin al Result [facility] [address] [place] [address] [phone] * (ABNORMAL) CBC auto differential (06/10/2025 3:06 PM EDT) Only the most recent of2 resultswithin the time period is included. White Blood Count 9.1 4.8 - 10.8 X10*3/uL [facility] Red Blood Count 4.52(L) 4.60 - 5.80 X10*6/uL [facility] Hemoglobin 12.8(L) 14.0 - 18.0 g/dl [facility] Hematocrit 40.0(L) 42.0 - 52.0 % [facility] Mean Corpuscular Volume 88.5 80.0 - 98.0 fL [facility] Mean Corpuscular Hemoglobin 28.3 27.0 - 33.0 pg [facility] Mean Corpuscular HGB Conc 32.0 31.0 - 36.0 g/dl [facility] Red Cell Distribution Width 14.5 11.0 - 16.0 % [facility] Platelet Count 179 160 - 400 X10*3/uL [facility] Mean Platelet Volume 10.7 9.4 - 12.4 fL [facility] Neutrophils Percent Auto 59.9 45 - 73 % [facility] Imm Gran Pct Auto 0.1 0.0 - 0.4 % [facility] Lymphocytes Percent Auto 23.7 20 - 40 % [facility] Monocytes Percent Auto 8.9 2 - 11 % [facility] Eosinophils Percent Auto 6.7(H) 0 - 4 % [facility] Basophils Percent Auto 0.7 0 - 2 % [facility] NRBC Pct Auto 0.0 0.0 - 0.2 /100WBC [facility] Neutrophils Absolute Auto 5.5 2.0 - 8.3 x10*3/uL [facility] Imm Gran Abs Auto 0.01 0.00 - 0.03 X10*3/uL [facility] Lymphocytes Absolute Auto 2.2 1.2 - 4.9 X10*3/uL [facility] Monocytes Absolute Auto 0.8 0.1 - 1.2 X10*3/uL [facility] Eosinophils Absolute Auto 0.6(H) 0.0 - 0.4 X10*3/uL [facility] Basophils Absolute Auto 0.1 0.0 - 0.2 X10*3/uL [facility] NRBC Abs Auto 0.000 0.0 - 0.012 X10*3/uL [facility] Blood Venous blood specimen / Unknown 06/10/2025 3:06 PM EDT 06/10/2025 4:35 PM EDT Chelo Smith MD LAB BLOOD ORDERABLES Fin al Result Performing Organization Address [facility] Co de Phone Number [facility] [address] [place] [phone] * Ferritin (06/10/2025 3:06 PM EDT) Only the most recent of2 resultswithin the time period is included. Ferritin 208 20 - 250 ng/mL [facility] Blood Venous blood specimen / Unknown 06/10/2025 3:06 PM EDT 06/10/2025 4:35 PM EDT Chelo Smith MD LAB BLOOD ORDERABLES Fin al Result Performing Organization Address [facility] Co de Phone Number [facility] [address] [place] [phone] * TSH with Reflex to Free T4 (05/30/2025 12:16 PM EDT) TSH reflex Free T4 1.13 0.32 - 4.0 uIU/mL [facility] Blood 05/30/2025 12:1 6 PM EDT 05/30/2025 4:10 PM EDT Shirley Matias MD LAB BLOOD ORDERAB LES Final Result Performing Organization Address [facility]/ZIP Co de Phone Number [facility] [address] [place] [address] [phone] * Iron And Total Iron Binding Capacity (05/30/2025 12:16 PM EDT) Iron 75 45 - 160 mcg/dL [facility] Total Iron Binding Capacity 277 228 - 428 mcg/dL [facility] Percent Iron Saturation 27 15 - 50 % [facility] Unsaturated Iron Binding 202 ug/dL [facility] Blood Venous blood specimen / Unknown 05/30/2025 12:16 PM EDT 05/30/2025 4:10 PM EDT Shirley Matias MD LAB BLOOD ORDERAB LES Final Result Performing Organization Address [facility] de Phone Number [facility] [address] [place] [phone] [phone] * (ABNORMAL) Comprehensive Metabolic Panel (05/30/2025 12:16 PM EDT) Sodium 143 135 - 145 mmol/L [facility] Potassium 4.5 3.3 - 5.1 mmol/L [facility] Chloride 106 96 - 108 mmol/L [facility] Carbon Dioxide 28 22 - 29 mmol/L [facility] Anion Gap 14 12 - 20 [facility] Urea Nitrogen (BUN) 28(H) 9 - 16 mg/dL [facility] Creatinine, Serum 1.44(H) 0.5 - 1.4 mg/dL [facility] Estimated Glomerular Filt Rate 47 [facility] Comment:Chronic Kidney Disea se: Estimated GFR < 60 mL/min/1.26v6Gmlzul Kidney Disease: Estimated GFR < 15 mL/min/1.73m2 Glucose 96 60 - 115 mg/dL [facility] Calcium 9.3 8.4 - 10.2 mg/dL [facility] Bilirubin, Total 0.3 0.0 - 1.0 mg/dL [facility] Aspartate Amino Transferase 42(H) 5 - 37 U/L [facility] Alanine Aminotransferase 14 0 - 40 U/L [facility] Total Protein 7.5 6.5 - 8.0 g/dL [facility] Albumin Level 4.2 3.5 - 5.0 g/dL [facility] Alkaline Phosphatase 99 39 - 117 U/L [facility] Blood Venous blood specimen / Unknown 05/30/2025 12:16 PM EDT 05/30/2025 4:10 PM EDT us Shirley Matias MD LAB BLOOD ORDERAB LES Final Result Performing Organization Address City/State/[facility] Co de Phone Number [facility] [address] [place] [address] [phone] * CT Abdomen Pelvis w/o Contrast (05/04/2025 4:26 PM EDT) Anatomical Region Laterality Modality Body, Pelvis, Abdomen Computed T omography 05/04/2025 4:26 PM EDT Narrative 05/04/2025 4:28 PM EDT [place] [address] CT Scan Report Signed with Tre Patient: Yonatan Jacobo MR#: [id number] 858 : 1945 Acct:[id number] Age/Sex: 79 / M ADM Date: 05/04/25 Loc: .ED Attending Dr: Ordering Physician: Josiah Jonas Date of Service: 05/04/25 Procedure(s): CT abdomen pelvis wo IV con Accession Number(s): [id number] cc: Chelo Smith MD; Josiah Jonas Report Number: [id number]: Total DLP = 884.00 mGy-cm ADDENDUM This document has been electronically signed by: Brent Armstrong MD on 05/04/2025 16:26:47 ADDENDUM: This report was discussed with Josiah Phan on May 04, 2025 16:28:00 EDT. This document has been electronically signed by: Dayami Smith on 05/04/2025 16:28:53 Addendum Dictated By: Brent Armstrong MD Addendum Signed By: <Electronically signed by Brent Armstrong MD in OV> 05/04/251628 Addendum Cosigned By: DD/ /17/1626 TD/TT: 05/04/2510/17/1628 CLINICAL HISTORY: epigastric abdominal pain and vomiting with VOLODYMYR CT abdomen and pelvis without contrast Comparison: None provided Findings: Trace bilateral pleural effusions bilateral basilar atelectasis. The liver, spleen, adrenal glands, pancreas are unremarkable. Kidneys are normal without hydronephrosis. There is dense contrast material within the colon. Multiple colonic diverticula are present. No evidence of diverticulitis. There are multiple air and fluid distended loops of small bowel within the abdomen. Distal small bowel is decompressed. No discrete transition point seen. Caliber change appears somewhat gradual in the right lower quadrant. No free air. No ascites. Normal appendix. No acute fracture. Degenerative changes of the lumbar spine are present. IMPRESSION: Distended proximal and mid small bowel with decompressed distal small bowel. Differential includes diffuse ileus, versus early or partial small bowel obstruction. This document has been electronically signed by: Brent Armstrong MD on 05/04/2025 16:26:47 Dictated By: Brent Armstrong MD Signed By: <Electronically signed by Brent Armstrong MD in OV> 05/04/251626 DD/ 25 TD/TT: 05/04/251625 Pool Table Operator: Procedure Note Donotuseinterpreter, Image - 05/04/[address] [address] [address] Scan Report Signed with Addenda Patient: Yonatan Jacobo FMR#: [id number] : 5Acct:[id number] Age/Sex: 79 / MADM Date: 05/04/25 Loc: HO.ED Attending Dr: Ordering Physician: Josiah Jonas Date of Service: 05/04/25 Procedure(s): CT abdomen pelvis wo IV con Accession Number(s): [id number] cc: Chelo Smith MD; JacquesJosiah Miller Report Number: [id number]: Total DLP = 884.00 mGy-cm ADDENDUM This document has been electronically signed by: Brent Armstrong MD on 05/04/2025 16:26:47 ADDENDUM: This report was discussed with Josiah Phan on May 04, 2025 16:28:00EDT. This document has been electronically signed by: Dayami Smith on 05/04/2025 16:28:53 Addendum Dictated By: Brent Armstrong MD Addendum Signed By: <Electronically signed by Brent Armstrong MD in OV> 05/04/251628 Addendum Cosigned By: DD/ /17/1626 TD/TT: 05/04/2510/17/1628 CLINICAL HISTORY: epigastric abdominal pain and vomiting with VOLODYMYR CT abdomen and pelvis without contrast Comparison: None provided Findings: Trace bilateral pleural effusions bilateral basilar atelectasis. The liver, spleen, adrenal glands, pancreas are unremarkable. Kidneys are normal without hydronephrosis. There is dense contrast material within the colon. Multiple colonic diverticula are present. No evidence of diverticulitis. There are multiple air and fluid distended loops of small bowel within the abdomen. Distal small bowel is decompressed. No discrete transition point seen. Caliber change appears somewhat gradual in the right lower quadrant. No free air. No ascites. Normal appendix. No acute fracture. Degenerative changes of the lumbar spine are present. IMPRESSION: Distended proximal and mid small bowel with decompressed distal small bowel. Differential includes diffuse ileus, versus early or partial small bowel obstruction. This document has been electronically signed by: Brent Armstrong MD on 05/04/2025 16:26:47 Dictated By: Brent Armstrong MD Signed By: <Electronically signed by Brent Armstrong MD in OV> 05/04/251626 DD/ 25 TD/TT: 05/04/251625 Pool Table Operator: [facility] External Provider IMG CT PROCEDURES Edited Result - Final * FL Esophagus Barium Swallow (04/29/2025 8:15 AM EDT) Anatomical Region Laterality Modality Head, Neck Radiographic Astrid ging 04/29/2025 8:15 AM EDT Narrative 04/29/2025 9:17 AM EDT [address] [address] Fluoroscopy Report Signed Patient: Yonatan Jacobo MR#: [id number] 858 : 1945 Acct:[id number] Age/Sex: 79 / M ADM Date: 04/29/25 Loc: HO.XRAY Attending Dr: Albaro Russo MD Ordering Physician: Albaro Russo MD Date of Service: 04/29/25 Procedure(s): FL barium swallow Accession Number(s): [id number] cc: Chelo Smith MD; Albaro Russo MD EXAMINATION: XR BARIUM SWALLOW CLINICAL INFORMATION: Dysphagia, pharyngoesophageal phase. COMPARISON: None available. TECHNIQUE: Routine upright barium swallow was performed with thick barium. FINDINGS: On oral administration of thick barium and AP view there is josue laryngeal penetration and aspiration better visualized on oblique view. Otherwise there is normal antegrade propagation bolus through the pharynx, esophagus into stomach with no obstructive or constrictive narrowing. No extrinsic compression seen. FLUOROSCOPY TIME: 1:06 minutes DOSE AREA PRODUCT: 410 uGy-m2 (microgray-meter squared) FL/FL barium swallow IMPRESSION: Josue laryngeal aspiration on the very first oral swallow of thick barium. Results were immediately conveyed to referring physician Dr. Russo by tiger text. Electronically signed by: Ezra Aaron MD 04/29/2025 09:14 AM EDT Dictated By: Ezra Aaron MD Signed By: <Electronically signed by Ezra Aaron MD in OV> 04/29/25913 DD/ TD/TT: 04/29/25 0853 Pool Table Operator: [facility] Procedure Note Donotuseinterpreter, Image - 04/29/[address] [employer] [address] Fluoroscopy Report Signed Patient: Yonatan Jacobo FMR#: [id number] : 5Acct:[id number] Age/Sex: 79 / MADM Date: 04/29/25 Loc: HO.XRAY Attending Dr: Albaro Russo MD Ordering Physician: Albaro Russo MD Date of Service: 04/29/25 Procedure(s): FL barium swallow Accession Number(s): [id number] cc: Chelo Smith MD; Albaro Russo MD EXAMINATION: XR BARIUM SWALLOW CLINICAL INFORMATION: Dysphagia, pharyngoesophageal phase. COMPARISON: None available. TECHNIQUE: Routine upright barium swallow was performed with thick barium. FINDINGS: On oral administration of thick barium and AP view there is josue laryngeal penetration and aspiration better visualized on oblique view. Otherwise there is normal antegrade propagation bolus through the pharynx, esophagus into stomach with no obstructive or constrictive narrowing. No extrinsic compression seen. FLUOROSCOPY TIME: 1:06 minutes DOSE AREA PRODUCT: 410 uGy-m2 (microgray-meter squared) FL/FL barium swallow IMPRESSION: Josue laryngeal aspiration on the very first oral swallow of thick barium. Results were immediately conveyed to referring physician Dr. Russo by tiger text. Electronically signed by: Ezra Aaron MD 04/29/2025 09:14 AM EDT Dictated By: Ezra Aaron MD Signed By: <Electronically signed by Ezra Aaron MD in OV> 04/29/2514 DD/ 0815 TD/TT: 04/29/25 0853 Pool Table Operator: VETO [facility] External Provider IMG FLU OROSCOPY PROCEDURES Final Result * Hepatitis Panel, General (07/11/2024 8:24 AM EDT) Hepatitis A IgM Nonreactive Nonreactive [facility] Comment:IgM antibodies to CALHOUN V not detected; does not exclude earlyacute or recovered HAV infection. ~Hepatitis B Surface Antibody NONREACTIVE Nonreactive [facility] Comment:Nonreactive: < 8.00 mIU/mL Hepatitis B Core Antibody Nonreactive Nonreactive [facility] Hepatitis C Antibody Nonreactive Nonreactive [facility] Comment:Antibodies to HCV no t detected; does not exclude early acuteHCV infection. Hepatitis B Surface Ag Negative Negative [facility] Blood 07/11/2024 8:24 AM EDT 07/11/2024 8:24 AM EDT us Chelo mSith MD LAB BLOOD ORDERABLES Fin al Result Performing Organization Address City/[facility] Co de Phone Number [facility] [address] [place] [phone] * Lipid Panel, Standard (07/11/2024 8:24 AM EDT) Triglycerides 94 <150 mg/dL [facility] Comment:Desirable Triglyceri de: less than 150 mg/dLBorderline High Triglyceride 150-199 mg/dLHigh Triglyceride: 200-499 mg/dLVery High Triglyceride: greater than or equal to 5OO mg/dL Cholesterol 143 <200 mg/dL [facility] Comment:Desirable Cholestero l: less than 200 mg/dLBorderline High Cholesterol: 200-239 mg/dLHigh Cholesterol: greater than 239 mg/dL LDL Cholesterol Calculated 47 <100 mg/dL [facility] Comment:Desirable LDL: less than 100 mg/dLNear Optimal/Above Optimal LDL: 110- 129 mg/dLBorderline High LDL: 130-159 mg/dLHigh LDL: 160-189 mg/dLVery High LDL: greater than or equal to 190 mg/dL HDL Cholesterol 78 >40 mg/dL [facility] Comment:Desirable HDL: great er than 40 mg/dL Note: This HDL assay may give artificially low results in patients with liver disease. 07/11/2024 8:24 AM EDT 07/11/2024 8:24 AM EDT us Chelo Smith MD LAB BLOOD ORDERABLES Fin al Result Performing Organization Address City/[facility]/ZIP Co de Phone Number [facility] [address] [place] [phone] from Last 3 Months or Most Recently Relevant to Health Maintenance Insurance [facility] Care Teams Tax Attorney Relationship Specialty Start Date End Date Chelo Smith MD [address] [place], [place] [phone] PCP - General Family Medicine 12/30/20 Bishop Jacobo, EulogioD [address] [place], [place] [phone] Pharmacist Internal Medicine 05/09/23
--- OUTSIDE RECORDS SUMMARY | 2025-06-25 14:59 | XMS_ITS | Encounter Summary ---
Author Organization [email or web address] Address [address] [place] [address] Care Team Providers Care Preflight Inspector Name Role Phone Chelo Smith MD Primary Care Provider + Bishop Jacobo PharmD Unavailable [phone] Reason for Visit * Reason Comments Med Refill Encounter Details Date Type Department Care Team (Late st Contact Info) Description 01/21/2025 Refill [facility] [address] [place], [place] [phone] Chelo Smith MD [address] [place], [place] [phone] Social History Tobacco Use Types Packs/Day Years [...] documented as of this encounter Care Teams Preflight Inspector Relationship Specialty Start Date End Date Chelo Smith MD [address] [place] [address] PCP - General Family Medicine 12/30/20 Bishop Jacobo, Eladio [address] [place] [phone] Pharmacist Internal Medicine 05/09/23 documented as of this encounter
--- OUTSIDE RECORDS SUMMARY | 2025-06-25 14:59 | XMS_ITS | Encounter Summary ---
Author Organization [employer] Address [address] [place] [address] Care Team Providers Care Belt Splicer Name Role Phone Chelo Smith MD Primary Care Provider + Bishop Jacobo PharmD Unavailable [phone] Reason for Visit * Reason Comments Med Refill Encounter Details Date Type Department Care Team (Late st Contact Info) Description 09/02/2024 Refill [facility] [address] [place], [place] [phone] Chelo Smith MD [address] [place], [place] [phone] Restless legs Social History Tobacco Use Types [...] documented as of this encounter Care Teams Belt Splicer Relationship Specialty Start Date End Date Chelo Smith MD [address] [place] [address] PCP - General Family Medicine 12/30/20 Bishop Jacobo, PharmD [address] [place] [address] Pharmacist Internal Medicine 05/09/23 documented as of this encounter
--- NOTE | 2025-07-02 12:37 | MHC.SL.IMP ---
Date of Plan of Treatment: 06/25/25 Onset of Symptoms/Illness: 04/29/25 Date Treatment Started: 06/25/25 Admitting Diagnosis: Parkinson's Disease Primary Speech & Language Diagnosis: R13.12 Oropharyngeal Phase Dysphagia Reason for Today's Visit: 33340 Modified Barium Swallow Study Pre-evaluation Dietary Consistencies: Regular Pre-evaluation Liquid Consistency: Thin Pre-evaluation Medication Administration: Whole with Puree Medical History: Modified Barium Swallow Study Fluoroscopic Evaluation of Swallowing Function CPT Code 95425 Evaluation Year: 2024 Reason for Study: Dysphagia, pharyngoesophageal phase. pt had laryngeal penetration on attempting a barium swallow. He denies coughing spells with swallowing. Referring Physician: Albaro Russo MD Evaluating Clinician: Aylin Ovalles MA, CCC-DIE BARBER Study Number: 1 Patient Name: Yonatan Jacobo Status: Outpatient Age: 79 Sex: Male Medical History Medical History (Updated 05/29/25 @ 12:49 by Erma Pineda MD) Dysphagia, pharyngoesophageal phase GERD (gastroesophageal reflux disease) Hx of cataract Hyperproteinemia JEROME (dyspnea on exertion) Dysphagia Multiple lung nodules Venous stasis dermatitis of both lower extremities Glaucoma Diverticular disease of colon Leg edema, right Insomnia Sprain of left rotator cuff capsule Restless leg syndrome Plantar fasciitis Eosinophil count raised Cerebrovascular disease Bilateral tinnitus Parkinson disease Latent tuberculosis Degenerative disc disease Back pain Diverticulosis Allergic rhinitis Cerebral microvascular disease Diabetes HLD (hyperlipidemia) HTN (hypertension) Surgical History Hx of colonoscopy (~06/2018) Current (pre-evaluation) Intake/Diet: Route: PO Diet Grade: Regular Liquid Consistencies: Thin Pre-Study Functional Oral Intake Scale (FOIS): 7- Total oral intake with no restrictions Pain: None reported at time of study SUBJECTIVE: Patient is a 79 year old male referred for a modified barium swallow study by Albaro Russo MD from the [facility] office. Patient recently had a Barium Swallow X-Ray on 04/29 showing ?cosme laryngeal aspiration on the very first oral swallow of thick barium.? Patient denied coughing spells on food and reports he is able to swallow, however, does mention problems with his teeth and chewing, and coughing on his saliva at night. Patient also reported today that sometimes he feels food get stuck at the level of the sternal notch and sometimes having to spit it back out, though he continues to deny choking. Patient says he typically takes his pills whole with applesauce. Patient lives with his and has daily RESPIRATORY CARE TECHNICIAN services. Patient uses a walker and cane to assist with ambulation. He has underlying Parkinson?s Disease, history also includes GERD, diverticulosis, and cerebrovascular disease. Oral Motor Exam Facial Symmetry: Symmetrical Mouth Occlusion: Normal Oral-Facial Teeth Characteristics: Dentures Oral-Facial Smile (Lips) Description: Normal Tongue Size: Normal Tongue Excursion Description: Normal Tongue Range of Movement Description: Reduced Tongue Speed of Movement Description: Reduced Tongue Strength of Movement (against opposing pressure): Reduced Tongue Movement Characteristics: Tongue Movement Miscellaneous Observation: Lingual tremor noted Food and Liquid Trials: Oral Impairment: Lip Closure: Did not test Oral Impairment: Tongue Control During Bolus Hold: Did not test Oral Impairment: Bolus Preparation/Mastication: 1=Slow prolonged chewing/mashing with complete re-collection Oral Impairment: Bolus Transport/Lingual Motion: 1= Delayed initiation of tongue motion Oral Impairment: Oral Residue: 2=Residue collection on oral structures Oral Impairment:Initiation of Pharyngeal Swallow: 3=Bolus head in pyriforms Pharyngeal Impairment: Soft Palate Elevation: 0=No bolus between soft palate (SP)/pharyngeal wall (PW) Pharyngeal Impairment: Laryngeal Elevation: 2=Minimal superior movement of thyroid cartilage (see description) Pharyngeal Impairment: Anterior Hyoid Excursion: 2=No anterior movement Pharyngeal Impairment: Epiglottic Movement: 1=Partial inversion Pharyngeal Impairment: Laryngeal Vestibular Closure:: 1=Incomplete: narrow column air/contrast in laryngeal vestibule Pharyngeal Impairment: Pharyngeal Stripping Wave: 0=Present: complete Pharyngeal Impairment: Pharyngeal Contraction: Did not test Pharyngeal Impairment: Pharyngoesophageal Segment Opening: Did not test Pharyngeal Impairment: Tongue Base (TB) Retraction: 1=Trace column of contrast/air between TB and posterior PW Pharyngeal Impairment: Pharyngeal Residue: 2=Collection of residue within or on pharyngeal structures Pharyngeal Impairment: Esophageal Clearance Upright Position: Did not test Impressions and Recommendations OBJECTIVE: Time-out: performed at 15:00 Evaluation Start: 14:30; Stop: 14:35 Viewing Planes: LATERAL ONLY Contrast: MBSImP? Standardized Protocol using commercially prepared, standardized Barium viscosities, including: Varibar? THIN LIQUID (40% w/v, <15 cps) , Varibar? PUDDING (40% w/v, <5212-8974 cps) , 1/2 Shortbread Cookie (1 x1 x.25 ) [facility] [id number] MBSImP Results: Lip closure for intraoral bolus containment could not be assessed due to logistical reasons not related to physiologic impairment. Tongue control during bolus hold could not be assessed due to logistical reasons not related to physiologic impairment. Bolus preparation and mastication resulted in slow, prolonged chewing/mashing but with complete re-collection. Bolus transport/lingual motion demonstrated delayed initiation of tongue motion. Oral residue was a collection on oral structures. Initiation of the pharyngeal swallow occurred when the bolus head was in the pyriform sinuses. Soft palate elevation resulted in no bolus between the soft palate and the pharyngeal wall. Laryngeal elevation was incomplete, as indicated through minimal superior movement of the thyroid cartilage with minimal approximation of the arytenoids to the epiglottic petiole. Anterior hyoid excursion demonstrated no movement. Epiglottic movement resulted in partial inversion. Laryngeal vestibular closure was incomplete, with a narrow column of air/contrast noted within the laryngeal vestibule at the height of the swallow. Pharyngeal stripping wave was present and complete. Pharyngeal contraction could not be determined due to logistical reasons not related to physiologic impairment. Pharyngoesophageal segment opening could not be assessed due to logistical reasons not related to physiologic impairment. Tongue base retraction allowed a trace column of contrast or air between the retracted tongue base and the posterior pharyngeal wall. Pharyngeal residue was a collection of residue within or on pharyngeal structures. Esophageal clearance in the upright position could not be assessed due to logistical reasons not related to physiologic impairment. Oral Impairment Score: 7 (absence of score, component 1component 2) Pharyngeal Impairment Score: 8 (absence of score, component 13component 14) Esophageal Impairment Score: --- (absence of score, component 17) Laryngeal Penetration and Aspiration: Neither penetration nor aspiration was observed in today's study with Cookie, Pudding-thick. Penetration was observed in today's study. Thin Contrast entered the airway, remained above the vocal folds, and was ejected from the airway. ASSESSMENT: This exam was performed by the radiologist and the speech pathologist. Patient was able to feed independently and trialed the following consistencies: -Thin liquid (sequential cup sips) -Puree (mixture applesauce w/ barium pudding) -Regular (shortbread cookie coated w/ barium pudding) Mastication was mildly slowed and prolonged. Posterior lingual motion was delayed in onset, but with brisk lingual movement. Pharyngeal swallow trigger was delayed, initiated as the bolus head reached the pyriforms. Post-swallow, there was mild residue coating the tongue and palate. No evidence of nasopharyngeal reflux. Minimal laryngeal elevation with no anterior hyoid movement and partial epiglottic inversion. Incomplete laryngeal vestibular closure with evidence of penetration on trials of thin liquid. A trace amount of contrast entered the airway above the vocal folds and cleared on subsequent swallows. No evidence of aspiration during this exam. There was significant vallecular retention, with some collection also in the pyriforms. Dry swallows and chin tuck maneuver were minimally effective in reducing residuals. Patient took a sip of water, which effectively cleared residue from the pharynx. The following compensatory strategies have not been used until today's study, but when employed, improved swallowing function: Liquid Wash eliminated Oral Residue, Pharyngeal Residue Additional Swallow(s) per Bolus eliminated Penetration Liquid Intake Recommendation: Thin Liquid Intake Strategies: Small Sips, No Straws Dietary Recommendations: Chopped/Advanced (NDD3) Medication Administration: Whole with Puree Please contact the pharmacy regarding appropriate crushable or liquid drug formulations that are available whenever modified delivery is recommended. Compensatory Strategies Recommended: Sitting Upright (90 deg), No Straw, Small Bites and Sips, Alternate Liquids/Solids, Rate of Ingestion Change Recommended Treatments: Compens. Strategy Educat. Recommendation for Speech Therapy: Outpatient Speech Therapy Text Comment: Intake Recommendations: Route: PO Diet Grade: Regular Liquid Consistencies: Thin Post-Study Functional Oral Intake Scale (FOIS): 5- Total oral intake of multiple consistencies requiring special preparation Patient presents with mild to moderate oropharyngeal dysphagia, characterized by slowed mastication pattern with presence of top and bottom dentures, delayed AP transport, delayed pharyngeal swallow trigger, minimal laryngeal elevation and reduced airway protection due to partial epiglottic inversion and incomplete laryngeal vestibular closure. There was penetration seen on trials of thin liquid, with no subsequent aspiration. Significant vallecular retention, which effectively cleared with liquid wash. Therapy Recommendations: Recommend CHOPPED/ADVANCED (NDD3) diet for ease of mastication and to promote pharyngeal clearing, and THIN liquids, pills WHOLE in PUREE per patient preference. Patient is recommended 1 follow-up visit with a speech pathologist for further education on recommended strategies and aspiration precautions: -take one sip at a time -avoid the use of straws -ensure upright 90 degree position during PO intake and for at least 30 minutes afterwards -chew food well -moisten foods with sauces/gravies -alternate bites with sips of liquid The following compensatory strategies and/or therapeutic exercises will be part of the upcoming therapy/management plan: Liquid Wash Additional Swallow(s) per Bolus Non Destructive Testing Scientist Goals: ? The patient and/or family will participate in further education for swallowing goals. Short Term Goals: ? Guidelines - The patient will comply with/recall the following guidelines/strategies 100% of the time with no cuing: Bolus Volume Change, Rate of Ingestion Change, Liquid Wash, Additional Swallow(s) per Bolus. ? Education - The patient, family will verbalize/demonstrate understanding of the results of this evaluation, the above recommendations, and the swallowing guidelines. Frequency/Duration: 1 f/u Date Range for Service Requested: Timeline to reassess: PRN Clinician - Supplemental, Miscellaneous Communication: It is important to note MBSS objective studies are snapshots in time and Patient function might vary with factors such as time of day or concomitant medical conditions. For this reason, the final treatment plan for this patient should rest with their medical care team. Additional recommendations should be considered with the totality of the Patient in mind. Thank for the opportunity to participate in the care of this patient. If you have any questions about the content of this report, please contact the [facility]. Education: Education regarding findings from today's study and plans for therapy were provided to Patient only through Verbal Instruction. Understanding was expressed by the Patient only. Community Case Manager Clinician/Clinical Fellow: No Supervisory Statement: N/A Speech Language Pathologist: Aylin Ovalles M.A., CCC-DIE BARBER
== END 2025-06-25 13:45 | disposition home or self-care (01) ==
LOC: HO.XRAY 13:44
PROVIDERS: PCP Internal Medicine; Visit Provider Internal Medicine Gastroenterology
DX: R13.14 Dysphagia, pharyngoesophageal phase (principal)
CPT/HCPCS: 74230; 92611

== ENCOUNTER → 2025-06-25 14:30 | Outpatient (BNV) | payer OTHER, SELFPAY | PROVIDERS: PCP Internal Medicine; Visit Provider Radiology Diagnostic Radiology | DX: R13.10 Dysphagia, unspecified (principal) | CPT/HCPCS: 74230 ==

== ENCOUNTER 2025-07-23 12:03 | Outpatient (RCR) | payer OTHER, SELFPAY ==
--- NOTE | 2025-07-23 13:41 | MHC.SL.DTX ---
Dysphagia Diet modifications: Last documented Solid diet consistencies: Chopped/Advanced (NDD3) Last documented Liquid consistency: Thin Changes made to current diet?: No Dietary Recommendations: Chopped/Advanced (NDD3)/ Thin Liquids Additional Modifications to Solids: Recommend CHOPPED/ADVANCED (NDD3) diet for ease of mastication and to promote pharyngeal clearing, and THIN liquids, pills WHOLE in PUREE per patient preference. The following strategies are recommended to promote pharyngeal clearance and as aspiration precautions: -take one sip at a time -avoid the use of straws -ensure upright 90 degree position during PO intake and for at least 30 minutes afterwards -chew food well -moisten foods with sauces/gravies -alternate bites with sips of liquid Strategies and Precautions to be Taken for Safe Swallow: Sitting Upright (90 deg) Double Swallow No Straw Small Bites and Sips Alternate Liquids/Solids Rate of Ingestion Change Avoid Specific Foods Foods to Avoid: Hostetter hard or sticky/dry foods Recommendation for Speech: Additional Comments: Patient is a 79 year old male referred for a modified barium swallow study by Albaro Russo MD from the [facility] office. Patient recently had a Barium Swallow X-Ray on 04/29 showing ?cosme laryngeal aspiration on the very first oral swallow of thick barium.? Patient denied coughing spells on food and reports he is able to swallow, however, does mention problems with his teeth and chewing, and coughing on his saliva at night. Patient also reported that sometimes he feels food get stuck at the level of the sternal notch and sometimes having to spit it back out, though he continues to deny choking. Patient says he typically takes his pills whole with applesauce. He was referred for MBSS to further assess his swallow, which was completed on 06/25 and showed mild to moderate oropharyngeal dysphagia, with slowed mastication pattern, delayed oral transit, delayed swallow, and compromised airway protection. On imaging there was penetration seen on sequential sips of thin liquid, but no aspiration. Significant vallecular retention cleared with liquid wash. Patient returns today for follow-up for continued education on these findings and recommended diet and strategies. He reports he has been doing well with his swallow and denies having any complaints at this time. He does not recall specific details from his MBSS, but believes it went well. Patient is seen today with interpretation provided with Sammarinese-speaking medical research assistant. He is accompanied by his . Patient lives with his and has daily RECRUITMENT AND OUTREACH ASSISTANT services. Patient uses a walker and cane to assist with ambulation. He has underlying Parkinson?s Disease, history also includes GERD, diverticulosis, and cerebrovascular disease. Treatment: MBSS findings were discussed at length with review of recorded images with use of anatomical diagrams. Patient was informed that his exam revealed penetration when he took rapid sips of thin consistency and he is recommended to drink carefully, ensuring upright 90 degree positioning and taking small individual sips. His endorsed he tends to drink very quickly. Patient also had significant vallecular residue after swallowing solids, which cleared with sips of liquid. Patient reports difficulty chewing due to the condition of his dentures. SEWING DEMONSTRATOR recommended chopped diet (NDD3) for ease of mastication and to promote better clearing. Recommend foods to be moistened with sauces/gravies, for patient to take small bites, and wash each bite down with sips of liquid. Patient's reports she always mashes all of patients food for the past three years and prepares it to be soft and moist. Patient and his were provided with a handout in Sammarinese outlining chopped diet guidelines, as well as a copy of MBSS report, and written strategies in Sammarinese. They verbalized understanding and denied having any questions at this time. Given the progressive nature of patient's underlying condition of Parkinson's, he is recommended to closely monitor his dysphagia. If he experiences any changes or worsening of symptoms, consult with PCP, at which point a repeat-assessment may be warranted. Further follow-up is no longer indicated at this time. Assessment: Teaseler Clinican/Clinical Fellow: No Supervisory Statement: I have reviewed and agree with the student/clinical fellow's documentation: N/A Speech Language Pathologist: Aylin Ovalles M.A., [facility]-SEW[facility] DEMONSTRATOR
== END 2025-07-23 15:53 | disposition home or self-care (01) ==
LOC: HO.SH 12:03
PROVIDERS: PCP Internal Medicine; Visit Provider Internal Medicine Gastroenterology
DX: R13.14 Dysphagia, pharyngoesophageal phase (principal)
CPT/HCPCS: 92526

== ENCOUNTER 2025-08-22 08:50 | Outpatient (AMB) | payer OTHER, SELFPAY ==
[2025-08-22 08:54] VITALS: BP 129/60; PULSE 83; BMI 25.8
--- NOTE | 2025-08-22 08:54 | A.OFFVIS_ITS ---
Vital Signs 08/22/25 08:54 Height 5 ft 8 in Weight 169 lb 12.095 oz BMI 25.8 BP 129/60 Blood Pressure Location Lt brachial Position Sitting Pulse 83 Intake Visit Reasons: 3 MO F/U Intake Note: Yonatan presents in the office as a 3 month follow up. CC: States that he has no good sleeping at night time. States that there are no GI concerns. Bed And Breakfast Operator Required: Yes Bed And Breakfast Operator Name: Garfield # [id number] Allergies No Known Allergies Allergy (Unknown, Verified 08/22/25 09:58) NKA Medication List - Last Reconciled 08/22/25 by Albaro Russo MD acetaminophen ER 1 - 2 tabs PO Q8H PRN amantadine HCl 100 mg PO BID@0700,1200 aspirin (Adult Low Dose Aspirin) 81 mg PO DAILY blood pressure test kit-large As directed carbidopa-levodopa 25-100 mg 1 tab PO TID carbidopa-levodopa 50-200 mg ER 1 tab PO QID cholecalciferol (vitamin D3) 50 mcg PO DAILY cyanocobalamin (vitamin B-12) 1,000 mcg PO DAILY gabapentin 300 mg PO BEDTIME lisinopril 40 mg PO DAILY mirtazapine 15 mg PO BEDTIME PRN 30 days omega 8-tdh-qom-fish oil 300 mg (120 mg- 180mg)-1,000 mg 1 cap PO QAM omeprazole 20 mg PO DAILY@0630 pramipexole 1 mg PO BID quetiapine 25 mg PO BID ropinirole 0.75 mg PO BEDTIME rosuvastatin 40 mg PO BEDTIME HPI HPI 3 MO F/U: Details: GI CLINIC VISIT for this 79-year-old Finnish-speaking male for FU evaluation of Dysphagia and Odynophagia with weight loss. ???CHRONIC ILLNESSES:?Hypertension, Hyperlipidemia, DMII, cerebral microvascular disease, allergic rhinitis, diverticulosis of large intestine without hemorrhage, chronic back pain, BMI 31.0-31.9 adult, degenerative disc disease, lumbar, latent TB ?TODAY'S VISIT ? [facility] Pt states that he has no good sleeping at night time. States that there are no GI concerns. difficulty swallowing on and off with solid and liquid. Pt was hospitalized at [facility] 05/04 to 05/06 with acute gastroenteritis. Unable to sleep during the night and does not feel hungry. Denies significant issues with dysphagia Had diarrhea x 1 day last week Now having regular BMs daily. Pt reports he is able to swallow food and denies coughing spells with food intake When he lays down at night, he has difficulty swallowing his saliva - sleeps on three pillows Drinks water and saliva passes down. ? Patient is accompanied by his son Notes improvement in dysphagia and has gained weight LLQ pain has resolved. Denies diarrhea or constipation Complains of LLQ pain for the past 3 days - woke up with abdominal pain Pain is 8/10 in intensity and like a cramp. No change in abdominal pain with eating and denies diarrhea, constipation, fever, chills or sweating. Has been taking Ibuprofen daily for the pain Had a normal BM yesterday afternoon without any blood. Eats small portions 3 times a day and eating in between meals. Has been doing good and complains of problems with his teeth and has trouble chewing the food. Has gained wt and swallowing has improved. Not taking Glucerna since he has not bought it. PAST VISIT: Unable to sleep last night since his leg was very itchy Not taking Omeprazole since he ran out of his prescription His SO gives it to him intermittently (from her own prescription) if he complains of indigestion after eating. She is requesting a new prescription for omeprazole - sent to patient's preferred pharmacy Feels a littel dizzy. ? Doing good, and is swallowing OK. Eating 3 meals a day and has gained 10 lbs. ?? ? I havent thrown up ? ? ? Weight gain of 7 lbs over the past year and states he weighs 146 lbs now. ? ? ? I am taking 2-3 cans of Ensure a day ? ? ? Recieved both doses of COVID vaccine - last dose on 01/01/21 (WEIGHED 156 LBS IN NOV, 2019 and 146 lbs?today LABS IN [facility]: 09/04/19 Normal CBC, chem panel and LFTs. ? IMAGING STUDIES: 11/14/19 MODIFIED BARIUM SWALLOW SHOWED: ? Retention in the vallecula with all media. ? Penetration in the larynx with liquids. No aspiration seen. ?2018 Gastric Emptying Study showed: ? No abnormal retention of solid food is present. Gastric emptying is ? more rapid than normal, but this is of uncertain clinical significance. ?09/[address] scan showed: ? GASTROINTESTINAL TRACT: There are scattered diverticuli are seen in ? descending, ascending and sigmoid colon without diverticulitis. There ? is no colonic distention. The small bowel loops are normal caliber. ? The appendix is not visualized well. There is haziness and the small ? lymph nodes in the right lower quadrant mesentery suggest a mesenteritis. ENDOSCOPIC STUDIES:? 04/28/21 EGD SHOWED: ESOPHAGUS: GE junction at 40 cms. No esophagitis or Espinosa.? ? Esophageal balloon dilation was performed with 19 and 20 mm CRE balloon x 60 seconds at each level STOMACH: Gastritis Biopsies showed: Gastric, antrum, biopsies: ? Antral and corpus mucosa with moderate chronic active gastritis and numerous Helicobacter pylori; negative for intestinal metaplasia, dysplasia, and carcinoma PFSH Medical History Dysphagia, pharyngoesophageal phase GERD (gastroesophageal reflux disease) Hx of cataract Hyperproteinemia JEROME (dyspnea on exertion) Dysphagia Multiple lung nodules Venous stasis dermatitis of both lower extremities Glaucoma Diverticular disease of colon Leg edema, right Insomnia Sprain of left rotator cuff capsule Restless leg syndrome Plantar fasciitis Eosinophil count raised Cerebrovascular disease Bilateral tinnitus Parkinson disease Latent tuberculosis Degenerative disc disease Back pain Diverticulosis Allergic rhinitis Cerebral microvascular disease Diabetes HLD (hyperlipidemia) HTN (hypertension) Surgical History Hx of colonoscopy (~06/2018) Social History Household Members: Spouse Housing: Apartment Do you presently have visiting nurse or other home services: No Alcohol intake: former Patient Tobacco Use Status: Former Tobacco user e-Cigarette/Vaping Use: Never Used Second Hand Smoke Exposure: No Advance Directives Date on File: 12/27/22 service: No Current occupational status: unemployed Current occupation: retired Review of Systems Const All systems reviewed & are unremarkable except as noted in HPI and below Physical Exam Vital Signs: Last Vital Signs Pulse 83 08/22/25 08:54 BP 129/60 08/22/25 08:54 BMI result Body Mass Index 25.8 Const General: no acute distress Nutritional Appearance: average body habitus Orientation/consciousness: patient oriented x3 Limitations: language barrier and ambulation with cane HEENT Head: Yes normal to inspection Ears: hearing grossly normal bilaterally Eyes Sclerae: sclerae normal Pupils: Equal, round and reactive pupils present Neck Neck: Yes normal visual inspection Chest Chest palpation & inspection: normal inspection of the chest Resp Effort & Inspection: normal respiratory effort Auscultation: clear to auscultation bilaterally Cardio Palpation: normal PMI Rate: regular rate Rhythm: regular rhythm Heart sounds: S1 normal heart sound present, S2 normal heart sound present and no murmurs GI Palpation (GI): Soft to palpation, nontender and No hepatosplenomegaly present Auscultation: normal bowel sounds Rectal Exam - Male: Yes deferred Skin General skin exam: no rashes or lesions noted Neuro General: patient oriented x3, gait normal and moves all extremities Cranial nerves: Yes Equal, round and reactive pupils present Psych Appearance: grossly normal Mental Status: mental status grossly normal Assessment & Plan Assessment & Plan (1) Dysphagia, pharyngoesophageal phase: Code(s): R13.14 - Dysphagia, pharyngoesophageal phase Category: Medical (2) Helicobacter pylori gastritis: Code(s): K29.70 - Gastritis, unspecified, without bleeding; B96.81 - Helicobacter pylori [H. pylori] as the cause of diseases classified elsewhere Category: Medical (3) Colon cancer screening: Comment: 06/2018 Colonoscopy was performed by Dr Gayle and showed severe diverticulosis in the sigmoid colon, internal and external hemorrhoids and no polyps. Repeat Colon in 10 yrs (due 06/2028) if patient remains in stable health Code(s): Z12.11 - Encounter for screening for malignant neoplasm of colon Category: Medical Plan 79 YM with Hypertension, Hyperlipidemia, DMII, cerebral microvascular disease, allergic rhinitis, diverticulosis of large intestine without hemorrhage, chronic back pain, BMI 31.0-31.9 adult, degenerative disc disease, lumbar, latent TB and Parkinson's disease. Patient was seen for evaluation of oropharyngeal dysphagia associated with intake of solids and liquids. He was diagnosed with Parkinson's disease 4-5 yrs ago. Dysphagia is likely due to neuromuscular involvement with Parkinson's disease. Modified barium swallow with speech pathologist was performed and findings as noted above. Patient states he has been following recommendations of speech pathology and taking Glucerna 1-2 times daily. Pt was prescribed antibiotics for H Pylori infection (amoxicillin and Levofloxacin x 14 days? - due to drug interaction with clarithromycin). Pt notes improvement in dysphagia and has gained weight. Patient was advised that if he develops recurrent wt loss, he may need PEG placement in the future for nutritional support. Pt was retreated for H Pylori with Pylera in 05/2022 since breath test for H pylori was positive. Prescription given for Glucerna 1 can daily 04/14/23 PT complains of LLQ pain x 3 days. Physical exam revealed LLQ tenderness. Pt advised to go to [facility] ED for evaluation with labs, UA and a CT scan (Pt discussed with Dr Gomez) ADDENDUM: Pt seen in the ER: 77-year-old male with left iliac crest discomfort that is been managed very well with his home medications, there are no symptoms to suggest intra-abdominal infection or urinary infection.? I reviewed the pelvis x-ray and agree with radiology's impression.? There is no evidence of acute pathology.? Patient is otherwise feeling well and will be discharged home to continue his home medications . 04/29/25 BARIUM SWALLOW SHOWED: Josue laryngeal aspiration on the very first oral swallow of thick barium. 05/04/[address] SCAN SHOWED: Distended proximal and mid small bowel with decompressed distal small bowel. Differential includes diffuse ileus, versus early or partial small bowel obstruction. 05/23/25 Pt was hospitalized at [facility] 05/04 to 05/06 with acute gastroenteritis. Unable to sleep during the night and does not feel hungry. Denies significant issues with dysphagia Advised to resume Mirtazepine at bedtime to help with sleep and appetite SChedule MBS with Speech Pathology 06/25/25 MBS SHOWED: Persistent laryngeal penetration without subglottic aspiration. Speech therapy report: Patient presents with mild to moderate oropharyngeal dysphagia, characterized by slowed mastication pattern with presence of top and bottom dentures, delayed AP transport, delayed pharyngeal swallow trigger, minimal laryngeal elevation and reduced airway protection due to partial epiglottic inversion and incomplete laryngeal vestibular closure. There was penetration seen on trials of thin liquid, with no subsequent aspiration. Significant vallecular retention, which effectively cleared with liquid wash. Therapy Recommendations: Recommend CHOPPED/ADVANCED (NDD3) diet for ease of mastication and to promote pharyngeal clearing, and THIN liquids, pills WHOLE in PUREE per patient preference. Patient is recommended 1 follow-up visit with a speech pathologist for further education on recommended strategies and aspiration precautions: -take one sip at a time -avoid the use of straws -ensure upright 90 degree position during PO intake and for at least 30 minutes afterwards -chew food well -moisten foods with sauces/gravies -alternate bites with sips of liquid The following compensatory strategies and/or therapeutic exercises will be part of the upcoming therapy/management plan: Liquid Wash Additional Swallow(s) per [employer] Manager Goals: ? The patient and/or family will participate in further education for swallowing goals. Recommendations of speech pathologist were reviewed with the patient and his - they confirmed that he is following their instructions. Renewed mirtazapine for sleep disturbance - patient and are unsure if patient has been taking this medication. If mirtazapine is not helpful, patient was advised to discuss issues regarding sleep with his PCP during his upcoming appointment next month FU in 6 months - scheduled 02/06/25 Medications: Refilled mirtazapine 15 mg PO BEDTIME PRN 30 tabs 2RF sleep disturbance 30 days G47.9 - Sleep disorder, unspecified Coding Level of Care Code Est Pt Level 4 (00006) Diagnoses Dysphagia, pharyngoesophageal phase R13.14 Helicobacter pylori gastritis K29.70; B96.81 Colon cancer screening Z12.11 Time Spent (min) 22
--- OUTSIDE RECORDS SUMMARY | 2025-08-22 09:43 | XMS_ITS | Encounter Summary ---
Author Organization [employer] Address [address] [place] [address] Care Team Providers Care Muff Winder Name Role Phone Chelo Smith MD Primary Care Provider + Bishop Jacobo PharmD Unavailable [phone] Reason for Visit * Reason Comments Med Refill Encounter Details Date Type Department Care Team (Late st Contact Info) Description 03/26/2024 Refill [facility] [address] [place], [place] [phone] Chelo Smith MD [address] [place], [place] [phone] Social History Tobacco Use Types Packs/Day Years [...] Care Team (Late st Contact Info) Description 10/01/2025 10:00 AM EST Office Visit [facility] [address] [place] [phone] Chelo Smith MD [address] [place] [phone] documented as of this encounter Goals Goal Patient Goal Type Associated Problems Recent Progress Patient-Stated? Author Blood Pressure < 150/90 Blood Pressure 138/84(2024 2:38 PM EDT) Bishop Byrd, Eladio Note: Per JNC-8 (Age>60 w/o hx of DM or CKD) documented as of this encounter Visit Diagnoses Not on filedocumented in this encounter Care Teams Muff Winder Relationship Specialty Start Date End Date Chelo Smith MD [address] [place] [address] [phone] PCP - General Family Medicine 12/30/20 Bishop Jacobo PharmD [address] [place] [phone] Pharmacist Internal Medicine 05/09/23 documented as of this encounter
--- OUTSIDE RECORDS SUMMARY | 2025-08-22 09:43 | XMS_ITS | Patient Health Record ---
Author Organization [facility] Address [address] [place] [address] Care Team Providers Care Route Relief Driver Name Role Phone Valeria Mcarthur M.D. Primary Care Provider Baldo Dial Unavailable [phone] Reason For Referral No Information Medications Medication [...] Problem Status W/U Status Risk Notes Problem Early satiety (928969220) Early satiety (R68.81) Active confirmed Problem Computed tomography result abnormal (852657728) Abnormal CT scan, colon (R93.3) Active confirmed Problem Computed tomography of abdomen abnormal (64263571900286 107) Abnormal CT scan, stomach (R93.3) Active confirmed Plan Of Treatment No Information Insurance Providers Payer Name Payer Address Payer Phone Subscriber Number Group Number Insured Name Patient Relationship to Insured Coverage Start Date Coverage End Date [facility] [address] [address] [place] [phone] [id number] PETAR JUNIOR Self - patient is the insured Medical (General) History Medical History History ICD Code Hyperlipidemia Cerebrovascular disease--right-sided fac ial weakness--resolved Allergic rhinitis Glaucoma OD Hypertension Back pain Negative colonoscopy with Dr. Soliz in 2008 Denies MS,DM,Lung disease,renal disease
--- OUTSIDE RECORDS SUMMARY | 2025-08-22 09:44 | XMS_ITS | Encounter Summary ---
Author Organization [employer] Address [address] [place] [address] Care Team Providers Care Nurse Discharge Name Role Phone Chelo Smith MD Primary Care Provider + Bishop Jacobo PharmD Unavailable [phone] Reason for Visit * Reason Comments Med Refill Encounter Details Date Type Department Care Team (Late st Contact Info) Description 01/21/2025 Refill [facility] [address] [place], [place] [phone] Chelo Smith MD [address] [place], [place] [phone] Social History Tobacco Use Types Packs/Day Years [...] Description 10/01/2025 10:00 AM EST Office Visit [facility] [address] [place] [phone] Chelo Smith MD [address] [place] [address] documented as of this encounter Goals Goal [...] documented as of this encounter Care Teams Nurse Discharge Relationship Specialty Start Date End Date Chelo Smith MD [address] [place] [address] PCP - General Family Medicine 12/30/20 Bishop Jacobo, EulogioD [address] [place] [address] Pharmacist Internal Medicine 05/09/23 documented as of this encounter
--- OUTSIDE RECORDS SUMMARY | 2025-08-22 09:44 | XMS_ITS | Encounter Summary ---
Author Organization [employer] Address [address] [place] [address] Care Team Providers Care Drive Man Name Role Phone Chelo Smith MD Primary Care Provider + Bishop Jacobo PharmD Unavailable [phone] Reason for Visit * Reason Comments Med Refill Encounter Details Date Type Department Care Team (Late st Contact Info) Description 05/20/2023 Refill [facility] [address] [place], [place] [phone] Bernice Chu, CAREER MANAGER [address] [place], [place] [phone] Social History Tobacco Use Types Packs/Day Years [...] Description 10/01/2025 10:00 AM EST Office Visit [facility] [address] [place], [place] [phone] Chelo Smith MD [address] [place] [phone] documented as of this encounter Goals Goal Patient Goal Type Associated Problems Recent Progress Patient-Stated? Author Blood Pressure < 150/90 Blood Pressure 138/84(2024 2:38 PM EDT) No Bishop Jacobo, Eladio Note: Per JNC-8 (Age>60 w/o hx of DM or CKD) documented as of this encounter Visit Diagnoses Not on filedocumented in this encounter Care Teams Drive Man Relationship Specialty Start Date End Date Chelo Smith MD [address] [place] [phone] PCP - General Family Medicine 12/30/20 Bishop Jacobo, PharmD [address] [place] [phone] Pharmacist Internal Medicine 05/09/23 documented as of this encounter
--- OUTSIDE RECORDS SUMMARY | 2025-08-22 09:44 | XMS_ITS | Encounter Summary ---
Author Organization [employer] Address [address] [place] [address] Care Team Providers Care Perpetual Inventory Clerk Name Role Phone Chelo Smith MD Primary Care Provider + Bishop Jacobo PharmD Unavailable [phone] Encounter Details Date Type Department Care Team (Late st Contact Info) Description 10/26/2022 Telephone [facility] [address] [place] [address] [phone] Chelo Smith MD [address] [place], [place] [phone] Social History Tobacco Use Types Packs/Day Years [...] Description 10/01/2025 10:00 AM EST Office Visit [facility] [address] [place], [place] [phone] Chelo Smith MD [address] [place] [address] documented as of this encounter Visit Diagnoses Not on filedocumented in this encounter Care Teams Perpetual Inventory Clerk Relationship Specialty Start Date End Date Chelo Smith MD [address] [place] [phone] PCP - General Family Medicine 12/30/20 Bishop Jacobo, EulogioD [address] [place] [address] [phone] Pharmacist Internal Medicine 05/09/23 documented as of this encounter
--- OUTSIDE RECORDS SUMMARY | 2025-08-22 09:44 | XMS_ITS | Encounter Summary ---
Author Organization [employer] Address [address] [place] [address] Care Team Providers Care Special Forces Warrant Officer Name Role Phone Chelo Smith MD Primary Care Provider + Bishop Jacobo PharmD Unavailable [phone] Reason for Visit * Reason Onset Date Comments call back 11/19/2022 Encounter Details Date Type Department Care Team ([facility] st Contact Info) Description 11/19/2022 Telephone [facility] [address] [place], [place] [phone] Chelo Smith MD [address] [place], [place] [phone] call back Social History Tobacco Use Types [...] 11/22/2022 10:12 AM EST Return call to [place] at [facility] (pt insurance), he stated recliner is a covered item but it will require a medical necessity letter and faxed over to [employer]. Are you ok with this? * Telephone Encounter - Cecy Ariza RN - 11/22/2022 9:51 AM EST TC returned to [place] at [facility], they report they received a call regarding recliner. * Telephone Encounter - Natanael Jo - 11/19/2022 4:22 PM EST Tc from [place] with [facility] returning call. [place] is requesting a call back Please contact [place] at [phone] documented in this encounter Plan of Treatment Upcoming Encounters Date Type Department Care Team (Late st Contact Info) Description 10/01/2025 10:00 AM EST Office Visit [facility] [address] [place] [phone] Chelo Smith MD [address] [place] [phone] documented as of this encounter Visit Diagnoses Not on filedocumented in this encounter Care Teams Special Forces Warrant Officer Relationship Specialty Start Date End Date Chelo Smith MD [address] [place] [phone] PCP - General Family Medicine 12/30/20 Bishop Jacobo, Eladio [address] [place] [phone] Pharmacist Internal Medicine 05/09/23 documented as of this encounter
--- OUTSIDE RECORDS SUMMARY | 2025-08-22 09:44 | XMS_ITS | Encounter Summary ---
Author Organization [employer] Address [address] [place] [address] Care Team Providers Care Superintendent Oil Field Drilling Name Role Phone Chelo Smith MD Primary Care Provider + Bishop Jacobo PharmD Unavailable [phone] Reason for Visit * Reason Comments Med Refill Encounter Details Date Type Department Care Team (Late st Contact Info) Description 09/02/2024 Refill [facility] [address] [place], [place] [phone] Chelo Smith MD [address] [place], [place] [phone] Restless legs Social History Tobacco Use Types [...] Description 10/01/2025 10:00 AM EST Office Visit [facility] [address] [place] [phone] Chelo Smith MD [address] [place] [address] documented as of this encounter Goals Goal [...] documented as of this encounter Care Teams Superintendent Oil Field Drilling Relationship Specialty Start Date End Date Chleo Smith MD [address] [place] [address] PCP - General Family Medicine 12/30/20 Bishop Jacobo PharmD [address] [place] [address] Pharmacist Internal Medicine 05/09/23 documented as of this encounter
--- OUTSIDE RECORDS SUMMARY | 2025-08-22 09:44 | XMS_ITS | Encounter Summary ---
Author Organization [employer] Address [address] [place] [address] Care Team Providers Care Music Executive Name Role Phone Chelo Smith MD Primary Care Provider + Bishop Jacobo PharmD Unavailable [phone] Reason for Visit * Reason Comments Med Refill Encounter Details Date Type Department Care Team (Late st Contact Info) Description 01/29/2025 Refill [facility] [address] [place], [place] [phone] Chelo Smith MD [address] [place], [place] [phone] Social History Tobacco Use Types Packs/Day Years [...] Description 10/01/2025 10:00 AM EST Office Visit [facility] [address] [place] [phone] Chelo Smith MD [address] [place] [address] documented as of this encounter Goals Goal [...] documented as of this encounter Care Teams Music Executive Relationship Specialty Start Date End Date Chelo Smith MD [address] [place] [address] PCP - General Family Medicine 12/30/20 Bishop Jacobo, EulogioD [address] [place] [address] Pharmacist Internal Medicine 05/09/23 documented as of this encounter
--- OUTSIDE RECORDS SUMMARY | 2025-08-22 09:44 | XMS_ITS | Encounter Summary ---
Author Organization [employer] Address [address] [place] [address] Care Team Providers Care Senior Manufacturing Test Engineer Name Role Phone Chelo Smith MD Primary Care Provider + Bishop Jacobo PharmD Unavailable [phone] Reason for Visit * Reason Comments Med Refill Encounter Details Date Type Department Care Team (Late st Contact Info) Description 08/12/2025 Refill [facility] MEDICINE [address] [place], [place] [phone] Chelo Smith MD [address] [place], [place] [phone] Social History Tobacco Use Types Packs/Day Years [...] Description 10/01/2025 10:00 AM EST Office Visit [facility] MEDICINE [address] [place] [phone] Chelo Smith MD [address] [place] [address] documented as of this encounter Goals Goal [...] documented as of this encounter Care Teams Senior Manufacturing Test Engineer Relationship Specialty Start Date End Date Chelo Smith MD [address] [place] [address] PCP - General Family Medicine 12/30/20 Bishop Jacobo, EulogioD [address] [place] [address] Pharmacist Internal Medicine 05/09/23 documented as of this encounter
--- OUTSIDE RECORDS SUMMARY | 2025-08-22 09:44 | XMS_ITS | Clinical Summary ---
Author Organization [employer] Address [address] [facility] [address] [place] [address] Care Team Providers Care Grant Coordinator Name Role Phone Chelo Smith MD Primary Care Provider + Bishop Jacobo PharmD Unavailable [phone] Allergies No known active allergies Medications acetaminophen (Tylenol 8 Hour) 650 MG ER tablet take 1-2 tablet by oral route every 8 hours as needed swallowing whole with water. Do not break, crush, dissolve and/or chew. 022 Active carbidopa-levodop a CR (Sinemet CR) 50-200 [...] TAKE 1 CAPSULE BY MOUTH AT BEDTIME 023 Active omeprazole (PriLOSEC) [address] capsuleIndication s:Gastroesophagea l reflux disease, unspecified whether esophagitis present TAKE 1 CAPSULE BY MOUTH EVERY DAY 30-60 MINUTES BEFORE A MEAL 90 capsule 1 023 Active amantadine (Symmetrel) 100 MG capsule Take 100 mg by mouth Once per day. 023 Active Blood Pressure kitIndications:HT N (hypertension), benign Use to measure blood pressure daily as directed. 1 kit 024 Active aspirin (Aspirin Low Dose) 81 MG EC tablet Take 1 tablet (81 mg) by mouth Once per day. 90 tablet 3 024 Active fluticasone (Flonase) 50 MCG/ACT nasal spray Administer 1 spray into each nostril Once per day. 16 g 025 Active mirtazapine (Remeron) 15 MG tabletIndications :Primary insomnia TAKE 1 TABLET BY MOUTH AT BEDTIME 30 tablet 3 025 Active pramipexole (Mirapex) 1 MG tablet Take 1 tablet by mouth 2 times daily. 025 Active lisinopril 40 MG tablet TAKE 1 TABLET BY MOUTH EVERY MORNING 90 tablet 1 025 Active omega-3 (Fish Oil) 1000 MG capsule TAKE 1 CAPSULE BY MOUTH EVERY MORNING 30 capsule 3 025 Active rosuvastatin (Crestor) 40 MG tabletIndications :Cerebrovascular disease,Mixed hyperlipidemia TAKE 1 TABLET BY MOUTH AT BEDTIME 90 tablet 3 025 Active QUEtiapine (SEROquel) 25 MG tablet Take 1 tablet (25 mg) by mouth 2 times daily. 60 tablet 3 025 Active rosuvastatin (Crestor) 40 MG tabletIndications :Cerebrovascular disease,Mixed hyperlipidemia TAKE 1 TABLET BY MOUTH AT BEDTIME 90 tablet 1 025 2024 Discontinued(R eorder (will not trigger notification to Pharmacy)) QUEtiapine (SEROquel) 25 MG tablet TAKE 1 TABLET BY MOUTH TWICE DAILY IN THE MORNING AND AT BEDTIME 60 tablet 3 025 2024 Discontinued(R eorder (will not trigger notification to Pharmacy)) omega-3 (Fish Oil) 1000 MG capsule TAKE 1 CAPSULE BY MOUTH EVERY MORNING 30 capsule 3 025 2024 Discontinued Active Problems Problem Noted Date Diagnosed Date Anxiety 05/30/2025 Assessment & Plan (05/30/2025 10:16 PM EDT): LOUIE 18 states after his brother he started feeling very anxious ,states feeling better now -Offered today BH harpreet , pt refuse for now Anemia 05/30/2025 Overview [...] well. Weakness 05/17/2025 Lung nodule 05/17/2025 Parkinsonism (CMS/HCC) 05/17/2025 Non-recurrent acute serous otitis media of [...] visit/w next set of labs Parkinson's disease ([facility]) 09/27/2022 Assessment & Plan (05/30/2025 10:17 PM [...] at home. His son is his primary home care consultant. Continue Sinamet 25/100 x 2 tablets 4 [...] Encounters Date Type Department Care Team Description 08/12/2025 Refill [facility] MEDICINE [address] [place] [address] Chelo Smith MD 08/12/2025 Refill [facility] MED[facility]INE [address] [place] [phone] Chelo Smith MD 08/05/2025 Refill [facility] [address] [place] [address] Chelo Smith MD Cerebrovascular disease; Mixed hyperlipidemia 08/04/2025 Refill [facility] [address] [place] [address] Chelo Smith MD Cerebrovascular disease; Mixed hyperlipidemia 08/01/2025 Telephone [facility] [address] [place] [phone] Chelo Smith MD September06/10/2025 2:00 PM EDT Office Visit [address] [address] Chelo Smith MD HTN (hypertension), benign (Primary Dx); 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, with psychotic disturbance (CMS/HCC); Anemia, unspecified type; Eosinophil count raised; Overweight; Dietary counseling; Exercise counseling 06/10/2025 Travel 06/07/2025 Telephone [facility] [address] [place] [phone] Chelo Smith MD Chart Prep 06/06/2025 Refill [facility] [address] [place] [phone] Chelo Smith MD 05/31/2025 Patient Outreach [address] [address] Chelo Smith MD Pre-visit Planning (SDOH screening completed on 11/22/2024) 05/30/2025 10:00 AM EDT Office Visit [facility] [address] [place] [phone] Shirley Cuevas MD VOLODYMYR (acute kidney injury) (CMS/HCC) (Primary Dx); Anxiety; Parkinson's disease with dyskinesia and fluctuating manifestations (CMS/HCC); Anemia, unspecified type 05/30/2025 Results Follow-Up [address] [address] Shirley Cuevas MD CBC auto differential, Iron And Total Iron Binding Capacity, Ferritin, Additional followed-up results: 2 05/30/2025 Orders Only [facility] [address] [facility] [place] [address] Shirley Cuevas MD Anemia, unspecified type (Primary Dx) 05/30/2025 Telephone [facility] MED[facility] [address] [place] [address] Shirley Cuevas MD Durable Medical Equipment 05/30/2025 Travel from Last 3 Months Immunizations Immunization Administration [...] your housing situation today? I have radha sydnee 06/20/[address] you li [...] 06/10/2025 2:38 PM EDT Plan of Treatment Upcoming Encounters Date Type Department Care Team (Late st Contact Info) Description 10/01/2025 10:00 AM EST Office Visit [facility] MED[facility] [address] [place], [place] [phone] Chelo Smith MD [address] [place], [place] [phone] Health Maintenance Due Date Last Done Comments Dental Prophylaxis 1945 Dental X-Ray: Bitewings 1945 Dental Oral Exam 12/18/2022 06/16/2022, 05/04/2018 COVID-19 Vaccine ( season) 2025 10/27/2023, 10/28/2022, 02/16/2022, Additional history exists Influenza Vaccine (#1) 2025 , 07/27/2023, 07/09/2022, Additional history exists Dental X-Ray: Full Mouth 07/21/2025 07/20/2022, 04/23 Alcohol/Substance Use Screening 08/23/2025 08/23/2024 Depression Screening 08/23/2025 08/23/2024, 08/23/20 SDOH Screening 11/22/2025 11/22/2024 Tobacco Screening 06/10/2026 [...] Pressure 138/84(2024 2:38 PM EDT) Bishop Byrd, PharmD Note: Per JNC-8 (Age>60 w/o hx of DM or CKD) Procedures Procedure Name Priority Date/Time Associated Diagnosis Comments FL BARIUM SWALLOW MODIFIED Routine 06/25/2025 2:40 PM EDT STRONGYLOIDES AB IGG Routine 06/10/2025 3:06 PM [...] PM EDT VOLODYMYR (acute kidney injury) (CMS/HCC) HEPATITIS PANEL, GENERAL Routine 07/11/2024 8:24 AM EDT HTN (hypertension), benign JEROME (dyspnea on exertion) LIPID PANEL, STANDARD Routine 07/11/2024 8:24 AM EDT HTN (hypertension), benign PANORAMIC RADIOGRAPHIC IMAGE Routine 07/20/2022 12:00 AM EDT PERIODIC ORAL EVALUATION - ESTABLISHED PATIENT Routine 06/16/2022 12:00 AM EDT from Last 3 Months or Most Recently Relevant to Health Maintenance Results * FL BARIUM SWALLOW MODIFIED (06/25/2025 2:40 PM EDT) Anatomical Region Laterality Modality Head, Neck Radiographic Astrid ging 06/25/2025 2:40 PM EDT Narrative 06/25/2025 3:23 PM EDT [place] [id number] Fluoroscopy Report Signed Patient: Yonatan Jacobo MR#: [id number] : 1945 Acct:[id number] Age/Sex: 79 / M ADM Date: 06/25/25 Loc: HO.DELVINAY Attending Dr: Albaro Russo MD Ordering Physician: Albaro Russo MD Date of Service: 06/25/25 Procedure(s): FL Modified Barium Swallow Accession Number(s): [id number] cc: Chelo Smith MD; Albaro Russo MD Reason for Exam: R13.14 - Dysphagia, pharyngoesophageal phase EXAMINATION: Modified Barium Swallow CLINICAL INFORMATION: Dysphagia COMPARISON: None TECHNIQUE: Modified barium swallow was performed under lateral fluoroscopy with patient in standing position. Barium mixed with solids and liquids of different consistencies was administered by the speech pathologist. Examination was recorded in the fluoroscopy suite. FINDINGS: Patient was given multiple consistencies. There was persistent laryngeal penetration without subglottic aspiration. There was persistent vallecular pooling of residues. FLUOROSCOPY TIME: 2 minutes and 2 seconds Number of Spot Images: N/A DOSE AREA PRODUCT: 1019 uGy-m2 (microgray-meter squared) FL/FL Modified Barium Swallow IMPRESSION: Persistent laryngeal penetration without subglottic aspiration. Please refer to the full speech therapy report to follow for further detail. Electronically signed by: Chito Woo MD 06/25/2025 03:20 PM EDT RP Dictated By: Chito Woo MD Signed By: <Electronically signed by Chito Woo MD in OV> 06/25/25 1520 DD/ 1440 TD/TT: 06/25/25 1450 Inspector [facility] Care Facilities: Procedure Note Donotuseinterpreter, Image - 06/25/2025 [place] [address] Fluoroscopy Report Signed Patient: Yonatan Jacobo FMR#: [id number] : 5Acct:[id number] Age/Sex: 79 / MADM Date: 06/25/25 Loc: HO.XRAY Attending Dr: Albaro Russo MD Ordering Physician: Albaro Russo MD Date of Service: 06/25/25 Procedure(s): FL Modified Barium Swallow Accession Number(s): [id number] cc: Chelo Smith MD; Albaro Russo MD Reason for Exam: R13.14 - Dysphagia, pharyngoesophageal phase EXAMINATION: Modified Barium Swallow CLINICAL INFORMATION: Dysphagia COMPARISON: None TECHNIQUE: Modified barium swallow was performed under lateral fluoroscopy with patient in standing position. Barium mixed with solids and liquids of different consistencies was administered by the speech pathologist. Examination was recorded in the fluoroscopy suite. FINDINGS: Patient was given multiple consistencies. There was persistent laryngeal penetration without subglottic aspiration. There was persistent vallecular pooling of residues. FLUOROSCOPY TIME: 2 minutes and 2 seconds Number of Spot Images: N/A DOSE AREA PRODUCT: 1019 uGy-m2 (microgray-meter squared) FL/FL Modified Barium Swallow IMPRESSION: Persistent laryngeal penetration without subglottic aspiration. Please refer to the full speech therapy report to follow for further detail. Electronically signed by: Chito Woo MD 06/25/2025 03:20 PM EDT Dictated By: Chito Woo MD Signed By: <Electronically signed by Chito Woo MD in OV> 06/25/25 1520 DD/ 1440 TD/TT: 06/25/25 1450 Inspector Health Care Facilities: [facility] External Provider IMG FLU OROSCOPY PROCEDURES Final Result * Strongyloides Antibody (IgG) (06/10/2025 3:06 PM EDT) Strongyloides Antibody IgG NEGATIVE [facility] Comment:REFERENCE RANGE: NEG ATIVEStrongyloides stercoralis is a parasiticNematode found in tropical and subtropicalregions. Because of low larval densities infeces, stool examination is a relativelyinsensitive diagnostic test; antibody detectionoffers increased sensitivity. Patients withlatent infections who are immunosuppressed orreceiving immunosuppressive therapy are at riskof life- threatening hyperinfection. Significantcrossreactivity may be observed in otherhelminth infections.THIS TEST WAS PERFORMED AT:[employer] [id number] [place] [id number] THORPE MD,PHD,MARTIN Blood Venous blood specimen / Unknown 06/10/2025 3:06 PM EDT 06/10/2025 4:35 PM EDT Chelo Smith MD LAB BLOOD ORDERABLES Fin al Result [facility] [address] [place], [place] [phone] * (ABNORMAL) CBC auto differential (06/10/2025 3:06 PM EDT) Only the most recent of2 resultswithin the time period is included. White Blood Count 9.1 4.8 - 10.8 X10*3/uL [facility] Red Blood Count 4.52(L) 4.60 - 5.80 X10*6/uL [facility] Hemoglobin 12.8(L) 14.0 - 18.0 g/dl [facility] Hematocrit 40.0(L) 42.0 - 52.0 % [facility] Mean Corpuscular Volume 88.5 80.0 - 98.0 fL [facility] Mean Corpuscular Hemoglobin 28.3 27.0 - 33.0 pg [facility] Mean Corpuscular HGB Conc 32.0 31.0 - 36.0 g/dl [facility] Red Cell Distribution Width 14.5 11.0 - 16.0 % [facility] Platelet Count 179 160 - 400 X10*3/uL [facility] Mean Platelet Volume 10.7 9.4 - 12.4 fL [facility] Neutrophils Percent Auto 59.9 45 - 73 % [facility] Imm Gran Pct Auto 0.1 0.0 - 0.4 % [facility] Lymphocytes Percent Auto 23.7 20 - 40 % [facility] Monocytes Percent Auto 8.9 2 - 11 % [facility] Eosinophils Percent Auto 6.7(H) 0 - 4 % [facility] Basophils Percent Auto 0.7 0 - 2 % [facility] NRBC Pct Auto 0.0 0.0 - 0.2 /100WBC [facility] Neutrophils Absolute Auto 5.5 2.0 - 8.3 x10*3/uL [facility] Imm Gran Abs Auto 0.01 0.00 - 0.03 X10*3/uL [facility] Lymphocytes Absolute Auto 2.2 1.2 - 4.9 X10*3/uL [facility] Monocytes Absolute Auto 0.8 0.1 - 1.2 X10*3/uL [facility] Eosinophils Absolute Auto 0.6(H) 0.0 - 0.4 X10*3/uL [facility] Basophils Absolute Auto 0.1 0.0 - 0.2 X10*3/uL [facility] NRBC Abs Auto 0.000 0.0 - 0.012 X10*3/uL [facility] Blood Venous blood specimen / Unknown 06/10/2025 3:06 PM EDT 06/10/2025 4:35 PM EDT Chelo Smith MD LAB BLOOD ORDERABLES Fin al Result Performing Organization Address City/[facility]/ZIP Co de Phone Number [facility] [address] [place] [phone] * Ferritin (06/10/2025 3:06 PM EDT) Only the most recent of2 resultswithin the time period is included. Ferritin 208 20 - 250 ng/mL [facility] Blood Venous blood specimen / Unknown 06/10/2025 3:06 PM EDT 06/10/2025 4:35 PM EDT Chelo Smith MD LAB BLOOD ORDERABLES Fin al Result Performing Organization Address City/[facility]/ZIP Co de Phone Number [facility] [address] [place] [phone] * TSH with Reflex to Free T4 (05/30/2025 12:16 PM EDT) TSH reflex Free T4 1.13 0.32 - 4.0 uIU/mL [facility] Blood 05/30/2025 12:1 6 PM EDT 05/30/2025 4:10 PM EDT Shirley Matias MD LAB BLOOD ORDERAB LES Final Result Performing Organization Address [facility]/ZIP Co de Phone Number [facility] [address] [place] [phone] * Iron And Total Iron Binding Capacity (05/30/2025 12:16 PM EDT) Iron 75 45 - 160 mcg/dL [facility] Total Iron Binding Capacity 277 228 - 428 mcg/dL [facility] Percent Iron Saturation 27 15 - 50 % [facility] Unsaturated Iron Binding 202 ug/dL [facility] Blood Venous blood specimen / Unknown 05/30/2025 12:16 PM EDT 05/30/2025 4:10 PM EDT us Shirley Matias MD LAB BLOOD ORDERAB LES Final Result Performing Organization Address [facility] Co de Phone Number [facility] [address] [place] [phone] * (ABNORMAL) Comprehensive Metabolic Panel (05/30/2025 12:16 PM EDT) Pathologist [facility] Sodium 143 135 - 145 mmol/L [facility] Potassium 4.5 3.3 - 5.1 mmol/L [facility] Chloride 106 96 - 108 mmol/L [facility] Carbon Dioxide 28 22 - 29 mmol/L [facility] Anion Gap 14 12 - 20 [facility] Urea Nitrogen (BUN) 28(H) 9 - 16 mg/dL [facility] Creatinine, Serum 1.44(H) 0.5 - 1.4 mg/dL [facility] Estimated Glomerular Filt Rate 47 [facility] Comment:Chronic Kidney Disea se: Estimated GFR < 60 mL/min/[id number] Kidney Disease: Estimated GFR < 15 mL/min/1.73m2 Glucose 96 60 - 115 mg/dL [facility] Calcium 9.3 8.4 - 10.2 mg/dL [facility] Bilirubin, Total 0.3 0.0 - 1.0 mg/dL [facility] Aspartate Amino Transferase 42(H) 5 - 37 U/L [facility] Alanine Aminotransferase 14 0 - 40 U/L [facility] Total Protein 7.5 6.5 - 8.0 g/dL [facility] Albumin Level 4.2 3.5 - 5.0 g/dL [facility] Alkaline Phosphatase 99 39 - 117 U/L [facility] Blood Venous blood specimen / Unknown 05/30/2025 12:16 PM EDT 05/30/2025 4:10 PM EDT us Shirley Matias MD LAB BLOOD ORDERAB LES Final Result Performing Organization Address [facility] Phone Number [facility] [address] [place] [phone] * Hepatitis Panel, General (07/11/2024 8:24 AM EDT) Hepatitis A IgM Nonreactive Nonreactive [facility] Comment:IgM antibodies to [place] V not detected; does not exclude earlyacute or recovered HAV infection. ~Hepatitis B Surface Antibody NONREACTIVE Nonreactive [facility] Comment:Nonreactive: < 8.00 mIU/mL Hepatitis B Core Antibody Nonreactive Nonreactive [facility] Hepatitis C Antibody Nonreactive Nonreactive [facility] Comment:Antibodies to HCV no t detected; does not exclude early acuteHCV infection. Hepatitis B Surface Ag Negative Negative [facility] Blood 07/11/2024 8:24 AM EDT 07/11/2024 8:24 AM EDT Chelo Smith MD LAB BLOOD ORDERABLES Fin al Result Performing Organization Address [facility] de Phone Number [facility] [address] [place] [phone] * Lipid Panel, Standard (07/11/2024 8:24 AM EDT) Triglycerides 94 <150 mg/dL [facility] Comment:Desirable Triglyceri de: less than 150 mg/dLBorderline High Triglyceride 150-199 mg/dLHigh Triglyceride: 200-499 mg/dLVery High Triglyceride: greater than or equal to 5OO mg/dL Cholesterol 143 <200 mg/dL [facility] Comment:Desirable Cholestero l: less than 200 mg/dLBorderline High Cholesterol: 200-239 mg/dLHigh Cholesterol: greater than 239 mg/dL LDL Cholesterol Calculated 47 <100 mg/dL [facility] Comment:Desirable LDL: less than 100 mg/dLNear Optimal/Above Optimal LDL: 110- 129 mg/dLBorderline High LDL: 130-159 mg/dLHigh LDL: 160-189 mg/dLVery High LDL: greater than or equal to 190 mg/dL HDL Cholesterol 78 >40 mg/dL [facility] Comment:Desirable HDL: great er than 40 mg/dL Note: This HDL assay may give artificially low results in patients with liver disease. 07/11/2024 8:24 AM EDT 07/11/2024 8:24 AM EDT us Chelo Smith MD LAB BLOOD ORDERABLES Fin al Result [facility] [address] [place], [place] [phone] from Last 3 Months or Most Recently Relevant to Health Maintenance Insurance [facility] Care Teams Grant Coordinator Relationship Specialty Start Date End Date Chelo Smith MD [address] [place] [address] PCP - General Family Medicine 12/30/20 Bishop Jacobo, PharmD [address] [place] [address] Pharmacist Internal Medicine 05/09/23
== END 2025-08-22 10:36 | disposition home or self-care (01) ==
LOC: HO.HGI 08:50
PROVIDERS: PCP Internal Medicine; Visit Provider Internal Medicine Gastroenterology
DX: Z01.818 Encounter for other preprocedural examination (principal); Z12.11 Encounter for screening for malignant neoplasm of colon; R13.14 Dysphagia, pharyngoesophageal phase; K29.70 Gastritis, unspecified, without bleeding; B96.81 Helicobacter pylori [H. pylori] as the cause of diseases classified elsewhere
CPT/HCPCS: 99213

== ENCOUNTER → 2025-08-22 08:50 | Outpatient (BNVA) | payer OTHER, SELFPAY | PROVIDERS: PCP Internal Medicine; Visit Provider Internal Medicine Gastroenterology | DX: R13.14 Dysphagia, pharyngoesophageal phase (principal); Z87.19 Personal history of other diseases of the digestive system; Z86.19 Personal history of other infectious and parasitic diseases | CPT/HCPCS: 99212 ==